=== PATIENT | female | born 1950 | race Caucasian/White ===

== ENCOUNTER 2020-02-07 09:48 | Outpatient (REF) | payer MEDICARE, SELFPAY | END 2020-02-07 09:49 | disposition home or self-care (01) | LOC: HO.LNP 09:48 | PROVIDERS: Visit Provider Internal Medicine | DX: R10.13 Epigastric pain (principal) | CPT/HCPCS: 87338 ==

== ENCOUNTER 2020-04-23 10:06 | Outpatient (REF) | payer MEDICARE, SELFPAY ==
[2020-04-23 11:23] LABS: Hematocrit 43.2 % (37-47); Hemoglobin 13.9 g/dl (12.0-16.0); Mean Corpuscular HGB Conc 32.2 g/dl (31.0-35.0); Mean Corpuscular Hemoglobin 29.8 pg (27.0-33.0); Mean Corpuscular Volume 92.7 fL (80-98); Mean Platelet Volume 9.7 fL (9.4-12.3); Platelet Count 329 X10*3/uL (160-400); Red Blood Count 4.66 X10*6/uL (4.20-5.50); White Blood Count 9.3 X10*3/uL (4.8-10.8)
[2020-04-23 11:30] LABS: Estimated Average Glucose 97 mg/dL
[2020-04-23 12:02] LABS: Thyroid Stimulating Hormone 3.07 uIU/mL (0.32-4.0)
[2020-04-23 12:05] LABS: Alanine Aminotransferase 21 U/L (0-31); Albumin Level 4.8 g/dL (3.5-5.0); Alkaline Phosphatase 72 U/L (39-117); Anion Gap 18 (12-20); Aspartate Amino Transferase 17 U/L (5-31); Bilirubin Direct 0.2 mg/dL (0.0-0.5); Bilirubin Total 0.4 mg/dL (0.0-1.0); Blood Urea Nitrogen 17 mg/dL (9-16); Calcium 10.1 mg/dL (8.4-10.2); Carbon Dioxide 24 mmol/L (22-29); Chloride 102 mmol/L (96-108); Cholesterol 243 mg/dL; Estimated Glomerular Filt Rate > 60; Glucose Random 108 mg/dL (60-115); HDL Cholesterol 80 mg/dL; LDL Cholesterol Calculated 140 mg/dl; Potassium 3.9 mmol/l (3.3-5.1); Sodium 140 mmol/L (135-145); Total Protein 7.8 g/dL (6.5-8.0); Triglycerides 117 mg/dL
== END 2020-04-23 10:07 | disposition home or self-care (01) ==
LOC: HO.HMGCLDS 10:06
PROVIDERS: PCP Internal Medicine; Visit Provider Internal Medicine
DX: E03.9 Hypothyroidism, unspecified (principal); R10.9 Unspecified abdominal pain
CPT/HCPCS: 36415; 80048; 80061; 80076; 83036; 84443; 85027

== ENCOUNTER 2020-05-21 14:00 | Outpatient (REF) | payer MEDICARE, SELFPAY ==
--- NOTE | 2020-05-21 14:04 | XR_ITS ---
EXAMINATION: XR RIBS, BILATERAL CLINICAL INFORMATION: Pleurodynia COMPARISON: 03/18/2019 TECHNIQUE: 3 views of the bilateral ribs were obtained. FINDINGS: Lungs are clear. No consolidation, pneumothorax, or pleural effusion. The cardiomediastinal silhouette and pulmonary vasculature are normal. Osseous structures are unremarkable. Ribs are intact. No fractures are identified. XR/XR ribs BI 3V IMPRESSION: Clear lungs. No focal rib abnormality.
== END 2020-05-21 14:01 | disposition home or self-care (01) ==
LOC: HO.HMGCX 14:00
PROVIDERS: PCP Internal Medicine; Visit Provider Internal Medicine
DX: R07.81 Pleurodynia (principal)
CPT/HCPCS: 71110

== ENCOUNTER → 2020-09-14 11:18 | Outpatient (BNVA) | payer MEDICARE, SELFPAY | PROVIDERS: PCP Internal Medicine; Visit Provider Nurse Practitioner Family | DX: M47.816 Spondylosis without myelopathy or radiculopathy, lumbar region (principal); M53.3 Sacrococcygeal disorders, not elsewhere classified | CPT/HCPCS: 99212 ==

== ENCOUNTER → 2020-09-16 14:28 | Outpatient (BNVA) | payer MEDICARE, SELFPAY | PROVIDERS: PCP Internal Medicine; Visit Provider Nurse Practitioner Gerontology | DX: E03.9 Hypothyroidism, unspecified (principal) | CPT/HCPCS: Q3014 ==

== ENCOUNTER 2020-09-17 10:05 | Outpatient (REF) | payer MEDICARE, SELFPAY ==
[2020-09-17 11:57] LABS: Free T4 (Free Thyroxine) 1.34 ng/dL (0.71-1.85); Thyroid Stimulating Hormone 8.82 uIU/mL (0.32-4.0)
== END 2020-09-17 10:06 | disposition home or self-care (01) ==
LOC: HO.HMGCLDS 10:05
PROVIDERS: PCP Internal Medicine; Visit Provider Nurse Practitioner Gerontology
DX: E03.9 Hypothyroidism, unspecified (principal)
CPT/HCPCS: 36415; 84439; 84443

== ENCOUNTER 2020-11-23 09:57 | Outpatient (REF) | payer MEDICARE, SELFPAY ==
[2020-11-23 12:37] LABS: Erythrocyte Sedimentation Rate 8 MM/HR (0-20)
== END 2020-11-23 09:58 | disposition home or self-care (01) ==
LOC: HO.LAB 09:57
PROVIDERS: PCP Internal Medicine; Visit Provider Psychiatry & Neurology Neurology
DX: M26.69 Other specified disorders of temporomandibular joint (principal); G44.209 Tension-type headache, unspecified, not intractable
CPT/HCPCS: 36415; 85652

== ENCOUNTER 2020-11-24 10:28 | Outpatient (REF) | payer MEDICARE, SELFPAY ==
--- NOTE | ~2020-11-24 | MM_ITS ---
EXAMINATION: MM SCREENING DIGITAL BREAST TOMOSYNTHESIS, BILATERAL CLINICAL INFORMATION: Screening. Asymptomatic. The lifetime risk of breast cancer based on the Tyrer-Cuzick Model is 3.1%. COMPARISON: Mammography: October 12, 2019 and studies dating back to June 14, 2013 TECHNIQUE: Digital breast tomosynthesis is performed in both the craniocaudal and mediolateral oblique views along with computer-aided detection (CAD). Synthesized 2D images are generated from the tomosynthesis. FINDINGS: The breasts are heterogeneously dense, which may obscure small masses (ACR BI-RADS breast composition Category c). There are no significant masses, abnormal calcifications, or other abnormalities. MM/MM tomosynthesis screening BI IMPRESSION: There are no significant changes from prior study. ASSESSMENT: BI-RADS 1: Negative RECOMMENDATION: Routine annual mammography screening. This patient's information was entered into a reminder system with a target due date for their next mammogram.
== END 2020-11-24 10:29 | disposition home or self-care (01) ==
LOC: HO.MAMMO 10:28
PROVIDERS: PCP Internal Medicine; Visit Provider Internal Medicine
DX: Z12.31 Encounter for screening mammogram for malignant neoplasm of breast (principal)
CPT/HCPCS: 77063; 77067

== ENCOUNTER 2020-11-26 09:19 | Outpatient (REF) | payer MEDICARE, SELFPAY ==
[2020-11-26 12:16] LABS: Free T4 (Free Thyroxine) 1.48 ng/dL (0.71-1.85); Thyroid Stimulating Hormone 2.71 uIU/mL (0.32-4.0)
== END 2020-11-26 09:20 | disposition home or self-care (01) ==
LOC: HO.HMGCLDS 09:19
PROVIDERS: PCP Internal Medicine; Visit Provider Nurse Practitioner Gerontology
DX: E03.9 Hypothyroidism, unspecified (principal)
CPT/HCPCS: 36415; 84439; 84443

== ENCOUNTER 2020-12-08 10:26 | Outpatient (REF) | payer MEDICARE, SELFPAY ==
[2020-12-08 11:37] LABS: Eosinophils Absolute Auto 0.1 X10*3/uL (0.0-0.4); Eosinophils Percent Auto 0.5 % (0-4); Hematocrit 42.5 % (37-47); Imm Gran Pct Auto 0.7 % (0.0-0.4); MANUAL DIFF FLAG SCAN; PLT CLUMP 1; Red Cell Distribution Width 12.9 % (11.0-16.0); SCAN SMEAR FLAG 1
[2020-12-08 11:39] LABS: Basophils Absolute Auto 0.1 X10*3/uL (0.0-0.2); Basophils Percent Auto 0.6 % (0-2); Imm Gran Abs Auto 0.07 X10*3/uL (0.00-0.03); Lymphocytes Absolute Auto 2.3 X10*3/uL (1.2-4.9); Lymphocytes Percent Auto 21.5 % (20-40); Mean Corpuscular HGB Conc 32.9 g/dl (31.0-35.0); Mean Corpuscular Hemoglobin 30.6 pg (27.0-33.0); Monocytes Absolute Auto 0.5 X10*3/uL (0.1-1.2); Monocytes Percent Auto 4.7 % (2-11); Neutrophils Absolute Auto 7.6 X10*3/uL (2.0-8.3); Platelet Count 282 X10*3/uL (160-400); Red Blood Count 4.57 X10*6/uL (4.20-5.50); White Blood Count 10.5 X10*3/uL (4.8-10.8)
[2020-12-08 11:59] LABS: Alanine Aminotransferase 30 U/L (0-31); Anion Gap 14 (12-20); Aspartate Amino Transferase 22 U/L (5-31); Blood Urea Nitrogen 10 mg/dL (9-16); Carbon Dioxide 27 mmol/L (22-29); Chloride 103 mmol/L (96-108); Cholesterol 238 mg/dL; Estimated Glomerular Filt Rate > 60; HDL Cholesterol 83 mg/dL; LDL Cholesterol Calculated 122 mg/dl; Magnesium 2.2 mg/dL (1.6-2.6); Potassium 4.4 mmol/L (3.3-5.1); Sodium 140 mmol/L (135-145); Triglycerides 169 mg/dL
[2020-12-08 12:08] LABS: SLIDE REVIEW VERIFIED; Vitamin D 25-OH Total 28.9 ng/mL (>30)
[2020-12-08 14:02] LABS: Folate > 20.0 ng/mL (> or = 4.0); Vitamin B12 991 pg/mL (200-900)
== END 2020-12-08 10:27 | disposition home or self-care (01) ==
LOC: HO.HMGCLDS 10:26
PROVIDERS: PCP Internal Medicine; Visit Provider Internal Medicine Cardiovascular Disease
DX: E78.00 Pure hypercholesterolemia, unspecified (principal); R53.83 Other fatigue; I49.3 Ventricular premature depolarization
CPT/HCPCS: 36415; 80051; 80061; 82306; 82565; 82607; 82746; 83735; 84450; 84460; 84520; 85025

== ENCOUNTER 2021-01-13 07:36 | Outpatient (REF) | payer MEDICARE, SELFPAY ==
[2021-01-13 11:21] LABS: MANUAL DIFF FLAG NO
[2021-01-13 11:32] LABS: Basophils Absolute Auto 0.1 X10*3/uL (0.0-0.2); Basophils Percent Auto 0.9 % (0-2); Eosinophils Absolute Auto 0.1 X10*3/uL (0.0-0.4); Eosinophils Percent Auto 2.2 % (0-4); Hematocrit 40.8 % (37-47); Hemoglobin 13.2 g/dl (12.0-16.0); Imm Gran Abs Auto 0.04 X10*3/uL (0.00-0.03); Imm Gran Pct Auto 0.6 % (0.0-0.4); Lymphocytes Absolute Auto 2.3 X10*3/uL (1.2-4.9); Mean Corpuscular HGB Conc 32.4 g/dl (31.0-35.0); Mean Corpuscular Hemoglobin 30.3 pg (27.0-33.0); Mean Corpuscular Volume 93.6 fL (80-98); Mean Platelet Volume 10.1 fL (9.4-12.3); Monocytes Absolute Auto 0.5 X10*3/uL (0.1-1.2); Monocytes Percent Auto 7.4 % (2-11); Neutrophils Absolute Auto 3.5 X10*3/uL (2.0-8.3); Neutrophils Percent Auto 53.9 % (45-73); Platelet Count 320 X10*3/uL (160-400); Red Blood Count 4.36 X10*6/uL (4.20-5.50); Red Cell Distribution Width 13.1 % (11.0-16.0); White Blood Count 6.5 X10*3/uL (4.8-10.8)
[2021-01-13 11:54] LABS: Anion Gap 14 (12-20); Blood Urea Nitrogen 13 mg/dL (9-16); Calcium 9.8 mg/dL (8.4-10.2); Carbon Dioxide 25 mmol/L (22-29); Chloride 104 mmol/L (96-108); Estimated Glomerular Filt Rate > 60; Glucose Fasting 90 mg/dL (60-99); Potassium 4.5 mmol/L (3.3-5.1); Sodium 138 mmol/L (135-145)
== END 2021-01-13 07:37 | disposition home or self-care (01) ==
LOC: HO.HMGCLDS 07:36
PROVIDERS: PCP Internal Medicine; Visit Provider Internal Medicine
DX: R10.9 Unspecified abdominal pain (principal); R11.0 Nausea; I10 Essential (primary) hypertension
CPT/HCPCS: 36415; 80048; 85025

== ENCOUNTER 2021-01-19 08:19 | Outpatient (REF) | payer MEDICARE, SELFPAY ==
--- NOTE | ~2021-01-19 | CT_ITS ---
EXAMINATION: CT ABDOMEN AND PELVIS WITH CONTRAST CLINICAL INFORMATION: Abdominal pain COMPARISON: Previous CT of the abdomen and pelvis October 2018 TECHNIQUE: Multidetector volumetric images were obtained from the superior aspect of the liver through the pubic symphysis following administration 85 mL of Omnipaque 350 intravenous contrast. Sagittal and coronal reformatted images were obtained on the technologist's workstation. Oral contrast: Yes This CT examination was performed using dose optimization techniques as appropriate, variously including the following: *Automated exposure control *Adjustment of mA and/or kV according to patient size (this includes techniques or standardized protocols for targeted exams where dose is matched to indication/reason for exam; i.e. extremities or head) *Use of iterative reconstruction technique DLP: 442 mGy-cm FINDINGS: LUNG BASES: The visualized lung bases are unremarkable. LIVER, GALLBLADDER, AND BILIARY TREE: The liver is normal in size, shape, and attenuation. No focal hepatic lesion or biliary ductal dilatation is present. The gallbladder has been removed. PANCREAS: Unremarkable. SPLEEN: Unremarkable. ADRENAL GLANDS: Unremarkable. KIDNEYS AND URETERS: There are small left renal peripelvic cysts. There is a 5 mm calcification in the mid left kidney with lucent center. Differential would include a cyst with wall calcification and small aneurysm. This is unchanged from old exams. The kidneys are otherwise unremarkable. BLADDER: Unremarkable. GASTROINTESTINAL TRACT: The small and large bowel are unremarkable. The appendix is unremarkable. ABDOMINAL WALL: No significant hernia is appreciated. LYMPH NODES: Normal. VASCULAR: Unremarkable. PELVIC VISCERA: Unremarkable. OSSEOUS STRUCTURES: There are degenerative changes of the spine. CT/CT abdomen pelvis w con IMPRESSION: Small left renal peripelvic cysts. 5 mm calcification with lucent center in the left kidney questionable for cyst with wall calcification versus renal artery aneurysm. This is stable previous CT scans.
[2021-01-19] MEDS: iohexoL 350 MG/ML 100 ML INFUS..BTL 85 ML IV (11:49)
[2021-01-19] MEDS: Barium Sulfate Oral (Vanilla) 450 ML ORAL.SUSP 900 ML PO (11:52)
== END 2021-01-19 08:20 | disposition home or self-care (01) ==
LOC: HO.CT 08:19
PROVIDERS: PCP Internal Medicine; Visit Provider Internal Medicine
DX: R10.9 Unspecified abdominal pain (principal); R11.0 Nausea
CPT/HCPCS: 74177; Q9967

== ENCOUNTER 2021-01-22 10:53 | Outpatient (REF) | payer MEDICARE, SELFPAY ==
[2021-01-22 12:09] LABS: Appearance Urine CLEAR; Color Urine YELLOW; Glucose Urine UA NEG (NEG); Leukocyte Esterase Urine NEG (NEG); Nitrite Urine NEG (NEG); Urine Blood NEG (NEG); Urine Ketones NEG (NEG); Urine Protein NEG (NEG-TRACE)
== END 2021-01-22 10:54 | disposition home or self-care (01) ==
LOC: HO.HMGCLDS 10:53
PROVIDERS: Internal Medicine; PCP Internal Medicine; Visit Provider Internal Medicine
DX: R30.0 Dysuria (principal)
CPT/HCPCS: 81003

== ENCOUNTER → 2021-02-16 15:14 | Outpatient (BNVA) | payer MEDICARE, SELFPAY | PROVIDERS: PCP Internal Medicine; Visit Provider Nurse Practitioner Family | DX: M47.816 Spondylosis without myelopathy or radiculopathy, lumbar region (principal); M53.3 Sacrococcygeal disorders, not elsewhere classified; I10 Essential (primary) hypertension; R53.83 Other fatigue; Z87.891 Personal history of nicotine dependence; Z88.1 Allergy status to other antibiotic agents; Z88.8 Allergy status to other drugs, medicaments and biological substances | CPT/HCPCS: Q3014 ==

== ENCOUNTER 2021-03-24 06:10 | Outpatient (REF) | payer MEDICARE, SELFPAY | END 2021-03-24 06:11 | disposition home or self-care (01) | LOC: HO.RADIR 06:10 | PROVIDERS: Visit Provider Internal Medicine | DX: Z13.89 Encounter for screening for other disorder (principal) ==

== ENCOUNTER → 2021-05-11 08:25 | Outpatient (BNVA) | payer MEDICARE, SELFPAY | PROVIDERS: PCP Internal Medicine; Visit Provider Nurse Practitioner Gerontology | DX: E03.9 Hypothyroidism, unspecified (principal) | CPT/HCPCS: Q3014 ==

== ENCOUNTER 2021-06-16 07:45 | Outpatient (REF) | payer MEDICARE, SELFPAY ==
[2021-06-16 11:51] LABS: Alanine Aminotransferase 25 U/L (0-31); Anion Gap 16 (12-20); Aspartate Amino Transferase 20 U/L (5-31); Blood Urea Nitrogen 19 mg/dL (9-16); Calcium 9.9 mg/dL (8.4-10.2); Carbon Dioxide 25 mmol/L (22-29); Chloride 102 mmol/L (96-108); Cholesterol 260 mg/dL; Estimated Glomerular Filt Rate > 60; Glucose Fasting 98 mg/dL (60-99); HDL Cholesterol 71 mg/dL; LDL Cholesterol Calculated 158 mg/dl; Potassium 4.4 mmol/L (3.3-5.1); Sodium 139 mmol/L (135-145); Triglycerides 156 mg/dL
[2021-06-16 11:58] LABS: Thyroid Stimulating Hormone 2.15 uIU/mL (0.32-4.0); Vitamin D 25-OH Total 33.2 ng/mL (>30)
[2021-06-16 12:03] LABS: Free T4 (Free Thyroxine) 1.39 ng/dL (0.71-1.85)
[2021-06-16 12:41] LABS: Folate 15.8 ng/mL (> or = 4.0); Vitamin B12 717 pg/mL (200-900)
== END 2021-06-16 07:46 | disposition home or self-care (01) ==
LOC: HO.HMGCLDS 07:45
PROVIDERS: PCP Internal Medicine; Visit Provider Nurse Practitioner Gerontology
DX: R10.9 Unspecified abdominal pain (principal); E78.5 Hyperlipidemia, unspecified; I10 Essential (primary) hypertension; R53.83 Other fatigue; E03.9 Hypothyroidism, unspecified; Z78.0 Asymptomatic menopausal state
CPT/HCPCS: 36415; 80048; 80061; 82306; 82607; 82746; 84439; 84443; 84450; 84460

== ENCOUNTER 2021-10-20 07:09 | Outpatient (REF) | payer MEDICARE, SELFPAY ==
[2021-10-20 11:41] LABS: Alanine Aminotransferase 19 U/L (0-31); Aspartate Amino Transferase 19 U/L (5-31); Cholesterol 217 mg/dL; HDL Cholesterol 80 mg/dL; LDL Cholesterol Calculated 109 mg/dl; Triglycerides 144 mg/dL
== END 2021-10-20 07:10 | disposition home or self-care (01) ==
LOC: HO.HMGCLDS 07:09
PROVIDERS: PCP Internal Medicine; Visit Provider Internal Medicine Cardiovascular Disease
DX: E78.2 Mixed hyperlipidemia (principal)
CPT/HCPCS: 36415; 80061; 84450; 84460

== ENCOUNTER 2021-11-09 10:59 | Outpatient (REF) | payer MEDICARE, SELFPAY ==
--- NOTE | ~2021-11-09 | XR_ITS ---
EXAMINATION: XR LUMBAR SPINE XR SACROILIAC JOINTS CLINICAL INFORMATION: Pain. Sacrococcygeal disorder. COMPARISON: CT abdomen and pelvis from 01/19/2021. TECHNIQUE: Lumbar spine, 3 views Sacroiliac joints, 3 views FINDINGS: LUMBAR SPINE: No acute findings in the degenerated lumbar spine compared to 01/11/2021. Chronic facet osteoarthritis at L4-5 and L5-S1. Stpu-lg-nprgiwij disc space narrowing at L3-L4, L4-5 and L5-S1. There is 0.5 cm of grade 1 anterolisthesis of L4 on L5. Minimal anterolisthesis at L3-L4 and minimal retrolisthesis at L5-S1. The AP view shows approximately 0.3 cm of right lateral listhesis of L3 on L4. There is a Schmorl's node of the L5 superior plate. SACRUM/SACROILIAC JOINTS: The sacral ala and foramina are intact. No sacral fracture. Sacroiliac joints have a normal appearance. No erosions. No focal lytic or blastic lesion. Multiple phleboliths are seen in the pelvis. Cholecystectomy clips are present in the right upper abdomen. XR/XR lumbar spine 2-3V IMPRESSION: * No acute abnormalities. No vertebral compression fractures. * Chronic disc degenerative changes and facet arthropathy of the lower lumbar spine. * Mild degenerative vertebral subluxations are noted at L3-L4, L4-5 and L5-S1.
--- NOTE | ~2021-11-09 | XR_ITS ---
EXAMINATION: XR LUMBAR SPINE XR SACROILIAC JOINTS CLINICAL INFORMATION: Pain. Sacrococcygeal disorder. COMPARISON: CT abdomen and pelvis from 01/19/2021. TECHNIQUE: Lumbar spine, 3 views Sacroiliac joints, 3 views FINDINGS: LUMBAR SPINE: No acute findings in the degenerated lumbar spine compared to 01/11/2021. Chronic facet osteoarthritis at L4-5 and L5-S1. Qiow-fd-lkbcbpkf disc space narrowing at L3-L4, L4-5 and L5-S1. There is 0.5 cm of grade 1 anterolisthesis of L4 on L5. Minimal anterolisthesis at L3-L4 and minimal retrolisthesis at L5-S1. The AP view shows approximately 0.3 cm of right lateral listhesis of L3 on L4. There is a Schmorl's node of the L5 superior plate. SACRUM/SACROILIAC JOINTS: The sacral ala and foramina are intact. No sacral fracture. Sacroiliac joints have a normal appearance. No erosions. No focal lytic or blastic lesion. Multiple phleboliths are seen in the pelvis. Cholecystectomy clips are present in the right upper abdomen. XR/XR sacroiliac joint 1-2V IMPRESSION: * No acute abnormalities. No vertebral compression fractures. * Chronic disc degenerative changes and facet arthropathy of the lower lumbar spine. * Mild degenerative vertebral subluxations are noted at L3-L4, L4-5 and L5-S1.
== END 2021-11-09 11:00 | disposition home or self-care (01) ==
LOC: HO.HMGCX 10:59
PROVIDERS: PCP Internal Medicine; Visit Provider Nurse Practitioner Family
DX: M53.3 Sacrococcygeal disorders, not elsewhere classified (principal); M54.16 Radiculopathy, lumbar region
CPT/HCPCS: 72100; 72200

== ENCOUNTER 2021-11-24 | Outpatient (REF) | payer MEDICARE, SELFPAY | END 2021-11-24 00:01 | disposition home or self-care (01) | LOC: CF | PROVIDERS: PCP Internal Medicine; Visit Provider Nurse Practitioner Family | DX: R10.13 Epigastric pain (principal); M54.9 Dorsalgia, unspecified; G62.9 Polyneuropathy, unspecified; M53.3 Sacrococcygeal disorders, not elsewhere classified; M47.816 Spondylosis without myelopathy or radiculopathy, lumbar region; M54.16 Radiculopathy, lumbar region; R20.2 Paresthesia of skin; Z13.1 Encounter for screening for diabetes mellitus; Z12.11 Encounter for screening for malignant neoplasm of colon; Z86.010 Personal history of colon polyps | CPT/HCPCS: 99212 ==

== ENCOUNTER 2021-11-25 08:28 | Outpatient (REF) | payer MEDICARE, SELFPAY ==
[2021-11-25 11:49] LABS: Estimated Average Glucose 100 mg/dL; Hemoglobin A1c % 5.1 %
== END 2021-11-25 08:29 | disposition home or self-care (01) ==
LOC: HO.HMGCLDS 08:28
PROVIDERS: PCP Internal Medicine; Visit Provider Nurse Practitioner Family
DX: Z13.1 Encounter for screening for diabetes mellitus (principal)
CPT/HCPCS: 36415; 83036

== ENCOUNTER 2021-11-29 12:45 | Outpatient (REF) | payer MEDICARE, SELFPAY ==
--- NOTE | ~2021-11-29 | MM_ITS ---
EXAMINATION: MM SCREENING DIGITAL BREAST TOMOSYNTHESIS, BILATERAL CLINICAL INFORMATION: Screening. Asymptomatic. The lifetime risk of breast cancer based on the Tyrer-Cuzick Model is 3%. COMPARISON: Mammography: 11/24/2020, 10/12/2019, 10/06/2018 TECHNIQUE: Digital breast tomosynthesis is performed in both the craniocaudal and mediolateral oblique views along with computer-aided detection (CAD). Synthesized 2D images are generated from the tomosynthesis. FINDINGS: The breasts are heterogeneously dense, which may obscure small masses (ACR BI-RADS breast composition Category c). There are no significant masses, abnormal calcifications, or other abnormalities. Parenchymal pattern is similar to prior studies. There is fibronodular parenchymal pattern and scattered shifting fibroglandular densities related to positioning similar to prior studies. No developing density or architectural abnormality. The axilla and skin contours are unremarkable. No significant changes. MM/MM tomosynthesis screening BI IMPRESSION: No mammographic evidence of malignancy. ASSESSMENT: BI-RADS 2: Benign RECOMMENDATION: Routine annual mammography screening. This patient's information was entered into a reminder system with a target due date for their next mammogram.
== END 2021-11-29 12:46 | disposition home or self-care (01) ==
LOC: HO.MAMMO 12:45
PROVIDERS: PCP Internal Medicine; Visit Provider Internal Medicine
DX: Z12.31 Encounter for screening mammogram for malignant neoplasm of breast (principal)
CPT/HCPCS: 77063; 77067

== ENCOUNTER 2021-12-30 07:03 | Outpatient (REF) | payer MEDICARE, SELFPAY ==
[2021-12-30 12:31] LABS: Alanine Aminotransferase 17 U/L (0-31); Anion Gap 16 (12-20); Aspartate Amino Transferase 16 U/L (5-31); Blood Urea Nitrogen 15 mg/dL (9-16); Calcium 9.6 mg/dL (8.4-10.2); Carbon Dioxide 27 mmol/L (22-29); Chloride 104 mmol/L (96-108); Cholesterol 198 mg/dL; Estimated Glomerular Filt Rate > 60; Glucose Fasting 99 mg/dL (60-99); HDL Cholesterol 72 mg/dL; LDL Cholesterol Calculated 106 mg/dl; Potassium 4.7 mmol/L (3.3-5.1); Sodium 142 mmol/L (135-145); Triglycerides 102 mg/dL
[2021-12-30 12:54] LABS: Thyroid Stimulating Hormone 0.98 uIU/mL (0.32-4.0); Vitamin D 25-OH Total 34.4 ng/mL (>30)
== END 2021-12-30 07:04 | disposition home or self-care (01) ==
LOC: HO.HMGCLDS 07:03
PROVIDERS: PCP Internal Medicine; Visit Provider Internal Medicine
DX: E03.9 Hypothyroidism, unspecified (principal); E78.5 Hyperlipidemia, unspecified; I10 Essential (primary) hypertension; N95.9 Unspecified menopausal and perimenopausal disorder; R53.83 Other fatigue
CPT/HCPCS: 36415; 80048; 80061; 82306; 82550; 84439; 84443; 84450; 84460

== ENCOUNTER → 2022-02-28 12:41 | Outpatient (BNVA) | payer MEDICARE, SELFPAY | PROVIDERS: PCP Internal Medicine; Visit Provider Physician Assistant | DX: K57.30 Diverticulosis of large intestine without perforation or abscess without bleeding (principal); R09.89 Other specified symptoms and signs involving the circulatory and respiratory systems; Z86.010 Personal history of colon polyps | CPT/HCPCS: 99202 ==

== ENCOUNTER → 2022-03-08 08:32 | Outpatient (BNVA) | payer MEDICARE, SELFPAY | PROVIDERS: PCP Internal Medicine; Visit Provider Nurse Practitioner Family | DX: M53.3 Sacrococcygeal disorders, not elsewhere classified (principal); M47.816 Spondylosis without myelopathy or radiculopathy, lumbar region; M54.16 Radiculopathy, lumbar region; R20.2 Paresthesia of skin; M51.36 Other intervertebral disc degeneration, lumbar region | CPT/HCPCS: Q3014 ==

== ENCOUNTER 2022-03-15 10:43 | Outpatient (REF) | payer OTHER, SELFPAY ==
--- NOTE | ~2022-03-15 | XR_ITS ---
EXAMINATION: XR HIP, LEFT CLINICAL INFORMATION: Pain. COMPARISON: None TECHNIQUE: AP pelvis one view and 2 views of left hip. FINDINGS: AP pelvis and 2 views left hip: There is normal symmetry of bilateral SI joints and hip joints. No visible acute fracture, dislocation or lytic process seen. No bony erosive changes. The soft tissues are normal. AP and frog-leg views left hip reveals no fracture or dislocation. The soft tissues are normal. XR/XR hip LT w PEL1V IMPRESSION: 1. Unremarkable AP pelvis and left hip exam. 2. No visible acute fracture or dislocation left hip or the AP pelvis.
== END 2022-03-15 10:44 | disposition home or self-care (01) ==
LOC: HO.HMGCX 10:43
PROVIDERS: Absent Provider Internal Medicine Rheumatology; PCP Internal Medicine; Visit Provider Nurse Practitioner Family
DX: M25.552 Pain in left hip (principal)
CPT/HCPCS: 73502

== ENCOUNTER 2022-03-24 11:11 | Outpatient (REF) | payer OTHER, SELFPAY ==
--- NOTE | ~2022-03-24 | MR_ITS ---
EXAMINATION: MR LUMBAR SPINE WITHOUT CONTRAST CLINICAL INFORMATION: Spondylosis without myelopathy, lumbar region. COMPARISON: Plain films of the lumbar spine 11/09/2021. CT scan of the abdomen and pelvis 01/19/2021. MRI scan of the lumbar spine 12/06/2017. TECHNIQUE: MRI of the lumbar spine was obtained using routine sequences without contrast. FINDINGS: VERTEBRAL BODIES AND PARASPINAL STRUCTURES: The study redemonstrates a levoscoliosis. There is a mild grade 1 anterolisthesis L4 on L5, slightly increased compared to the prior MRI scan, but similar compared to the more recent CT scan. There is a mild grade 1 anterolisthesis of L3 on L4. There is a prominent Schmorl's node in the superior endplate of L5, with smaller Schmorl's nodes at other level in the mid and upper lumbar region. There is mild loss of vertebral body height of L5 superiorly which is a chronic finding. Vertebral body heights elsewhere are maintained and no fractures are demonstrated. There are degenerative endplate contour changes, with fatty endplate signal along the superior endplate of L5, similar compared to prior imaging. There are also fatty endplate signal changes anteriorly at L3-L4. There is an area of increased T1 and T2 signal in the body of L2, consistent with a hemangioma. Vertebral body heights are maintained and no fractures are demonstrated. Overall, marrow signal is homogenous. There are bilateral parapelvic renal cysts. The visualized pelvic structures are unremarkable. CONUS MEDULLARIS AND CAUDA EQUINA: Normal, terminating at the level of L1. The lower thoracic spinal cord appears normal. The cauda equina nerve roots and filum terminale appear normal. There are Tarlov cysts in the sacral spinal canal. SPINAL LEVELS: L1-L2: There is mild bilateral facet arthropathy. There is a posterior disc protrusion which distorts the ventral thecal sac centrally and to the left of midline but there is no central stenosis or significant narrowing of the subarticular recesses. The neural foramina are patent bilaterally. L2-L3: There is mild bilateral facet arthropathy. There is a posterior disc protrusion with flattening of the ventral thecal sac, with extension into the right neural foramen with impingement on the exiting right L2 nerve root. There is mild narrowing of the subarticular recesses. There is minimal central stenosis. L3-L4: There is severe bilateral facet arthropathy. There is mild unroofing of the disc as a result of the anterolisthesis. There is mild flattening of the ventral thecal sac with mild narrowing of the bilateral subarticular recesses. There are bilateral foraminal disc protrusions with impingement on the exiting left L3 nerve root. There is no significant central stenosis. L4-L5: There is moderately severe bilateral facet arthropathy. There is unroofing of the disc as a result of anterolisthesis. There are inferior foraminal disc protrusions bilaterally without impingement on exiting L5 nerve roots. There is marked narrowing of the bilateral subarticular recesses with impingement survey. L5 nerve roots, increased compared to prior imaging. There is severe central stenosis. L5-S1: There is moderate bilateral facet arthropathy. There is a shallow posterior disc protrusion without significant mass effect on the thecal sac. There are inferior foraminal disc protrusions bilaterally without definite exiting nerve root impingement. There is mild impingement on the traversing S1 nerve roots bilaterally but no central stenosis. MR/MR lumbar spine wo con IMPRESSION: 1. At L4-L5 there is a grade 1 anterolisthesis secondary to facet arthropathy. There is marked narrowing of the subarticular recesses with impingement on the L5 nerve roots, increased compared to prior imaging. There is severe central stenosis. 2. At L3-L4 there is severe facet arthropathy. There is mild flattening of the ventral thecal sac with mild narrowing of the subarticular recesses. There are bilateral foraminal disc protrusions with impingement on the exiting left L3 nerve root. There is no significant central stenosis. 3. At L2-L3 there is a posterior disc protrusion extending into the right neural foramen with impingement on the exiting right L2 nerve root. There is minimal central stenosis. 4. At L5-S1 there is facet arthropathy and there is a shallow posterior disc protrusion. There is mild impingement on the traversing S1 nerve roots. There is no central stenosis.
== END 2022-03-24 11:12 | disposition home or self-care (01) ==
LOC: HO.MRI 11:11
PROVIDERS: Visit Provider Nurse Practitioner Family
DX: M47.816 Spondylosis without myelopathy or radiculopathy, lumbar region (principal); M51.36 Other intervertebral disc degeneration, lumbar region; M54.16 Radiculopathy, lumbar region; R20.2 Paresthesia of skin
CPT/HCPCS: 72148

== ENCOUNTER 2022-05-07 13:33 | Outpatient (REF) | payer OTHER, SELFPAY ==
[2022-05-07 14:29] LABS: Influenza A PCR NEGATIVE (Negative); Influenza B PCR NEGATIVE (Negative); Resp Syncy Virus RNA Qual PCR NEGATIVE (Negative); SARS COV2 PCR INHOUSE NEGATIVE (Negative)
== END 2022-05-07 13:34 | disposition home or self-care (01) ==
LOC: HO.LNP 13:33
PROVIDERS: Visit Provider Physician Assistant Medical
DX: Z20.822 Contact with and (suspected) exposure to COVID-19 (principal); R05.9 Cough, unspecified; J02.9 Acute pharyngitis, unspecified
CPT/HCPCS: 0241U; 87070

== ENCOUNTER 2022-06-13 13:24 | Outpatient (REF) | payer OTHER, SELFPAY ==
[2022-06-13 16:19] LABS: MANUAL DIFF FLAG NO
[2022-06-13 16:29] LABS: Basophils Absolute Auto 0.1 X10*3/uL (0.0-0.2); Basophils Percent Auto 0.8 % (0-2); Eosinophils Absolute Auto 0.1 X10*3/uL (0.0-0.4); Eosinophils Percent Auto 1.3 % (0-4); Hematocrit 41.2 % (37.0-47.0); Hemoglobin 13.5 g/dl (12.0-16.0); Imm Gran Abs Auto 0.04 X10*3/uL (0.00-0.03); Imm Gran Pct Auto 0.4 % (0.0-0.4); Lymphocytes Absolute Auto 3.1 X10*3/uL (1.2-4.9); Lymphocytes Percent Auto 31.3 % (20-40); Mean Corpuscular HGB Conc 32.8 g/dl (31.0-35.0); Mean Corpuscular Hemoglobin 30.5 pg (27.0-33.0); Mean Corpuscular Volume 93.2 fL (80.0-98.0); Mean Platelet Volume 10.2 fL (9.4-12.3); Monocytes Absolute Auto 0.5 X10*3/uL (0.1-1.2); Monocytes Percent Auto 5.3 % (2-11); Neutrophils Percent Auto 60.9 % (45-73); Platelet Count 317 X10*3/uL (160-400); Red Blood Count 4.42 X10*6/uL (4.20-5.50); Red Cell Distribution Width 12.8 % (11.0-16.0); White Blood Count 9.9 X10*3/uL (4.8-10.8)
[2022-06-13 17:30] LABS: Folate 15.3 ng/mL (> or = 4.0); Free T4 (Free Thyroxine) 1.42 ng/dL (0.71-1.85); Thyroid Stimulating Hormone 2.18 uIU/mL (0.32-4.0); Vitamin B12 699 pg/mL (200-900)
== END 2022-06-13 13:25 | disposition home or self-care (01) ==
LOC: HO.HMGCLDS 13:24
PROVIDERS: PCP Internal Medicine; Visit Provider Internal Medicine
DX: M26.629 Arthralgia of temporomandibular joint, unspecified side (principal); R53.83 Other fatigue; E03.9 Hypothyroidism, unspecified
CPT/HCPCS: 36415; 82306; 82607; 82746; 84439; 84443; 85025

== ENCOUNTER 2022-08-31 14:48 | Outpatient (REF) | payer OTHER, SELFPAY ==
--- NOTE | ~2022-08-31 | XR_ITS ---
EXAMINATION: XR FOREARM, RIGHT CLINICAL INFORMATION: Right forearm contusion COMPARISON: None available. TECHNIQUE: AP and lateral views of the right forearm were obtained. FINDINGS: There is no evidence of acute fracture or dislocation of the right forearm. No right elbow effusion. Surgical screws are seen about the distal humerus. There is some deformity of the radial head likely sequela of previous fracture and degenerative spurring. There is some soft tissue prominence seen about the dorsum of the mid ulna. There is osteopenia of visualized bones. XR/XR forearm RT 2V IMPRESSION: No evidence of acute fracture, dislocation, or effusion. Postsurgical appearance of the distal humerus with hardware appearing intact. Deformity of radial head likely related to previous fracture.
== END 2022-08-31 14:49 | disposition home or self-care (01) ==
LOC: HO.HMGCX 14:48
PROVIDERS: PCP Internal Medicine; Visit Provider Internal Medicine
DX: S50.11XA Contusion of right forearm, initial encounter (principal)
CPT/HCPCS: 73090

== ENCOUNTER 2022-09-21 11:20 | Outpatient (AMB) | payer OTHER, SELFPAY ==
--- NOTE | 2022-09-21 11:23 | MHC.PC.OV ---
Vital Signs 09/21/22 11:25 Height 5 ft 4.5 in Weight 161 lb 7 oz BMI 27.3 BP 135/76 Blood Pressure Location Lt brachial Position Sitting Pulse 81 Pulse Source Pulse Oximeter Pulse Oximetry (%) 97 Oxygen Delivery Method Room Air Intake Visit Reasons: Irregular heartbeat Intake Note: Pt is here today to discuss new med that cardiology is prescribing for atrial fibrillation. Allergies ciprofloxacin Adverse Reaction (Unknown, Verified 03/22/23 10:55) pulled muscle doxycycline Adverse Reaction (Unknown, Verified 03/22/23 10:55) vision changes lisinopril Adverse Reaction (Unknown, Verified 03/22/23 10:55) cough Medication List - Last Reconciled 09/21/22 by Padmini Boggs MD albuterol sulfate 90 mcg/actuation (ProAir HFA) 1 inh inhalation QID PRN 30 days cholecalciferol (vitamin D3) 25 mcg PO DAILY dicyclomine 10 mg PO TID gabapentin 300 mg PO ONCE PRN ibuprofen 400 mg PO TID levothyroxine 100 mcg PO DAILY magnesium 200 mg PO DAILY vwbqough-ikxptgx-qfzy-lutein tabs PO olmesartan 10 mg (2 x 5 mg) PO DAILY omeprazole 20 mg PO DAILY timolol 0.5% 1 drp ophthalmic (eye) DAILY tizanidine 4 mg PO BEDTIME PRN Tobacco use date assessed: 09/21/22 Fall risk assessment: No Falls in past year Last assessed Fall Risk: 09/21/22 HPI Irregular heart rhythm HPI Details 73-year-old lady here today for follow-up on her hypothyroidism, hypertension, which is currently stable and controlled with levothyroxine 100 mcg daily and on olmesartan 10 mg daily. She was recently found to have paroxysmal atrial fibrillation on no Holter monitor ordered by her smooth and burr worker composites, with a chads score of 3. Her smooth and burr worker composites recommend starting anticoagulation with either warfarin, Eliquis or Xarelto , as well as doing the Watchman procedure, but patient undecided as to whether to proceed with any of these. She also has been started by her smooth and burr worker composites on Livalo for her hyperlipidemia. Also complaining of itching and redness in coronal for left eye, which has been present for the last 2 days. Denies any photophobia, no pain over said area. [facility] Medical History Spinal stenosis of lumbar region with radiculopathy Paroxysmal atrial fibrillation Left lumbar radiculopathy Sacroiliac joint dysfunction IBS (irritable bowel syndrome) Temporomandibular joint pain Dyslipidemia Essential hypertension Tubular adenoma of colon Left forearm fracture Lumbar degenerative disc disease Osteoarthritis involving multiple joints on both sides of body Acquired hypothyroidism Surgical History History of esophagogastroduodenoscopy (EGD) Hx of colonoscopy History of elbow surgery Hx of cholecystectomy History of fracture of forearm Family History Father Myocardial infarction Mother HTN (hypertension) Hyperlipidemia Pancreatic cancer Maternal Grandmother Unknown family medical history Brother No problems noted. Son No problems noted. Maternal Uncle Colon cancer Social History Household Members: None Housing: Apartment Alcohol intake: current Alcohol intake frequency: does not drink Patient Tobacco Use Status: Former Tobacco user Years Smoked: 2 yrs e-Cigarette/Vaping Use: Never Used Second Hand Smoke Exposure: No service: No Current occupational status: retired Current occupational exposures/hazards: No Cognitive needs: No Hearing needs: No Vision needs: Yes (glasses/contacts) Questionnaire Thrive Questionnaire Date Thrive assessed: 06/13/22 AUDIT C Alcohol Use Questionnaire (AUDIT-C) 1. How often do you have a drink containing alcohol?: Never Total Score: 0 PROMISE-7 AMB Questionnaire PROMISE-7 Date PROMISE - 7 assessed: 06/13/22 Source: Developed by Drs. Ta Renee, Meagan Olivarez, Jose David Howard and colleagues, with an educational allyn from [employer]. Review of Systems Const All systems reviewed & are unremarkable except as noted in HPI and below Denies headache(s) Eyes Reports as per HPI and Reports no additional complaints ENT Reports Normal hearing present, Denies dysphagia, Denies vertigo, Denies dizziness, Denies headache(s), Denies nasal congestion, Denies post nasal drip, Denies tinnitus, Denies sinus pain and Denies sore throat Card Denies chest pain, Denies chest pain with activity, Denies irregular heart rhythm, Denies lightheadedness and Denies dyspnea Resp Reports no additional complaints and Denies dyspnea GI Reports no additional complaints and Denies dysphagia Musc Reports no additional complaints Skin/Breast Denies lesions and Denies rash Neuro Reports Normal hearing present, Denies vertigo, Denies dizziness and Denies headache(s) Endo Reports no additional complaints Physical exam (Primary Care) Vital Signs: Last Vital Signs Pulse 81 09/21/22 11:25 BP 135/76 09/21/22 11:25 Pulse Ox 97 09/21/22 11:25 Oxygen Delivery Method Room Air 09/21/22 11:25 BMI result Body Mass Index 27.3 Tobacco/Smoking Status: Tobacco use Status Tobacco use date assessed 09/21/22 09/21/22 11:29 Patient Tobacco Use Status Former Tobacco user 09/21/22 11:24 e-Cigarette/Vaping Use Never Used 09/21/22 11:24 Thrive Assessment: Date of Thrive Assessment Date Thrive assessed 06/13/22 09/21/22 11:24 Const Other: Alert oriented x3, no acute cardiorespiratory distress noted, normal gait HENMT Head: Yes normocephalic and Yes atraumatic Ears: hearing grossly normal bilaterally and external ears normal Mouth: Normal oral and palatal mucosa present, tongue normal, oropharynx normal and moist mucous membranes Eyes Periorbital: periorbital findings normal Eyelids: Yes eyelids normal Conjunctivae: conjunctival abnormal left conjunctival injection Sclerae: scleral abnormal left scleral injection Pupils: Equal, round and reactive pupils present EOM: EOMs intact bilaterally Neck Neck: Yes full ROM, Yes no lymphadenopathy and Yes supple Thyroid: Thyroid normal Resp Auscultation: clear to auscultation bilaterally Cardio Rate: regular rate Rhythm: regular rhythm Heart sounds: S1 normal heart sound present and S2 normal heart sound present GI Palpation (GI): Soft to palpation, nontender, no guarding and no masses Auscultation: normal bowel sounds Skin General skin exam: no rashes or lesions noted Neuro Cranial nerves: Yes Equal, round and reactive pupils present and Yes Normal hearing present Extrem General: Yes full ROM, Yes no joint enlargement, Yes no clubbing, cyanosis or edema and Yes normal gait Assessment and Plan Assessment & Plan (1) Dyslipidemia: Code(s): E78.5 - Hyperlipidemia, unspecified Plan: Fasting lipid panel ordered, . Continue with Livalo , in addition to adherence to low-cholesterol diet and regular exercise, at least 30 minutes 3 to 4 times a week. Advised patient to make healthy food choices, eat more fruits, vegetables, whole grains, wild caught fish and low-fat dairy. Limit amount of meat and fried or fatty food products, as well as processed foods and fast foods. (2) Irregular heart rhythm: Code(s): I49.9 - Cardiac arrhythmia, unspecified Plan: Advised to cut back or avoid caffeinated drinks and food. Has been advised by her smooth and burr worker composites to start anticoagulation she has been that seen to have paroxysmal atrial fibrillation with a chads score of 3, with no complaints at present time. Patient still undecided whether to start taking medication offered. Has an appointment in for follow-up with her smooth and burr worker composites next month. (3) Acquired hypothyroidism: Code(s): E03.9 - Hypothyroidism, unspecified Plan: Thyroid levels done recently were within normal limits continued on levothyroxine 100 mcg daily (4) Conjunctivitis: Code(s): H10.9 - Unspecified conjunctivitis Plan: Prescription sent for akotbtza-jysxipghr-xenyysiqaj eye drop, instill 1 drop to left eye every 6 hours for 5 days. If no improvement of symptoms, advised to schedule appointment with Dr. Burton for further evaluation and management Orders: Orders Lipid Panel 09/23/22 E78.5 - Hyperlipidemia, unspecified Medications: New gszxitwk-wkescubxz-qjqkvgjmos 1.75 mg-10,000 unit-0.025mg/mL 1 drp ophthalmic (eye) Q6H 10 mL 0RF 5 days Coding Level of Care Code Est Pt Level 4 (74406) Diagnoses Dyslipidemia E78.5 Irregular heart rhythm I49.9 Acquired hypothyroidism E03.9 Conjunctivitis H10.9
[2022-09-21 11:25] VITALS: BP 135/76; PULSE 81; O2SAT 97; BMI 27.3
== END 2022-09-21 12:08 | disposition home or self-care (01) ==
LOC: HO.HMGC 11:20
PROVIDERS: PCP Internal Medicine; Visit Provider Internal Medicine
DX: E78.5 Hyperlipidemia, unspecified (principal); I49.9 Cardiac arrhythmia, unspecified; E03.9 Hypothyroidism, unspecified; H10.9 Unspecified conjunctivitis
CPT/HCPCS: 99214

== ENCOUNTER 2022-09-23 07:07 | Outpatient (REF) | payer OTHER, SELFPAY ==
[2022-09-23 12:51] LABS: Cholesterol 176 mg/dL; HDL Cholesterol 77 mg/dL; LDL Cholesterol Calculated 76 mg/dl; Triglycerides 118 mg/dL
== END 2022-09-23 07:08 | disposition home or self-care (01) ==
LOC: HO.HMGCLDS 07:07
PROVIDERS: PCP Internal Medicine; Visit Provider Internal Medicine
DX: E78.5 Hyperlipidemia, unspecified (principal)
CPT/HCPCS: 36415; 80061

== ENCOUNTER 2022-12-06 10:37 | Outpatient (REF) | payer OTHER, SELFPAY | END 2022-12-06 10:38 | disposition home or self-care (01) | LOC: HO.MAMMO 10:37 | PROVIDERS: PCP Internal Medicine; Visit Provider Internal Medicine | DX: Z12.31 Encounter for screening mammogram for malignant neoplasm of breast (principal) | CPT/HCPCS: 77063; 77067 ==

== ENCOUNTER → 2022-12-06 11:00 | Outpatient (BNV) | payer OTHER, SELFPAY | PROVIDERS: PCP Internal Medicine; Visit Provider Radiology Diagnostic Radiology | DX: Z12.31 Encounter for screening mammogram for malignant neoplasm of breast (principal) | CPT/HCPCS: 77063; 77067 ==

== ENCOUNTER 2022-12-30 11:46 | Outpatient (AMB) | payer MEDICARE, SELFPAY ==
--- NOTE | 2022-12-30 12:07 | A.OFFPC_ITS ---
Vital Signs 12/30/22 12:12 Height 5 ft 4.5 in Weight 163 lb BMI 27.5 BP 142/72 H Blood Pressure Location Lt brachial Position Sitting Pulse 80 Pulse Source Pulse Oximeter Pulse Oximetry (%) 98 Intake Visit Reasons: PE Intake Note: pt is here for physical exam, due for bone density and colonoscopy. 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 Machine Required: No Accompanied by: Self / Same As Patient Allergies ciprofloxacin Adverse Reaction (Unknown, Verified 12/30/22 12:57) pulled muscle doxycycline Adverse Reaction (Unknown, Verified 12/30/22 12:57) vision changes lisinopril Adverse Reaction (Unknown, Verified 12/30/22 12:57) cough Medication List - Last Reconciled 12/30/22 by Padmini Boggs MD albuterol sulfate 90 mcg/actuation (ProAir HFA) 1 inh inhalation QID PRN 30 days cholecalciferol (vitamin D3) 25 mcg PO DAILY dicyclomine 10 mg PO TID gabapentin 300 mg PO ONCE PRN ibuprofen 400 mg PO TID levothyroxine 100 mcg PO DAILY magnesium 200 mg PO DAILY srsbibxd-vjgujal-onnp-lutein tabs PO olmesartan 10 mg (2 x 5 mg) PO DAILY omeprazole 20 mg PO DAILY timolol 0.5% 1 drp ophthalmic (eye) DAILY tizanidine 4 mg PO BEDTIME PRN Tobacco use date assessed: 09/21/22 Fall risk assessment: No Falls in past year Last assessed Fall Risk: 12/30/22 Dental Screening Dental Screen Date: 12/30/22 Did you have a dental visit in the last 12 months?: Yes Did you have a dental problem in the last 6 months where you did not have access to dental care?: No Was dental information given to patient?: Patient has dentist HPI PE HPI Details 72-year-old lady here today for physical exam. She has osteoarthritis, acquired hypothyroidism IBS lumbar spinal stenosis with radiculopathy, and paroxysmal atrial fibrillation, followed by [facility] and has been advised to start anticoagulation but patient hesitant and undecided as to what she wants to do. She does have an appointment for follow-up with them to discuss this further. [facility] Medical History (Updated 01/02/23 @ 02:59 by Padmini Boggs MD) Spinal stenosis of lumbar region with radiculopathy Paroxysmal atrial fibrillation Left lumbar radiculopathy Sacroiliac joint dysfunction IBS (irritable bowel syndrome) Temporomandibular joint pain Dyslipidemia Essential hypertension Tubular adenoma of colon Left forearm fracture Lumbar degenerative disc disease Osteoarthritis involving multiple joints on both sides of body Acquired hypothyroidism Surgical History Hx of colonoscopy History of elbow surgery Hx of cholecystectomy History of fracture of forearm Family History Father Myocardial infarction Mother HTN (hypertension) Hyperlipidemia Pancreatic cancer Maternal Grandmother Unknown family medical history Brother No problems noted. Son No problems noted. Social History Household Members: None Housing: Apartment Alcohol intake: current Alcohol intake frequency: a few times a month Patient Tobacco Use Status: Former Tobacco user Years Smoked: 2 yrs e-Cigarette/Vaping Use: Never Used Second Hand Smoke Exposure: No service: No Current occupational status: retired Current occupational exposures/hazards: No Cognitive needs: No Hearing needs: No Vision needs: Yes (glasses/contacts) Female Reproductive History Menstrual Date of Mammogram: 12/06/22 History of abnormal mammogram: No Questionnaire PHQ-9 Over the last 2 weeks, how often have you been bothered by any of the following problems? 1. Little interest or pleasure in doing things: not at all 2. Feeling down, depressed, or hopeless: not at all 3. Trouble falling or staying asleep, or sleeping too much: more than half the days 4. Feeling tired or having little energy: not at all 5. Poor appetite or overeating: not at all 6. Feeling bad about yourself - or that you are a failure or have let yourself or your family down: not at all 7. Trouble concentrating on things, such as reading the newspaper or watching television: not at all 8. Moving or speaking so slowly that other people could have noticed. Or the opposite - being so fidgety or restless that you have been moving around a lot more than usual: not at all 9. Thoughts that you would be better off or of hurting yourself in some way: not at all Total score: 2 Depression Screening Interpretation: Negative 48621 - PHQ-9 Billing: Yes Source: Developed by Drs. Ta Renee, Meagan Olivarez, Jose David Howard and colleagues, with an educational allyn from [employer]. Thrive Questionnaire Date Thrive assessed: 12/30/22 I am a: Patient What is your living situation today?: I have a steady place to live Within the past 12 months, did the food you bought not last and you didn't have the money to get more?: Never true Within the past 12 months, did you worry whether your food would run out before you got money to buy more?: Never true Do you have trouble paying for medicines?: No Do you have trouble getting transportation to medical appointments?: No Do you have trouble paying your heating and electricity bill?: No Do you have trouble taking care of your child, family member or friend?: No Do you have trouble with day-to-day activities such as bathing, preparing meals, shopping, managing finances, etc.?: No Are you currently unemployed and looking for a job?: No Are you interested in more education?: No Please select the resources that you would like help with: None Currently or been in a relationship where the following occur: no concerns reported PROMISE-7 AMB Questionnaire PROMISE-7 Date PROMISE - 7 assessed: 12/30/22 Feeling nervous, anxious, or on edge: 0 = Not at all Not being able to stop or control worryin = Not at all Worrying too much about different things: 0 = Not at all Trouble relaxin = Not at all Being so restless that it is hard to sit still: 0 = Not at all Becoming easily annoyed or irritable: 0 = Not at all Feeling afraid as if something awful might happen: 0 = Not at all Total PROMISE-7 score (0-4 normal; 5-9 mild; 10-14 moderate; 15-21 severe): 0 Source: Developed by Drs. Ta Renee, Jose David Bonilla and colleagues, with an educational allyn from [employer]. PROMISE-7 Assessment Billing PROMISE-7 Assessment Tool: PROMISE-7 Assessment 55168 Physical exam (Primary Care) Vital Signs: Last Vital Signs Pulse 80 12/30/22 12:12 BP 142/72 H 12/30/22 12:12 Pulse Ox 98 12/30/22 12:12 BMI result Body Mass Index 27.5 Tobacco/Smoking Status: Tobacco use Status Tobacco use date assessed 09/21/22 12/30/22 12:09 Patient Tobacco Use Status Former Tobacco user 12/30/22 12:09 e-Cigarette/Vaping Use Never Used 12/30/22 12:09 PHQ-9: PHQ-9 Score PHQ-9: Total score 2 12/30/22 13:03 Depression Screening Interpretation: Negative Thrive Assessment: Date of Thrive Assessment Date Thrive assessed 12/30/22 12/30/22 12:23 Currently or been in a relationship where the following occur: no concerns reported Assessment and Plan Assessment & Plan (1) Annual visit for general adult medical examination with abnormal findings: Code(s): Z00.01 - Encounter for general adult medical examination with abnormal findings Plan: Will check appropriate labs. Recommended dental visit every 6 months and regular eye exams, at least every 2 years. Take adequate calcium in diet and v itamin-D 3 at 2000 IU per cap once a day, in addition to weight-bearing exercises to help maintain good muscle tone and weight control. Instructed to do self-breast exam, and continue to get yearly mammogram. She is overdue for her bone density scan, patient states that she will just get it done at [facility] where she had her previous test done. Awaiting appointment for her screening colonoscopy reminded to get her COVID booster and her yearly flu shot, up-to-date with her Tdap, pneumonia vaccination, and Shingrix vaccination. (2) Dyslipidemia: Code(s): E78.5 - Hyperlipidemia, unspecified Plan: fasting lipid profile ordered . Stressed importance of adherence to low-chol esterol diet and regular exercise, at least 30 minutes 3 to 4 times a week. Advised patient to make healthy food choices, eat more fruits, vegetables, whole grains, wild caught fish and low-fat dairy. Limit amount of meat and fried or fatty food products, as well as processed foods and fast foods. (3) Essential hypertension: Code(s): I10 - Essential (primary) hypertension Plan: Blood pressure goal is less than 130/80. Continue all meds started in 10 mg once a day in a.m. Reinforced importance of following a low sodium diet, getting regular exercise, and lowering stress levels. (4) Acquired hypothyroidism: Code(s): E03.9 - Hypothyroidism, unspecified Plan: Ordered TSH and free T4 level, in the meantime continue with current dose of levothyroxine 100 mcg daily in a.m. (5) Osteoarthritis involving multiple joints on both sides of body: Code(s): M15.9 - Polyosteoarthritis, unspecified Plan: She takes acetaminophen alternating with ibuprofen as needed, [facility] (6) Tubular adenoma of colon: Code(s): D12.6 - Benign neoplasm of colon, unspecified Plan: Awaiting appointment for her repeat colonoscopy at [facility]. (7) Paroxysmal atrial fibrillation: Code(s): I48.0 - Paroxysmal atrial fibrillation Plan: Followed by [facility] and anticoagulation recommended. Instill hesitant on doing so, has an appointment to follow-up with them to discuss this further (8) Spinal stenosis of lumbar region with radiculopathy: Code(s): M48.061 - Spinal stenosis, lumbar region without neurogenic claudication; M54.16 - Radiculopathy, lumbar region Plan: Followed by Dr. Evans, currently on tizanidine and gabapentin advised to take it at night instead of in the morning (9) IBS (irritable bowel syndrome): Code(s): K58.9 - Irritable bowel syndrome without diarrhea Plan: Currently on dicyclomine, followed by [facility] Orders: Orders Lipid Panel 12/30/22 D12.6 - Benign neoplasm of colon, unspecified, E03.9 - Hypothyroidism, unspecified, E78.5 - Hyperlipidemia, unspecified, I10 - Essential (primary) hypertension, I48.0 - Paroxysmal atrial fibrillation, M15.9 - Polyosteoarthritis, unspecified Alanine Aminotransferase 12/30/22 D12.6 - Benign neoplasm of colon, unspecified, E03.9 - Hypothyroidism, unspecified, E78.5 - Hyperlipidemia, unspecified, I10 - Essential (primary) hypertension, I48.0 - Paroxysmal atrial fibrillation, M15.9 - Polyosteoarthritis, unspecified Aspartate Amino Transferase 12/30/22 D12.6 - Benign neoplasm of colon, unspecified, E03.9 - Hypothyroidism, unspecified, E78.5 - Hyperlipidemia, unspecified, I10 - Essential (primary) hypertension, I48.0 - Paroxysmal atrial fibrillation, M15.9 - Polyosteoarthritis, unspecified Free T4 (Free Thyroxine) 3 Months D12.6 - Benign neoplasm of colon, unspecified, E03.9 - Hypothyroidism, unspecified, E78.5 - Hyperlipidemia, unspecified, I10 - Essential (primary) hypertension, I48.0 - Paroxysmal atrial fibrillation, M15.9 - Polyosteoarthritis, unspecified Complete Blood Count Auto Diff 12/30/22 D12.6 - Benign neoplasm of colon, unspecified, E03.9 - Hypothyroidism, unspecified, E78.5 - Hyperlipidemia, unspecified, I10 - Essential (primary) hypertension, I48.0 - Paroxysmal atrial fibrillation, M15.9 - Polyosteoarthritis, unspecified Vitamin D 25-OH Total 12/30/22 D12.6 - Benign neoplasm of colon, unspecified, E03.9 - Hypothyroidism, unspecified, E78.5 - Hyperlipidemia, unspecified, I10 - Essential (primary) hypertension, I48.0 - Paroxysmal atrial fibrillation, M15.9 - Polyosteoarthritis, unspecified Thyroid Stimulating Hormone 12/30/22 D12.6 - Benign neoplasm of colon, unspecified, E03.9 - Hypothyroidism, unspecified, E78.5 - Hyperlipidemia, unspecified, I10 - Essential (primary) hypertension, I48.0 - Paroxysmal atrial fibrillation, M15.9 - Polyosteoarthritis, unspecified Basic Metabolic Panel Fasting 12/30/22 D12.6 - Benign neoplasm of colon, unspecified, E03.9 - Hypothyroidism, unspecified, E78.5 - Hyperlipidemia, unspecified, I10 - Essential (primary) hypertension, I48.0 - Paroxysmal atrial fibrillation, M15.9 - Polyosteoarthritis, unspecified Coding Level of Care Code Est [facility] >65y(74554) Diagnoses Annual visit for general adult medical examination with abnormal findings Z00.01 Dyslipidemia E78.5 Essential hypertension I10 Acquired hypothyroidism E03.9 Osteoarthritis involving multiple joints on both sides of body M15.9 Tubular adenoma of colon D12.6 Paroxysmal atrial fibrillation I48.0 Spinal stenosis of lumbar region with radiculopathy M48.061; M54.16 IBS (irritable bowel syndrome) K58.9 Additional Codes PROMISE-7 Assessment Billing - PROMISE-7 Assessment Tool: PROMISE-7 Assessment [id number] ([id number])
[2022-12-30 12:12] VITALS: BP 142/72; PULSE 80; O2SAT 98; BMI 27.5
== END 2022-12-30 13:28 | disposition home or self-care (01) ==
PROVIDERS: Visit Provider Internal Medicine
DX: Z00.00 Encounter for general adult medical examination without abnormal findings (principal); I10 Essential (primary) hypertension; E03.9 Hypothyroidism, unspecified; I48.0 Paroxysmal atrial fibrillation; K58.9 Irritable bowel syndrome, unspecified; M15.9 Polyosteoarthritis, unspecified; E78.5 Hyperlipidemia, unspecified; D12.6 Benign neoplasm of colon, unspecified; M48.061 Spinal stenosis, lumbar region without neurogenic claudication; M54.16 Radiculopathy, lumbar region
CPT/HCPCS: 99397

== ENCOUNTER 2023-01-15 08:46 | Emergency (ER) | payer OTHER, SELFPAY ==
[2023-01-15 08:57] VITALS: BP 165/66; PULSE 84; RESP 18; TEMP 36; O2SAT 98; BMI 27.4
[2023-01-15 09:14] VITALS: BP 157/67; PULSE 93; RESP 14; O2SAT 99
[2023-01-15 09:19] VITALS: TEMP 36.6
--- NOTE | 2023-01-15 09:22 | ED.ABDPAIN ---
HPI - Abdominal Pain General Chief Complaint: Abdominal Pain Stated Complaint: abd cramping Time Seen by Provider: 01/15/23 09:22 Source: patient Mode of arrival: ambulatory Limitations: no limitations History of Present Illness HPI narrative: 72-year-old female pain ankle. This started on the approximately 1 week ago. The pain is moderate nature. Does not radiate. There is no clear relieving or exacerbating features. Associated with frequent bowel movements, diarrhea or loose stools. She does have IBS diarrhea predominant. 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 She denies any fevers or chills. Pain is not clearly relieved or exacerbated by anything. There has been no prior treatment. She is to have follow-up colonoscopy soon. She has not been on any recent antibiotics. Related Data Home Medications Medication Instructions Recorded Confirmed omeprazole 20 mg capsule,delayed 20 mg PO DAILY 09/10/20 08/31/22 release cholecalciferol (vitamin D3) 25 25 mcg PO DAILY 12/08/20 08/31/22 mcg (1,000 unit) tablet magnesium 200 mg tablet 200 mg PO DAILY 12/08/20 08/31/22 eqnkxaca-blomdew-zbdc-lutein tablet tab PO 12/08/20 08/31/22 timolol 0.5 % eye drops 1 drp ophthalmic (eye) DAILY 12/08/20 08/31/22 gabapentin 300 mg capsule 300 mg PO ONCE PRN pain 08/27/22 08/31/22 ibuprofen 400 mg tablet 400 mg PO TID 08/27/22 08/31/22 Previous Rx's Medication Instructions Recorded tizanidine 4 mg tablet 4 mg PO BEDTIME PRN muscle 12/06/21 spasticity #20 tabs dicyclomine 10 mg capsule 10 mg PO TID #90 caps 02/28/22 olmesartan 5 mg tablet 10 mg (2 x 5 mg) PO DAILY #180 tabs 08/04/22 albuterol sulfate 90 mcg/actuation 1 inh inhalation QID PRN shortness 08/27/22 aerosol inhaler (ProAir HFA) of breath or wheezing 30 days #8.5 grams levothyroxine 100 mcg tablet 100 mcg PO DAILY #90 tabs 10/16/22 metoclopramide HCl 10 mg tablet 10 mg PO Q6H PRN abd pain/nausea 01/15/23 #20 tabs dxaiihmnq-gcejvkjkk-aynwjojp-scop 1 tab PO BID PRN abd pain #14 tabs 01/15/23 16.2 mg-0.1037 mg-0.0194 mg tablet () Allergies Allergy/AdvReac Type Severity Reaction Status Date / Time ciprofloxacin AdvReac Unknown pulled Verified 12/30/22 12:57 muscle doxycycline AdvReac Unknown vision Verified 12/30/22 12:57 changes lisinopril AdvReac Unknown cough Verified 12/30/22 12:57 Review of Systems Review of Systems CONSTITUTIONAL: Denies weight loss, fever and chills. HEENT: Denies changes in vision and hearing. RESPIRATORY: Denies SOB and cough. CV: Denies palpitations no CP. GI: + abdominal pain, nausea, and diarrhea. : Denies dysuria and urinary frequency. MSK: Denies myalgia and joint pain. SKIN: Denies rash and pruritus. NEUROLOGICAL: Denies headache and syncope. PSYCHIATRIC: Denies recent changes in mood. Denies anxiety and depression. All other ROS are negative unless in HPI PMFSH Past Medical History Medical History Spinal stenosis of lumbar region with radiculopathy Paroxysmal atrial fibrillation Left lumbar radiculopathy Sacroiliac joint dysfunction IBS (irritable bowel syndrome) Temporomandibular joint pain Dyslipidemia Essential hypertension Tubular adenoma of colon Left forearm fracture Lumbar degenerative disc disease Osteoarthritis involving multiple joints on both sides of body Acquired hypothyroidism Surgical History Hx of colonoscopy History of elbow surgery Hx of cholecystectomy History of fracture of forearm Family History Family History Father Myocardial infarction Mother HTN (hypertension) Hyperlipidemia Pancreatic cancer Maternal Grandmother Unknown family medical history Brother No problems noted. Son No problems noted. Social History Social History Household Members: None Housing: Apartment Alcohol intake: current Alcohol intake frequency: does not drink Patient Tobacco Use Status: Former Tobacco user Years Smoked: 2 yrs Smoked in Last 30 Days: No e-Cigarette/Vaping Use: Never Used Second Hand Smoke Exposure: No Use of substances other than those prescribed or required for medical reasons: No Advance Directives: No Advance Directives Information Provided: Yes service: No Current occupational status: retired Current occupational exposures/hazards: No Cognitive needs: No Hearing needs: No Vision needs: Yes (glasses/contacts) Physical Exam ED Vital Signs: Vital Signs - 24 hr 01/15/23 08:57 01/15/23 09:14 01/15/23 09:19 Temperature 96.8 F 98 F Pulse Rate 84 93 Respiratory Rate 18 14 Blood Pressure 165/66 H 157/67 H Pulse Oximetry 98 99 Oxygen Delivery Method Room Air Room Air BMI result Body Mass Index 27.4 GEN: Well developed, no acute distress, alert, oriented HEENT: Normocephalic, atraumatic, normal external ears, nose appears normal, no oropharyngeal edema or exudates Eyes: Normal to appearance Neck: Supple, no lymphadenopathy Respiratory: Talks in complete sentences, no respiratory distress, clear to auscultation bilaterally Cardiovascular: Regular rate and rhythm, no murmurs rubs or gallops Abdomen: Soft, nontender, nondistended, no guarding, no rebound Back: No CVA tenderness Extremities: No clubbing cyanosis or edema Neurologic: No focal neurologic deficits, cranial nerves 2-12 intact, strength is 5/5 bilaterally Skin: No rash Course Course Course Narrative: The workup is complete. There is no evidence UTI. I re-evaluated the patient's abdomen which was generally tender, no rebound no guarding. The tenderness does not localize to any area. We talked about incorporate and increase fiber diet, switching out or Reglan for dicyclomine. She can return for any worsening or concerning symptoms. Medical Decision Making Medical Decision Making MDM Narrative: Patient presents with lower pain, cramping and diarrhea. Her examination is benign without rebound, guarding or significant tenderness. There is no McBurney's point tenderness to suggest acute appendicitis, negative Langston sign and I believe she has had a cholecystectomy to suggest biliary colic or acute cholecystitis. She has no left lower quadrant focal tenderness is chest acute diverticulitis. At this point, symptoms are most consistent with gastroenteritis or IBS flare up. I am recommending fiber diet, antiemetics and a slight amount of Imodium. She has follow-up later this week with GI. There is no indication for emergent imaging at this time. There are no red flag symptoms to suggest dissection or ruptured AAA. She has no pulsatile masses. Differential Diagnosis Differential Diagnoses: The differential diagnosis associated with the presentation includes (See above) Admission/Observation Consideration of admission/observation: Escalation of care including admission/observation considered Lab Data MDM Lab Attestation statement: I reviewed the patient's lab results. Labs: Lab Results 01/15/23 Range/Units 10:39 Urine Color Yellow Urine Appearance Clear Urine pH 5.5 (5.0-9.0) Ur Specific Depue 1.015 (1.005-1.025) Urine Protein Negative (Neg-Trace) mg/dL Urine Glucose (UA) Negative (Negative) mg/dL Urine Ketones Negative (Negative) mg/dL Urine Blood Negative (Negative) Urine Nitrite Negative (Negative) Ur Leukocyte Esterase Negative (Negative) Prescription Management I considered prescription management with: Pain Medication Medications Administered Discontinued Medications Generic Name Dose Route Start Last Admin Trade Name Freq PRN Reason Stop Dose Admin Acetaminophen 975 mg 01/15/23 09:34 01/15/23 10:34 Acetaminophen 325 Mg Tablet PO 01/15/23 09:35 975 mg ONCE ONE Administration Loperamide HCl 2 mg 01/15/23 09:34 01/15/23 10:34 Loperamide Hcl 2 Mg Capsule PO 01/15/23 09:35 2 mg ONCE ONE Administration Ondansetron HCl 4 mg 01/15/23 09:34 01/15/23 10:34 Ondansetron Odt 4 Mg Tab.Rapdis TRANSLINGU 01/15/23 09:35 4 mg ONCE ONE Administration Discharge Plan Discharge Clinical Impression: IBS (irritable bowel syndrome), Abdominal pain Patient Disposition: Home, Self-Care Instructions: Irritable Bowel Syndrome (ED), High Fiber Diet (ED), Abdominal Pain (ED) Prescriptions: New xsknotbuu-snxncy-gprvdblk-scop [] 16.2-0.1037 -0.0194 mg tablet 1 tab PO BID PRN (Reason: abd pain) Qty: 14 0RF metoclopramide HCl 10 mg tablet 10 mg PO Q6H PRN (Reason: abd pain/nausea) Qty: 20 0RF Rx Instructions: 30 min before meals, before bed No Action tizanidine 4 mg tablet 4 mg PO BEDTIME PRN (Reason: muscle spasticity) Qty: 20 0RF olmesartan 5 mg tablet 10 mg PO DAILY Qty: 180 1RF levothyroxine 100 mcg tablet 100 mcg PO DAILY Qty: 90 1RF timolol 0.5 % drops 1 drp ophthalmic (eye) DAILY ttzmpqju-syrslfz-vhxs-lutein Tablet PO cholecalciferol (vitamin D3) 25 mcg (1,000 unit) tablet 25 mcg PO DAILY magnesium 200 mg tablet 200 mg PO DAILY omeprazole 20 mg capsule,delayed release(DR/EC) 20 mg PO DAILY gabapentin 300 mg capsule 300 mg PO ONCE PRN (Reason: pain) ibuprofen 400 mg tablet 400 mg PO TID albuterol sulfate [ProAir HFA] 90 mcg/actuation HFA aerosol inhaler 1 inh inhalation QID PRN (Reason: shortness of breath or wheezing) 30 Days Qty: 8.5 0RF dicyclomine 10 mg capsule 10 mg PO TID Qty: 90 2RF Referrals: Christal Magallon PA-C [Physician Machine Fitter] -
[2023-01-15] MEDS: Loperamide HCl 2 MG CAPSULE PO (10:34)
[2023-01-15] MEDS: Acetaminophen 325 MG TABLET 975 MG PO (10:34)
[2023-01-15] MEDS: Ondansetron ODT 4 MG TAB.RAPDIS TRANSLINGU (10:34)
[2023-01-15 10:47] LABS: Appearance Urine Clear; Color Urine Yellow; Glucose Urine UA Negative (Negative); Leukocyte Esterase Urine Negative (Negative); Nitrite Urine Negative (Negative); PH 5.5 (5.0-9.0); Specific Gravity - Urine 1.015 (1.005-1.025); Urine Blood Negative (Negative); Urine Ketones Negative (Negative); Urine Protein Negative (Neg-Trace)
[2023-01-15 11:19] VITALS: BP 139/62; PULSE 78; RESP 18; TEMP 36.4; O2SAT 99
== END 2023-01-15 11:24 | disposition home or self-care (01) ==
PROVIDERS: Emergency Provider Emergency Medicine; PCP Internal Medicine
DX: K58.0 Irritable bowel syndrome with diarrhea (principal); Z79.899 Other long term (current) drug therapy; Z87.891 Personal history of nicotine dependence
CPT/HCPCS: 81003; 99283; 99284

== ENCOUNTER 2023-01-19 10:44 | Outpatient (AMB) | payer OTHER, SELFPAY ==
--- NOTE | 2023-01-19 10:51 | A.OFFVIS_ITS ---
Intake Vital Signs 01/19/23 10:52 Height 5 ft 4 in Weight 156 lb 8.451 oz BMI 26.9 BP 160/68 H Blood Pressure Location Lt brachial Position Sitting Pulse 83 Intake Visit Reasons: follow up Intake Note: Diane presents in the office as a follow up. CC: She states that she is having pains in her stomach for the past 10 days or so. She started with massive diarrhea and she does not know if something set it off and she just has not been right since. Pains in the LRQ. Nursing Home Manager Required: No Allergies ciprofloxacin Adverse Reaction (Unknown, Verified 01/19/23 10:55) pulled muscle doxycycline Adverse Reaction (Unknown, Verified 01/19/23 10:55) vision changes lisinopril Adverse Reaction (Unknown, Verified 01/19/23 10:55) cough Medication List - Last Reconciled 01/19/23 by Christal Magallon PA-C albuterol sulfate 90 mcg/actuation (ProAir HFA) 1 inh inhalation QID PRN 30 days cholecalciferol (vitamin D3) 25 mcg PO DAILY dicyclomine 10 mg PO TID ibuprofen 400 mg PO TID levothyroxine 100 mcg PO DAILY magnesium 200 mg PO DAILY metoclopramide HCl 10 mg PO Q6H PRN owiroxwq-qrzsssf-fnvi-lutein tabs PO olmesartan 10 mg (2 x 5 mg) PO DAILY omeprazole 20 mg PO DAILY timolol maleate 0.5% 1 drp ophthalmic (eye) QAM tizanidine 4 mg PO BEDTIME PRN HPI HPI Comments History of Present Illness Details A 72-year-old female last seen 02/2022 at which time she was to be scheduled for repeat colonoscopy- she had to cancel For the past few weeks- diarrhea- cramping- nausea- seems to have had an change in her appetite over the past several months distant general, gassy- vague RLq discomfort comes and goes - doing labs for pcp bland diet for a few days- today stools just soft- seems Mom of pancreatic cancer she was worries about No travels or new medications- Went to ED on Monday same upper GI symptoms-given reglan 10 mg Q6 hrs-prn-and dicyclomine- 1 daily-seem somewhat better She has no fever, chills- rectal bleeding PFSH Medical History Spinal stenosis of lumbar region with radiculopathy Paroxysmal atrial fibrillation Left lumbar radiculopathy Sacroiliac joint dysfunction IBS (irritable bowel syndrome) Temporomandibular joint pain Dyslipidemia Essential hypertension Tubular adenoma of colon Left forearm fracture Lumbar degenerative disc disease Osteoarthritis involving multiple joints on both sides of body Acquired hypothyroidism Surgical History Hx of colonoscopy History of elbow surgery Hx of cholecystectomy History of fracture of forearm Family History Father Myocardial infarction Mother HTN (hypertension) Hyperlipidemia Pancreatic cancer Maternal Grandmother Unknown family medical history Brother No problems noted. Son No problems noted. Maternal Uncle Colon cancer Social History Household Members: None Housing: Apartment Alcohol intake: current Alcohol intake frequency: does not drink Patient Tobacco Use Status: Former Tobacco user Years Smoked: 2 yrs e-Cigarette/Vaping Use: Never Used Second Hand Smoke Exposure: No service: No Current occupational status: retired Current occupational exposures/hazards: No Cognitive needs: No Hearing needs: No Vision needs: Yes (glasses/contacts) Review of Systems Const All systems reviewed & are unremarkable except as noted in HPI and below Denies chills, Denies fatigue, Denies fever(s), Denies headache(s) and Reports weight loss (few pounds) ENT Denies headache(s) Card Denies chest pain and Denies dyspnea Resp Denies dyspnea GI Denies abdominal pain, Denies hematochezia, Denies heartburn, Reports diarrhea, Reports nausea and Denies vomiting Musc Reports back pain Neuro Denies headache(s) Psych Denies anxiety Endo Denies fatigue Physical Exam Vital Signs: Last Vital Signs Pulse 83 01/19/23 10:52 BP 160/68 H 01/19/23 10:52 BMI result Body Mass Index 26.9 Const General: cooperative, healthy appearing, comfortable, no acute distress and anxious Orientation/consciousness: patient oriented x3 Limitations: no limitations Eyes Sclerae: sclerae normal Resp Effort & Inspection: normal respiratory effort and able to speak in complete sentences Auscultation: clear to auscultation bilaterally, no rales, no rhonchi and no wheezes Cardio Rate: regular rate Rhythm: regular rhythm Heart sounds: S1 normal heart sound present and S2 normal heart sound present Skin General skin exam: no rashes or lesions noted Neuro General: patient oriented x3 Extrem General: Yes full ROM Psych Appearance: grossly normal and well kempt Mental Status: mental status grossly normal Speech and movement: Normal speech and movement present Affect: normal affect Attitude: cooperative Thought process: Normal thought process present Thought content: Normal thought content present Assessment & Plan Assessment & Plan (1) IBS (irritable bowel syndrome): Code(s): K58.9 - Irritable bowel syndrome without diarrhea Plan: d/c- magnesium trial imodium (2) Tubular adenoma of colon: Comment: due for polyp surveillance Code(s): D12.6 - Benign neoplasm of colon, unspecified (3) Heartburn: Code(s): R12 - Heartburn Plan: Reviewed reflux precautions Avoid PPI (4) Nausea: Code(s): R11.0 - Nausea (5) Abdominal pain: Comment: Intermittent vague, right lower quadrant Unable to appreciate on exam Code(s): R10.9 - Unspecified abdominal pain Plan: Abdominal ultrasound (6) Anxiety: Comment: very anxious-family issues- Code(s): F41.9 - Anxiety disorder, unspecified Plan EGD- nausea, gerd/over due for colonoscopy for hx adenoma U/S- Imodium labs Orders: Orders Colonoscopy - GI Use Only Today D12.6 - Benign neoplasm of colon, unspecified, K58.9 - Irritable bowel syndrome without diarrhea EGD/[place] Combo - GI Use Only Today D12.6 - Benign neoplasm of colon, unspecified, K58.9 - Irritable bowel syndrome without diarrhea, R11.0 - Nausea, R12 - Heartburn US abdomen complete Today R10.9 - Unspecified abdominal pain Medications: New bisacodyl (Dulcolax (bisacodyl)) Take 4 tablets by mouth at 12:00pm the day before your procedure. 20 mg (4 x 5 mg) PO ONCE 1 day 4 tabs 0RF colonoscopy prep Z12.11 - Encounter for screening for malignant neoplasm of colon polyethylene glycol 3350 (Miralax) Take as directed by mouth the day before your procedure. 238 grams PO ONCE 1 day PRN 238 grams 0RF laxative effect Changed From metoclopramide HCl 30 min before meals, before bed 10 mg PO Q6H PRN 20 tabs 0RF abd pain/nausea To metoclopramide HCl 30 min before meals, before bed 10 mg PO Q6H PRN abd pain/nausea From omeprazole 20 mg PO DAILY To omeprazole 20 mg PO DAILY 30 days 30 caps 5RF Patient Instructions: A 72-year-old extremely anxious female multiple GI complaints may likely have functional component however needs further eval EGD- nausea, gerd/over due for colonoscopy for hx adenoma U/S- Imodium labs Coding Level of Care Code Est Pt Level 4 (50336) Diagnoses IBS (irritable bowel syndrome) K58.9 Tubular adenoma of colon D12.6 Heartburn R12 Nausea R11.0 Abdominal pain R10.9 Anxiety F41.9 Time Spent (min) 40
[2023-01-19 10:52] VITALS: BP 160/68; PULSE 83; BMI 26.9
== END 2023-01-19 11:56 | disposition home or self-care (01) ==
PROVIDERS: PCP Internal Medicine; Visit Provider Physician Assistant
DX: K58.9 Irritable bowel syndrome, unspecified (principal); D12.6 Benign neoplasm of colon, unspecified; R12 Heartburn; R11.0 Nausea; R10.9 Unspecified abdominal pain; F41.9 Anxiety disorder, unspecified
CPT/HCPCS: 99214

== ENCOUNTER → 2023-01-19 10:44 | Outpatient (BNVA) | payer OTHER, SELFPAY | PROVIDERS: PCP Internal Medicine; Visit Provider Physician Assistant | DX: K58.9 Irritable bowel syndrome, unspecified (principal); R12 Heartburn; R11.0 Nausea; R10.31 Right lower quadrant pain; F41.9 Anxiety disorder, unspecified; Z86.010 Personal history of colon polyps | CPT/HCPCS: 99212 ==

== ENCOUNTER 2023-01-24 07:32 | Outpatient (REF) | payer OTHER, SELFPAY ==
[2023-01-24 11:52] LABS: MANUAL DIFF FLAG NO
[2023-01-24 12:04] LABS: Basophils Absolute Auto 0.1 X10*3/uL (0.0-0.2); Eosinophils Absolute Auto 0.3 X10*3/uL (0.0-0.4); Eosinophils Percent Auto 4.4 % (0-4); Hematocrit 40.6 % (37.0-47.0); Imm Gran Abs Auto 0.03 X10*3/uL (0.00-0.03); Imm Gran Pct Auto 0.4 % (0.0-0.4); Lymphocytes Absolute Auto 1.8 X10*3/uL (1.2-4.9); Lymphocytes Percent Auto 25.3 % (20-40); Mean Corpuscular Hemoglobin 29.3 pg (27.0-33.0); Mean Corpuscular Volume 91.6 fL (80.0-98.0); Mean Platelet Volume 9.9 fL (9.4-12.3); Monocytes Absolute Auto 0.6 X10*3/uL (0.1-1.2); Neutrophils Absolute Auto 4.4 x10*3/uL (2.0-8.3); Neutrophils Percent Auto 60.9 % (45-73); Platelet Count 299 X10*3/uL (160-400); Red Blood Count 4.43 X10*6/uL (4.20-5.50); Red Cell Distribution Width 12.7 % (11.0-16.0); White Blood Count 7.2 X10*3/uL (4.8-10.8)
[2023-01-24 12:32] LABS: Alanine Aminotransferase 18 U/L (0-31); Anion Gap 14 (12-20); Aspartate Amino Transferase 20 U/L (5-31); Blood Urea Nitrogen 14 mg/dL (9-16); Carbon Dioxide 27 mmol/L (22-29); Chloride 103 mmol/L (96-108); Cholesterol 220 mg/dL (<200); Estimated Glomerular Filt Rate > 60; Glucose Fasting 96 mg/dL (60-99); HDL Cholesterol 55 mg/dL (>40); LDL Cholesterol Calculated 134 mg/dL (<100); Potassium 4.3 mmol/L (3.3-5.1); Sodium 140 mmol/L (135-145); Triglycerides 157 mg/dL (<150)
[2023-01-24 12:52] LABS: Thyroid Stimulating Hormone 0.31 uIU/mL (0.32-4.0)
== END 2023-01-24 07:33 | disposition home or self-care (01) ==
LOC: HO.HMGCLDS 07:32
PROVIDERS: PCP Internal Medicine; Visit Provider Internal Medicine
DX: E78.5 Hyperlipidemia, unspecified (principal); I10 Essential (primary) hypertension; I48.0 Paroxysmal atrial fibrillation; E03.9 Hypothyroidism, unspecified; M15.9 Polyosteoarthritis, unspecified; D12.6 Benign neoplasm of colon, unspecified
CPT/HCPCS: 36415; 80048; 80061; 82306; 84443; 84450; 84460; 85025

== ENCOUNTER 2023-02-02 08:42 | Outpatient (REF) | payer OTHER, SELFPAY ==
--- NOTE | ~2023-02-02 | US_ITS ---
EXAMINATION: US ABDOMEN COMPLETE CLINICAL INFORMATION: Unspecified abdominal pain. COMPARISON: CT abdomen and pelvis 01/19/2021. Ultrasound abdomen 01/30/2017 and 08/31/2015. MRI abdomen 10/16/2014. TECHNIQUE: Real-time imaging of the abdominal viscera. FINDINGS: PANCREAS: Normal. ABDOMINAL AORTA: The proximal, mid, and distal segments are normal in caliber. INFERIOR VENA CAVA: Visualized portions are normal. LIVER: Normal. The liver is normal in size. The liver contour is normal. Parenchymal echogenicity is normal. No focal hepatic lesion. There is no intrahepatic biliary duct dilatation seen. GALLBLADDER: Surgically absent. COMMON BILE DUCT: Normal in caliber proximally measuring 0.3cm in diameter and minimally dilated distally measuring up to 1.1 cm. RIGHT KIDNEY: Normal. No hydronephrosis. No renal calculi or focal parenchymal lesions. The kidney measures 11.3 cm in maximum dimension. LEFT KIDNEY: Question small stone in the midpole versus cortical calcification measuring 3 x 4 mm. No hydronephrosis or focal parenchymal lesions. The kidney measures 11.0 cm in maximum dimension. SPLEEN: Normal. The spleen measures 7.4 cm in maximum dimension. FREE FLUID: None. US/US abdomen complete IMPRESSION: Slightly dilated distal common bile duct. This may be normal postcholecystectomy. Question small left renal stone versus cortical calcification.
== END 2023-02-02 08:43 | disposition home or self-care (01) ==
LOC: HO.HMGCX 08:42
PROVIDERS: PCP Internal Medicine; Visit Provider Physician Assistant
DX: R10.9 Unspecified abdominal pain (principal)
CPT/HCPCS: 76700

== ENCOUNTER 2023-03-08 08:23 | Day surgery (SDC) | payer OTHER, SELFPAY ==
--- NOTE | 2023-03-07 10:40 | HO.ANESPROP2 ---
Documented by User: Lyla Lipscomb NP 03/07/23 10:45 HPI - Anesthesia Eval Consult details Narrative: 73yo F for Upper Endoscopy and Colonoscopy PAF - pt declines anticoag at this time per cardiology office visit note. Last seen by [facility] 01/2023 and otherwise stable. [facility] Active Problems Active Problems: All Active Problems (Updated 01/19/23 @ 12:38 by Christal Magallon PA-C) Anxiety (Acute) Heartburn (Acute) Nausea (Acute) Spinal stenosis of lumbar region with radiculopathy (Acute) Paroxysmal atrial fibrillation (Acute) Sacroiliac joint dysfunction (Acute) IBS (irritable bowel syndrome) (Acute) Costochondritis (Acute) Temporomandibular joint pain (Acute) Spondylosis of lumbar region without myelopathy or radiculopathy (Acute) Dyslipidemia (Acute) Essential hypertension (Acute) Tubular adenoma of colon (Acute) Lumbar degenerative disc disease (Acute) Osteoarthritis involving multiple joints on both sides of body (Acute) Acquired hypothyroidism (Acute) Past Medical History Medical History Spinal stenosis of lumbar region with radiculopathy Paroxysmal atrial fibrillation Left lumbar radiculopathy Sacroiliac joint dysfunction IBS (irritable bowel syndrome) Temporomandibular joint pain Dyslipidemia Essential hypertension Tubular adenoma of colon Left forearm fracture Lumbar degenerative disc disease Osteoarthritis involving multiple joints on both sides of body Acquired hypothyroidism Family History Family History Father Myocardial infarction Mother HTN (hypertension) Hyperlipidemia Pancreatic cancer Maternal Grandmother Unknown family medical history Brother No problems noted. Son No problems noted. Maternal Uncle Colon cancer Surgical History Surgical History Hx of colonoscopy History of elbow surgery Hx of cholecystectomy History of fracture of forearm Social History Social History Household Members: None Housing: Apartment Alcohol intake: current Alcohol intake frequency: does not drink Patient Tobacco Use Status: Former Tobacco user Years Smoked: 2 yrs e-Cigarette/Vaping Use: Never Used Second Hand Smoke Exposure: No service: No Current occupational status: retired Current occupational exposures/hazards: No Cognitive needs: No Hearing needs: No Vision needs: Yes (glasses/contacts) Meds Allergies Allergy/AdvReac Type Severity Reaction Status Date / Time ciprofloxacin AdvReac Unknown pulled Verified 01/19/23 10:55 muscle doxycycline AdvReac Unknown vision Verified 01/19/23 10:55 changes lisinopril AdvReac Unknown cough Verified 01/19/23 10:55 Home Medications Medication Instructions Recorded Confirmed Last Taken Type cholecalciferol (vitamin D3) 25 25 mcg PO DAILY 12/08/20 01/19/23 Unknown History mcg (1,000 unit) tablet magnesium 200 mg tablet 200 mg PO DAILY 12/08/20 01/19/23 Unknown History zmzbywib-haxnrmi-qlzh-lutein tablet tab PO 12/08/20 01/19/23 Unknown History ibuprofen 400 mg tablet 400 mg PO TID 08/27/22 01/19/23 Unknown History metoclopramide HCl 10 mg tablet 10 mg PO Q6H PRN abd pain/nausea 01/19/23 01/19/23 Unknown History timolol maleate 0.5 % eye drops 1 drp ophthalmic (eye) QAM 01/19/23 01/19/23 Unknown History Exam Exam Date and Time: March 07, 2023 1040 Pertinent Lab Results Pertinent Lab Results: Laboratory Tests 01/24/23 07:36 WBC 7.2 Hgb 13.0 Hct 40.6 Plt Count 299 Sodium 140 Potassium 4.3 Chloride 103 Carbon Dioxide 27 BUN 14 Creatinine 0.78 Assessment and Plan Assessment Anesthesia Assessment: Chart Reviewed Documented by User: Pool Burks MD 03/08/23 16:46 [facility] Past Medical History Medical History Spinal stenosis of lumbar region with radiculopathy Paroxysmal atrial fibrillation Left lumbar radiculopathy Sacroiliac joint dysfunction IBS (irritable bowel syndrome) Temporomandibular joint pain Dyslipidemia Essential hypertension Tubular adenoma of colon Left forearm fracture Lumbar degenerative disc disease Osteoarthritis involving multiple joints on both sides of body Acquired hypothyroidism Functional capacity: independent ambulation Family History Family History Father Myocardial infarction Mother HTN (hypertension) Hyperlipidemia Pancreatic cancer Maternal Grandmother Unknown family medical history Brother No problems noted. Son No problems noted. Maternal Uncle Colon cancer Family history of problems with anesthesia: No Surgical History Surgical History Hx of colonoscopy History of elbow surgery Hx of cholecystectomy History of fracture of forearm History of Problems with Anesthesia: No Social History Social History Household Members: None Housing: Apartment Alcohol intake: current Alcohol intake frequency: does not drink Patient Tobacco Use Status: Former Tobacco user Years Smoked: 2 yrs e-Cigarette/Vaping Use: Never Used Second Hand Smoke Exposure: No service: No Current occupational status: retired Current occupational exposures/hazards: No Cognitive needs: No Hearing needs: No Vision needs: Yes (glasses/contacts) Meds Allergies Allergy/AdvReac Type Severity Reaction Status Date / Time ciprofloxacin AdvReac Unknown pulled Verified 01/19/23 10:55 muscle doxycycline AdvReac Unknown vision Verified 01/19/23 10:55 changes lisinopril AdvReac Unknown cough Verified 01/19/23 10:55 Home Medications Medication Instructions Recorded Confirmed Last Taken Type cholecalciferol (vitamin D3) 25 25 mcg PO DAILY 12/08/20 01/19/23 Unknown History mcg (1,000 unit) tablet magnesium 200 mg tablet 200 mg PO DAILY 12/08/20 01/19/23 Unknown History ejhmmuqp-idougnt-uddk-lutein tablet tab PO 12/08/20 01/19/23 Unknown History ibuprofen 400 mg tablet 400 mg PO TID 08/27/22 01/19/23 Unknown History metoclopramide HCl 10 mg tablet 10 mg PO Q6H PRN abd pain/nausea 01/19/23 01/19/23 Unknown History timolol maleate 0.5 % eye drops 1 drp ophthalmic (eye) QAM 01/19/23 01/19/23 Unknown History Exam Airway Mallampati Class: III Loose/Missing/Broken Teeth: Yes Assessment and Plan Assessment Anesthesia Assessment: Anesthesia Plan Discussed Final Anesthetic Review Family History of Problems with Anesthesia: No History of Problems with Anesthesia: No NPO: Yes ASA Class: III Final Preanesthetic Review: Meds/Allgs Chart Reviewed, Consent Obtained/Reviewed and Anes Risks/Benef Reviewed Patient Risk: Intermediate Procedure Risk: Intermediate Anesthetic Plan Anesthetic Plan: MAC: and Agree w/ Assess. and Plan Disposition: Standard PACU
[2023-03-08 08:58] VITALS: BMI 26.9
[2023-03-08 08:59] VITALS: BP 134/64; PULSE 96; RESP 18; TEMP 37; O2SAT 100
[2023-03-08] MEDS: Lactated Ringers 1,000 ML 100 ML IVCONT (09:18)
--- NOTE | 2023-03-08 10:02 | MHC.SHP ---
Pre-Procedural Eval Section A Date of Service: 03/08/23 Section B Chief Complaint: IBS,nausea,abdominal pain Relevant Family History (Specify if Yes): No Relevant Social History: None Present Medications: see Short Stay Collaborative assessment Medical History: Significant History (Spinal stenosis of lumbar region with radiculopathy Paroxysmal atrial fibrillation Left lumbar radiculopathy Sacroiliac joint dysfunction IBS (irritable bowel syndrome) Temporomandibular joint pain Dyslipidemia Essential hypertension Tubular adenoma of colon Left forearm fracture Lumbar degenerative) History of Previous Operations: Relevant previous surgery/procedure and date(s) (Hx of colonoscopy History of elbow surgery Hx of cholecystectomy History of fracture of forearm) Allergies: Allergies Allergy/AdvReac Type Severity Reaction Status Date / Time ciprofloxacin AdvReac Unknown pulled Verified 01/19/23 10:55 muscle doxycycline AdvReac Unknown vision Verified 01/19/23 10:55 changes lisinopril AdvReac Unknown cough Verified 01/19/23 10:55 Review of Systems Sugical H&P ROS: Negative: Constitution, Cardiovascular, Respiratory, Neurological, Psychiatric, Hem-Onc, Allergic/Immunologic, Gastrointestinal, Genitourinary, Musculoskeletal, Integumentary, Endocrine and Eyes/Ears/Nose/Throat Exam Surgical H&P Exam: Normal: HEENT, Normal: Heart, Normal: Lungs, Normal: Extremities, Normal: Abdomen, Normal: Skin and Normal: Neurological Plan Diagnosis/Plan: Unchanged I have reviewed the history and physical and performed a pertinent physical examination on my patient. No changes have occurred unless specified. Time Spent With Patient Time: Total time managing care of this patient today ____ minutes.
--- NOTE | 2023-03-08 11:12 | P.OP_ITS ---
Operative Note Operative Note Date of Service: 03/08/23 Narrative: Operative Information Procedure Description: EGD, Colonoscopy Indication: epigastric pain and abn bowel habits Anesthesia: MAC FLEXIBLE TRANSORAL UPPER GASTROINTESTINAL ENDOSCOPY AND COLONOSCOPY PROCEDURE NOTE UPPER ENDOSCOPY Consent: Indications for the procedure and potential complications of bleeding, perforation, reaction to medications and missed diagnosis were discussed with the patient and informed consent was obtained. Instrument: Olympus GIF H 190 J mid size upper endoscope Monitoring: Vital signs and clinical assessment, continuous EKG monitoring, Pulse oximetry, Carbon Dioxide monitoring and blood pressure monitoring were done throughout the procedure. Procedure: The patient was placed in the left lateral decubitis position and pre-procedure medications were administered and a bite block was placed. The endoscope was inserted into the mouth and advanced under direct vision to the third part of duodenum. A careful inspection was made as the upper endoscope was withdrawn including a retroflexed examination of the proximal stomach; Findings and interventions are described below. Findings: Larynx:normal Esophagus: GE junction at 40 cm, diaphragm hiatus at 40 cm, bogginess and erythema at GEJ with small linear erosion noted, bx taken from GEJ, distal and proximal esophagus. Balloon dilation of LES and UES to 19 mm, no tears seen Stomach: Patchy erythema with erosions in antrum. Biopsies were obtained. Grade 2 flap valve on retroflexed examination of the cardia. bile acid refluxate noted, few fundic gland polyps also seen Duodenum: Normal bulb and descending duodenum, bx taken Intervention: Biopsies as noted above COLONOSCOPY Instrument: Olympus variable stiffness pediatric scope 190L Colonoscopy Monitoring: Vital signs and clinical assessment, continuous EKG monitoring, Pulse oximetry, Carbon Dioxide monitoring and blood pressure monitoring were done throughout the procedure. Colon withdrawal time was 17 minutes. Procedure: The patient was placed in the left lateral decubitis position and pre-procedure medications were administered. After a digital rectal examination of the ano-rectum, the video colonoscope was inserted into the rectum and advanced through the colon to the cecum/TI. The colonoscope was slowly withdrawn in a retrograde panoramic fashion and the colon mucosa was carefully examined including a retroflexed view of the rectum. Findings and interventions are described below. Procedure Difficulty:moderate--tortuous colon Findings: Terminal Ileum-normal, bx taken Cecum: granular mucosa, bx taken Ascending Colon: normal Transverse Colon -normal Descending Colon: Granular mucosa, bx taken, one area was bleeding after biopsy and persisted, x 2 clips applied for hemostasis Sigmoid Colon: normal Rectum: Retroflexion with small internal hemorrhoids, grade I Anorectum - normal Colon preparation: [place] Bowel Preparation Scale Right colon; 2 Transverse colon: 2 Left colon; 2 (0 = Unprepared colon segment with mucosa not seen due to solid stool that cannot be cleared. 1 = Portion of mucosa of the colon segment seen, but other areas of the colon segment not well seen due to staining, residual stool and/or opaque liquid. 2 = Minor amount of residual staining, small fragments of stool and/or opaque liquid, but mucosa of colon segment seen well. 3 = Entire mucosa of colon segment seen well with no residual staining, small fragments of stool or opaque liquid) Impression and Post Procedure Diagnosis: Endoscopy Findings: erosive gastritis erosive esophagitis bile acid reflux fundic gland polyps Colonoscopy Findings: internal hemorrhoids tortuous colon Plan: Await Pathology results Repeat Colonoscopy in 10 years or earlier if clinically indicated High fiber diet leaflet avoid straining at stool, epsom salts and sitz bath, anusol supps or cream check PPI compliance consider increasing PPI dose, check nsaid hx, if h pylori pos then treat Above findings were reviewed with the patient and relevant handouts were provided if indicated.
[2023-03-08 11:22] VITALS: BP 108/57; PULSE 94; RESP 16; TEMP 36.2; O2SAT 97
[2023-03-08 11:37] VITALS: BP 150/61; PULSE 92; RESP 16; TEMP 36.4; O2SAT 100
[2023-03-08 11:52] VITALS: BP 136/69; PULSE 79; RESP 16; TEMP 36.4; O2SAT 100
== END 2023-03-08 12:41 | disposition home or self-care (01) ==
PROVIDERS: PCP Internal Medicine; Visit Provider Internal Medicine Gastroenterology
PROC: (CPT 43249; principal; 2023-03-08 10:10)
DX: K31.7 Polyp of stomach and duodenum (principal); K21.9 Gastro-esophageal reflux disease without esophagitis; K29.00 Acute gastritis without bleeding; K22.10 Ulcer of esophagus without bleeding; K22.89 Other specified disease of esophagus; Z12.11 Encounter for screening for malignant neoplasm of colon; K64.0 First degree hemorrhoids; K56.2 Volvulus; Z86.010 Personal history of colon polyps; K58.9 Irritable bowel syndrome, unspecified; R11.0 Nausea; I10 Essential (primary) hypertension; E78.5 Hyperlipidemia, unspecified; I48.0 Paroxysmal atrial fibrillation; E03.9 Hypothyroidism, unspecified; Z87.891 Personal history of nicotine dependence; Z79.899 Other long term (current) drug therapy
CPT/HCPCS: 43249; 43239; 45380; 88305; 88342; C1726; J2704; J3010

== ENCOUNTER → 2023-03-08 08:23 | Outpatient (BNV) | payer OTHER, SELFPAY | PROVIDERS: PCP Internal Medicine; Visit Provider Internal Medicine Gastroenterology | DX: R10.13 Epigastric pain (principal); R19.4 Change in bowel habit; K64.0 First degree hemorrhoids; K29.70 Gastritis, unspecified, without bleeding; K21.00 Gastro-esophageal reflux disease with esophagitis, without bleeding; K56.2 Volvulus | CPT/HCPCS: 43249; 45382 ==

== ENCOUNTER 2023-03-22 10:45 | Outpatient (AMB) | payer OTHER, SELFPAY ==
--- NOTE | 2023-03-22 10:55 | A.OFFVIS_ITS ---
Intake Vital Signs 03/22/23 11:00 Pulse 77 Intake Visit Reasons: s/p DBL Intake Note: Patient follow up for EGD/Colonoscopy results. Patient cc: IBS and some diarrhea on and off. Denies any other GI issues. Traffic Coordinator Required: No Accompanied by: Self / Same As Patient Allergies ciprofloxacin Adverse Reaction (Unknown, Verified 03/22/23 10:55) pulled muscle doxycycline Adverse Reaction (Unknown, Verified 03/22/23 10:55) vision changes lisinopril Adverse Reaction (Unknown, Verified 03/22/23 10:55) cough Medication List - Last Reconciled 03/22/23 by Christal Magallon PA-C albuterol sulfate 90 mcg/actuation (ProAir HFA) 1 inh inhalation QID PRN 30 days bisacodyl (Dulcolax (bisacodyl)) 20 mg (4 x 5 mg) PO ONCE 1 day cholecalciferol (vitamin D3) 25 mcg PO DAILY dicyclomine 10 mg PO TID ibuprofen 400 mg PO TID levothyroxine 100 mcg PO DAILY magnesium 200 mg PO DAILY metoclopramide HCl 10 mg PO Q6H PRN figtfvot-lvqrnus-ajmi-lutein tabs PO olmesartan 10 mg (2 x 5 mg) PO DAILY omeprazole 20 mg PO DAILY 30 days polyethylene glycol 3350 (Miralax) 238 grams PO ONCE PRN 1 day timolol maleate 0.5% 1 drp ophthalmic (eye) QAM tizanidine 4 mg PO BEDTIME PRN HPI HPI Comments History of Present Illness Details A 73 y/o female epigastric pain, acid reflux f/u after EGD with dilation and colonoscopy Omeprazole 20 mg- taking alieve - QD for arthritis, has breakthrough symptoms of acid reflux intermittent epigastric pain however seems to have improved Dicyclomine- helpful for IBS. Complains about arthralgia due to arthritis Reviewed procedure report, pathology recommendation No nausea, vomiting, hematemesis, hematochezia fever or chills PFSH Medical History (Updated 03/22/23 @ 11:49 by Christal Magallon PA-C) Spinal stenosis of lumbar region with radiculopathy Paroxysmal atrial fibrillation Left lumbar radiculopathy Sacroiliac joint dysfunction IBS (irritable bowel syndrome) Temporomandibular joint pain Dyslipidemia Essential hypertension Tubular adenoma of colon Left forearm fracture Lumbar degenerative disc disease Osteoarthritis involving multiple joints on both sides of body Acquired hypothyroidism Surgical History History of esophagogastroduodenoscopy (EGD) Hx of colonoscopy History of elbow surgery Hx of cholecystectomy History of fracture of forearm Family History Father Myocardial infarction Mother HTN (hypertension) Hyperlipidemia Pancreatic cancer Maternal Grandmother Unknown family medical history Brother No problems noted. Son No problems noted. Maternal Uncle Colon cancer Social History Household Members: None Housing: Apartment Alcohol intake: current Alcohol intake frequency: does not drink Patient Tobacco Use Status: Former Tobacco user Years Smoked: 2 yrs e-Cigarette/Vaping Use: Never Used Second Hand Smoke Exposure: No service: No Current occupational status: retired Current occupational exposures/hazards: No Cognitive needs: No Hearing needs: No Vision needs: Yes (glasses/contacts) Review of Systems Const All systems reviewed & are unremarkable except as noted in HPI and below Card Denies chest pain and Denies dyspnea Resp Denies dyspnea GI Reports abdominal pain (Intermittent epigastric, improved), Reports change in bowel habits, Reports heartburn, Denies nausea and Denies vomiting Musc Reports abnormal gait, Reports back pain and Reports arthralgias Neuro Reports abnormal gait Psych Reports anxiety Physical Exam Vital Signs: Last Vital Signs Pulse 77 03/22/23 11:00 Const General: cooperative, healthy appearing, comfortable and no acute distress Orientation/consciousness: patient oriented x3 Limitations: no limitations Eyes Sclerae: sclerae normal Resp Effort & Inspection: normal respiratory effort and able to speak in complete sentences Auscultation: clear to auscultation bilaterally, no rales, no rhonchi and no wheezes Cardio Rate: regular rate Rhythm: regular rhythm Heart sounds: S1 normal heart sound present and S2 normal heart sound present GI Palpation (GI): Soft to palpation and nontender Auscultation: normal bowel sounds Skin General skin exam: no rashes or lesions noted Neuro General: patient oriented x3 Psych Appearance: grossly normal and well kempt Mental Status: mental status grossly normal Speech and movement: Normal speech and movement present and Clear speech present Affect: normal affect Attitude: cooperative Thought process: Normal thought process present Thought content: Normal thought content present Results Reviewed Results Reviewed: mpression and Post Procedure Diagnosis: Endoscopy Findings: erosive gastritis erosive esophagitis bile acid reflux fundic gland polyps Colonoscopy Findings: internal hemorrhoids tortuous colon Plan: Await Pathology results Repeat Colonoscopy in 10 years or earlier if clinically indicated High fiber diet leaflet avoid straining at stool, epsom salts and sitz bath, anusol supps or cream check PPI compliance consider increasing PPI dose, check nsaid hx, if h pylori pos then treat Name: Diane Ram Age/Sex: 73/F Attending: Glendy Richter MD : 1950 Submitted by: Glendy Richter MD Copies to: Padmini Boggs MD MR #: [id number] Status: [facility] Collected: 03/08/23 Location: [facility] Received: 03/08/23 Diagnosis A. Duodenum, biopsies: Duodenal mucosa with no diagnostic abnormality; preserved villous architecture and no increase in intraepithelial lymphocytes; no evidence of active inflammation, foveolar metaplasia or dysplasia. B. Stomach, biopsies: Mild chronic inactive gastritis; no evidence of H. pylori, intestinal metaplasia or dysplasia. C. G-E junction, biopsies: Inflamed squamoglandular junctional mucosa with reactive changes, no evidence of intestinal metaplasia or dysplasia. D. Distal esophagus, biopsies: Esophageal squamous mucosa with mild reactive changes; no evidence of intraepithelial eosinophils, fungal organisms, intestinal metaplasia, dysplasia or invasive carcinoma. E. Proximal esophagus, biopsies: Esophageal squamous mucosa with no diagnostic abnormality; no evidence of active esophagitis, fungal organisms, dysplasia or malignancy. F. Terminal ileum, biopsies: Ileal mucosa with no diagnostic abnormality; no evidence ileitis. G. Right-sided colon, biopsies: Colonic mucosa with no diagnostic abnormality; no evidence of colitis. H. Left-sided colon, biopsies: Colonic mucosa with no diagnostic abnormality; no evidence of colitis. Assessment & Plan Assessment & Plan (1) Heartburn: Comment: A very pleasant 73-year-old female anxiety, compliant Code(s): R12 - Heartburn Plan: Will discontinue omeprazole 20 mg will begin pantoprazole 40 mg Reviewed reflux precautions Avoid culprits (2) Anxiety: Comment: very anxious-family issues- Code(s): F41.9 - Anxiety disorder, unspecified (3) Fundic gland polyps of stomach, benign: Code(s): D13.1 - Benign neoplasm of stomach Plan: Reviewed pathology Plan pantoprazole 40 Colonoscopy 10 years- Medications: New pantoprazole 40 mg PO DAILY 30 days 30 tabs 11RF Patient Instructions: pantoprazole 40 mg daily she will call after the holidays with progress report sooner if needed Reflux precautions reviewed She will discuss alternative is to NSAID for arthritis Colonoscopy 10 years- Encouraged to call with questions or concerns Coding Level of Care Code Est Pt Level 3 (88198) Diagnoses Heartburn R12 Anxiety F41.9 Fundic gland polyps of stomach, benign D13.1 Time Spent (min) 30
[2023-03-22 11:00] VITALS: PULSE 77
== END 2023-03-22 12:41 | disposition home or self-care (01) ==
PROVIDERS: PCP Internal Medicine; Visit Provider Physician Assistant
DX: R12 Heartburn (principal); F41.9 Anxiety disorder, unspecified; D13.1 Benign neoplasm of stomach
CPT/HCPCS: 99213

== ENCOUNTER → 2023-03-22 10:45 | Outpatient (BNVA) | payer OTHER, SELFPAY | PROVIDERS: PCP Internal Medicine; Visit Provider Physician Assistant | DX: D13.1 Benign neoplasm of stomach (principal); F41.9 Anxiety disorder, unspecified; R12 Heartburn | CPT/HCPCS: 99212 ==

== ENCOUNTER 2023-04-11 12:54 | Outpatient (REF) | payer OTHER, SELFPAY ==
[2023-04-11 16:46] LABS: Free T4 (Free Thyroxine) 1.23 ng/dL (0.71-1.85)
== END 2023-04-11 12:55 | disposition home or self-care (01) ==
LOC: HO.HMGCLDS 12:54
PROVIDERS: PCP Internal Medicine; Visit Provider Internal Medicine
DX: E03.9 Hypothyroidism, unspecified (principal); E78.5 Hyperlipidemia, unspecified; I10 Essential (primary) hypertension; I48.0 Paroxysmal atrial fibrillation; M15.9 Polyosteoarthritis, unspecified; D12.6 Benign neoplasm of colon, unspecified
CPT/HCPCS: 36415; 84439

== ENCOUNTER 2023-04-21 08:48 | Outpatient (AMB) | payer OTHER, SELFPAY ==
--- NOTE | 2023-04-21 08:59 | MHC.OFFWIV ---
Intake Vital Signs 04/21/23 09:09 Height 5 ft 4 in Weight 156 lb BMI 26.8 BP 160/80 H Blood Pressure Location Lt brachial Position Sitting Pulse 81 Pulse Source Pulse Oximeter Temp 97.5 F Temp Source Temporal Artery Scan Pulse Oximetry (%) 98 Oxygen Delivery Method Room Air Intake Visit Reasons: Est/ear pain head ache (lobby masked) Intake Note: pt is here today for ear pain headache started 4 days ago Patient Tobacco Use Status: Former Tobacco user Allergies ciprofloxacin Adverse Reaction (Unknown, Verified 04/21/23 09:33) pulled muscle doxycycline Adverse Reaction (Unknown, Verified 04/21/23 09:33) vision changes lisinopril Adverse Reaction (Unknown, Verified 04/21/23 09:33) cough Medication List - Last Reconciled 04/21/23 by Micky Ocampo MD albuterol sulfate 90 mcg/actuation (ProAir HFA) 1 inh inhalation QID PRN 30 days azithromycin take 500 mg today (day 1), then 250 mg for 4 days (days 2-5) PO bisacodyl (Dulcolax (bisacodyl)) 20 mg (4 x 5 mg) PO ONCE 1 day cholecalciferol (vitamin D3) 25 mcg PO DAILY ciprofloxacin-dexamethasone 0.3-0.1 % 4 drps otic (ears) BID 7 days cyclobenzaprine 10 mg PO BEDTIME dicyclomine 10 mg PO TID ibuprofen 400 mg PO TID levothyroxine 100 mcg PO DAILY magnesium 200 mg PO DAILY metoclopramide HCl 10 mg PO Q6H PRN wctgergx-qkofotl-xizw-lutein tabs PO olmesartan 10 mg (2 x 5 mg) PO DAILY omeprazole 20 mg PO DAILY 30 days pantoprazole 40 mg PO DAILY 30 days polyethylene glycol 3350 (Miralax) 238 grams PO ONCE PRN 1 day timolol maleate 0.5% 1 drp ophthalmic (eye) QAM Do you need a note to return to daycare/school/sports/work: No HPI Est/ear pain head ache (lobby masked) HPI Details 73-year-old female presents to the office for a sick visit. Patient is reporting symptoms of sinus congestion, postnasal drip and headaches. Symptoms present for more than 10 days. She called the office last week and was given ear drops. In a much relief with the same. No fevers or chills. Also complaining of tightness in the muscles of the neck and upper shoulders. [facility] Medical History Spinal stenosis of lumbar region with radiculopathy Paroxysmal atrial fibrillation Left lumbar radiculopathy Sacroiliac joint dysfunction IBS (irritable bowel syndrome) Temporomandibular joint pain Dyslipidemia Essential hypertension Tubular adenoma of colon Left forearm fracture Lumbar degenerative disc disease Osteoarthritis involving multiple joints on both sides of body Acquired hypothyroidism Surgical History History of esophagogastroduodenoscopy (EGD) Hx of colonoscopy History of elbow surgery Hx of cholecystectomy History of fracture of forearm Family History Father Myocardial infarction Mother HTN (hypertension) Hyperlipidemia Pancreatic cancer Maternal Grandmother Unknown family medical history Brother No problems noted. Son No problems noted. Maternal Uncle Colon cancer Social History Household Members: None Housing: Apartment Alcohol intake: current Alcohol intake frequency: does not drink Patient Tobacco Use Status: Former Tobacco user Years Smoked: 2 yrs e-Cigarette/Vaping Use: Never Used Second Hand Smoke Exposure: No service: No Current occupational status: retired Current occupational exposures/hazards: No Cognitive needs: No Hearing needs: No Vision needs: Yes (glasses/contacts) Physical Exam Vital Signs: Last Vital Signs Temp 97.5 F 04/21/23 09:09 Pulse 81 04/21/23 09:09 BP 160/80 H 04/21/23 09:09 Pulse Ox 98 04/21/23 09:09 Oxygen Delivery Method Room Air 04/21/23 09:09 BMI result Body Mass Index 26.8 Const General: cooperative and healthy appearing Nutritional Appearance: well nourished Orientation/consciousness: patient oriented x3 Limitations: no limitations HEENT Head: Yes normal to inspection Eyes General: appearance normal, both eyes and all related structures Neck Other: Minimal trapezius muscle discomfort. Neck: Yes normal visual inspection Chest Chest palpation & inspection: normal palpation of entire chest wall Resp Effort & Inspection: normal respiratory effort Neuro General: patient oriented x3 Assessment & Plan Assessment & Plan (1) Upper respiratory tract infection: Code(s): J06.9 - Acute upper respiratory infection, unspecified Plan: Azithromycin called in. Muscle relaxants added to the regimen. If symptoms not improved to follow-up here. Medications: New azithromycin take 500 mg today (day 1), then 250 mg for 4 days (days 2-5) PO 6 tabs 0RF cyclobenzaprine 10 mg PO BEDTIME 14 tabs 0RF Discontinued tizanidine Discontinued Reason: Doctor's Order 4 mg PO BEDTIME PRN 20 tabs 0RF muscle spasticity Coding Level of Care Code Est Pt Level 3 (41847) Diagnoses Upper respiratory tract infection J06.9
[2023-04-21 09:09] VITALS: BP 160/80; PULSE 81; TEMP 36.4; O2SAT 98; BMI 26.8
== END 2023-04-21 09:41 | disposition home or self-care (01) ==
PROVIDERS: PCP Internal Medicine; Visit Provider Internal Medicine
DX: J06.9 Acute upper respiratory infection, unspecified (principal)
CPT/HCPCS: 99213

== ENCOUNTER 2023-07-04 11:24 | Outpatient (AMB) | payer OTHER, SELFPAY ==
[2023-07-04 11:52] VITALS: BP 134/70; PULSE 72; O2SAT 97; BMI 28.0
--- NOTE | 2023-07-04 11:52 | MHC.PC.OV ---
Vital Signs 07/04/23 11:52 Height 5 ft 4 in Weight 163 lb BMI 28.0 BP 134/70 Blood Pressure Location Lt brachial Position Sitting Pulse 72 Pulse Source Pulse Oximeter Pulse Oximetry (%) 97 Oxygen Delivery Method Room Air Intake Visit Reasons: 6 month follow up Intake Note: Pt is here today for 6 months f/u Allergies ciprofloxacin Adverse Reaction (Unknown, Verified 07/09/23 23:42) pulled muscle doxycycline Adverse Reaction (Unknown, Verified 07/09/23 23:42) vision changes lisinopril Adverse Reaction (Unknown, Verified 07/09/23 23:42) cough Medication List - Last Reconciled 07/04/23 by Padmini Boggs MD albuterol sulfate 90 mcg/actuation (ProAir HFA) 1 inh inhalation QID PRN 30 days aspirin 81 mg PO DAILY dicyclomine 10 mg PO TID levothyroxine 100 mcg PO DAILY qjxdjgni-caxxitd-kzuo-lutein tabs PO nabumetone 500 mg PO .qOD PRN olmesartan 10 mg (2 x 5 mg) PO DAILY pantoprazole 40 mg PO DAILY 30 days timolol maleate 0.5% 1 drp ophthalmic (eye) QAM Tobacco use date assessed: 07/04/23 Fall risk assessment: No Falls in past year Last assessed Fall Risk: 07/04/23 Dental Screening Dental Screen Date: 07/04/23 Did you have a dental visit in the last 12 months?: No Was dental information given to patient?: Patient has dentist HPI HPI Comments History of Present Illness Details 73-year-old lady here today for follow-up on her hypertension, hyperlipidemia hypothyroidism. She has been feeling well on present medications which includes olmesartan, and levothyroxine. She has been compliant with her diet, and tries to exercise on a regular basis. [facility] Medical History Spinal stenosis of lumbar region with radiculopathy Paroxysmal atrial fibrillation Left lumbar radiculopathy Sacroiliac joint dysfunction IBS (irritable bowel syndrome) Temporomandibular joint pain Dyslipidemia Essential hypertension Tubular adenoma of colon Left forearm fracture Lumbar degenerative disc disease Osteoarthritis involving multiple joints on both sides of body Acquired hypothyroidism Surgical History History of esophagogastroduodenoscopy (EGD) Hx of colonoscopy History of elbow surgery Hx of cholecystectomy History of fracture of forearm Family History Father Myocardial infarction Mother HTN (hypertension) Hyperlipidemia Pancreatic cancer Maternal Grandmother Unknown family medical history Brother No problems noted. Son No problems noted. Maternal Uncle Colon cancer Social History Household Members: None Housing: Apartment Alcohol intake: current Alcohol intake frequency: does not drink Patient Tobacco Use Status: Former Tobacco user Years Smoked: 2 yrs e-Cigarette/Vaping Use: Never Used Second Hand Smoke Exposure: No service: No Current occupational status: retired Current occupational exposures/hazards: No Cognitive needs: No Hearing needs: No Vision needs: Yes (glasses/contacts) Questionnaire Thrive Questionnaire Date Thrive assessed: 12/30/22 AUDIT C Alcohol Use Questionnaire (AUDIT-C) 1. How often do you have a drink containing alcohol?: Monthly or less 2. How many drinks containing alcohol do you have on a typical day when you are drinking?: 1 or 2 3. How often do you have six or more drinks on one occasion?: Never Total Score: 1 PROMISE-7 AMB Questionnaire PROMISE-7 Date PROMISE - 7 assessed: 12/30/22 Source: Developed by Drs. Ta Renee, Meagan Olivarez, Jose David Howard and colleagues, with an educational allyn from [employer]. Review of Systems Const Denies headache(s) Eyes Reports no additional complaints ENT Reports Normal hearing present, Denies dizziness, Denies headache(s), Denies post nasal drip and Denies tinnitus Card Denies chest pain, Denies chest pain with activity, Denies irregular heart rhythm, Denies lightheadedness and Denies dyspnea Resp Denies dyspnea GI Denies abdominal pain and Denies change in bowel habits Musc Reports no additional complaints Neuro Reports Normal hearing present, Denies dizziness and Denies headache(s) Endo Reports no additional complaints Physical exam (Primary Care) Vital Signs: Last Vital Signs Pulse 72 07/04/23 11:52 BP 134/70 07/04/23 11:52 Pulse Ox 97 07/04/23 11:52 Oxygen Delivery Method Room Air 07/04/23 11:52 BMI result Body Mass Index 28.0 Tobacco/Smoking Status: Tobacco use Status Tobacco use date assessed 07/04/23 07/04/23 12:00 Patient Tobacco Use Status Former Tobacco user 07/04/23 12:00 e-Cigarette/Vaping Use Never Used 07/04/23 12:00 Thrive Assessment: Date of Thrive Assessment Date Thrive assessed 12/30/22 07/04/23 12:00 Const Other: Alert oriented x3, no acute cardiorespiratory distress noted, normal gait HENMT Head: Yes normocephalic Ears: hearing grossly normal bilaterally and external ears normal Mouth: Normal oral and palatal mucosa present, tongue normal, oropharynx normal and moist mucous membranes Eyes General: appearance normal, both eyes and all related structures Neck Neck: Yes full ROM, Yes no lymphadenopathy and Yes supple Thyroid: Thyroid normal Resp Auscultation: clear to auscultation bilaterally Cardio Rate: regular rate Rhythm: regular rhythm Heart sounds: S1 normal heart sound present and S2 normal heart sound present GI Palpation (GI): Soft to palpation, nontender, no guarding and no masses Auscultation: normal bowel sounds Skin General skin exam: no rashes or lesions noted Neuro Cranial nerves: Yes Normal hearing present Extrem General: Yes full ROM, Yes no joint enlargement, Yes no clubbing, cyanosis or edema and Yes normal gait Assessment and Plan Assessment & Plan (1) Essential hypertension: Code(s): I10 - Essential (primary) hypertension Plan: Blood pressure stable controlled present treatment, continue with olmesartan 10 mg daily, and reinforced importance of following a low-sodium diet and getting regular exercise. (2) Dyslipidemia: Code(s): E78.5 - Hyperlipidemia, unspecified Plan: Ordered the fasting lipid panel today, continue with adherence to healthy eating habits and regular exercise (3) Acquired hypothyroidism: Code(s): E03.9 - Hypothyroidism, unspecified Plan: Ordered TSH and free T4, in the meantime continue with levothyroxine at 100 mcg daily. Orders: Orders Basic Metabolic Panel Fasting 07/04/23 E03.9 - Hypothyroidism, unspecified, E78.5 - Hyperlipidemia, unspecified, I10 - Essential (primary) hypertension, Z78.0 - Asymptomatic menopausal state Thyroid Stimulating Hormone 07/04/23 E03.9 - Hypothyroidism, unspecified, E78.5 - Hyperlipidemia, unspecified, I10 - Essential (primary) hypertension, Z78.0 - Asymptomatic menopausal state Free T4 (Free Thyroxine) 07/04/23 E03.9 - Hypothyroidism, unspecified, E78.5 - Hyperlipidemia, unspecified, I10 - Essential (primary) hypertension, Z78.0 - Asymptomatic menopausal state Alanine Aminotransferase 07/04/23 E03.9 - Hypothyroidism, unspecified, E78.5 - Hyperlipidemia, unspecified, I10 - Essential (primary) hypertension, Z78.0 - Asymptomatic menopausal state Aspartate Amino Transferase 07/04/23 E03.9 - Hypothyroidism, unspecified, E78.5 - Hyperlipidemia, unspecified, I10 - Essential (primary) hypertension, Z78.0 - Asymptomatic menopausal state Lipid Panel 07/04/23 E03.9 - Hypothyroidism, unspecified, E78.5 - Hyperlipidemia, unspecified, I10 - Essential (primary) hypertension, Z78.0 - Asymptomatic menopausal state Vitamin D 25-OH Total 07/04/23 E03.9 - Hypothyroidism, unspecified, E78.5 - Hyperlipidemia, unspecified, I10 - Essential (primary) hypertension, Z78.0 - Asymptomatic menopausal state Coding Level of Care Code Est Pt Level 4 (33104) Diagnoses Essential hypertension I10 Dyslipidemia E78.5 Acquired hypothyroidism E03.9
== END 2023-07-04 13:25 | disposition home or self-care (01) ==
PROVIDERS: PCP Internal Medicine; Visit Provider Internal Medicine
DX: I10 Essential (primary) hypertension (principal); E78.5 Hyperlipidemia, unspecified; E03.9 Hypothyroidism, unspecified
CPT/HCPCS: 99214

== ENCOUNTER 2023-07-07 08:51 | Outpatient (AMB) | payer OTHER, SELFPAY ==
[2023-07-07 08:58] VITALS: BP 140/72; PULSE 72; TEMP 36.4; O2SAT 95; BMI 27.6
--- NOTE | 2023-07-07 08:58 | AM.OFFWIN_ITS ---
Intake Vital Signs 07/07/23 08:58 Height 5 ft 4 in Weight 161 lb BMI 27.6 BP 140/72 H Blood Pressure Location Lt brachial Position Sitting Pulse 72 Pulse Source Pulse Oximeter Temp 97.6 F Temp Source Temporal Artery Scan Pulse Oximetry (%) 95 Oxygen Delivery Method Room Air Intake Visit Reasons: EP LT elbow Intake Note: ptis here today for lft elbow started monday Patient Tobacco Use Status: Former Tobacco user Allergies ciprofloxacin Adverse Reaction (Unknown, Verified 07/07/23 09:00) pulled muscle doxycycline Adverse Reaction (Unknown, Verified 07/07/23 09:00) vision changes lisinopril Adverse Reaction (Unknown, Verified 07/07/23 09:00) cough Do you need a note to return to daycare/school/sports/work: No HPI HPI Comments History of Present Illness Details 73 y/o female patient who [facility] with c/o left elbow pain. He was reaching over-head for something and banged elbow on counter top about 1 week ago. Pt has Hardware in the elbow from Prior Surgery. Pt worried that she may have moved the hardware out of place - asking for Xray. [facility] Medical History Spinal stenosis of lumbar region with radiculopathy Paroxysmal atrial fibrillation Left lumbar radiculopathy Sacroiliac joint dysfunction IBS (irritable bowel syndrome) Temporomandibular joint pain Dyslipidemia Essential hypertension Tubular adenoma of colon Left forearm fracture Lumbar degenerative disc disease Osteoarthritis involving multiple joints on both sides of body Acquired hypothyroidism Surgical History History of esophagogastroduodenoscopy (EGD) Hx of colonoscopy History of elbow surgery Hx of cholecystectomy History of fracture of forearm Family History Father Myocardial infarction Mother HTN (hypertension) Hyperlipidemia Pancreatic cancer Maternal Grandmother Unknown family medical history Brother No problems noted. Son No problems noted. Maternal Uncle Colon cancer Social History Household Members: None Housing: Apartment Alcohol intake: current Alcohol intake frequency: does not drink Patient Tobacco Use Status: Former Tobacco user Years Smoked: 2 yrs e-Cigarette/Vaping Use: Never Used Second Hand Smoke Exposure: No service: No Current occupational status: retired Current occupational exposures/hazards: No Cognitive needs: No Hearing needs: No Vision needs: Yes (glasses/contacts) Review of Systems Const All systems reviewed & are unremarkable except as noted in HPI and below Physical Exam Vital Signs: Last Vital Signs Temp 97.6 F 07/07/23 08:58 Pulse 72 07/07/23 08:58 BP 140/72 H 07/07/23 08:58 Pulse Ox 95 07/07/23 08:58 Oxygen Delivery Method Room Air 07/07/23 08:58 BMI result Body Mass Index 27.6 Const General: comfortable and no acute distress Orientation/consciousness: patient oriented x3 Neuro General: patient oriented x3, gait normal and moves all extremities Extrem Right upper extremity: normal to inspection and full ROM Left upper extremity: elbow/forearm Details: normal to inspection and normal ROM; no tenderness, no swelling, no unusual warmth, no ecchymosis and no crepitus Psych Speech and movement: Normal speech and movement present Assessment & Plan Assessment & Plan (1) Elbow pain: Code(s): M25.529 - Pain in unspecified elbow Qualifiers: Laterality: left Qualified Code(s): M25.522 - Pain in left elbow Plan: - Xray ordered - Acetaminophen for pain relief. - Rest the joint. Orders: Orders XR elbow LT min 3V Today M25.522 - Pain in left elbow Coding Level of Care Code Est Pt Level 3 (10106) Diagnoses Left elbow pain M25.522 Laterality: left Time Spent (min) 15
== END 2023-07-07 11:02 | disposition home or self-care (01) ==
PROVIDERS: PCP Internal Medicine; Visit Provider Nurse Practitioner Family
DX: M25.522 Pain in left elbow (principal)
CPT/HCPCS: 99213

== ENCOUNTER 2023-07-07 09:20 | Outpatient (REF) | payer OTHER, SELFPAY ==
--- NOTE | ~2023-07-07 | XR_ITS ---
EXAMINATION: XR ELBOW, LEFT CLINICAL INFORMATION: Left elbow pain. COMPARISON: No left elbow comparison. TECHNIQUE: AP, lateral, and oblique views of the left elbow. FINDINGS: Bones have normal alignment at the elbow. The joint spaces are normal. No acute fracture, subluxation or joint effusion. No focal soft tissue swelling. There is minimal enthesophyte formation of the medial humeral epicondyle. The fixation plate at the dorsal ulna/olecranon is well-positioned. No osteolysis around the plate or screws. XR/XR elbow LT min 3V IMPRESSION: No specific source of left elbow pain is identified. No acute osseous injury. No evidence of loosening of the dorsal ulna/olecranon fixation plate.
== END 2023-07-07 09:21 | disposition home or self-care (01) ==
LOC: HO.HMGCX 09:20
PROVIDERS: PCP Internal Medicine; Visit Provider Nurse Practitioner Family
DX: M25.522 Pain in left elbow (principal)
CPT/HCPCS: 73080

== ENCOUNTER 2023-07-27 10:55 | Outpatient (AMB) | payer OTHER, SELFPAY ==
--- NOTE | 2023-07-27 11:42 | MHC.PC.OV ---
Vital Signs 07/27/23 11:44 Height 5 ft 4 in Weight 161 lb BMI 27.6 BP 144/80 H Blood Pressure Location Rt brachial Position Sitting Pulse 84 Pulse Source Pulse Oximeter Pulse Oximetry (%) 98 Oxygen Delivery Method Room Air Intake Visit Reasons: Lt arm no improvement after PT Intake Note: Pt is here today Lt arm no improvement after PT Allergies ciprofloxacin Adverse Reaction (Unknown, Verified 07/27/23 11:50) pulled muscle doxycycline Adverse Reaction (Unknown, Verified 07/27/23 11:50) vision changes lisinopril Adverse Reaction (Unknown, Verified 07/27/23 11:50) cough Medication List - Last Reconciled 07/27/23 by Padmini Boggs MD albuterol sulfate 90 mcg/actuation (ProAir HFA) 1 inh inhalation QID PRN 30 days aspirin 81 mg PO DAILY dicyclomine 10 mg PO TID levothyroxine 100 mcg PO DAILY jwziguvo-cjgqzda-lgqm-lutein tabs PO nabumetone 500 mg PO .qOD PRN olmesartan 10 mg (2 x 5 mg) PO DAILY pantoprazole 40 mg PO DAILY 30 days timolol maleate 0.5% 1 drp ophthalmic (eye) QAM Tobacco use date assessed: 07/27/23 Fall risk assessment: No Falls in past year Last assessed Fall Risk: 07/27/23 Dental Screening Dental Screen Date: 07/27/23 Did you have a dental visit in the last 12 months?: No Was dental information given to patient?: Patient has dentist HPI Lt arm no improvement after PT HPI Details 73-year-old lady here today complaining persistent pain in her left elbow. She accidentally banged her left elbow on a counter while reaching for something approximately 4 weeks ago. She has been referred for physical therapy with no improvement. X-ray of left elbow showed no fracture, no evidence of loosening of the dorsal ulna/olecranon fixation plate. [facility] Medical History (Updated 07/30/23 @ 17:46 by Padmini Boggs MD) Spinal stenosis of lumbar region with radiculopathy Paroxysmal atrial fibrillation Left lumbar radiculopathy IBS (irritable bowel syndrome) Dyslipidemia Essential hypertension Tubular adenoma of colon Osteoarthritis involving multiple joints on both sides of body Acquired hypothyroidism Surgical History History of esophagogastroduodenoscopy (EGD) Hx of colonoscopy History of elbow surgery Hx of cholecystectomy History of fracture of forearm Family History Father Myocardial infarction Mother HTN (hypertension) Hyperlipidemia Pancreatic cancer Maternal Grandmother Unknown family medical history Brother No problems noted. Son No problems noted. Maternal Uncle Colon cancer Social History Household Members: None Housing: Apartment Alcohol intake: current Alcohol intake frequency: does not drink Patient Tobacco Use Status: Former Tobacco user Years Smoked: 2 yrs e-Cigarette/Vaping Use: Never Used Second Hand Smoke Exposure: No service: No Current occupational status: retired Current occupational exposures/hazards: No Cognitive needs: No Hearing needs: No Vision needs: Yes (glasses/contacts) Questionnaire PHQ-9 Over the last 2 weeks, how often have you been bothered by any of the following problems? 1. Little interest or pleasure in doing things: not at all 2. Feeling down, depressed, or hopeless: not at all 3. Trouble falling or staying asleep, or sleeping too much: not at all 4. Feeling tired or having little energy: not at all 5. Poor appetite or overeating: not at all 6. Feeling bad about yourself - or that you are a failure or have let yourself or your family down: not at all 7. Trouble concentrating on things, such as reading the newspaper or watching television: not at all 8. Moving or speaking so slowly that other people could have noticed. Or the opposite - being so fidgety or restless that you have been moving around a lot more than usual: not at all 9. Thoughts that you would be better off or of hurting yourself in some way: not at all Total score: 0 Depression Screening Interpretation: Negative Depression Screening Done: Yes 44202 - PHQ-9 Billing: Yes Source: Developed by Drs. Ta Renee, Meagan Olivarez, Jose David Howard and colleagues, with an educational allyn from [employer]. Thrive Questionnaire Date Thrive assessed: 07/27/23 I am a: Patient What is your living situation today?: I have a steady place to live Within the past 12 months, did the food you bought not last and you didn't have the money to get more?: Never true Within the past 12 months, did you worry whether your food would run out before you got money to buy more?: Never true Do you have trouble paying for medicines?: No Do you have trouble getting transportation to medical appointments?: No Do you have trouble paying your heating and electricity bill?: No Do you have trouble taking care of your child, family member or friend?: No Do you have trouble with day-to-day activities such as bathing, preparing meals, shopping, managing finances, etc.?: No Are you currently unemployed and looking for a job?: No Are you interested in more education?: No THRIVE Score: 0 AUDIT C Alcohol Use Questionnaire (AUDIT-C) 1. How often do you have a drink containing alcohol?: Monthly or less 2. How many drinks containing alcohol do you have on a typical day when you are drinking?: 1 or 2 3. How often do you have six or more drinks on one occasion?: Never Total Score: 1 PROMISE-7 AMB Questionnaire PROMISE-7 Date PROMISE - 7 assessed: 07/27/23 Feeling nervous, anxious, or on edge: 0 = Not at all Not being able to stop or control worryin = Not at all Worrying too much about different things: 0 = Not at all Trouble relaxin = Not at all Being so restless that it is hard to sit still: 0 = Not at all Becoming easily annoyed or irritable: 0 = Not at all Feeling afraid as if something awful might happen: 0 = Not at all Total PROMISE-7 score (0-4 normal; 5-9 mild; 10-14 moderate; 15-21 severe): 0 Source: Developed by Drs. Ta Renee, Meagan Olivarez, Jose David Howard and colleagues, with an educational allyn from [employer]. PROMISE-7 Assessment Billing PROMISE-7 Assessment Tool: PROMISE-7 Assessment 80863 Review of Systems Const All systems reviewed & are unremarkable except as noted in HPI and below Physical exam (Primary Care) Vital Signs: Last Vital Signs Pulse 84 07/27/23 11:44 BP 144/80 H 07/27/23 11:44 Pulse Ox 98 07/27/23 11:44 Oxygen Delivery Method Room Air 07/27/23 11:44 BMI result Body Mass Index 27.6 Tobacco/Smoking Status: Tobacco use Status Tobacco use date assessed 07/27/23 07/27/23 11:43 Patient Tobacco Use Status Former Tobacco user 07/27/23 11:43 e-Cigarette/Vaping Use Never Used 07/27/23 11:43 PHQ-9: PHQ-9 Score PHQ-9: Total score 0 07/27/23 12:03 Depression Screening Interpretation: Negative Thrive Assessment: Date of Thrive Assessment Date Thrive assessed 07/27/23 07/27/23 11:48 Const Other: Alert oriented x3, no acute distress noted ambulatory normal gait Orientation/consciousness: patient oriented x3 Neuro General: patient oriented x3, gait normal, tone normal, moves all extremities and no focal motor deficits Extrem Other: Slight tenderness on palpation over left epicondylar area, no joint swelling seen General: Yes full ROM, Yes no joint enlargement, Yes no clubbing, cyanosis or edema and Yes normal gait Assessment and Plan Assessment & Plan (1) Left elbow pain: Code(s): M25.522 - Pain in left elbow Plan: X-ray of left elbow done proximally 2 weeks COVID not show any abnormality, stop taking nabumetone, instructed to massaged diclofenac gel to affected area in her elbow to 2 3 times a day as needed, referred to orthopedics for further management (2) History of elbow surgery: Code(s): Z98.890 - Other specified postprocedural states Plan: Done [place] [address] Torres Orders: Referrals Orthopedics Referral M25.522 - Pain in left elbow, Z98.890 - Other specified postprocedural states Coding Level of Care Code Est Pt Level 4 (44075) Diagnoses Left elbow pain M25.522 History of elbow surgery Z98.890 Additional Codes PROMISE-7 Assessment Billing - PROMISE-7 Assessment Tool: PROMISE-7 Assessment 96205 ([id number])
[2023-07-27 11:44] VITALS: BP 144/80; PULSE 84; O2SAT 98; BMI 27.6
== END 2023-07-27 13:24 | disposition home or self-care (01) ==
PROVIDERS: PCP Internal Medicine; Visit Provider Internal Medicine
DX: M25.522 Pain in left elbow (principal); Z98.890 Other specified postprocedural states
CPT/HCPCS: 99214

== ENCOUNTER 2023-08-21 10:44 | Outpatient (AMB) | payer OTHER, SELFPAY ==
--- NOTE | 2023-08-21 10:46 | A.OFFVIS_ITS ---
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 Patient reports banging left elbow about 6 weeks ago. Complaining of soreness and swelling. Patient did PT with minimal relief as well as stretches. Hx of elbow surgery at [facility], 20 years ago. Patient brought in films from back then. 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 She reports she was reaching to a cabinet and banged her left elbow while coming down about 6 weeks ago. She currently states she has soreness and swelling in her elbow. She had attended physical therapy with minimal relief as well as stretches. She has a history of left elbow injury 20 years ago where she underwent a surgery at [facility]. [facility] Medical History (Updated 08/21/23 @ 11:15 by Ambreen Neff PA-C) Spinal stenosis of lumbar region with radiculopathy Paroxysmal atrial fibrillation Left lumbar radiculopathy IBS (irritable bowel syndrome) Dyslipidemia Essential hypertension Tubular adenoma of colon Osteoarthritis involving multiple joints on both sides of body Acquired hypothyroidism Surgical History (Updated 08/21/23 @ 10:56 by FRAN Reynaga) History of esophagogastroduodenoscopy (EGD) Hx of colonoscopy History of elbow surgery Hx of cholecystectomy History of fracture of forearm Family History Father Myocardial infarction Mother HTN (hypertension) Hyperlipidemia Pancreatic cancer Maternal Grandmother Unknown family medical history Brother No problems noted. Son No problems noted. Maternal Uncle Colon cancer Social History (Updated 08/21/23 @ 10:50 by FRAN Reynaga) Household Members: None Housing: Apartment Alcohol intake: current Alcohol intake frequency: a few times a month Patient Tobacco Use Status: Former Tobacco user Years Smoked: 2 yrs e-Cigarette/Vaping Use: Never Used Second Hand Smoke Exposure: No service: No Current occupational status: retired Current occupation: left handed Current occupational exposures/hazards: No Cognitive needs: No Hearing needs: No Vision needs: Yes (glasses/contacts) Review of Systems Const All systems reviewed & are unremarkable except as noted in HPI and below Physical Exam Vital Signs: BMI result Body Mass Index 27.5 Const General: cooperative, healthy appearing, comfortable, no acute distress, well developed and alert Orientation/consciousness: patient oriented x3 HEENT Head: Yes normal to inspection, Yes normocephalic and Yes atraumatic Eyes General: appearance normal, both eyes and all related structures Resp Effort & Inspection: normal respiratory effort and able to speak in complete sentences Cardio Rate: regular rate Peripheral pulses: Peripheral pulses 2+ throughout GI Palpation (GI): Soft to palpation Skin Lesions: no lesions Rashes: no rashes Neuro General: patient oriented x3 Extrem Other: Left elbow: Skin intact. No erythema or swelling. ROM full without pain. Tenderness over the lateral epicondyle and pain with resisted wrist extension. NVI. Results Reviewed Results Reviewed: xrays of the left elbow obtained on 07/07/23 show intact hardware without signs of loosening or acute fracture Assessment & Plan Assessment & Plan (1) Left elbow tendonitis: Code(s): M77.8 - Other enthesopathies, not elsewhere classified Category: Medical Plan We discussed options which include OT, NSAIDs and modification of activity. The patient will proceed with OT and NSAIDs. If symptoms persist, the patient will contact me to discuss options, otherwise, prn Orders: Orders OT Evaluation and Treatment Today M77.8 - Other enthesopathies, not elsewhere classified Patient Instructions: Scribed for Ambreen Neff PA-C, by Jefry Stein medical supervisor, on 08/21/2023 at 11:00 AM EST. IAmbreen PA-C, have personally reviewed and agree with the information entered by the scribe. Coding Level of Care Code New Pt Level 3 (26973) Diagnoses Left elbow tendonitis M77.8
[2023-08-21 10:47] VITALS: BMI 27.5
== END 2023-08-21 13:40 | disposition home or self-care (01) ==
PROVIDERS: PCP Internal Medicine; Visit Provider Physician Assistant
DX: M77.8 Other enthesopathies, not elsewhere classified (principal)
CPT/HCPCS: 99203

== ENCOUNTER → 2023-08-21 10:44 | Outpatient (BNVA) | payer OTHER, SELFPAY | PROVIDERS: PCP Internal Medicine; Visit Provider Physician Assistant | DX: M77.8 Other enthesopathies, not elsewhere classified (principal); M25.522 Pain in left elbow | CPT/HCPCS: 99202 ==

== ENCOUNTER 2023-08-31 10:15 | Outpatient (REF) | payer OTHER, SELFPAY ==
--- NOTE | ~2023-08-31 | XR_ITS ---
EXAMINATION: XR ELBOW, LEFT CLINICAL INFORMATION: Left elbow pain. COMPARISON: 07/07/2023 alignment maintained. Minimal hypertrophic change along the medial humeral epicondyles. TECHNIQUE: AP, lateral, and oblique views of the left elbow. FINDINGS: Redemonstration of plate and screws status post ORIF at the dorsal ulna/olecranon, stable in position. Hardware appears intact. The bones are diffusely demineralized. Vertical linear lucencies in the radial head are likely related to demineralization, but correlation with clinical exam recommended to determine further management and MRI recommended if there is clinical concern for fracture. XR/XR elbow LT 2V IMPRESSION: 1. Vertical linear lucencies in the radial head are likely related to demineralization, but correlation with clinical exam recommended to determine further management and MRI recommended if there is clinical concern for fracture. 2. Status post ORIF at the dorsal ulna/olecranon, stable in position. Hardware appears intact.
== END 2023-08-31 10:16 | disposition home or self-care (01) ==
LOC: HO.HOSX 10:15
PROVIDERS: PCP Internal Medicine; Visit Provider Orthopaedic Surgery
DX: M77.8 Other enthesopathies, not elsewhere classified (principal)
CPT/HCPCS: 73070; 99212

== ENCOUNTER 2023-08-31 10:15 | Outpatient (AMB) | payer OTHER, SELFPAY ==
--- NOTE | 2023-08-31 10:35 | A.OFFVIS_ITS ---
Vital Signs 08/31/23 10:48 Height 5 ft 4 in Weight 160 lb BMI 27.5 Intake Visit Reasons: OV - Left Elbow Pain - HX of ORIF - Wants XR Intake Note: Diane a 73 year old left hand dominant female who presents today for a follow up of her left elbow pain. Hx of left elbow ORIF in 1999. Patient reports that she bumped the elbow on something a few months back and has had continued pain, she would like to make sure the hardware is intact. She explains that she is having tightness, she has seen Physical therapy which has not helped. Allergies ciprofloxacin Adverse Reaction (Unknown, Verified 08/21/23 10:47) pulled muscle doxycycline Adverse Reaction (Unknown, Verified 08/21/23 10:47) vision changes lisinopril Adverse Reaction (Unknown, Verified 08/21/23 10:47) cough HPI HPI OV - Left Elbow Pain - HX of ORIF - Wants XR: Details: Diane is a 73-year-old woman with a remote history of ORIF of the left olecranon. She struck her elbow on a table about 2 months ago and is still having some discomfort. She describes tightness in the medial aspect of her left forearm. She denies numbness and tingling. [facility] Medical History (Updated 08/21/23 @ 11:15 by Ambreen Neff PA-C) Spinal stenosis of lumbar region with radiculopathy Paroxysmal atrial fibrillation Left lumbar radiculopathy IBS (irritable bowel syndrome) Dyslipidemia Essential hypertension Tubular adenoma of colon Osteoarthritis involving multiple joints on both sides of body Acquired hypothyroidism Surgical History (Updated 08/21/23 @ 10:56 by FRAN Reynaga) History of esophagogastroduodenoscopy (EGD) Hx of colonoscopy History of elbow surgery Hx of cholecystectomy History of fracture of forearm Family History Father Myocardial infarction Mother HTN (hypertension) Hyperlipidemia Pancreatic cancer Maternal Grandmother Unknown family medical history Brother No problems noted. Son No problems noted. Maternal Uncle Colon cancer Social History (Updated 08/21/23 @ 10:50 by FRAN Reynaga) Household Members: None Housing: Apartment Alcohol intake: current Alcohol intake frequency: a few times a month Patient Tobacco Use Status: Former Tobacco user Years Smoked: 2 yrs e-Cigarette/Vaping Use: Never Used Second Hand Smoke Exposure: No service: No Current occupational status: retired Current occupation: left handed Current occupational exposures/hazards: No Cognitive needs: No Hearing needs: No Vision needs: Yes (glasses/contacts) Physical Exam Vital Signs: BMI result Body Mass Index 27.5 Extrem Other: Left elbow with 0-125 degrees motion. Palpable hardware over the olecranon that is nonpainful. No pain with resisted wrist flexion or extension. No focal bony tenderness to palpation Results Reviewed Results Reviewed: I personally reviewed relevant radiographs. left olecranon hardware in place with no hardware complications Assessment & Plan Assessment & Plan (1) Left elbow tendonitis: Code(s): M77.8 - Other enthesopathies, not elsewhere classified Category: Medical Plan: This is a 73-year-old woman with left elbow pain after hitting it. She many years status post olecranon ORIF. Her exam and imaging findings are benign. I discussed this with her. No intervention is warranted at this time. Orders: Orders XR elbow LT 2V Today M25.529 - Pain in unspecified elbow Coding Level of Care Code Est Pt Level 4 (65728) Diagnoses Left elbow tendonitis M77.8
[2023-08-31 10:48] VITALS: BMI 27.5
== END 2023-08-31 11:04 | disposition home or self-care (01) ==
PROVIDERS: PCP Internal Medicine; Visit Provider Orthopaedic Surgery
DX: M77.8 Other enthesopathies, not elsewhere classified (principal)
CPT/HCPCS: 99213

== ENCOUNTER 2023-09-22 07:44 | Outpatient (REF) | payer OTHER, SELFPAY ==
[2023-09-22 10:57] LABS: Alanine Aminotransferase 18 U/L (0-31); Anion Gap 14 (12-20); Aspartate Amino Transferase 18 U/L (5-31); Blood Urea Nitrogen 18 mg/dL (9-16); Calcium 9.9 mg/dL (8.4-10.2); Carbon Dioxide 26 mmol/L (22-29); Chloride 105 mmol/L (96-108); Cholesterol 207 mg/dL (<200); Estimated Glomerular Filt Rate > 60; Glucose Fasting 99 mg/dL (60-99); HDL Cholesterol 72 mg/dL (>40); LDL Cholesterol Calculated 111 mg/dL (<100); Potassium 4.5 mmol/L (3.3-5.1); Sodium 140 mmol/L (135-145); Triglycerides 122 mg/dL (<150)
[2023-09-22 11:04] LABS: Free T4 (Free Thyroxine) 1.38 ng/dL (0.71-1.85); Thyroid Stimulating Hormone 1.21 uIU/mL (0.32-4.0); Vitamin D 25-OH Total 50.1 ng/mL (>30)
== END 2023-09-22 07:45 | disposition home or self-care (01) ==
LOC: HO.HMGCLDS 07:44
PROVIDERS: PCP Internal Medicine; Visit Provider Internal Medicine
DX: I10 Essential (primary) hypertension (principal); E78.5 Hyperlipidemia, unspecified; E03.9 Hypothyroidism, unspecified; Z78.0 Asymptomatic menopausal state
CPT/HCPCS: 36415; 80048; 80061; 82306; 84439; 84443; 84450; 84460

== ENCOUNTER 2023-10-03 11:00 | Outpatient (RCR) | payer OTHER, SELFPAY ==
--- NOTE | 2023-07-24 15:50 | MHC.OT.OEV ---
[address] [phone] F: [phone] Occupational Therapy Evaluation Patient Name: Diane Ram Diagnosis: Pain in (L)elbow Date of Onset: 07/01/23 Date of Surgery: Attending Provider: Padmini Boggs Prescribed Treatment: Follow Up Appointment: History of Current Condition: Patient is a y/o female (L)hand dominate who injured her elbow while reaching for an item in the upper cabinet and hit her elbow on the bottom of the cabinet ledge. She was seen at [facility] [place] on 07[place]. X-RAY FINDINGS: Bones have normal alignment at the elbow. The joint spaces are normal. No acute fracture, subluxation or joint effusion. No focal soft tissue swelling. There is minimal enthesophyte formation of the medial humeral epicondyle. The fixation plate at the dorsal ulna/olecranon is well-positioned. No osteolysis around the plate or screws Significant Medical History: Spinal stenosis of lumbar region with radiculopathy Paroxysmal atrial fibrillation Left lumbar radiculopathy Sacroiliac joint dysfunction IBS (irritable bowel syndrome) Temporomandibular joint pain Dyslipidemia Essential hypertension Tubular adenoma of colon Left forearm fracture Lumbar degenerative disc disease Osteoarthritis involving multiple joints on both sides of body Acquired hypothyroidism Precautions/Contraindications: Hardware in (B) elbows Patient Goals: Hand Dominance: Left Observations: QuickDASH Score: 34.1 Prior Level of Function and Occupation Self Care, Employment, Leisure: (I)ADLs/IADLs No hobbies Living Situation, Family and/or Social Support: Lives alone Son and friends Current Level of Function and Occupation Self Care, Employment, Leisure: Sleep: pain does not wake patient up at night Driving: (I) Vision: Balance: Pain Assessment Pain Score: 5 Pain Scale Used: Pain Location and Description: tightening, dull/ aching pain constant, annoying Feels like a knot and twisting a screw 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 5 at rest/activity Aggravating Factors: Alleviating Factors: Heat/ ice Skin and Soft Tissue Assessment Skin and Soft Tissue: Comments: Skin intact Nerve assessment Ulnar Nerve: Median Nerve: Radial Nerve: Comments: Sensory Assessment Temperature: WFL Light Touch: WFL Proprioception: WFL Vibration: WFL Comments: Monofilament Test= intact Edema Assessment Upper Extremity: Left Impaired Lower Extremity: Comments: Edema present on the medial aspect of the elbow Dexterity Assessment Dexterity: Comments: Finger opposition Functional Dexterity Test= 22.94 seconds Special Tests Comments: (-)Mill's Test (-)Cozen's Test (-) Golfer's elbow Test (-) Tinel's AROM(PROM) Strength Cervical Cervical Flexion: Cervical Extension: Cervical Lateral Flexion: Cervical Rotation: Comments: Shoulder Flexion: Extension: Abduction: Internal Rotation: External Rotation: Comments: WFL Flexion: Extension: Abduction: Internal Rotation: External Rotation: Comments: WFL Elbow Flexion: Extension: Pronation: Supination: Comments: WFL Flexion: Extension: Pronation: Supination: Comments: WFL Wrist Flexion: Extension: Ulnar Deviation: Radial Deviation: Comments: WFL Flexion: Extension: Ulnar Deviation: Radial Deviation: Comments: WFL Thumb Thumb CMC Flexion: Thumb MCP Flexion: Thumb IP Flexion: Radial Abduction: Palmar Abduction: [place] (Kapandji 0-10): Comments: WFL Digits Index MCP: PIP: DIP: Long MCP: PIP: DIP: Ring MCP: PIP: DIP: Small MCP: PIP: DIP: Comments: WFL Gross Grasp: Lateral Pinch: Two-Point Pinch: Three-Jaw Dequan: Comments: Patient Education Primary Language: Maori Hospice Chaplain Required: No Current Knowledge: Teaching Method: Education Needs Identified on Evaluation: How did patient/family demonstrate learning? Barriers to Learning: Readiness for Learning: Who was educated? Comments: Plan of Care Assessment: Patient is a 73 year old, (L)handed dominate female who was referred to skilled OT for pain and edema after she hit her elbow on the cabinet ledge when reaching for an item. Patient reports (I)ADLs/IADLs, she is retired, and lives alone. She stated she is able to complete tasks but it is painful and uncomfortable. She reports pain as a 5/10 during activity on the lateral side. She also reported pin's and needles. Edema was present around the medial aspect of the elbow. Patient's coordination was WFL per the Functional Dexterity Test, ROM WFLs. Patient achieved 23lbs. 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 Quick DASH= 34.1 indicating patient's perceived impairment of the UE. Based on initial evaluation patient's presents with impaired strength, impaired functional activity tolerance as patient reports 5/10 pain during activity, edema and impaired performance during self care tasks. Due to the documented impairments it is recommended that patient receive skilled OT intervention in order for patient to achieve her PLOF. Thank your for your referral. STG Duration: 2 weeks Short Term Goals: Patient will decrease pain from 5/10 to 3/10 pain Patient will be (I) with edema management Patient will increase structural steel engineer strength to 30lbs. 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: Patient will decrease pain to 0/10 when performing self care tasks Patient will be (I) with HEP for improved during self care tasks Patient's Quick DASH score will be >20 indicating improvement of the UE Frequency and Duration: The patient will be seen 2x a week for 4 week Treatment Plan: Therapeutic Exercise Therapeutic Activity Home Exercise Program Patient Education Desensitization/Sensory Re-ed ADL Training Ultrasound Iontophoresis Paraffin Fluidotherapy MHP Cold Packs Kinesiotaping Skilled OT evaluation and treat Electronically Signed By: MARY JO Malone/Jerri, CLT Reviewed/agree with student documentation: Therapist: Please sign and return to therapist, Thank you for your referral.
--- NOTE | 2023-08-17 07:24 | MHC.OT.OP ---
[address] [phone] F: [phone] Occupational Therapy Progress Note Patient Name: Diane Ram Diagnosis: Pain in (L)elbow Date of Evaluation: 07/21/23 Treatments to Date: 10 Subjective: It's not all the time, but it's still sharp and deep Pain Score: 5 Pain Location: (L)Elbow Objective Measures: Full ROM and strength Occasional moderate pain in elbow, tender to palpate posterior elbow Assessment: Diane is about six weeks s/p trauma to left elbow. She conts to report occasional sharp/deep elbow pain and at times pain and clicking in shoulder. No significant weakness in elbow and shoulder, good ROM. Some tenderness in posterior elbow at distal tricep still. At this time she is Ind w/ home program for stretching and joint protection, we will hold therapy and await further recommendations from ortho specialist. 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
--- NOTE | 2023-10-03 14:38 | MHC.OT.DC ---
[address] [phone] F: [phone] Occupational Therapy Discharge Note Patient Name: Diane Shafer Errolcatina Provider: Padmini Boggs Diagnosis: Pain in (L)elbow Date of Surgery: Date of Evaluation: 07/21/23 Date of Discharge: Treatments to Date: 15 Cancellations to Date: No Shows to Date: Discharge Status: Improved Function Independent with HEP Discharge Summary: Pt tolerated therapy well today; She was educated on stretching and continuing her HEP at home. Pt believes she has an excellent understanding of her anatomy, HEP, and to continue w/ progression at home for increased functional use of her UE Electronically Signed By: Brianna Rogers OTR/L Reviewed/agree with student documentation: N/A Therapist: Please Sign and return to therapist, thank you for your referral.
== END 2024-06-06 14:38 | disposition home or self-care (01) ==
LOC: HO.OT 11:00
PROVIDERS: PCP Internal Medicine; Visit Provider Internal Medicine
DX: M25.522 Pain in left elbow (principal)
CPT/HCPCS: 97033; 97035; 97110; 97140; 97166; 97535

== ENCOUNTER 2023-11-27 10:32 | Outpatient (AMB) | payer OTHER, SELFPAY ==
--- NOTE | 2023-11-27 11:19 | AM.OFFWIN_ITS ---
Intake Vital Signs 11/27/23 11:20 Height 5 ft 4 in Weight 160 lb BMI 27.5 BP 144/86 H Blood Pressure Location Lt brachial Position Sitting Pulse 66 Pulse Source Pulse Oximeter Temp 97.0 F Temp Source Temporal Artery Scan Pulse Oximetry (%) 99 Oxygen Delivery Method Room Air Intake Visit Reasons: EP Possible Sinus infection Intake Note: pt c/o sinus pressure and pain. Ongoing. Multiple symptoms Patient Tobacco Use Status: Former Tobacco user Allergies ciprofloxacin Adverse Reaction (Unknown, Verified 11/27/23 11:20) pulled muscle doxycycline Adverse Reaction (Unknown, Verified 11/27/23 11:20) vision changes lisinopril Adverse Reaction (Unknown, Verified 11/27/23 11:20) cough Do you need a note to return to daycare/school/sports/work: No HPI EP Possible Sinus infection HPI Details This note is constructed using voice recognition software. While every effort has been made to ensure accuracy, machinery dismantler errors may have been included. The patient is a 73 year old female who presents to the clinic today with concern for sinus infection. She reports longstanding history of dry eye, which she is following multiple specialists and having multiple side effects and irritations with. She is using multiple eyedrops and working towards resolving her symptoms. She notices that she has some pain in the ethmoid region bilaterally, but this has been longstanding. She is unsure if this would be more of a sinus infection. She denies fever, chills, cough, shortness of breath. She has a mild headache that occurs every day, frontal region, and for some time. No sick contacts. Taking Advil cold and sinus, without any relief. [facility] Medical History (Updated 08/21/23 @ 11:15 by Ambreen Neff PA-C) Spinal stenosis of lumbar region with radiculopathy Paroxysmal atrial fibrillation Left lumbar radiculopathy IBS (irritable bowel syndrome) Dyslipidemia Essential hypertension Tubular adenoma of colon Osteoarthritis involving multiple joints on both sides of body Acquired hypothyroidism Surgical History (Updated 08/21/23 @ 10:56 by FRAN Reynaga) History of esophagogastroduodenoscopy (EGD) Hx of colonoscopy History of elbow surgery Hx of cholecystectomy History of fracture of forearm Family History Father Myocardial infarction Mother HTN (hypertension) Hyperlipidemia Pancreatic cancer Maternal Grandmother Unknown family medical history Brother No problems noted. Son No problems noted. Maternal Uncle Colon cancer Social History (Updated 08/21/23 @ 10:50 by FRAN Reynaga) Household Members: None Housing: Apartment Alcohol intake: current Alcohol intake frequency: a few times a month Patient Tobacco Use Status: Former Tobacco user Years Smoked: 2 yrs e-Cigarette/Vaping Use: Never Used Second Hand Smoke Exposure: No service: No Current occupational status: retired Current occupation: left handed Current occupational exposures/hazards: No Cognitive needs: No Hearing needs: No Vision needs: Yes (glasses/contacts) Review of Systems Const All systems reviewed & are unremarkable except as noted in HPI and below Physical Exam Vital Signs: Last Vital Signs Temp 97.0 F 11/27/23 11:20 Pulse 66 11/27/23 11:20 BP 144/86 H 11/27/23 11:20 Pulse Ox 99 11/27/23 11:20 Oxygen Delivery Method Room Air 11/27/23 11:20 BMI result Body Mass Index 27.5 Const General: cooperative, healthy appearing, comfortable, no acute distress and alert Orientation/consciousness: patient oriented x3 Limitations: no limitations HEENT Head: Yes normal to inspection and Yes normocephalic Ears: hearing grossly normal bilaterally and TM abnormal retracted bilateral General nose exam: Normal external nose present Face and sinus: Yes normal facial exam and Yes sinuses nontender Mouth: Normal oral and palatal mucosa present and tongue normal Teeth and gingiva: dentition normal Throat: Yes postnasal drainage and Yes cobblestoning Eyes General: appearance normal, both eyes and all related structures (With mild erythema throughout) Neck Neck: Yes normal visual inspection, Yes full ROM and Yes no lymphadenopathy Resp Effort & Inspection: normal respiratory effort and able to speak in complete sentences Auscultation: clear to auscultation bilaterally Cardio Jugular venous distension: no JVD Palpation: normal PMI Rate: regular rate Heart sounds: S1 normal heart sound present, S2 normal heart sound present, no click, no gallops, no murmurs and no rubs Skin General skin exam: no rashes or lesions noted, elasticity normal and turgor normal Neuro General: patient oriented x3 Psych Appearance: grossly normal Mental Status: mental status grossly normal Speech and movement: Normal speech and movement present Affect: normal affect Assessment & Plan Assessment & Plan (1) Allergic rhinitis: Code(s): J30.9 - Allergic rhinitis, unspecified Qualifiers: Allergic rhinitis trigger: unspecified Allergic rhinitis seasonality: unspecified Qualified Code(s): J30.9 - Allergic rhinitis, unspecified Plan: Supportive measures encouraged and reviewed. Does not appear consistent with sinus infection. Discussed lack of effect of antimicrobials in the setting. Advised patient to try [id number] second-generation antihistamine, while keeping track of her symptoms as this may lead to increased dry. Advised sinus rinse, patient will try this. Advised patient to follow up with PCP as needed. Plan See above for full details and plan. Coding Level of Care Code Est Pt Level 3 (03862) Diagnoses Allergic rhinitis, unspecified seasonality, unspecified trigger J30.9 Allergic rhinitis trigger: unspecified Allergic rhinitis seasonality: unspecified
[2023-11-27 11:20] VITALS: BP 144/86; PULSE 66; TEMP 36.1; O2SAT 99; BMI 27.5
== END 2023-11-27 12:17 | disposition home or self-care (01) ==
PROVIDERS: PCP Internal Medicine; Visit Provider Registered Nurse
DX: J30.9 Allergic rhinitis, unspecified (principal)
CPT/HCPCS: 99213

== ENCOUNTER 2023-12-12 09:41 | Outpatient (REF) | payer OTHER, SELFPAY ==
--- NOTE | ~2023-12-12 | MM_ITS ---
EXAMINATION: MM SCREENING DIGITAL BREAST TOMOSYNTHESIS, BILATERAL CLINICAL INFORMATION: Screening. Asymptomatic. COMPARISON: Mammography: This study is compared with prior exams dating back to 2019. TECHNIQUE: Digital breast tomosynthesis is performed in both the craniocaudal and mediolateral oblique views along with computer-aided detection (CAD). Synthesized 2D images are generated from the tomosynthesis. FINDINGS: The breasts are heterogeneously dense, which may obscure small masses (ACR BI-RADS breast composition Category c). There are no significant masses, abnormal calcifications, or other abnormalities. MM/MM tomosynthesis screening BI IMPRESSION: No mammographic evidence of malignancy. ASSESSMENT: BI-RADS BI-RADS 1 - Negative RECOMMENDATION: Routine annual mammography screening. 1 year F/U This examination should not preclude the clinical evaluation of a suspicious palpable abnormality. This patient's information was entered into a reminder system with a target due date for their next mammogram. Electronically signed by: Ny Sloan MD 01/09/2024 12:13 PM EDT
== END 2023-12-12 09:42 | disposition home or self-care (01) ==
LOC: HO.MAMMO 09:41
PROVIDERS: PCP Internal Medicine; Visit Provider Internal Medicine
DX: Z12.31 Encounter for screening mammogram for malignant neoplasm of breast (principal)
CPT/HCPCS: 77063; 77067

== ENCOUNTER → 2023-12-12 10:00 | Outpatient (BNV) | payer OTHER, SELFPAY | PROVIDERS: PCP Internal Medicine; Visit Provider Radiology Diagnostic Radiology | DX: Z12.31 Encounter for screening mammogram for malignant neoplasm of breast (principal) | CPT/HCPCS: 77063; 77067 ==

== ENCOUNTER 2024-01-02 09:56 | Outpatient (AMB) | payer OTHER, SELFPAY ==
[2024-01-02 09:59] VITALS: BP 128/82; PULSE 69; TEMP 36.8; O2SAT 98; BMI 27.1
--- NOTE | 2024-01-02 09:59 | AM.OFFWIN_ITS ---
Intake Vital Signs 01/02/24 09:59 Height 5 ft 4 in Weight 158 lb BMI 27.1 BP 128/82 Blood Pressure Location Lt brachial Position Sitting Pulse 69 Pulse Source Pulse Oximeter Temp 98.2 F Temp Source Oral Pulse Oximetry (%) 98 Oxygen Delivery Method Room Air Intake Visit Reasons: EP Stomach concerns Intake Note: pt c/o stomach ache and diarrhea. Ongoing due to IBS. Patient Tobacco Use Status: Former Tobacco user Allergies ciprofloxacin Adverse Reaction (Unknown, Verified 01/02/24 10:13) pulled muscle doxycycline Adverse Reaction (Unknown, Verified 01/02/24 10:13) vision changes lisinopril Adverse Reaction (Unknown, Verified 01/02/24 10:13) cough Do you need a note to return to daycare/school/sports/work: No HPI HPI Comments History of Present Illness Details 73 y/o female [facility] with c/o nausea and diarrhea for few days. She does have h/o IBS and currently taking treatment for it. Pt c/o right lower quadrant pain. Denies fevers, or chills. [facility] Medical History (Updated 01/02/24 @ 10:29 by Denise Child NP) Spinal stenosis of lumbar region with radiculopathy Paroxysmal atrial fibrillation Left lumbar radiculopathy IBS (irritable bowel syndrome) Dyslipidemia Essential hypertension Tubular adenoma of colon Osteoarthritis involving multiple joints on both sides of body Acquired hypothyroidism Surgical History (Updated 08/21/23 @ 10:56 by FRAN Reynaga) History of esophagogastroduodenoscopy (EGD) Hx of colonoscopy History of elbow surgery Hx of cholecystectomy History of fracture of forearm Family History Father Myocardial infarction Mother HTN (hypertension) Hyperlipidemia Pancreatic cancer Maternal Grandmother Unknown family medical history Brother No problems noted. Son No problems noted. Maternal Uncle Colon cancer Social History (Updated 08/21/23 @ 10:50 by FRAN Reynaga) Household Members: None Housing: Apartment Alcohol intake: current Alcohol intake frequency: a few times a month Patient Tobacco Use Status: Former Tobacco user Years Smoked: 2 yrs e-Cigarette/Vaping Use: Never Used Second Hand Smoke Exposure: No service: No Current occupational status: retired Current occupation: left handed Current occupational exposures/hazards: No Cognitive needs: No Hearing needs: No Vision needs: Yes (glasses/contacts) Physical Exam Vital Signs: Last Vital Signs Temp 98.2 F 01/02/24 09:59 Pulse 69 01/02/24 09:59 BP 128/82 01/02/24 09:59 Pulse Ox 98 01/02/24 09:59 Oxygen Delivery Method Room Air 01/02/24 09:59 BMI result Body Mass Index 27.1 Const General: cooperative and no acute distress Nutritional Appearance: obese Orientation/consciousness: patient oriented x3 GI Inspection: Yes normal to inspection and No distended Palpation (GI): Soft to palpation, not firm, Tenderness to palpation present (GI) in the LLQ, no guarding, not rigid and No hepatosplenomegaly present Auscultation: Hypoactive bowel sounds present Rectal Exam - Female: deferred Neuro General: patient oriented x3, gait normal and moves all extremities Psych Speech and movement: Normal speech and movement present Assessment & Plan Assessment & Plan (1) IBS (irritable bowel syndrome): Code(s): K58.9 - Irritable bowel syndrome without diarrhea Qualifiers: Irritable bowel syndrome type: with diarrhea Qualified Code(s): K58.0 - Irritable bowel syndrome with diarrhea Plan: Ordered Reglan Advised to go to ED if symptoms worse F/U with PCP as scheduled. May use Imodium if needed, but caution her on rebound Constipation. Medications: New metoclopramide HCl (Reglan) 10 mg PO Q6H PRN 30 tabs 0RF nausea and vomiting K58.0 - Irritable bowel syndrome with diarrhea Coding Level of Care Code New Pt Level 3 (05443) Diagnoses Irritable bowel syndrome with diarrhea K58.0 Irritable bowel syndrome type: with diarrhea Time Spent (min) 15
== END 2024-01-02 10:44 | disposition home or self-care (01) ==
PROVIDERS: PCP Internal Medicine; Visit Provider Nurse Practitioner Family
DX: K58.0 Irritable bowel syndrome with diarrhea (principal)
CPT/HCPCS: 99213

== ENCOUNTER 2024-01-06 09:10 | Outpatient (REF) | payer OTHER, SELFPAY | END 2024-01-06 09:11 | disposition home or self-care (01) | LOC: HO.HMGCLNP 09:10 | PROVIDERS: PCP Internal Medicine; Visit Provider Internal Medicine Gastroenterology | DX: Z13.89 Encounter for screening for other disorder (principal) ==

== ENCOUNTER 2024-01-08 07:30 | Outpatient (REF) | payer OTHER, SELFPAY ==
[2024-01-08 12:15] LABS: CDiff Gene PCR NEGATIVE (Negative)
[2024-01-08 15:07] LABS: Adenovirus F 40/41 Not Detected (Not Detect.); Astrovirus Not Detected (Not Detect.); Campylobacter Not Detected (Not Detect.); Cryptosporidium Not Detected (Not Detect.); Cyclospora cayetanensis Not Detected (Not Detect.); E. coli EAEC Not Detected (Not Detect.); E. coli EPEC Not Detected (Not Detect.); E. coli ETEC Not Detected (Not Detect.); E. coli STEC Not Detected (Not Detect.); Entamoeba histolytica Not Detected (Not Detect.); Giardia lamblia Not Detected (Not Detect.); Norovirus GI/GII Not Detected (Not Detect.); Plesiomonas shigelloides Not Detected (Not Detect.); Rotavirus A Not Detected (Not Detect.); Salmonella Not Detected (Not Detect.); Sapovirus Not Detected (Not Detect.); Shigella sp./EIEC Not Detected (Not Detect.); Vibrio Not Detected (Not Detect.); Vibrio Cholerae Not Detected (Not Detect.); Yersinia enterocolitica Not Detected (Not Detect.)
[2024-01-13 16:13] LABS: Lactoferrin, Fecal, Quant. <6.25 mcg/mL (<7.25)
[2024-01-18 05:45] LABS: Pancreatic Elastase-1 >500 mcg/g
== END 2024-01-08 07:31 | disposition home or self-care (01) ==
LOC: HO.HMGCLNP 07:30
PROVIDERS: PCP Internal Medicine; Visit Provider Internal Medicine Gastroenterology
DX: R19.7 Diarrhea, unspecified (principal); K51.50 Left sided colitis without complications
CPT/HCPCS: 82656; 83631; 87493; 87507

== ENCOUNTER 2024-01-10 12:33 | Outpatient (AMB) | payer OTHER, SELFPAY ==
--- NOTE | 2024-01-10 12:48 | MHC.PC.OV ---
Vital Signs 01/10/24 12:49 Height 5 ft 4 in Weight 158 lb BMI 27.1 BP 135/80 Blood Pressure Location Lt brachial Position Sitting Pulse 82 Pulse Oximetry (%) 98 Oxygen Delivery Method Room Air Intake Visit Reasons: PE - see comments Intake Note: Patient here for physical exam. Last Mammo: November 2023 Allergies ciprofloxacin Adverse Reaction (Unknown, Verified 01/10/24 13:50) pulled muscle doxycycline Adverse Reaction (Unknown, Verified 01/10/24 13:50) vision changes lisinopril Adverse Reaction (Unknown, Verified 01/10/24 13:50) cough Medication List - Last Reconciled 01/10/24 by Padmini Boggs MD albuterol sulfate 90 mcg/actuation (ProAir HFA) 1 inh inhalation QID PRN 30 days aspirin 81 mg PO DAILY cyclosporine 0.05% (Restasis) 1 drp ophthalmic (eye) BID dicyclomine 10 mg PO TID levothyroxine 100 mcg PO DAILY loteprednol etabonate 0.5% 1 drp ophthalmic (eye) BID metoclopramide HCl (Reglan) 10 mg PO Q6H PRN jbqgyuuy-hdjrsob-nnug-lutein tabs PO nabumetone 500 mg PO .qOD PRN olmesartan 10 mg (2 x 5 mg) PO DAILY pantoprazole 40 mg PO DAILY 30 days pitavastatin calcium (Livalo) mg PO timolol maleate 0.5% 1 drp ophthalmic (eye) QAM Tobacco use date assessed: 07/27/23 Fall risk assessment: No Falls in past year Last assessed Fall Risk: 01/10/24 Dental Screening Dental Screen Date: 07/27/23 HPI PE - see comments HPI Details 73-year-old lady with past medical history of r hypothyroidism, hypertension, paroxysmal atrial fibrillation , and hyperlipidemia, here today for physical exam. She is up-to-date with her screening mammogram done last month with benign findings. Last colonoscopy was done by Dr. Richter in 2022, to be repeated again in 2032.. [facility] Medical History Spinal stenosis of lumbar region with radiculopathy Paroxysmal atrial fibrillation Left lumbar radiculopathy IBS (irritable bowel syndrome) Dyslipidemia Essential hypertension Tubular adenoma of colon Osteoarthritis involving multiple joints on both sides of body Acquired hypothyroidism Surgical History History of esophagogastroduodenoscopy (EGD) Hx of colonoscopy History of elbow surgery Hx of cholecystectomy History of fracture of forearm Family History Father Myocardial infarction Mother HTN (hypertension) Hyperlipidemia Pancreatic cancer Maternal Grandmother Unknown family medical history Brother No problems noted. Son No problems noted. Maternal Uncle Colon cancer Social History Household Members: None Housing: Apartment Alcohol intake: current Alcohol intake frequency: a few times a month Patient Tobacco Use Status: Former Tobacco user Years Smoked: 2 yrs e-Cigarette/Vaping Use: Never Used Second Hand Smoke Exposure: No service: No Current occupational status: retired Current occupation: left handed Current occupational exposures/hazards: No Cognitive needs: No Hearing needs: No Vision needs: Yes (glasses/contacts) Questionnaire PHQ-9 Over the last 2 weeks, how often have you been bothered by any of the following problems? 1. Little interest or pleasure in doing things: not at all 2. Feeling down, depressed, or hopeless: not at all 3. Trouble falling or staying asleep, or sleeping too much: not at all 4. Feeling tired or having little energy: not at all 5. Poor appetite or overeating: not at all 6. Feeling bad about yourself - or that you are a failure or have let yourself or your family down: not at all 7. Trouble concentrating on things, such as reading the newspaper or watching television: not at all 8. Moving or speaking so slowly that other people could have noticed. Or the opposite - being so fidgety or restless that you have been moving around a lot more than usual: not at all 9. Thoughts that you would be better off or of hurting yourself in some way: not at all Total score: 0 Depression Screening Interpretation: Negative Depression Screening Done: Yes 14836 - PHQ-9 Billing: Yes Source: Developed by Drs. Ta Renee, Meagan Olivarez, Jose David Howard and colleagues, with an educational allyn from [employer]. Thrive Questionnaire Date Thrive assessed: 07/27/23 I am a: Patient What is your living situation today?: I have a steady place to live Within the past 12 months, did the food you bought not last and you didn't have the money to get more?: Never true Within the past 12 months, did you worry whether your food would run out before you got money to buy more?: Never true Do you have trouble paying for medicines?: No Do you have trouble getting transportation to medical appointments?: No Do you have trouble paying your heating and electricity bill?: No Do you have trouble taking care of your child, family member or friend?: No Do you have trouble with day-to-day activities such as bathing, preparing meals, shopping, managing finances, etc.?: No Are you interested in more education?: No Please select the resources that you would like help with: None Currently or been in a relationship where the following occur: No concerns reported THRIVE Score: 0 AUDIT C Alcohol Use Questionnaire (AUDIT-C) 1. How often do you have a drink containing alcohol?: Monthly or less 2. How many drinks containing alcohol do you have on a typical day when you are drinking?: 1 or 2 3. How often do you have six or more drinks on one occasion?: Never Total Score: 1 PROMISE-7 AMB Questionnaire PROMISE-7 Date PROMISE - 7 assessed: 07/27/23 Feeling nervous, anxious, or on edge: 0 = Not at all Not being able to stop or control worryin = Not at all Worrying too much about different things: 0 = Not at all Trouble relaxin = Not at all Being so restless that it is hard to sit still: 0 = Not at all Becoming easily annoyed or irritable: 0 = Not at all Feeling afraid as if something awful might happen: 0 = Not at all Total PROMISE-7 score (0-4 normal; 5-9 mild; 10-14 moderate; 15-21 severe): 0 Source: Developed by Drs. Ta Renee, Meagan Olivarez, Jose David Howard and colleagues, with an educational allyn from [employer]. PROMISE-7 Assessment Billing PROMISE-7 Assessment Tool: PROMISE-7 Assessment 86639 Review of Systems Const Denies headache(s) Eyes Reports no additional complaints ENT Reports Normal hearing present, Denies dizziness, Denies headache(s), Denies post nasal drip and Denies tinnitus Card Denies chest pain, Denies chest pain with activity, Denies irregular heart rhythm, Denies lightheadedness and Denies dyspnea Resp Denies dyspnea GI Denies abdominal pain and Denies change in bowel habits Reports no additional complaints Musc Reports no additional complaints Skin/Breast Denies breast pain, Denies breast mass and Denies rash Neuro Reports Normal hearing present, Denies dizziness and Denies headache(s) Psych Reports no additional complaints Endo Reports no additional complaints Abelino/Lymph Reports no additional complaints Aller/Immun Reports no additional complaints Physical exam (Primary Care) Vital Signs: Last Vital Signs Pulse 82 01/10/24 12:49 BP 135/80 01/10/24 12:49 Pulse Ox 98 01/10/24 12:49 Oxygen Delivery Method Room Air 01/10/24 12:49 BMI result Body Mass Index 27.1 Tobacco/Smoking Status: Tobacco use Status Tobacco use date assessed 07/27/23 01/10/24 12:52 Patient Tobacco Use Status Former Tobacco user 01/10/24 12:52 e-Cigarette/Vaping Use Never Used 01/10/24 12:52 PHQ-9: PHQ-9 Score PHQ-9: Total score 0 01/15/24 01:18 Depression Screening Interpretation: Negative Thrive Assessment: Date of Thrive Assessment Date Thrive assessed 07/27/23 01/10/24 12:52 Currently or been in a relationship where the following occur: No concerns reported Const Other: Alert oriented x3, no acute cardiorespiratory distress noted, normal gait [facility] Head: Yes normocephalic Ears: hearing grossly normal bilaterally and external ears normal Mouth: Normal oral and palatal mucosa present, oropharynx normal and moist mucous membranes Eyes Pupils: Equal, round and reactive pupils present EOM: EOMs intact bilaterally Neck Neck: Yes full ROM, Yes no lymphadenopathy and Yes supple Thyroid: Thyroid normal Resp Auscultation: clear to auscultation bilaterally Cardio Rate: regular rate Rhythm: regular rhythm Heart sounds: S1 normal heart sound present and S2 normal heart sound present GI Palpation (GI): Soft to palpation, nontender, no guarding and no masses Auscultation: normal bowel sounds General: Yes no CVA tenderness Back/Spine/Pelvis Back: no CVA tenderness and No back tenderness Skin General skin exam: no rashes or lesions noted Neuro Cranial nerves: Yes Equal, round and reactive pupils present and Yes Normal hearing present Extrem General: Yes full ROM, Yes no joint enlargement, Yes no clubbing, cyanosis or edema and Yes normal gait Psych Affect: normal affect Results Reviewed Results Reviewed: Name: Diane Ram Age/Sex: 73/F : 1950 Unit#: [id number] Attend Dr: Padmini Boggs MD Re09/22/23 Status: DEP REF Location: [facility] Disch: SPEC : [id number] MELLY: 09/22/23 STATUS: COMP REQ : [id number] RECD: 09/22/23-[address]: Padmini Boggs MD COMP: 09/22/23 ENTERED: 09/22/[address]: ORDERED: Met Prof Fast, AST, ALT, Lipid Panel, Vitamin D 25-OH, Free T4, TSH Test Result Flag Reference Sodium 140 135-145 mmol/L Potassium 4.5 3.3-5.1 mmol/L CL 105 96-108 mmol/L CO2 26 22-29 mmol/L Gap 14 12-20 BUN 18 H 9-16 mg/dL Creat 0.85 0.5-1.4 mg/dL EGFR > 60 NOTE: For -[place] individuals, multiply the result by 1.210. Chronic Kidney Disease: Estimated GFR < 60 mL/min/1.73m2 Severe Kidney Disease: Estimated GFR < 15 mL/min/1.73m2 FBS 99 60-99 mg/dL CA 9.9 8.4-10.2 mg/dL AST (GOT) 18 5-31 U/L ALT (GPT) 18 0-31 U/L Triglyceride 122 <150 mg/dL Desirable Triglyceride: less than 150 mg/dL Borderline High Triglyceride 150-199 mg/dL High Triglyceride: 200-499 mg/dL Very High Triglyceride: greater than or equal to 5OO mg/dL Cholesterol 207 H <200 mg/dL Desirable Cholesterol: less than 200 mg/dL Borderline High Cholesterol: 200-239 mg/dL High Cholesterol: greater than 239 mg/dL LDL Calculated 111 H <100 mg/dL Desirable LDL: less than 100 mg/dL Near Optimal/Above Optimal LDL: 110-129 mg/dL Borderline High LDL: 130-159 mg/dL High LDL: 160-189 mg/dL Very High LDL: greater than or equal to 190 mg/dL HDL 72 >40 mg/dL Desirable HDL: greater than 40 mg/dL Note: This HDL assay may give artificially low results in patients with liver disease. Vit D 25-OH Tot 50.1 >30 ng/mL Health Based Reference Values* < 20 ng/mL Deficient 20-30 ng/mL Insufficient > 30 ng/mL Sufficient *Renu MACHUCA. N Engl J Med. 2007;357:266-280 Care must be taken in interpreting Vitamin D results from different laboratories and methodologies. Published data demonstrated that results from patients undergoing hemodialysis may show a negative bias when tested with various automated 25-OH vitamin D assays when compared to LC-MS/MS. When testing samples from patients whose predominant form of Vitamin D is Vitamin D2, such as patients receiving Vitamin D2 supplementation, results that are subtherapeutic should be confirmed with another method such as LC-MS/MS. Free T4 1.38 0.71-1.85 ng/dL TSH 3rd Gen. 1.21 0.32-4.0 uIU/mL Assessment and Plan Assessment & Plan (1) Annual visit for general adult medical examination with abnormal findings: Code(s): Z00.01 - Encounter for general adult medical examination with abnormal findings Plan: Fasting lab results were discussed with patient. s. Recommended dental visit every 6 months and regular eye exams, at least every 2 years. Take adequate calcium in diet and vitamin-D 3 at 2000 IU per cap once a day, in addition to weight-bearing exercises to help maintain good muscle tone and weight control. Instructed to do self-breast exam, and continue with t yearly mammogram. Reminded to get yearly flu shot and COVID booster, up-to-date with her screening colonoscopy (2) Acquired hypothyroidism: Code(s): E03.9 - Hypothyroidism, unspecified Plan: Thyroid levels are within normal limits continue with current dose of lower levothyroxine at 100 mcg daily (3) Essential hypertension: Code(s): I10 - Essential (primary) hypertension Plan: Continue with olmesartan 10 mg once a day. Reinforced importance of following a low sodium diet, getting regular exercise, and lowering stress levels. (4) Dyslipidemia: Code(s): E78.5 - Hyperlipidemia, unspecified Plan: Reviewed recent fasting lipid profile with patient with levels within normal limits . Continue with pravastatin , in addition to adherence to low-cholesterol diet and regular exercise, at least 30 minutes 3 to 4 times a week. Advised patient to make healthy food choices, eat more fruits, vegetables, whole grains, wild caught fish and low-fat dairy. Limit amount of meat and fried or fatty food products, as well as processed foods and fast foods. Follow-up scheduled with repeat fasting lipid panel in 3 months. (5) Paroxysmal atrial fibrillation: Code(s): I48.0 - Paroxysmal atrial fibrillation Plan: Continued on aspirin 81 mg daily (6) Osteoarthritis involving multiple joints on both sides of body: Code(s): M15.9 - Polyosteoarthritis, unspecified Plan: Takes an occasional Tylenol as needed Coding Level of Care Code Est Pt Prev Care >65y(39179) Diagnoses Annual visit for general adult medical examination with abnormal findings Z00.01 Acquired hypothyroidism E03.9 Essential hypertension I10 Dyslipidemia E78.5 Paroxysmal atrial fibrillation I48.0 Osteoarthritis involving multiple joints on both sides of body M15.9 Additional Codes PROMISE-7 Assessment Billing - PROMISE-7 Assessment Tool: PROMISE-7 Assessment [id number] ([id number])
[2024-01-10 12:49] VITALS: BP 135/80; PULSE 82; O2SAT 98; BMI 27.1
== END 2024-01-10 14:51 | disposition home or self-care (01) ==
PROVIDERS: PCP Internal Medicine; Visit Provider Internal Medicine
DX: Z00.00 Encounter for general adult medical examination without abnormal findings (principal); I48.0 Paroxysmal atrial fibrillation; E03.9 Hypothyroidism, unspecified; I10 Essential (primary) hypertension; E78.5 Hyperlipidemia, unspecified; M15.9 Polyosteoarthritis, unspecified

== ENCOUNTER → 2024-01-10 12:33 | Outpatient (BNVA) | payer OTHER, SELFPAY | PROVIDERS: PCP Internal Medicine; Visit Provider Internal Medicine | DX: Z00.01 Encounter for general adult medical examination with abnormal findings (principal); E03.9 Hypothyroidism, unspecified; I10 Essential (primary) hypertension; E78.5 Hyperlipidemia, unspecified; I48.0 Paroxysmal atrial fibrillation; M15.9 Polyosteoarthritis, unspecified | CPT/HCPCS: 96127 ==

== ENCOUNTER 2024-01-20 09:05 | Outpatient (AMB) | payer OTHER, SELFPAY ==
--- NOTE | 2024-01-20 09:09 | MHC.OFFWIV ---
Intake Vital Signs 01/20/24 09:10 Height 5 ft 4 in Weight 157 lb BMI 26.9 BP 130/80 Blood Pressure Location Lt brachial Position Sitting Pulse 77 Pulse Source Pulse Oximeter Temp 97.9 F Temp Source Oral Pulse Oximetry (%) 98 Oxygen Delivery Method Room Air Intake Visit Reasons: EP ?Bladder infection Intake Note: Pt is here today c/o RLQ pain vaginal pressure x1week Patient Tobacco Use Status: Former Tobacco user Allergies ciprofloxacin Adverse Reaction (Unknown, Verified 01/20/24 09:17) pulled muscle doxycycline Adverse Reaction (Unknown, Verified 01/20/24 09:17) vision changes lisinopril Adverse Reaction (Unknown, Verified 01/20/24 09:17) cough HPI EP ?Bladder infection HPI Details Patient is a 73-year-old female with a history of chronic abdominal pain, diagnosed with IBS with and without diarrhea, stomach polyps, GERD, hypertension, and paroxysmal AFib, who comes to the walk-in clinic with persistent right lower quadrant abdominal pain that has been ongoing for few weeks now. It started with a bout of diarrhea which has since resolved, but left her with a cramping sensation. She has seen PCP for this, and GI has been doing a workup which so far has yielded an unremarkable stool study, and she has an abdominal CT pending. She reports that her symptoms are overall stable, however she desires having her urine tested to rule out a urinary tract infection. She does not have a history of frequent infections. She reports that her abdominal discomfort does improve after urinating, however she does not have gross dysuria, hematuria, urinary hesitancy, stream changes, or other associated symptoms. No vomiting, chest pain or shortness of breath, heartburn symptoms, lightheadedness or weakness, or other significant associated symptoms. [facility] Medical History Spinal stenosis of lumbar region with radiculopathy Paroxysmal atrial fibrillation Left lumbar radiculopathy IBS (irritable bowel syndrome) Dyslipidemia Essential hypertension Tubular adenoma of colon Osteoarthritis involving multiple joints on both sides of body Acquired hypothyroidism Surgical History History of esophagogastroduodenoscopy (EGD) Hx of colonoscopy History of elbow surgery Hx of cholecystectomy History of fracture of forearm Family History Father Myocardial infarction Mother HTN (hypertension) Hyperlipidemia Pancreatic cancer Maternal Grandmother Unknown family medical history Brother No problems noted. Son No problems noted. Maternal Uncle Colon cancer Social History Household Members: None Housing: Apartment Alcohol intake: current Alcohol intake frequency: a few times a month Patient Tobacco Use Status: Former Tobacco user Years Smoked: 2 yrs e-Cigarette/Vaping Use: Never Used Second Hand Smoke Exposure: No service: No Current occupational status: retired Current occupation: left handed Current occupational exposures/hazards: No Cognitive needs: No Hearing needs: No Vision needs: Yes (glasses/contacts) Review of Systems Const All systems reviewed & are unremarkable except as noted in HPI and below Physical Exam Vital Signs: Last Vital Signs Temp 97.9 F 01/20/24 09:10 Pulse 77 01/20/24 09:10 BP 130/80 01/20/24 09:10 Pulse Ox 98 01/20/24 09:10 Oxygen Delivery Method Room Air 01/20/24 09:10 BMI result Body Mass Index 26.9 Const General: cooperative, healthy appearing, comfortable, no acute distress, alert, awake, Physically active and well groomed; No anxious, diaphoretic, ill appearing, intoxicated appearing, poor hygiene or tired appearing Nutritional Appearance: average body habitus Orientation/consciousness: oriented to person Limitations: no limitations Chest Chest palpation & inspection: normal palpation of entire chest wall Resp Effort & Inspection: normal respiratory effort, able to speak in complete sentences, no audible wheezes, no cough, no grunting, not labored, no nasal flaring, no retractions and symmetric chest movement Auscultation: clear to auscultation bilaterally, no crackles, no rales, no rhonchi, no wheezes, lung sounds not diminished and No rub present Cardio Rate: regular rate Rhythm: regular rhythm GI Palpation (GI): Soft to palpation, Tenderness to palpation present (GI) in the RLQ; not in the epigastrum, obturator sign negative, with no rebound tenderness and Rovsing's sign negative, no hernias and no masses General: Yes no CVA tenderness Back/Spine/Pelvis Back: no CVA tenderness Skin Other: Good color, warm and dry Neuro General: oriented to person Psych Appearance: grossly normal Mental Status: mental status grossly normal Speech and movement: Normal speech and movement present Affect: normal affect Attitude: cooperative Thought process: Normal thought process present Insight: Good insight present (Psych) Judgement: Good judgement present (Psych) Results AMB Urinalysis, Automated UA Leukoctes 0 Kimberley/uL Last Edit by Paola Ortiz CMA on 01/20/24 09:33 UA Nitrite Negative Last Edit by Paola Ortiz CMA on 01/20/24 09:33 UA Urobilinogen 0.2 mg/dL Last Edit by Paola Ortiz CMA on 01/20/24 09:33 UA Protein 0 mg/dL Last Edit by Paola Ortiz CMA on 01/20/24 09:33 UA pH 6.0 Last Edit by Paola Ortiz CMA on 01/20/24 09:33 UA Blood 0 Americo/uL Last Edit by Paola Ortiz CMA on 01/20/24 09:33 UA Specific [place] 1.010 Last Edit by Paola Ortiz CMA on 01/20/24 09:33 UA Ketone Negative Last Edit by Paola Ortiz CMA on 01/20/24 09:33 UA Bilirubin 0 mg/dL Last Edit by Paola Ortiz CMA on 01/20/24 09:33 UA Glucose 0 mg/dL Last Edit by Paola Ortiz CMA on 01/20/24 09:33 Results Reviewed Results Reviewed: Laboratory Last Values Urine pH (Auto) 6.0 01/20/24 09:30 Specific [place] (Auto) 1.010 01/20/24 09:30 Urine Protein (Auto) 0 mg/dL 01/20/24 09:30 Glucose (UA)(Auto) 0 mg/dL 01/20/24 09:30 Urine Ketones (Auto) Negative 01/20/24 09:30 Urine Blood (Auto) 0 Americo/uL 01/20/24 09:30 Urine Nitrite (Auto) Negative 01/20/24 09:30 Urine Bilirubin (Auto) 0 mg/dL 01/20/24 09:30 Urine Urobilinogen (Auto) 0.2 mg/dL 01/20/24 09:30 Leukocyte Esterase (Auto) 0 Kimberley/uL 01/20/24 09:30 Assessment & Plan Assessment & Plan (1) Abdominal pain in female: Code(s): R10.9 - Unspecified abdominal pain Plan 73-year-old female with a history of chronic abdominal pain, diagnosed with IBS with and without diarrhea, stomach polyps, GERD, hypertension, and paroxysmal AFib, who comes to the walk-in clinic complaining of persistent abdominal cramping for the last few weeks, to the right lower quadrant. She has been getting worked up through PCP and GI, and has had some lab work including negative stool studies, and has a CT of the abdomen pending. She does have a history of IBS diarrhea type, and had a flare-up of diarrhea when the abdominal discomfort began. Her stools have dried, however she has persistent right lower quadrant abdominal discomfort that radiates to the left lower quadrant. She is questioning if it could be a bladder infection, as she feels like her symptoms do improve after urination, and feels like she might have some pressure to the bladder. Urine dip today unremarkable, however will send out for repeat UA, culture and sensitivity. Her exam is overall unremarkable only for some tenderness to palpation to the right lower quadrant, negative Rovsing's sign. We did talk about how this could be appendicitis or ischemic colitis or another life threatening condition, and that if her symptoms worsen at all, that she should consider going to the emergency department to get an emergent CT scan of the abdomen, even though she has [address] Richter. I also told her that it is possible that this is an atypical presentation of a cardiac issue, which would also be life-threatening. She agreed to monitor symptoms closely and consider going to the emergency department with any worsening or worrisome symptoms. In the meantime, she will increase her Bentyl per GI advice in her note, as this does relieve her symptoms to some extent. Orders: Orders AMB Urinalysis Automated Today Z13.9 - Encounter for screening, unspecified UA CC w/rflx Micro + Cult Today R30.0 - Dysuria Coding Level of Care Code Est Pt Level 4 (49817) Diagnoses Abdominal pain in female R10.9
[2024-01-20 09:10] VITALS: BP 130/80; PULSE 77; TEMP 36.6; O2SAT 98; BMI 26.9
== END 2024-01-20 11:29 | disposition home or self-care (01) ==
PROVIDERS: PCP Internal Medicine; Visit Provider Physician Assistant Medical
DX: Z13.9 Encounter for screening, unspecified (principal); R10.9 Unspecified abdominal pain

== ENCOUNTER 2024-01-20 09:05 | Outpatient (REF) | payer OTHER, SELFPAY ==
[2024-01-20 11:54] LABS: Appearance Urine Clear; Color Urine Yellow; Glucose Urine UA Negative (Negative); Leukocyte Esterase Urine Negative (Negative); Nitrite Urine Negative (Negative); PH 6.5 (5.0-9.0); Specific Gravity - Urine 1.015 (1.005-1.025); Urine Blood Negative (Negative); Urine Ketones Negative (Negative); Urine Protein Negative (Neg-Trace)
== END 2024-01-20 09:06 | disposition home or self-care (01) ==
LOC: HO.LAB 09:05
PROVIDERS: Physician Assistant Medical; PCP Internal Medicine
DX: R10.9 Unspecified abdominal pain (principal); R30.0 Dysuria
CPT/HCPCS: 81003; 99212

== ENCOUNTER 2024-02-12 09:48 | Outpatient (REF) | payer OTHER, SELFPAY ==
[2024-02-12 13:17] LABS: MANUAL DIFF FLAG NO
[2024-02-12 13:29] LABS: Basophils Absolute Auto 0.1 X10*3/uL (0.0-0.2); Basophils Percent Auto 0.5 % (0-2); Eosinophils Absolute Auto 0.1 X10*3/uL (0.0-0.4); Eosinophils Percent Auto 0.6 % (0-4); Hematocrit 40.9 % (37.0-47.0); Hemoglobin 13.7 g/dl (12.0-16.0); Imm Gran Pct Auto 0.8 % (0.0-0.4); Lymphocytes Absolute Auto 4.1 X10*3/uL (1.2-4.9); Lymphocytes Percent Auto 31.7 % (20-40); Mean Corpuscular HGB Conc 33.5 g/dl (31.0-35.0); Mean Corpuscular Hemoglobin 31.2 pg (27.0-33.0); Mean Corpuscular Volume 93.2 fL (80.0-98.0); Mean Platelet Volume 10.1 fL (9.4-12.3); Monocytes Absolute Auto 0.9 X10*3/uL (0.1-1.2); Monocytes Percent Auto 6.7 % (2-11); Neutrophils Absolute Auto 7.8 x10*3/uL (2.0-8.3); Neutrophils Percent Auto 59.7 % (45-73); Platelet Count 325 X10*3/uL (160-400); Red Blood Count 4.39 X10*6/uL (4.20-5.50); Red Cell Distribution Width 12.4 % (11.0-16.0)
[2024-02-12 13:53] LABS: Alanine Aminotransferase 26 U/L (0-31); Albumin Level 4.3 g/dL (3.5-5.0); Alkaline Phosphatase 64 U/L (39-117); Anion Gap 13 (12-20); Aspartate Amino Transferase 22 U/L (5-31); Bilirubin Total 0.5 mg/dL (0.0-1.0); Blood Urea Nitrogen 19 mg/dL (9-16); C Reactive Protein 0.11 mg/dL (< or = 0.50); Calcium 9.6 mg/dL (8.4-10.2); Carbon Dioxide 26 mmol/L (22-29); Chloride 102 mmol/L (96-108); Estimated Glomerular Filt Rate > 60; Glucose Random 102 mg/dL (60-115); Potassium 4.2 mmol/L (3.3-5.1); Sodium 137 mmol/L (135-145); Total Protein 6.9 g/dL (6.5-8.0)
== END 2024-02-12 09:49 | disposition home or self-care (01) ==
LOC: HO.HMGCLDS 09:48
PROVIDERS: PCP Internal Medicine; Visit Provider Internal Medicine Gastroenterology
DX: R10.31 Right lower quadrant pain (principal); G89.29 Other chronic pain; K75.81 Nonalcoholic steatohepatitis (NASH)
CPT/HCPCS: 36415; 80053; 85025; 86140

== ENCOUNTER 2024-02-22 11:44 | Outpatient (REF) | payer OTHER, SELFPAY ==
--- NOTE | ~2024-02-22 | CT_ITS ---
EXAMINATION: CT ABDOMEN AND PELVIS WITHOUT CONTRAST CLINICAL INFORMATION: Diarrhea, unspecified. Right lower quadrant pain COMPARISON: CT dated January 19, 2021. TECHNIQUE: Multidetector volumetric imaging was performed from the superior aspect of the liver through the pubic symphysis. Sagittal and coronal reformatted images were obtained on the technologist's workstation where Oral contrast given.. This CT examination was performed using dose optimization techniques as appropriate, variously including the following: *Automated exposure control *Adjustment of mA and/or kV according to patient size (this includes techniques or standardized protocols for targeted exams where dose is matched to indication/reason for exam; i.e. extremities or head) *Use of iterative reconstruction technique DLP: 460 mGy-cm FINDINGS: Submitted for interpretation on March 01, 2024. Limited evaluation of the intra-abdominal organs and vascular structures due to lack of IV contrast. LIVER, GALLBLADDER, AND BILIARY TREE: Liver measures 13 cm. Status post cholecystectomy. Common bile duct measures 8 mm maximal diameter with an abrupt cut off at the region of the head of the pancreas/second portion of the duodenum. PANCREAS: Soft tissue fullness in the head of the pancreas. No main pancreatic ductal dilatation. No peripancreatic fluid collections. SPLEEN: Measures 7 cm. ADRENAL GLANDS: No nodular lesions. KIDNEYS AND URETERS: No hydronephrosis in either kidney. There is a focal, 5 mm peripheral calcified attenuation in the midportion of the renal cortical junction/pelvicalyceal system left kidney. BLADDER: Fluid-filled. GASTROINTESTINAL TRACT: No intestinal obstruction pattern. Gas and fluid-filled prominent small bowel loops, nonspecific. No pneumatosis intestinalis. Terminal ileum is normal. Appendix is normal. No ascites. No pneumoperitoneum. ABDOMINAL WALL: Small fat-containing umbilical hernia and diastases of the abdominal rectus muscles, periumbilical region. LYMPH NODES: No gross lymphadenopathy, mesenteric or retroperitoneal. VASCULAR: Calcified plaques abdominal aorta wall and iliac arteries without gross aneurysm. PELVIC VISCERA: No gross lesions in the uterus or adnexa. Punctate ossifications in the surface of the uterus. OSSEOUS STRUCTURES: Superior endplate compression deformity likely old representing 30% volume loss at L5 vertebra. Grade 1 anterolisthesis L4-5 on a degenerative basis. Facet joint hypertrophy, bilaterally at L4-5 and L5-S1. Chondrocalcinosis at the intervertebral disc L4-5. Osteopenia versus osteoporosis. Degenerative changes in the hips/coxofemoral joints. 1 mm calcified pulmonary nodule, right lung base likely granuloma. Subsegmental atelectasis versus scarring in the lung bases and lingula. CT/CT abdomen pelvis wo IV con IMPRESSION: No intestinal obstruction pattern. Soft tissue mass in the head of the pancreas versus intraluminal lesion distal common bile duct cannot be entirely excluded. Questionable partially calcified aneurysm, left kidney. Grade 1 anterolisthesis L4-5 on a degenerative basis. Fleischner guidelines were followed. Electronically signed by: Feliberto Willams MD 03/01/2024 08:14 AM [facility]
[2024-02-22] MEDS: Barium Sulfate Oral (Berry) 450 ML ORAL.SUSP 900 ML PO (15:56)
== END 2024-02-22 11:45 | disposition home or self-care (01) ==
LOC: HO.CT 11:44
PROVIDERS: PCP Internal Medicine; Visit Provider Internal Medicine Gastroenterology
DX: R10.31 Right lower quadrant pain (principal); R19.7 Diarrhea, unspecified; G89.29 Other chronic pain
CPT/HCPCS: 74176

== ENCOUNTER → 2024-02-22 11:46 | Outpatient (BNV) | payer OTHER, SELFPAY | PROVIDERS: PCP Internal Medicine; Visit Provider Radiology Diagnostic Radiology | DX: R10.31 Right lower quadrant pain (principal) | CPT/HCPCS: 74176 ==

== ENCOUNTER 2024-03-16 15:24 | Outpatient (REF) | payer OTHER, SELFPAY ==
--- NOTE | ~2024-03-16 | MR_ITS ---
EXAMINATION: MR ABDOMEN WITHOUT AND WITH CONTRAST CLINICAL INFORMATION: Possible pancreas lesion. Prior abnormal imaging. Family history of pancreatic cancer. COMPARISON: CT abdomen/pelvis February 22, 2024 Abdominal ultrasound February 02, 2023 CT abdomen/pelvis January 19, 2021 MRI abdomen October 16, 2014 TECHNIQUE: MR abdomen was performed without and with use of 7 mL intravenous Gadavist gadolinium contrast. Postcontrast images are performed in multiphase dynamic sequences. Imaging was performed in 3 planes. MRCP was also performed. FINDINGS: LUNG BASES: No pleural or pericardial effusion. LIVER, GALLBLADDER, AND BILIARY TREE: Hepatic steatosis. No focal hepatic lesion. No significant intrahepatic biliary ductal dilatation. The common duct measures up to 9 mm at the monique hepatis and tapers smoothly. No intraductal filling defects. The gallbladder is surgically absent. PANCREAS: Conventional ductal anatomy. No ductal dilatation. Normal contour. No focal pancreatic mass or abnormal enhancement. No peripancreatic stranding. SPLEEN: Not enlarged. ADRENAL GLANDS: No adrenal mass. KIDNEYS AND URETERS: Benign-appearing T2 hyperintense left renal cysts, no imaging follow-up recommended. GASTROINTESTINAL TRACT: No bowel obstruction. No ascites or fluid collection. LYMPH NODES: No bulky lymphadenopathy. VASCULAR: Normal caliber abdominal aorta. MR/MR abdomen wo/w con IMPRESSION: Stable prominence of the biliary ductal system since October 16, 2014. No intraductal filling defects. No dilatation of the main pancreatic duct. Electronically signed by: Kuldeep John MD 03/18/2024 11:23 AM [facility]
[2024-03-16] MEDS: gadobutroL 7.5 ML VIAL IVPUSH (16:18)
== END 2024-03-16 15:25 | disposition home or self-care (01) ==
LOC: HO.MRI 15:24
PROVIDERS: PCP Internal Medicine; Visit Provider Internal Medicine Gastroenterology
DX: K86.9 Disease of pancreas, unspecified (principal)
CPT/HCPCS: 74183; A9585

== ENCOUNTER 2024-04-10 11:37 | Outpatient (AMB) | payer OTHER, SELFPAY ==
--- OUTSIDE RECORDS SUMMARY | 2024-04-10 11:39 | XMS_ITS | Patient Health Record ---
Author Organization [facility] Address [address] [place] [address] Care Team Providers Care Delivery Merchandiser Name Role Phone Ambrose PYLE, Padmini Waters Primary Care Provider Un available Shyam Rae Unavailable [phone] Allergies Allergen (clinical drug ingredient) Drug/Non Drug Allergy documented on EMR Reaction Allergy Type Onset Date Status Codeine Phosphate Unknown Drug Allergy Active Reason For Referral No Information Medications Medication SIG (Take, Route, Frequency, Duration) Notes Start Date End Date Status Gabapentin 300 MG as directed Orally twice a day Active Celecoxib 200 MG 1 capsule with food Orally Once a day for 30 day(s) Not-Taking Nabumetone Active Levothyroxine Sodium 100 MCG 1 tablet in the morning on an empty stomach Orally Once a day for 30 day(s) Active Voltaren 1 % as directed Externally 03/09/2022 Active Olmesartan Medoxomil 5 MG 1 tablet Orall y Once a day for 30 day(s) Active Omeprazole 20 MG 1 capsule 30 minutes before morning meal Orally Once a day for 30 day(s) Active Multivitamin Active Tylenol Active Vitamin B-12 Active Timolol Hemihydrate 0.5 % 1 drop into af fected eye Ophthalmic Once a day Active Dicyclomine HCl 10 MG 2 capsules Orally Three times a day for 30 day(s) PRN Active Advil Active Vitamin D Active Immunizations Vaccine Route Administration Date Status Comme nts COVID-19 Pfizer BioNTech Vaccine Unknown 09/27/2021 Administered 1st 07/08/20 2nd 07/29/20 3rd 02/15/21 Social History Tobacco Use: Social History Observation Description Date Details (start date - stop date) Former Smoker NA - NA Tobacco Use/Smoking Question Answer Notes Are you a: former smoker Additional Findings: Tobacco Non-User Ex-cigaret te smoker Alcohol Screen Question Answer Notes Did you have a drink containing alcohol in the p ast year? Yes Points 0 Interpretation Negative Tobacco use other than smoking: Question Answer Notes Are you an other tobacco user? No Problems Problem Type SNOMED Code ICD Code Onset Dates Problem Status W/U Status Risk Notes Problem Localized, primary osteoarthritis of the ankle and/or foot (152583725) Primary osteoarthrit is, right ankle and foot (M19.071) Active confirmed Problem Localized, primary osteoarthritis of the ankle and/or foot (962919719) Primary osteoarthrit is, left ankle and foot (M19.072) Active confirmed Plan Of Treatment Pending Test Test Name Order Date X ray : Foot, left 3V 03/09/2022 X ray : Foot, right 3V 03/09/2022 Insurance Providers Payer Name Payer Address Payer Phone Subscriber Number Group Number Insured Name Patient Relationship to Insured Coverage Start Date Coverage End Date [facility] [address] [place] [address] [id number] Diane Travis Self - patient is the insured Medical (General) History Medical History History ICD Code osteoarthritis Back,Hip,and Knee pain Broken bones CAD (Cholesterol) Gall bladder problems High blood pressure Numbness Osteoporosis Sciatica thyroid Measles Mumps Chicken pox Joint implants/screws Neuropathy Surgical History Surgery Date(Month/Year) left arm surgery 1999 right arm surgery 2004
--- OUTSIDE RECORDS SUMMARY | 2024-04-10 11:39 | XMS_ITS | Patient Health Record ---
Author Organization [facility] Address [address] [place] [address] Care Team Providers Care Casing Crew Name Role Phone Ambrose PYLE, Padmini Primary Care Provider Ta Staley Unavailable [phone] ALLERGIES Allergen (clinical drug ingredient) Drug/Non Drug Allergy documented on EMR Reaction Allergy Type Onset Date Status IVP Dye (uncoded) Unknown Allergy Ac tive REASON FOR REFERRAL No Information MEDICATIONS Medication SIG (Take, Route, Frequency, Duration) Notes Start Date End Date Status Timolol Maleate 0.5 % 1 drop into affect ed eye Ophthalmic Once a day Active ProAir HFA 108 (90 Base) MCG/ACT 1 puff as needed Inhalation every 4 hrs Active Levothyroxine Sodium 100 MCG 1 tablet in the morning on an empty stomach Orally Once a day for 30 day(s) Active Dicyclomine HCl 10 MG 1 - 2 capsules Ora lly Four times a day as needed for abdominal pain for 30 Active Livalo 2 MG 1 tablet Orally Once a day for 30 day(s) Active Olmesartan Medoxomil 5 MG 1 tablet Orall y Once a day for 30 day(s) Active Synthroid 100 MCG 1 tablet on an empty stomach in the morning Orally Once a day Active ibuprofen 800 mg 1 tablet Oral PRN-no t daily Not-Taking Advil 200 MG 1 tablet with food o r milk as needed Orally BID Active Losartan Potassium 50 MG 1 tablet Orally Once a day Active Celecoxib 200 MG 1 capsule with food Orally Once a day for 30 day(s) Not-Taking Centrum Silver 50+Women - as directed Orally Active Vitamin D 1000 UNIT 1 tablet Orally Once a day Active Tylenol 325 MG 2 capsules as needed Orally every 6 hrs Active Omeprazole 20 MG TAKE 1 CAPSULE BY MOUTH EVERY DAY for 90 Active Probiotic 1 1 capsule Orally onc e a day Active IMMUNIZATIONS Vaccine Route Administration Date Status Comme nts Influenza Unknown 02/23/2016 Administered Influenza Unknown 2019 Administered Influenza Unknown 02/09/2021 Administered SOCIAL HISTORY Tobacco Use: Social History Observation Description Date Details (start date - stop date) Former Smoker NA - NA Sex Assigned At : Social History Observation Description Sex Assigned At Unknown Tobacco Use/Smoking Question Answer Notes Patient is a former smoker When did you stop smoking? 40 years ago Alcohol Screen Question Answer Notes Did you have a drink contain ing alcohol in the past year? Yes How often did you have a dri nk containing alcohol in the past year? Monthly or less (1 point) How many drinks did you have on a typical day when you were drinking in the past year? 1 or 2 drinks (0 point) How often did you have 6 or more drinks on one occasion in the past year? Never (0 point) Points 1 Interpretation Negative PROBLEMS Problem Type ICD Code Onset Dates Problem Status W/U Status Risk SNOMED Code Notes Problem Epigastric abdominal pain (R10.13) Active confirmed 31173164 Problem Encounter for screening for malignant neoplasm of colon (Z12.11) Active confirmed 986312271 Problem History of adenomatous polyp of colon (Z86.010) Active confirmed 653571976 Problem Encounter for screening for malignant neoplasm of rectum (Z12.12) Active confirmed Screening fo r malignant neoplasm of rectum (331041118) Problem Abdominal pain, epigastric (R10.13) Active confirmed 32001648 Problem Abdominal pain, generalized (R10.84) Active confirmed 241027100 Problem Irritable bowel syndrome, unspecified type (K58.9) Active confirmed 59813341 Problem Irritable bowel syndrome with both constipation and diarrhea (K58.2) Active confirmed 12973065 PLAN OF TREATMENT Pending Test Test Name Order Date ENDOMYSIAL IGA 12/22/2011 TRANSGLUTAMINASE AB IGA 12/22/2011 TRANSGLUTAMINASE AB IGG 12/22/2011 H PYLORI AG, STOOL 12/20/2019 CT ABD & PELVIS WITH CONTRAST 11/06/2012 NUC HIDA SCAN 09/12/2013 Future Test Test Name Order Date UPPER GI ENDOSCOPY 11/06/2012 COLONOSCOPY 04/08/2016 UPPER GI ENDOSCOPY 10/06/2021 COLONOSCOPY 10/06/2021 Insurance Providers Payer Name Payer Address Payer Phone Subscriber Number Group Number Insured Name Patient Relationship to Insured Coverage Start Date Coverage End Date [facility] [address] [address] [place] [address] [id number] SULEMA ALEXANDRA Self - patient is the insured MEDICAL (GENERAL) HISTORY Medical History History ICD Code Denies MA,DM,CVA,renal disease. Arthritis COPD HTN EGD in 12/2010 neg. for H.pyl tiffany/esophagitis--she had previously been treated with Prevpac for a positive H. pylori serology Hypothyroidism IBS Neg. GB U/S in 2011 Negative lab work for celiac disease in 2011 HIDA scan with a 2% EF in 10/2013 Neg. abdominal and pelvic CT in 2012 Lumbar spondylosis Negative abominal MRI/MRCP Screening colonoscopy in Dec with a small tubular adenoma removed. She had a followup negative screening colonoscopy in 07/2016- mild sigmoid diverticulosis and small internal hemorrhoids Negative abdominal CT scan i n 10/2018 except for a small fat-containing umbilical hernia--there was no evidence of any bowel obstruction nor any other significant pathology Negative CT scan of abdomen and pelvis i n December of 2020 Having an ETT/Echo with Dr. Ledesma at [facility] on 10/18/2021 Surgical History Surgery Date(Month/Year) Elbow surgery bilateral Lap cholecystectomy--Dr. Parrish 10/2013-- acalculous cholecystitis
[2024-04-10 12:17] VITALS: BP 130/80; PULSE 71; O2SAT 95; BMI 26.1
--- NOTE | 2024-04-10 12:17 | A.OFFPC_ITS ---
Vital Signs 04/10/24 12:17 Height 5 ft 4 in Weight 152 lb BMI 26.1 BP 130/80 Blood Pressure Location Lt brachial Position Sitting Pulse 71 Pulse Source Pulse Oximeter Pulse Oximetry (%) 95 Oxygen Delivery Method Room Air Intake Visit Reasons: 3m follow up - see comments Intake Note: Pt is here today for her 3mo. f/u Allergies ciprofloxacin Adverse Reaction (Unknown, Verified 04/14/24 17:36) pulled muscle doxycycline Adverse Reaction (Unknown, Verified 04/14/24 17:36) vision changes lisinopril Adverse Reaction (Unknown, Verified 04/14/24 17:36) cough Medication List - Last Reconciled 04/14/24 by Padmini Boggs MD aspirin 81 mg PO DAILY cyclosporine 0.05% (Restasis) 1 drp ophthalmic (eye) BID dicyclomine 10 mg PO TID levothyroxine 100 mcg PO DAILY loteprednol etabonate 0.5% 1 drp ophthalmic (eye) BID xzwjaeci-mykkuqh-llii-lutein tabs PO nabumetone 500 mg PO .qOD PRN olmesartan 10 mg (2 x 5 mg) PO DAILY pantoprazole 40 mg PO DAILY 30 days pitavastatin calcium (Livalo) mg PO timolol maleate 0.5% 1 drp ophthalmic (eye) QAM Tobacco use date assessed: 04/10/24 Fall risk assessment: No Falls in past year Last assessed Fall Risk: 04/10/24 Dental Screening Dental Screen Date: 04/10/24 Did you have a dental visit in the last 12 months?: Yes Did you have a dental problem in the last 6 months where you did not have access to dental care?: Yes Was dental information given to patient?: Patient has dentist HPI 3m follow up - see comments HPI Details - The patient is a 74-year-old female pr esenting today for follow-up on her hypothyroidism, hypertension, and hyperlipidemia. Currently taking levothyroxine 100 mcg daily, olmesartan 10 mg daily, and pravastatin prescribed by Dr. Ledesma, her hot roll laminator. Latest fasting labs showed lipids not controlled with an LDL cholesterol at 163 mg/dL. Advised to schedule appointment with her hot roll laminator, Dr. Ledesma to discuss other treatment options for her hyperlipidemia, switching to Praluent or Repatha has been discussed with her on her previous visits with him.. . -she is followed at [facility] for her trochanteric bursitis and chronic low back pain and joint pains due to osteoarthritis. 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 Keratoconjunctivitis sicca Spinal stenosis of lumbar region with radiculopathy Paroxysmal atrial fibrillation Left lumbar radiculopathy IBS (irritable bowel syndrome) Dyslipidemia Essential hypertension Tubular adenoma of colon Osteoarthritis involving multiple joints on both sides of body Acquired hypothyroidism Surgical History History of esophagogastroduodenoscopy (EGD) Hx of colonoscopy History of elbow surgery Hx of cholecystectomy History of fracture of forearm Family History Father Myocardial infarction Mother HTN (hypertension) Hyperlipidemia Pancreatic cancer Maternal Grandmother Unknown family medical history Brother No problems noted. Son No problems noted. Maternal Uncle Colon cancer Social History Household Members: None Housing: Apartment Alcohol intake: current Alcohol intake frequency: a few times a month Patient Tobacco Use Status: Former Tobacco user Years Smoked: 2 yrs e-Cigarette/Vaping Use: Never Used Second Hand Smoke Exposure: No service: No Current occupational status: retired Current occupation: left handed Current occupational exposures/hazards: No Cognitive needs: No Hearing needs: No Vision needs: Yes (glasses/contacts) Questionnaire Thrive Questionnaire Date Thrive assessed: 04/10/24 I am a: Patient What is your living situation today?: I have a steady place to live Within the past 12 months, did the food you bought not last and you didn't have the money to get more?: Never true Within the past 12 months, did you worry whether your food would run out before you got money to buy more?: Never true Do you have trouble paying for medicines?: No Do you have trouble getting transportation to medical appointments?: No Do you have trouble paying your heating and electricity bill?: No Do you have trouble taking care of your child, family member or friend?: No Do you have trouble with day-to-day activities such as bathing, preparing meals, shopping, managing finances, etc.?: No Are you currently unemployed and looking for a job?: No Are you interested in more education?: No Please select the resources that you would like help with: None Currently or been in a relationship where the following occur: No concerns reported THRIVE Score: 0 PROMISE-7 AMB Questionnaire PROMISE-7 Date PROMISE - 7 assessed: 07/27/23 Source: Developed by Drs. Ta Renee, Meagan Olivarez, Jose David Howard and colleagues, with an educational allyn from [employer]. Review of Systems Const All systems reviewed & are unremarkable except as noted in HPI and below Denies headache(s) ENT Reports Normal hearing present, Denies dizziness and Denies headache(s) Card Denies chest pain, Denies chest pain with activity, Denies irregular heart rhythm, Denies lightheadedness and Denies dyspnea Resp Denies dyspnea GI Denies abdominal pain and Denies change in bowel habits Reports no additional complaints Neuro Reports Normal hearing present, Denies dizziness and Denies headache(s) Endo Reports no additional complaints Aller/Immun Reports no additional complaints Physical exam (Primary Care) Vital Signs: Last Vital Signs Pulse 71 04/10/24 12:17 BP 130/80 04/10/24 12:17 Pulse Ox 95 04/10/24 12:17 Oxygen Delivery Method Room Air 04/10/24 12:17 BMI result Body Mass Index 26.1 Tobacco/Smoking Status: Tobacco use Status Tobacco use date assessed 04/10/24 04/10/24 12:23 Patient Tobacco Use Status Former Tobacco user 04/10/24 12:18 e-Cigarette/Vaping Use Never Used 04/10/24 12:18 Thrive Assessment: Date of Thrive Assessment Date Thrive assessed 04/10/24 04/10/24 12:23 Currently or been in a relationship where the following occur: No concerns reported Const Other: Alert oriented x3, no acute cardiorespiratory distress noted, normal gait HENMT Head: Yes normocephalic Ears: external ears normal Mouth: Normal oral and palatal mucosa present, oropharynx normal and moist mucous membranes Eyes Pupils: Equal, round and reactive pupils present EOM: EOMs intact bilaterally Neck Neck: Yes full ROM, Yes no lymphadenopathy and Yes supple Thyroid: Thyroid normal Resp Auscultation: clear to auscultation bilaterally Cardio Rate: regular rate Rhythm: regular rhythm Heart sounds: S1 normal heart sound present and S2 normal heart sound present GI Palpation (GI): Soft to palpation, nontender, no guarding and no masses Auscultation: normal bowel sounds Neuro Cranial nerves: Yes Equal, round and reactive pupils present and Yes Normal hearing present Extrem General: Yes full ROM, Yes no joint enlargement, Yes no clubbing, cyanosis or edema and Yes normal gait Immunizations pneumoc 20-marisela conj-dip cr(PF) 0.5 mL IM syringe Performing Provider: Padmini Boggs MD Performing Location: [facility] Administered by: Paola Ortiz CMA on 04/10/24 13:08 Dose Route Admin Location Dispensed Lot Number Expiration Date NDC Roof [employer]er 0.5 mL IM Left Deltoid 0.5 mL [id number] 09/21/25 8897-0653-91 Shellcatch/Causes VIS Given Date VIS Provided VIS Publication Date 04/10/24 Single Vaccine 21 Eligibility Eligibility Date Funding Source Not [facility] Eligible 04/10/24 Private Coding Level of Care Code Est Pt Level 4 (29551) Complex EM visit Add On G2211 Diagnoses Dyslipidemia E78.5 Acquired hypothyroidism E03.9 Need for vaccination with 20-polyvalent pneumococcal conjugate vaccine Z23 Essential hypertension I10 Assessment & Plan Assessment & Plan (1) Dyslipidemia: Code(s): E78.5 - Hyperlipidemia, unspecified Category: Medical Plan: Currently on Livalo, fasting lipids labs ordered today Patient currently being followed at [facility] by Dr. Ledesma, advised to schedule appointment again with him if LDL cholesterol still not at goal, to go over other treatment options, namely Zetia, Praluent or Repatha, which has been discussed with her on last visit with him (2) Acquired hypothyroidism: Code(s): E03.9 - Hypothyroidism, unspecified Category: Medical Plan: Ordered TSH and free T4 levels. continue with current dose of levothyroxine 100 mcg once a day take an hour before breakfast and before any medications (3) Need for vaccination with 20-polyvalent pneumococcal conjugate vaccine: Code(s): Z23 - Encounter for immunization Plan: Prevnar 20 given today (4) Essential hypertension: Code(s): I10 - Essential (primary) hypertension Category: Medical Plan: Blood pressure at goal of less than 130/80. Continue with olmesartan 10 mg daily. Reinforced importance of following a low sodium diet, getting regular exercise, and lowering stress levels. Orders: Orders Lipid Panel 04/10/24 E03.9 - Hypothyroidism, unspecified, E78.5 - Hyperlipidemia, unspecified, Z78.0 - Asymptomatic menopausal state Vitamin D 25-OH Total 04/10/24 E03.9 - Hypothyroidism, unspecified, E78.5 - Hyperlipidemia, unspecified, Z78.0 - Asymptomatic menopausal state Thyroid Stimulating Hormone 04/10/24 E03.9 - Hypothyroidism, unspecified, E78.5 - Hyperlipidemia, unspecified, Z78.0 - Asymptomatic menopausal state Free T4 (Free Thyroxine) 04/10/24 E03.9 - Hypothyroidism, unspecified, E78.5 - Hyperlipidemia, unspecified, Z78.0 - Asymptomatic menopausal state Pneumococcal 20 Immunization 04/10/24 Z23 - Encounter for immunization
== END 2024-04-10 13:40 | disposition home or self-care (01) ==
PROVIDERS: PCP Internal Medicine; Visit Provider Internal Medicine
DX: Z23 Encounter for immunization (principal)

== ENCOUNTER 2024-04-10 11:37 | Outpatient (REF) | payer OTHER, SELFPAY ==
[2024-04-10 17:10] LABS: Cholesterol 276 mg/dL (<200); HDL Cholesterol 78 mg/dL (>40); LDL Cholesterol Calculated 163 mg/dL (<100); Triglycerides 175 mg/dL (<150)
[2024-04-10 17:27] LABS: Free T4 (Free Thyroxine) 1.34 ng/dL (0.71-1.85); Thyroid Stimulating Hormone 1.15 uIU/mL (0.32-4.0); Vitamin D 25-OH Total 77.3 ng/mL (>30)
== END 2024-04-10 11:38 | disposition home or self-care (01) ==
LOC: HO.HMGCLDS 11:37
PROVIDERS: PCP Internal Medicine; Visit Provider Internal Medicine
DX: E78.5 Hyperlipidemia, unspecified (principal); E03.9 Hypothyroidism, unspecified; Z78.0 Asymptomatic menopausal state; Z79.899 Other long term (current) drug therapy; Z23 Encounter for immunization
CPT/HCPCS: 36415; 80061; 82306; 84439; 84443; 90471; 90677; 99212

== ENCOUNTER 2024-04-19 08:52 | Outpatient (AMB) | payer OTHER, SELFPAY ==
[2024-04-19 08:55] VITALS: BP 140/62; PULSE 79; O2SAT 96; BMI 25.9
--- NOTE | 2024-04-19 08:55 | MHC.PC.OV ---
Vital Signs 04/19/24 08:55 Height 5 ft 4 in Weight 151 lb BMI 25.9 BP 140/62 H Blood Pressure Location Lt brachial Position Sitting Pulse 79 Pulse Source Pulse Oximeter Pulse Oximetry (%) 96 Oxygen Delivery Method Room Air Intake Visit Reasons: Lt eye cataract Dr. Burton 04/30/24 Intake Note: Pt is here today for her pre-op for Lt eye cataract surgery with Dr. Burton on 04/30/24 Allergies ciprofloxacin Adverse Reaction (Unknown, Verified 04/19/24 11:41) pulled muscle doxycycline Adverse Reaction (Unknown, Verified 04/19/24 11:41) vision changes lisinopril Adverse Reaction (Unknown, Verified 04/19/24 11:41) cough Medication List - Last Reconciled 04/19/24 by Padmini Boggs MD aspirin 81 mg PO DAILY cyclosporine 0.05% (Restasis) 1 drp ophthalmic (eye) BID dicyclomine 10 mg PO TID escitalopram oxalate 5 mg PO DAILY levothyroxine 100 mcg PO DAILY loteprednol etabonate 0.5% 1 drp ophthalmic (eye) BID fqnheilq-xvemdrx-qhfg-lutein tabs PO nabumetone 500 mg PO .qOD PRN olmesartan 10 mg (2 x 5 mg) PO DAILY pantoprazole 40 mg PO DAILY 30 days pitavastatin calcium (Livalo) mg PO timolol maleate 0.5% 1 drp ophthalmic (eye) QAM Tobacco use date assessed: 04/19/24 Fall risk assessment: No Falls in past year Last assessed Fall Risk: 04/19/24 Dental Screening Dental Screen Date: 04/19/24 Did you have a dental visit in the last 12 months?: Yes Did you have a dental problem in the last 6 months where you did not have access to dental care?: No Was dental information given to patient?: Patient has dentist HPI Lt eye cataract Dr. 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 Burton, scheduled for 04/30/2024. At present, patient denies any chest pain, no palpitations, no shortness of breath or lightheadedness. She gets intermittent episodes of sharp pain in her lower back which resolved spontaneously. Reports significant anxiety affecting daily life, contributing to blood pressure variability, no current medication. Previously was taking duloxetine which has been ineffective. . She also has been diagnosed with IBS, which is usually triggered by anxiety attacks as well, takes dicyclomine as needed. 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 Keratoconjunctivitis sicca Spinal stenosis of lumbar region with radiculopathy Paroxysmal atrial fibrillation Left lumbar radiculopathy IBS (irritable bowel syndrome) Dyslipidemia Essential hypertension Osteoarthritis involving multiple joints on both sides of body Acquired hypothyroidism Surgical History History of esophagogastroduodenoscopy (EGD) Hx of colonoscopy History of elbow surgery Hx of cholecystectomy History of fracture of forearm Family History Father Myocardial infarction Mother HTN (hypertension) Hyperlipidemia Pancreatic cancer Maternal Grandmother Unknown family medical history Brother No problems noted. Son No problems noted. Maternal Uncle Colon cancer Social History Household Members: None Housing: Apartment Alcohol intake: current Alcohol intake frequency: a few times a month Patient Tobacco Use Status: Former Tobacco user Years Smoked: 2 yrs e-Cigarette/Vaping Use: Never Used Second Hand Smoke Exposure: No service: No Current occupational status: retired Current occupation: left handed Current occupational exposures/hazards: No Cognitive needs: No Hearing needs: No Vision needs: Yes (glasses/contacts) Questionnaire Thrive Questionnaire Date Thrive assessed: 01/10/24 I am a: Patient What is your living situation today?: I have a steady place to live Within the past 12 months, did the food you bought not last and you didn't have the money to get more?: Never true Within the past 12 months, did you worry whether your food would run out before you got money to buy more?: Never true Do you have trouble paying for medicines?: No Do you have trouble getting transportation to medical appointments?: No Do you have trouble paying your heating and electricity bill?: No Do you have trouble taking care of your child, family member or friend?: No Do you have trouble with day-to-day activities such as bathing, preparing meals, shopping, managing finances, etc.?: No Are you currently unemployed and looking for a job?: No Are you interested in more education?: No Please select the resources that you would like help with: None Currently or been in a relationship where the following occur: No concerns reported THRIVE Score: 0 PROMISE-7 AMB Questionnaire PROMISE-7 Date PROMISE - 7 assessed: 04/19/24 Feeling nervous, anxious, or on edge: 2 = More than half the days Not being able to stop or control worryin = Nearly every day Worrying too much about different things: 3 = Nearly every day Trouble relaxin = Several days Being so restless that it is hard to sit still: 1 = Several days Becoming easily annoyed or irritable: 0 = Not at all Feeling afraid as if something awful might happen: 2 = More than half the days Total PROMISE-7 score (0-4 normal; 5-9 mild; 10-14 moderate; 15-21 severe): 12 Source: Developed by Drs. Ta Renee, Meagan Olivarez, Jose David Howard and colleagues, with an educational allyn from [employer]. PROMISE-7 Assessment Billing PROMISE-7 Assessment Tool: PROMISE-7 Assessment 51200 Review of Systems Const Reports body aches, Denies frequent falls, Denies headache(s) and Denies poor appetite Eyes Reports blurry vision ENT Reports Normal hearing present, Denies dizziness, Denies headache(s), Denies nasal congestion, Denies nasal discharge and Denies disequilibrium Card Denies chest pain, Denies chest pain with activity, Denies syncope, Denies irregular heart rhythm, Denies lightheadedness and Denies dyspnea Resp Denies dyspnea GI Denies abdominal pain and Denies change in bowel habits Reports no additional complaints Musc Reports as per HPI, Reports back pain (Intermittent lower back pain), Reports arthralgias (Hip and knees intermittent), Denies joint swelling, Reports stiffness and Denies tingling Skin/Breast Denies breast pain, Denies breast mass and Denies rash Neuro Reports Normal hearing present, Denies dizziness, Denies syncope, Denies frequent falls, Denies headache(s), Denies tingling and Denies disequilibrium Psych Reports as per HPI Endo Reports no additional complaints Abelino/Lymph Reports no additional complaints Aller/Immun Reports no additional complaints Physical exam (Primary Care) Vital Signs: Last Vital Signs Pulse 79 04/19/24 08:55 BP 140/62 H 04/19/24 08:55 Pulse Ox 96 04/19/24 08:55 Oxygen Delivery Method Room Air 04/19/24 08:55 BMI result Body Mass Index 25.9 Tobacco/Smoking Status: Tobacco use Status Tobacco use date assessed 04/19/24 04/19/24 08:57 Patient Tobacco Use Status Former Tobacco user 04/19/24 08:57 e-Cigarette/Vaping Use Never Used 04/19/24 08:57 Thrive Assessment: Date of Thrive Assessment Date Thrive assessed 01/10/24 04/19/24 08:57 Currently or been in a relationship where the following occur: No concerns reported Const Other: Alert oriented x3, no acute cardiorespiratory distress noted, normal gait Orientation/consciousness: patient oriented x3 HENMT Head: Yes normocephalic Ears: external ears normal Mouth: Normal oral and palatal mucosa present, oropharynx normal and moist mucous membranes Eyes Pupils: Equal, round and reactive pupils present EOM: EOMs intact bilaterally Neck Neck: Yes full ROM, Yes no lymphadenopathy and Yes supple Thyroid: Thyroid normal Resp Auscultation: clear to auscultation bilaterally Cardio Rate: regular rate Rhythm: regular rhythm Heart sounds: S1 normal heart sound present and S2 normal heart sound present GI Palpation (GI): Soft to palpation, nontender, no guarding and no masses Auscultation: normal bowel sounds General: Yes no CVA tenderness Back/Spine/Pelvis Back: no CVA tenderness and No back tenderness Thoracic/Lumbar Spine: straight leg raise negative bilaterally, No paraspinal muscle tenderness and No lumbar spinal tenderness Skin General skin exam: no rashes or lesions noted Neuro General: patient oriented x3, gait normal, moves all extremities, no focal motor deficits and CN's II-XI intact bilaterally Cranial nerves: Yes Equal, round and reactive pupils present and Yes Normal hearing present Extrem General: Yes full ROM, Yes no joint enlargement, Yes no clubbing, cyanosis or edema and Yes normal gait Psych Appearance: grossly normal and well kempt Speech and movement: Normal speech and movement present Affect: Anxious affect present Attitude: cooperative Thought process: Normal thought process present Thought content: Normal thought content present Results Reviewed Results Reviewed: Laboratory Tests 02/12/24 10:15 Hgb 13.7 Hct 40.9 lacho: Diane Ram Age/Sex: 74/F : 1950 Unit#: [id number] Attend Dr: Padmini Boggs MD Re04/10/24 Status: [facility]P [facility] Dis[facility]: SPEC : [id number] MELLY: 04/10/24 STATUS: COMP REQ : [id number] RECD: 04/10/24-[address]: Padmini oBggs MD COMP: 04/10/24-1726 ENTERED: 04/10/24-[address]: ORDERED: Lipid Panel, Vitamin D 25-OH, Free T4, TSH Test Result Flag Reference Triglyceride 175 H <150 mg/dL Desirable Triglyceride: less than 150 mg/dL Borderline High Triglyceride 150-199 mg/dL High Triglyceride: 200-499 mg/dL Very High Triglyceride: greater than or equal to 5OO mg/dL Cholesterol 276 H <200 mg/dL Desirable Cholesterol: less than 200 mg/dL Borderline High Cholesterol: 200-239 mg/dL High Cholesterol: greater than 239 mg/dL LDL Calculated 163 H <100 mg/dL Desirable LDL: less than 100 mg/dL Near Optimal/Above Optimal LDL: 110-129 mg/dL Borderline High LDL: 130-159 mg/dL High LDL: 160-189 mg/dL Very High LDL: greater than or equal to 190 mg/dL HDL 78 >40 mg/dL Desirable HDL: greater than 40 mg/dL Note: This HDL assay may give artificially low results in patients with liver disease. Vit D 25-OH Tot 77.3 >30 ng/mL Health Based Reference Values* < 20 ng/mL Deficient 20-30 ng/mL Insufficient > 30 ng/mL Sufficient *Renu MACHUCA. N Engl J Med. 2007;357:266-280 Care must be taken in interpreting Vitamin D results from different laboratories and methodologies. Published data demonstrated that results from patients undergoing hemodialysis may show a negative bias when tested with various automated 25-OH vitamin D assays when compared to LC-MS/MS. When testing samples from patients whose predominant form of Vitamin D is Vitamin D2, such as patients receiving Vitamin D2 supplementation, results that are subtherapeutic should be confirmed with another method such as LC-MS/MS. Free T4 1.34 0.71-1.85 ng/dL TSH 3rd Gen. 1.15 0.32-4.0 uIU/mL Name: Diane Ram Age/Sex: 74/F : 1950 Unit#: [id number] Attend Dr: Glendy Richter MD Re02/12/24 Status: DEP [facility] Disch: SPEC : [id number] MELLY: 02/12/241015 STATUS: COMP REQ : [id number] RECD: 02/12/24-[address]: Glendy Richter MD COMP: 02/12/24 ENTERED: 02/12/24-[address]: Padmini Boggs MD ORDERED: CMP, C Reactive Prot Test Result Flag Reference Sodium 137 135-145 mmol/L Potassium 4.2 3.3-5.1 mmol/L CL 102 96-108 mmol/L CO2 26 22-29 mmol/L Gap 13 12-20 BUN 19 H 9-16 mg/dL Creat 0.82 0.5-1.4 mg/dL EGFR > 60 NOTE: For -Sudanese individuals, multiply the result by 1.210. Chronic Kidney Disease: Estimated GFR < 60 mL/min/1.73m2 Severe Kidney Disease: Estimated GFR < 15 mL/min/1.73m2 Glucose, Random 102 60-115 mg/dL CA 9.6 8.4-10.2 mg/dL Total Bili 0.5 0.0-1.0 mg/dL AST (GOT) 22 5-31 U/L ALT (GPT) 26 0-31 U/L CRP 0.11 < or = 0.50 mg/dL Protein, Total 6.9 6.5-8.0 g/dL Alb 4.3 3.5-5.0 g/dL Alk Phos 64 39-117 U/L Coding Level of Care Code Est Pt Level 4 (29181) Complex EM visit Add On G2211 Diagnoses Preoperative examination Z01.818 Essential hypertension I10 Dyslipidemia E78.5 Paroxysmal atrial fibrillation I48.0 Anxiety F41.9 Irritable bowel syndrome with diarrhea K58.0 Irritable bowel syndrome type: with diarrhea Spondylosis of lumbar region without myelopathy or radiculopathy M47.816 Acquired hypothyroidism E03.9 Osteoarthritis involving multiple joints on both sides of body M15.9 Additional Codes PRMOISE-7 Assessment Billing - PROMISE-7 Assessment Tool: PROMISE-7 Assessment 29715 ([id number]) Assessment & Plan Assessment & Plan (1) Preoperative examination: Code(s): Z01.818 - Encounter for other preprocedural examination Plan: Pt is a 74 year old lady here for pre-operative examination for left eyef cataract or surgery, requested by Dr. Burton , scheduled for 04/30/2024. She has been feeling well, except for having frequent anxiety attacks . EKG done today showed normal sinus rhythm with no acute ST-T changes . Latest fasting labs showed unremarkable findings. Patient with a low cardiac risk index for proposed surgery (2) Essential hypertension: Code(s): I10 - Essential (primary) hypertension Category: Medical Plan: Continue olmesartan 10 mg daily (3) Dyslipidemia: Code(s): E78.5 - Hyperlipidemia, unspecified Category: Medical Plan: Reinforced importance of taking pitavastatin daily, reviewed latest fasting lab results with patient regarding lipids which was higher than last check. Forced importance of following a low-cholesterol diet and start getting regular exercise, advised to try joining the [facility] exercise program. Recommend also trying taking Co Q10 100 mg capsule to see if this will help offset any muscle pain that might develop (4) Paroxysmal atrial fibrillation: Comment: Declines anticoagulation, or Watchman procedure as recommended by Dr. Ledesma Code(s): I48.0 - Paroxysmal atrial fibrillation Category: Medical Plan: She has history of atrial fibrillation/flutter noted on a Holter monitor from 09/10/2022. She has been seen by Cardiology, Dr. Ledesma who explained to her that given her CHADS vascular vascular score of 3, she is at high-risk group for developing embolic event from atrial fibrillation that could lead to a stroke which could occur suddenly and without warning, and that atrial fibrillation can be asymptomatic. It was recommended that she be start to on anticoagulation but patient at that time wants to hold off on starting it. Watchman procedure was given as an alternative to anticoagulation but again patient wants to hold off on having the procedure. At present patient is still does not want to have any of these done and has just been taking aspirin 81 mg albeit only when she remembers to take it. . EKG done today showed normal sinus rhythm with no acute ST-T changes seen. Patient would like to switch to a different cardiology office, referral made for her to be seen [place] [facility] [place] for follow-up (5) Anxiety: Comment: very anxious-family issues- Code(s): F41.9 - Anxiety disorder, unspecified Category: Medical Plan: She has been on duloxetine in the past which has been ineffective, will try her on escitalopram 5 mg per tablet to take once a day, either morning or night, declines referral for counseling. Will see her back for a telehealth visit for follow-up in 4 weeks (6) IBS (irritable bowel syndrome): Code(s): K58.9 - Irritable bowel syndrome, unspecified Category: Medical Qualifiers: Irritable bowel syndrome type: with diarrhea Qualified Code(s): K58.0 - Irritable bowel syndrome with diarrhea Plan: Continue taking dicyclomine 10 mg , advised to take at least 1 tablet daily (7) Spondylosis of lumbar region without myelopathy or radiculopathy: Code(s): M47.816 - Spondylosis without myelopathy or radiculopathy, lumbar region Category: Medical Plan: She states that taking Advil is better than taking nabumetone. She states that she will just switch to taking Advil 1 tablet alternating with Tylenol arthritis every 12 hours as needed for pain patient states that she will contact again Dr. Evans's office if pain gets worse. Physical therapy has helped in the past. Encouraged to join the exercise program at the [facility] (8) Acquired hypothyroidism: Code(s): E03.9 - Hypothyroidism, unspecified Category: Medical Plan: Latest thyroid levels are within normal limits, continued on levothyroxine 100 mcg taken once a day in a.m.. Reminded patient to take it 1st thing in the morning an hour before any food or drink were before taking her medication (9) Osteoarthritis involving multiple joints on both sides of body: Code(s): M15.9 - Polyosteoarthritis, unspecified Category: Medical Plan: Followed at [facility], sees Dr. Machuca Orders: Referrals Cardiology Referral E78.5 - Hyperlipidemia, unspecified, F41.9 - Anxiety disorder, unspecified, I10 - Essential (primary) hypertension, I48.0 - Paroxysmal atrial fibrillation Medications: New escitalopram oxalate 5 mg PO DAILY 30 tabs 0RF
--- OUTSIDE RECORDS SUMMARY | 2024-04-19 09:07 | XMS_ITS | Patient Health Record ---
Author Organization [facility] Address [address] [place] [address] Care Team Providers Care Alliance Consultant Name Role Phone Ambrose PYLE, Padmini Primary Care Provider Ta Staley Unavailable [phone] ALLERGIES Allergen (clinical drug ingredient) Drug/Non Drug [...] Problem Epigastric abdominal pain (R10.13) Active confirmed 39693256 Problem Encounter for screening for malignant neoplasm of colon (Z12.11) Active confirmed [id number] Problem History of adenomatous polyp of colon (Z86.010) Active confirmed 138317491 Problem Encounter for screening for malignant neoplasm of rectum (Z12.12) Active confirmed Screening fo r malignant neoplasm of rectum (267575515) Problem Abdominal pain, epigastric (R10.13) Active confirmed 11008221 Problem Abdominal pain, generalized (R10.84) Active confirmed 758552963 Problem Irritable bowel syndrome, unspecified type (K58.9) Active confirmed 04225844 Problem Irritable bowel syndrome with both constipation and diarrhea (K58.2) Active confirmed 71364815 PLAN OF TREATMENT Pending Test Test Name [...] Insured Coverage Start Date Coverage End Date [facility] [address] [address] [place] [address] [id number] SULEMA ALEXANDRA Self - patient is the insured MEDICAL (GENERAL) HISTORY Medical History History ICD Code Denies LA,DM,CVA,renal disease. Arthritis COPD HTN EGD in 12/2010 [...] Having an ETT/Echo with Dr. Ledesma at [facility] on 10/18/2021 Surgical History Surgery Date(Month/Year) Elbow surgery bilateral Lap cholecystectomy--Dr. Parrish 10/2013-- acalculous cholecystitis
--- OUTSIDE RECORDS SUMMARY | 2024-04-19 09:07 | XMS_ITS | Patient Health Record ---
Author Organization [facility] Address [address] [place] [address] Care Team Providers Care Flying Squad Worker Name Role Phone Ambrose PYLE, Padmini Waters Primary Care Provider Un available Shyam Rae Unavailable [phone] Allergies Allergen (clinical drug ingredient) Drug/Non Drug [...] primary osteoarthritis of the ankle and/or foot (853253839) Primary osteoarthrit is, right ankle and foot (M19.071) Active confirmed Problem Localized, primary osteoarthritis of the ankle and/or foot (749201894) Primary osteoarthrit is, left ankle and foot (M19.072) Active confirmed Plan Of Treatment Pending Test Test Name Order Date X ray : Foot, left 3V 03/09/2022 X ray : Foot, right 3V 03/09/2022 Insurance Providers Payer Name Payer Address Payer Phone Subscriber Number Group Number Insured Name Patient Relationship to Insured Coverage Start Date Coverage End Date [facility] [address] [address] [place] [address] [id number] Diane Travis Self - patient is the insured Medical (General) History Medical History History ICD Code osteoarthritis Back,Hip,and Knee pain Broken bones CAD (Cholesterol) Gall bladder problems High blood pressure Numbness Osteoporosis Sciatica thyroid Measles Mumps Chicken pox Joint implants/screws Neuropathy Surgical History Surgery Date(Month/Year) left arm surgery 1999 right arm surgery 2004
== END 2024-04-19 10:12 | disposition home or self-care (01) ==
PROVIDERS: PCP Internal Medicine; Visit Provider Internal Medicine
DX: Z01.818 Encounter for other preprocedural examination (principal); I10 Essential (primary) hypertension; E78.5 Hyperlipidemia, unspecified; I48.0 Paroxysmal atrial fibrillation; F41.9 Anxiety disorder, unspecified; K58.0 Irritable bowel syndrome with diarrhea; M47.816 Spondylosis without myelopathy or radiculopathy, lumbar region; E03.9 Hypothyroidism, unspecified; M15.9 Polyosteoarthritis, unspecified

== ENCOUNTER → 2024-04-19 08:52 | Outpatient (BNVA) | payer OTHER, SELFPAY | PROVIDERS: PCP Internal Medicine; Visit Provider Internal Medicine | DX: Z01.818 Encounter for other preprocedural examination (principal); I10 Essential (primary) hypertension; E78.5 Hyperlipidemia, unspecified; I48.0 Paroxysmal atrial fibrillation; F41.9 Anxiety disorder, unspecified; K58.0 Irritable bowel syndrome with diarrhea; M47.816 Spondylosis without myelopathy or radiculopathy, lumbar region; E03.9 Hypothyroidism, unspecified; M15.9 Polyosteoarthritis, unspecified | CPT/HCPCS: 96127; 99212 ==

== ENCOUNTER 2024-07-16 13:45 | Outpatient (AMB) | payer OTHER, SELFPAY ==
--- NOTE | 2024-07-16 13:46 | A.OFFVIS_ITS ---
Vital Signs 07/16/24 13:56 Height 5 ft 4 in Weight 153 lb 7.068 oz BMI 26.3 BP 148/66 H Blood Pressure Location Lt brachial Position Sitting Pulse 78 Pulse Source Pulse Oximeter Pulse Oximetry (%) 100 Oxygen Delivery Method Room Air Intake [place] [facility] [place] / G[place]D Intake Note: ESTABLISHED PATIENT for GERD + epigastric pain mgmt. Last seen by . Chief Complaint; C/O intermittent episodes of IBS. Interchanging constipation and diarrhea. RLQ pain which seems to be associated with said episodes. Pt denies any burning per GERD but does have some occasional dysphagia depending on diet. No additional concerns or notes at this time. 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 Accompanied by: Self / Same As Patient Allergies ciprofloxacin Adverse Reaction (Unknown, Verified 07/16/24 13:47) pulled muscle doxycycline Adverse Reaction (Unknown, Verified 07/16/24 13:47) vision changes lisinopril Adverse Reaction (Unknown, Verified 07/16/24 13:47) cough HPI [place] [facility] [place] Pain / GERD: Details: LAST VISIT WITH TE FRYE 03/22/2023 A 73 y/o female epigastric pain, acid reflux f/u after EGD with dilation and colonoscopy Omeprazole 20 mg- taking alieve - QD for arthritis, has breakthrough symptoms of acid reflux intermittent epigastric pain however seems to have improved Dicyclomine- helpful for IBS. Complains about arthralgia due to arthritis Reviewed procedure report, pathology recommendation No nausea, vomiting, hematemesis, hematochezia fever or chills TODAY'S VISIT Patient is here today for requested visit. Patient had MRI done back in February of 2024 that was order by Dr. Richter. Patient has a family history of pancreatic cancer. MRI showed no lesion. Patient reports that she has been having similar symptoms. His IBS symptoms of occasional postprandial diarrhea and then constipation on going depending on what she eats. Patient reports occasional cramping, however dicyclomine is helpful. Discussed with patient that if she will use too much of dicyclomine and not eat enough fiber she might get constipated as dicyclomine slows down the motility of the intestines. Patient denies any melena, hematochezia, unintentional weight loss or ribbon like stools. Patient reports acid reflux is suppressed for the most part with pantoprazole. Occasional acid reflux and dysphagia depending on what she eats. Patient denies any nausea or vomiting. 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 Keratoconjunctivitis sicca Spinal stenosis of lumbar region with radiculopathy Paroxysmal atrial fibrillation Left lumbar radiculopathy IBS (irritable bowel syndrome) Dyslipidemia Essential hypertension Osteoarthritis involving multiple joints on both sides of body Acquired hypothyroidism Surgical History History of esophagogastroduodenoscopy (EGD) Hx of colonoscopy History of elbow surgery Hx of cholecystectomy History of fracture of forearm Family History Father Myocardial infarction Mother HTN (hypertension) Hyperlipidemia Pancreatic cancer Maternal Grandmother Unknown family medical history Brother No problems noted. Son No problems noted. Maternal Uncle Colon cancer Social History Household Members: None Housing: Apartment Alcohol intake: current Alcohol intake frequency: a few times a month Patient Tobacco Use Status: Former Tobacco user Years Smoked: 2 yrs e-Cigarette/Vaping Use: Never Used Second Hand Smoke Exposure: No service: No Current occupational status: retired Current occupation: left handed Current occupational exposures/hazards: No Cognitive needs: No Hearing needs: No Vision needs: Yes (glasses/contacts) Review of Systems Const Denies weight gain and Denies weight loss ENT Reports no additional complaints, Denies dysphagia and Denies odynophagia Card Reports no additional complaints Resp Reports no additional complaints GI Denies abdominal pain, Denies belching, Denies melena, Reports bloating, Denies change in bowel habits, Reports constipation, Denies dysphagia, Denies excessive flatus, Denies dyspepsia, Reports heartburn (Occasional), Denies diarrhea, Reports loose stools (Occasional), Denies nausea, Denies odynophagia and Denies vomiting Reports no additional complaints Musc Reports no additional complaints Neuro Reports no additional complaints Psych Reports no additional complaints Endo Reports no additional complaints Physical Exam Vital Signs: Last Vital Signs Pulse 78 07/16/24 13:56 BP 148/66 H 07/16/24 13:56 Pulse Ox 100 07/16/24 13:56 Oxygen Delivery Method Room Air 07/16/24 13:56 BMI result Body Mass Index 26.3 Const General: healthy appearing, no acute distress and well developed Nutritional Appearance: well nourished Orientation/consciousness: patient oriented x3 Resp Effort & Inspection: normal respiratory effort, able to speak in complete sentences, no tracheal deviation and symmetric chest movement Auscultation: clear to auscultation bilaterally Cardio Rate: regular rate GI Inspection: Yes normal to inspection and No distended Palpation (GI): Soft to palpation, not firm, nontender and No hepatosplenomegaly present Auscultation: normal bowel sounds General: Yes no CVA tenderness Back/Spine/Pelvis Back: no CVA tenderness Skin General skin exam: elasticity normal, turgor normal and dry skin Neuro General: patient oriented x3 Psych Appearance: grossly normal Mental Status: mental status grossly normal Results Reviewed Results Reviewed: MRI OF ABDOMEN AND PELVIS FINDINGS: LUNG BASES: No pleural or pericardial effusion. LIVER, GALLBLADDER, AND BILIARY TREE: Hepatic steatosis. No focal hepatic lesion. No significant intrahepatic biliary ductal dilatation. The common duct measures up to 9 mm at the monique hepatis and tapers smoothly. No intraductal filling defects. The gallbladder is surgically absent. PANCREAS: Conventional ductal anatomy. No ductal dilatation. Normal contour. No focal pancreatic mass or abnormal enhancement. No peripancreatic stranding. SPLEEN: Not enlarged. ADRENAL GLANDS: No adrenal mass. KIDNEYS AND URETERS: Benign-appearing T2 hyperintense left renal cysts, no imaging follow-up recommended. GASTROINTESTINAL TRACT: No bowel obstruction. No ascites or fluid collection. LYMPH NODES: No bulky lymphadenopathy. VASCULAR: Normal caliber abdominal aorta. MR/MR abdomen wo/w con IMPRESSION: Stable prominence of the biliary ductal system since October 16, 2014. No intraductal filling defects. No dilatation of the main pancreatic duct. Assessment & Plan Assessment & Plan (1) History of adenomatous polyp of colon: Code(s): Z86.0101 - Personal history of adenomatous and serrated colon polyps Category: Medical (2) Chronic RLQ pain: Code(s): R10.31 - Right lower quadrant pain; G89.29 - Other chronic pain Category: Medical (3) Diarrhea: Code(s): R19.7 - Diarrhea, unspecified Category: Medical Qualifiers: Diarrhea type: functional diarrhea Qualified Code(s): K59.1 - Functional diarrhea (4) Abdominal pain: Code(s): R10.9 - Unspecified abdominal pain Category: Medical Qualifiers: Abdominal location: lower abdomen, unspecified Qualified Code(s): R10.30 - Lower abdominal pain, unspecified (5) IBS (irritable bowel syndrome): Code(s): K58.9 - Irritable bowel syndrome, unspecified Category: Medical Qualifiers: Irritable bowel syndrome type: with diarrhea Qualified Code(s): K58.0 - Irritable bowel syndrome with diarrhea (6) GERD (gastroesophageal reflux disease): Code(s): K21.9 - Gastro-esophageal reflux disease without esophagitis Qualifiers: Esophagitis presence: esophagitis presence not specified Qualified Code(s): K21.9 - Gastro-esophageal reflux disease without esophagitis Plan Patient will continue pantoprazole daily. Avoid dietary triggers as late as snacking. Staying upright foraminal 3 hours after meals discussed with patient. Patient will try low FODMAP diet. List of food recommended as well as list of food to avoid given to patient. Avoid lactose and gluten as much as she can. Increase fiber, increase fluid intake and activity to promote better bowel motility. Follow-up in 4-6 months, sooner on as needed basis. Patient is agreeable to this plan and verbalizes understanding of instructions. She was given the opportunity to ask questions and all questions answered. Thank you for allowing me to participate in her care Coding Level of Care Code Est Pt Level 4 (02221) Complex EM visit Add On G2211 Diagnoses History of adenomatous polyp of colon Z86.0101 Chronic RLQ pain R10.31; G89.29 Functional diarrhea K59.1 Diarrhea type: functional diarrhea Lower abdominal pain R10.30 Abdominal location: lower abdomen, unspecified Irritable bowel syndrome with diarrhea K58.0 Irritable bowel syndrome type: with diarrhea Gastroesophageal reflux disease, unspecified whether esophagitis present K21.9 Esophagitis presence: esophagitis presence not specified Time Spent (min) 40 Comment 25 minutes spent with patient and additional 15 minutes spent reviewing her records
[2024-07-16 13:56] VITALS: BP 148/66; PULSE 78; O2SAT 100; BMI 26.3
== END 2024-07-16 14:42 | disposition home or self-care (01) ==
LOC: HO.HGI 13:46
PROVIDERS: PCP Internal Medicine; Visit Provider Nurse Practitioner Family
DX: R10.31 Right lower quadrant pain (principal); Z86.0101 Personal history of adenomatous and serrated colon polyps; K58.0 Irritable bowel syndrome with diarrhea; K21.9 Gastro-esophageal reflux disease without esophagitis
CPT/HCPCS: 99214; G2211

== ENCOUNTER → 2024-07-16 13:45 | Outpatient (BNVA) | payer OTHER, SELFPAY | PROVIDERS: PCP Internal Medicine; Visit Provider Nurse Practitioner Family | DX: K21.9 Gastro-esophageal reflux disease without esophagitis (principal); K58.0 Irritable bowel syndrome with diarrhea; K59.1 Functional diarrhea; R10.30 Lower abdominal pain, unspecified; R10.31 Right lower quadrant pain; G89.29 Other chronic pain; Z86.0101 Personal history of adenomatous and serrated colon polyps | CPT/HCPCS: 99212 ==

== ENCOUNTER 2024-09-07 11:24 | Outpatient (REF) | payer OTHER, SELFPAY ==
--- NOTE | ~2024-09-07 | MR_ITS ---
EXAMINATION: MR LUMBAR SPINE WITHOUT CONTRAST CLINICAL INFORMATION: Low back pain, lumbar radiculopathy. COMPARISON: March 24, 2022. TECHNIQUE: MRI of the lumbar spine was obtained using routine sequences without contrast. FINDINGS: Last rib-bearing vertebra labeled T12. Subtle bone marrow STIR signal in the posterior elements of L4-5. Grade 1 anterolisthesis, L4-5 and to a lesser extent L3-4 on a degenerative basis Small new superior endplate of L5. Modic type II endplate changes at L5. Bone marrow inhomogeneity. Multilevel disc desiccation. Conus medullaris ends at intervertebral disc height T12-L1 with normal signal. T12-L1: No central spinal canal stenosis. No neuroforamina stenosis. No herniated disc. L1-2: Central broad-based disc bulging resulting in ventral deformity of the thecal sac. No central spinal canal or neuroforamina stenosis. Perineural cyst, Left neuroforamen. Bilateral perineural cysts. L2-3: Broad-based disc bulging. Facet joint hypertrophy. Reduced AP diameter of the thecal sac. Bilateral neuroforamina narrowing. Encroachment of the exiting nerve roots in the lateral recesses and neuroforamina. Bilateral perineural cysts. L3-4: Broad-based disc bulging. Facet joint and ligamentum flavum hypertrophy. Reduced AP diameter of the thecal sac and the neural foramina likely encroaching the neural elements. Bilateral perineural cysts. L4-5: Grade 1 anterolisthesis facet joint and ligamentum flavum hypertrophy resulting in central spinal canal stenosis encroaching the neural elements of the thecal sac. Bilateral neuroforamina narrowing. L5-S1: Broad-based disc bulging. Facet joint hypertrophy. No central spinal canal stenosis. Bilateral neuroforamina narrowing. Multiple Tarlov cyst in the left side of S2 and S3 levels. Asymmetric volume loss of the right psoas muscle and to a lesser extent on the left side. No prevertebral compartment hematoma, mass or fluid collection. Probable multiple bilateral renal cysts, bilaterally. MR/MR lumbar spine wo con IMPRESSION: Grade 1 anterolisthesis on a degenerative basis at L4-5 resulting in central spinal canal stenosis likely compressing the neural elements of the thecal sac. Grade 1 anterolisthesis L3-4 on a degenerative basis encroaching the L4 and likely L3 exiting nerve roots. Multilevel lumbar spondylosis.. Bilateral perineural cysts, multilevel. Electronically signed by: Feliberto Willams MD 09/09/2024 09:11 AM EDT RP
--- OUTSIDE RECORDS SUMMARY | 2024-09-07 11:25 | XMS_ITS | Patient Health Record ---
Author Organization [facility] Address [address] [place] [address] Care Team Providers Care Lead Front End Developer Name Role Phone Ambrose PYLE, Padmini Waters Primary Care Provider Un available Shyam Rae Unavailable [phone] Allergies Allergen (clinical drug ingredient) Drug/Non Drug [...] Problem Status W/U Status Risk Notes Problem Primary osteoarthrit is, right ankle and foot (M19.071) Active confirmed Problem Localized, primary osteoarthritis of the ankle and/or foot (303107349) Primary osteoarthrit is, left ankle and foot (M19.072) Active confirmed Plan Of Treatment Pending Test Test Name Order Date X ray : Foot, left 3V 03/09/2022 X ray : Foot, right 3V 03/09/2022 Insurance Providers Payer Name Payer Address Payer Phone Subscriber Number Group Number Insured Name Patient Relationship to Insured Coverage Start Date Coverage End Date [facility] [address] [address] [place] [address] [id number] [facility] Self - patient is the insured Medical (General) History Medical History History ICD Code osteoarthritis Back,Hip,and Knee pain Broken bones CAD (Cholesterol) Gall bladder problems High blood pressure Numbness Osteoporosis Sciatica thyroid Measles Mumps Chicken pox Joint implants/screws Neuropathy Surgical History Surgery Date(Month/Year) left arm surgery 1999 right arm surgery 2004
--- OUTSIDE RECORDS SUMMARY | 2024-09-07 11:26 | XMS_ITS | Clinical Summary ---
Author Organization [address] [address] [address] [place] [address] Phone Care Team Providers Care Military Professional Name Role Phone Padmini Boggs MD Primary Care Provider [phone] Allergies Active Allergy Reactions Criticality Noted Date Comments Lisinopril 08/02/2021 Metoprolol 08/02/2021 Omeprazole 08/02/2021 Medications acetaminophen (TYLENOL 8 HOUR) 650 mg 8 hr tablet Take 650 mg by mouth every 8 hours as needed. Active albuterol HFA (PROAIR HFA ; PROVENTIL HFA ; VENTOLIN HFA) 90 mcg/actuation inhaler as needed. 01/30/2013 Active levothyroxine (SYNTHROID, LEVOTHROID) 100 mcg tablet Take 100 mcg by mouth daily. Active pitavastatin calcium (Livalo) 2 mg tablet TAKE 1 TABLET BY MOUTH 5 TIMES WEEKLY. 01/25/2023 Active multivitamin with minerals (Spectravite Adult 50 Plus) tablet Take by mouth. Active olmesartan (BENICAR) 5 mg tablet Take 2 Tablets by mouth daily. Active timolol (TIMOPTIC) 0.5 % ophthalmic solution 1 Drop daily. Active pantoprazole (PROTONIX) 40 mg EC tablet Take 1 tablet (40 mg total) by mouth 1 (one) time each day before breakfast. Do not crush, chew, or split. Active nystatin (MYCOSTATIN) 500,000 unit tablet Take 2 tablets (1,000,000 Units total) by mouth 2 (two) times a day. 06/03/2024 Active gabapentin (NEURONTIN) 100 mg capsule 1 tab p.o. at bedtime x 3 nights, if no negative side effects can increase as needed up to 3 times a day. 90 each 06/20/2024 Active Active Problems Problem Noted Date Diagnosed Date Paroxysmal atrial fibrillation ([facility] V24, [facility] V28) 09/29/2022 Overview (06/05/2024): - noted on holter in 08/2022 for palpitations - not anticoagulated at her request - declined watchman - Most recent echocardiogram 10/2022 showed normal LVEF 60-65%, no wall motion abnormalities, without hemodynamically significant valve disease Assessment & Plan (06/05/2024 11:01 AM EST): The patient has not had any recurrence of her palpitations. She was symptomatic in her atrial fibrillation on her Holter monitor previously. She has declined anticoagulation and watchman. She asks if baby aspirin would be beneficial, we discussed how it does not reduce her stroke risk but would increase her gastritis and risk of GI bleeding. She will notify me if she has any prolonged palpitations. Her [id number] score is 3 (age, female gender, hypertension) and we would recommend full anticoagulation should she have recurrent palpitations and/for documentation of recurrence of her atrial fibrillation. Lumbar spondylosis 05/03/2022 Overview (04/05/2024): Last Assessment & Plan: I reviewed this in detail with Ms. Ram. She certainly has multilevel degenerative changes worst at L4-5 with what I would call moderate stenosis. Her symptoms vary though and are not linked with any specific activity. She responds to ice and heat and while this is frustrating for her, I would not say that is clearly claudication and have not recommended decompression surgery. She should continue gabapentin and I provided a referral slip to PT for her intermittent lower back symptoms and more recent persistent neck pain and headaches. I have asked that they try traction. She is welcome to follow-up with us if her situation worsens. Assessment & Plan (06/20/2024 5:07 PM EST): Patient was seen 2 years ago for back and bilateral hip pain, somewhat down the legs. She states symptoms have not improved, she would still describe pain in the back (SI joints), lateral hips/bursa, down the posterior lateral leg to the feet. She states she has history of neuropathy, gets burning tingling in her feet. 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 She states her leg muscles feel weaker, did not continue PT exercises at home, but is active and walking. Her insurance would not cover acupuncture. She rates her pain 5/10. She has been reading about gluteal tendinopathy, related to postmenopausal hormone deficiency, feels this describes her symptoms, as well as the general aching in the muscles/tendons and joints in her legs. She has no issues walking distances, does not have to sit down and take breaks when walking, does not lean on a shopping cart at the grocery store. Her last lumbar spine MRI March 2022 showed multilevel disc desiccation, L4-5 spondylolisthesis and moderate stenosis. We talked about conservative treatment options she could try, like physical therapy and continue exercises at home, aquatic physical therapy. If she is not seeing improvement after PT, we can order updated her MR spine, although she is not describing neurogenic claudication symptoms. We talked about musculoskeletal syndrome of menopause, may want to see a menopause specialist to further discuss options/recommendations. I talked to her asking her doctor about checking cardiac calcium score. All questions answered. She will call with any concerns or questions, give me an update after PT. Other chest pain 08/02/2021 Overview (06/05/2024): - She had a normal exercise MIBI in 2018. - Exercise stress echocardiogram 09/2021 following an abnormal ETT ordered for chronic chest ache and shortness of breath was normal after 5.7 MET workload on a modified Thiago protocol, 87% of her MPHR, 7 minutes of exercise Assessment & Plan (06/05/2024 10:56 AM EST): The pt continues with atypical but regular chest discomfort. She has factors of hypertension, hyperlipidemia, prior smoking and family history. She is understandably quite worried. She has had 2 negative stress tests, but now her back/arthritis discomfort limits her exercise. As such, we will order a coronary CTA with reflex to IFR to better clarify her coronary arteries. For now, resector modification with management of her blood pressure and cholesterol is advised. Certainly, moving her body in any way possible is always advised. Essential hypertension 08/02/2021 Assessment & Plan (06/05/2024 10:59 AM EST): Blood pressure is robust in office today, but much better controlled on review of her blood pressures from home. Continue her ARB at current dose. Pain and worry/angst/anxiety is likely a major contributor to her in office blood pressures. Carotid artery disease ([facility] V24) 11/09/2020 Overview (06/05/2024): - <50% stenosis bilaterally on carotid ultrasound 11/2020 Mixed hyperlipidemia 11/09/2020 Assessment & Plan (06/05/2024 11:02 AM EST): The patient admits to missing her statin multiple times per week. I have advised her to to get in the evening, and made the suggestion of possibly putting it in her bathroom so that she remembers to take it when she brushes her teeth before bed. She will give this a try. Her PCP also recommended CoQ 10 which may help some of her myalgias. Ideally, would like her LDL is close to 100 as possible. If she is unable to tolerate her current low-dose statin due to myalgia and/or it is unsuccessful in reducing her LDL, would recommend consideration of PCSK9 inhibitor. Premature ventricular beat 11/09/2020 Overview (04/05/2024): Last Assessment & Plan: She does have a asymptomatic premature beat. She does not have any palpitations. I am just can check electrolytes and magnesium level. Encounters Date Type Department Care Team Description 08/21/2024 Telephone [facility] [facility] [place] [address] [facility] [address] [place] [address] Ami Berry MA Appointment ([facility] no auth needed for L/Spine MRI faxed over to [facility] Radiology(fx# [phone]). Leonor will contact pt w/appt.) 08/19/2024 11:00 AM EDT Treatment [address] [address] Germaine Cano, PT Lumbar spondylosis (Primary Dx) 08/19/2024 [place] [facility] [address] [address] Carol Allan PA Advice Only (Post therapy) 08/15/2024 11:00 AM EDT Treatment [address] [address] Germaine Cano, PT Lumbar spondylosis (Primary Dx) 08/12/2024 11:30 AM EDT Treatment [address] [address] Germaine Cano, PT Lumbar spondylosis (Primary Dx) 08/08/2024 3:00 PM EDT Treatment [address] [address] Germaine Cano, PT Lumbar spondylosis (Primary Dx) 08/06/2024 11:30 AM EDT Treatment [address] [address] Jt Shaw, HIGH LIGHTER Lumbar spondylosis (Primary Dx) 07/29/2024 11:30 AM EDT Treatment [address] [address] Jt Shaw, HIGH LIGHTER Lumbar spondylosis (Primary Dx) 07/26/2024 9:30 AM EDT Treatment [address] [address] Germaine Cano, PT Lumbar spondylosis (Primary Dx) 07/24/2024 1:00 PM EDT Treatment [address] [address] Germaine Cano, PT Lumbar spondylosis (Primary Dx) 07/09/2024 12:30 PM EDT Evaluation [facility] [place] [address] [facility] [address] [place] [address] Germaine Cano PT Lumbar spondylosis 06/20/2024 11:30 AM EST Office Visit [facility] [place] [address] [facility] [address] [place] [address] Carol Allan PA Lumbar spondylosis (Primary Dx) 06/17/2024 Telephone [facility] [address] [facility] [address] [place] [address] Leonor Kruger NP Appointment (Coronary CTA isaac'd) 06/17/2024 Telephone [facility] [address] [facility] [address] [place] [address] Leonor Kruger NP Testing (Auth Coronary CTA) from Last 3 Months Surgical History Surgery Date Site/Laterality Comments CHOLECYSTECTOMY OTHER SURGICAL HISTORY Bilateral ARM SURGERY; COMMENT: history of plating 2005 GALLBLADDER SURGERY CATARACT EXTRACTION N/A Cataract surgery Medical History Medical History Date Comments Esophageal reflux Essential hypertension Asthma Family History Medical History Relation Name Comments Heart attack Father Relation Name Status Comments Father Social History Tobacco Use Types Packs/Day Years Used Date Smoking Tobacco: Former Smokeless Tobacco: Never Tobacco Cessation:Counseling Given: Not Answered Alcohol Use Standard Drinks/Week Comments Yes 0 (1 standard drink = 0.6 oz pur e alcohol) Comments Unknown Sex and Gender Information Value Date Recorded Sex Assigned at Not on file Legal Sex Female 9:35 PM EST Gender Identity Not on file Sexual Orientation Not on file Obstetrics History Last Filed Vital Signs Vital Sign Reading Time Taken Comments Blood Pressure 148/74 06/05/2024 10:39 AM EST Pulse 73 06/05/2024 9:49 AM EST Temperature - - Respiratory Rate - - Oxygen Saturation 99% 06/05/2024 9:49 AM EST Inhaled Oxygen Concentration - - Weight 69.9 kg (154 lb) 06/20/2024 11:43 AM EST Height 162.6 cm (5' 4 ) 06/20/2024 11:43 AM EST Body Mass Index 26.43 06/20/2024 11:43 AM EST Plan of Treatment Health Maintenance Due Date Last Done Comments Breast Cancer Screening 1950 Cholesterol Screening (Lipid Panel) 03/26/2022 Colorectal Cancer Screening: Colonoscopy 03/26/2022 Depression Screening 03/26/2022 Falls Risk Assessment 03/26/2022 Hepatitis C Screening 03/26/2022 Medicare Annual Wellness Visit 03/26/2022 Osteoporosis Screening (Bone Density Screening) 03/26/2022 Social Influencers of Health Screening 03/26/2022 Hypertension/CHF/CAD Annual BMP Blood Test 04/03/2022 COVID-19 Vaccine (2023- season) 2023 07/15/2022, 09/27/2021, 02/15/2021, Additional history exists DTaP,Tdap,and Td Vaccines (2 - Td or Tdap) 09/14/2024 09/14/2014 RSV Immunization Adult Patients (1 - 1-dose 75+ series) 2026 Zoster Vaccines Completed 01/03/2022, 07/24, 05/31/2013 Influenza Vaccine Completed 01/21/2024, , 02/01/2022, Additional history exists Pneumococcal Vaccine: 50+ Years Completed 04/10/2024, 11/18/2019, 03/02/2016 HIB Vaccines Aged Out No longer eligi ble based on patient's age to complete this topic HPV Vaccines Aged Out No longer eligi ble based on patient's age to complete this topic Hepatitis A Vaccines Aged Out No long er eligible based on patient's age to complete this topic Hepatitis B Vaccines Aged Out No long er eligible based on patient's age to complete this topic IPV Vaccines Aged Out No longer eligi ble based on patient's age to complete this topic MMR Vaccines Aged Out No longer eligi ble based on patient's age to complete this topic Meningococcal ACWY Vaccine Aged Out N o longer eligible based on patient's age to complete this topic Meningococcal B Vaccine Aged Out No l onger eligible based on patient's age to complete this topic RSV Immunization Patients Under 20 months Aged Out No longer eligible based on patient's age to complete this topic Varicella Vaccines Aged Out No longer eligible based on patient's age to complete this topic Insurance [employer] MEDICARE MEDICAID - [place] Care Teams Military Professional Relationship Specialty Start Date End Date Padmini Boggs MD [address] [place] [address] PCP - General Internal Medicine 10/27/20
--- OUTSIDE RECORDS SUMMARY | 2024-09-07 11:26 | XMS_ITS | Patient Health Record ---
Author Organization [facility] Address [address] [place] [address] Care Team Providers Care School Psychology Specialist Name Role Phone Ambrose PYLE, Padmini Primary Care Provider Ta Staley Unavailable [phone] Allergies Allergen (clinical drug ingredient) Drug/Non Drug Allergy documented on EMR Reaction Allergy Type Onset Date Status IVP Dye (uncoded) Unknown Allergy Ac tive Reason For Referral No Information Medications Medication [...] capsule Orally onc e a day Active Immunizations Vaccine Route Administration Date Status Comme nts Influenza Unknown 02/23/2016 Administered Influenza Unknown 2019 Administered Influenza Unknown 02/09/2021 Administered Social History Tobacco Use: Social History Observation Description Date Details (start date - stop date) Former Smoker NA - NA Tobacco Use/Smoking Question Answer Notes Patient is [...] Never (0 point) Points 1 Interpretation Negative Section Notes: She does not smoke and drink s only occasional alcohol She does not smoke and drink s only occasional alcohol She does not smoke and drink s only occasional alcohol She does not smoke and drink s only occasional alcohol She does not smoke and drink s only occasional alcohol She does not smoke and drink s only occasional alcohol She does not smoke and drink s only occasional alcohol Problems Problem Type SNOMED Code ICD Code Onset Dates Problem Status W/U Status Risk Notes Problem 43881444 Epigastric abdominal pain (R10.13) Active confirmed Problem 686938668 Encounter for screening for malignant neoplasm of colon (Z12.11) Active confirmed Problem 518329489 History of adenomatous polyp of colon (Z86.010) Active confirmed Problem Screening for malignant neoplasm of rectum (495664654) Encounter for screening for malignant neoplasm of rectum (Z12.12) Active confirmed Problem 09854356 Abdominal pain, epigastric (R10.13) Active confirmed Problem 331203228 Abdominal pain, generalized (R10.84) Active confirmed Problem 16389879 Irritable bowel syndrome, unspecified type (K58.9) Active confirmed Problem 17235448 Irritable bowel syndrome with both constipation and diarrhea (K58.2) Active confirmed Plan Of Treatment Pending Test Test Name Order Date ENDOMYSIAL [...] Insured Coverage Start Date Coverage End Date [facility] [address] [address] [place] [address] [id number] NASRIN SULEMA Self - patient is the insured Medical (General) History Medical History History ICD Code Denies [place],DM,CVA,renal disease. Arthritis COPD HTN EGD in 12/2010 neg. for H.pyl tiffany/esophagitis--she had previously been treated with Prevpac for a positive H. pylori serology Hypothyroidism IBS Neg. GB U/S in 2011 Negative lab work for celiac disease in 2011 HIDA scan with a 2% EF in 10/2013 Neg. abdominal and pelvic CT in 2012 Lumbar spondylosis Negative abominal MRI/MRCP Screening colonoscopy in Sep 2010 with a small tubular adenoma removed. She [...] Having an ETT/Echo with Dr. Ledesma at [facility] on 10/18/2021 Surgical History Surgery Date(Month/Year) Elbow surgery bilateral Lap cholecystectomy--Dr. Parrish 10/2013-- acalculous cholecystitis
== END 2024-09-07 11:25 | disposition home or self-care (01) ==
LOC: HO.MRI 11:24
PROVIDERS: PCP Internal Medicine; Visit Provider Physician Assistant
DX: M47.816 Spondylosis without myelopathy or radiculopathy, lumbar region (principal)
CPT/HCPCS: 72148

== ENCOUNTER → 2024-09-07 11:31 | Outpatient (BNV) | payer OTHER, SELFPAY | PROVIDERS: PCP Internal Medicine; Visit Provider Radiology Diagnostic Radiology | DX: M47.896 Other spondylosis, lumbar region (principal); G96.191 Perineural cyst | CPT/HCPCS: 72148 ==

== ENCOUNTER 2024-09-09 10:02 | Outpatient (AMB) | payer OTHER, SELFPAY ==
--- OUTSIDE RECORDS SUMMARY | 2024-09-09 10:29 | XMS_ITS | Clinical Summary ---
Author Organization [address] [place] [address] Address [address] [place] [address] Phone Care Team Providers Care Information Systems Administrator Name Role Phone Padmini Boggs MD Primary Care Provider [phone] Allergies Active Allergy Reactions Criticality Noted Date [...] Noted Date Diagnosed Date Paroxysmal atrial fibrillation ([facility] V24, [facility] V28) 09/29/2022 Overview (06/05/2024): - noted on [...] if she has any prolonged palpitations. Her [id number] score is 3 (age, female gender, hypertension) [...] her feet. She has been seeing her gasoline truck crane operator, they tried bilateral hip bursa injections in [...] in office blood pressures. Carotid artery disease ([facility] V24) 11/09/2020 Overview (06/05/2024): - <50% stenosis [...] Department Care Team Description 08/21/2024 Telephone [facility] [place] [facility] [place] [address] [facility] [facility] [address] [place] [address] Ami Berry [place] Appointment ([facility] no auth needed for L/Spine MRI [place] [facility](fx# [phone]). Leonor will contact pt w/appt.) 08/19/2024 11:00 AM EDT Treatment [address] [address] Germaine Cano, PT Lumbar spondylosis (Primary Dx) 08/19/2024 [facility] [address] [address] Carol Allan PA Advice Only (Post therapy) 08/15/2024 11:00 AM EDT Treatment [address] [address] Germaine Cano, PT Lumbar spondylosis (Primary Dx) 08/12/2024 11:30 AM EDT Treatment [address] [address] Germaine Cano, PT Lumbar spondylosis (Primary Dx) 08/08/2024 3:00 PM EDT Treatment [address] [address] Germaine Cano, PT Lumbar spondylosis (Primary Dx) 08/06/2024 11:30 AM EDT Treatment [address] [address] Jt Shaw, PUBLIC HEALTH CLINICAL NURSE SPECIALIST Lumbar spondylosis (Primary Dx) 07/29/2024 11:30 AM EDT Treatment [address] [address] Jt Shaw, PUBLIC HEALTH CLINICAL NURSE SPECIALIST Lumbar spondylosis (Primary Dx) 07/26/2024 9:30 AM EDT Treatment [address] [address] Germaine Cano, PT Lumbar spondylosis (Primary Dx) 07/24/2024 1:00 PM EDT Treatment [address] [address] Germaine Cano, PT Lumbar spondylosis (Primary Dx) 07/09/2024 12:30 PM EDT Evaluation [facility] [place] [address] [place] [address] Germaine Cano PT Lumbar spondylosis 06/20/2024 11:30 AM EST Office Visit [facility] [place] [facility] [place] [address] [facility] [address] [place] [address] Carol Allan PA Lumbar spondylosis (Primary Dx) 06/17/2024 Telephone [facility] [address] [facility] [address] [place] [address] Leonor Kruger NP Appointment (Coronary CTA isaac'd) 06/17/2024 Telephone [facility] [address] [facility] [address] [place] [address] Leonor Kruger NP Testing (Auth [...] HEALTHCARE MEDICARE [place]ICAID - [place] Care Teams Information Systems Administrator Relationship Specialty Start Date End Date Padmini Boggs MD [address] [place] [address] PCP - General Internal Medicine 10/27/20
--- OUTSIDE RECORDS SUMMARY | 2024-09-09 10:29 | XMS_ITS | Patient Health Record ---
Author Organization [facility] Address [address] [place] [address] Care Team Providers Care Funeral Professional Name Role Phone Ambrose PYLE, Padmini Primary Care Provider Ta Staley Unavailable [phone] Allergies Allergen (clinical drug ingredient) Drug/Non Drug [...] Problem Status W/U Status Risk Notes Problem 03714476 Epigastric abdominal pain (R10.13) Active confirmed Problem 805974428 Encounter for screening for malignant neoplasm of colon (Z12.11) Active confirmed Problem 168123309 History of adenomatous polyp of colon (Z86.010) Active confirmed Problem Screening for malignant neoplasm of rectum (711067694) Encounter for screening for malignant neoplasm of rectum (Z12.12) Active confirmed Problem 40295643 Abdominal pain, epigastric (R10.13) Active confirmed Problem 719211798 Abdominal pain, generalized (R10.84) Active confirmed Problem 20824017 Irritable bowel syndrome, unspecified type (K58.9) Active confirmed Problem 79505506 Irritable bowel syndrome with both constipation and [...] Insured Coverage Start Date Coverage End Date [facility] [address] [address] [place] [address] [id number] NASRIN SULEMA Self - patient is the insured Medical (General) History Medical History History ICD Code Denies [place],DM,CVA,renal disease. Arthritis COPD HTN EGD in 12/2010 [...] Having an ETT/Echo with Dr. Ledesma at [facility] on 10/18/2021 Surgical History Surgery Date(Month/Year) Elbow surgery bilateral Lap cholecystectomy--Dr. Parrish 10/2013-- acalculous cholecystitis
--- OUTSIDE RECORDS SUMMARY | 2024-09-09 10:29 | XMS_ITS | Patient Health Record ---
Author Organization [facility] Address [address] [place] [address] Care Team Providers Care Asset Recovery Specialist Name Role Phone Ambrose PYLE, Padmini Waters Primary Care Provider Un available Shyam Rae Unavailable [phone] Allergies Allergen (clinical drug ingredient) Drug/Non Drug [...] primary osteoarthritis of the ankle and/or foot (182239274) Primary osteoarthrit is, right ankle and foot (M19.071) Active confirmed Problem Localized, primary osteoarthritis of the ankle and/or foot (603766739) Primary osteoarthrit is, left ankle and foot (M19.072) Active confirmed Plan Of Treatment Pending Test Test Name Order Date X ray : Foot, left 3V 03/09/2022 X ray : Foot, right 3V 03/09/2022 Insurance Providers Payer Name Payer Address Payer Phone Subscriber Number Group Number Insured Name Patient Relationship to Insured Coverage Start Date Coverage End Date [facility] [address] [place] [address] [id number] Diane Travis Self - patient is the insured Medical (General) History Medical History History ICD Code osteoarthritis Back,Hip,and Knee pain Broken bones CAD (Cholesterol) Gall bladder problems High blood pressure Numbness Osteoporosis Sciatica thyroid Measles Mumps Chicken pox Joint implants/screws Neuropathy Surgical History Surgery Date(Month/Year) left arm surgery 1999 right arm surgery 2004
[2024-09-09 11:03] VITALS: BP 130/88; PULSE 75; TEMP 36.6; O2SAT 96
--- NOTE | 2024-09-09 11:03 | AM.OFFWIN_ITS ---
Intake Vital Signs 09/09/24 11:03 Weight 152 lb BP 130/88 Blood Pressure Location Lt brachial Position Sitting Pulse 75 Pulse Source Pulse Oximeter Temp 97.8 F Temp Source Oral Pulse Oximetry (%) 96 Oxygen Delivery Method Room Air Intake Visit Reasons: EP Sore throat Intake Note: Patient here for sore throat that has been present on and off for a while. Patient Tobacco Use Status: Former Tobacco user Allergies ciprofloxacin Adverse Reaction (Unknown, Verified 09/09/24 11:04) pulled muscle doxycycline Adverse Reaction (Unknown, Verified 09/09/24 11:04) vision changes lisinopril Adverse Reaction (Unknown, Verified 09/09/24 11:04) cough Do you need a note to return to daycare/school/sports/work: No HPI HPI Comments History of Present Illness Details 78 y/o Female patient who [facility] with c/o Sore- throat On/off for awhile now. Prior H/o GERD and takes Pantoprazole daily. She is managed by GI and ENT (Dr. Kirkpatrick of [facility] [place] Prior EGD with Dilation and Colonoscopy 2023. 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 Keratoconjunctivitis sicca Spinal stenosis of lumbar region with radiculopathy Paroxysmal atrial fibrillation Left lumbar radiculopathy IBS (irritable bowel syndrome) Dyslipidemia Essential hypertension Osteoarthritis involving multiple joints on both sides of body Acquired hypothyroidism Surgical History History of esophagogastroduodenoscopy (EGD) Hx of colonoscopy History of elbow surgery Hx of cholecystectomy History of fracture of forearm Family History Father Myocardial infarction Mother HTN (hypertension) Hyperlipidemia Pancreatic cancer Maternal Grandmother Unknown family medical history Brother No problems noted. Son No problems noted. Maternal Uncle Colon cancer Social History Household Members: None Housing: Apartment Alcohol intake: current Alcohol intake frequency: a few times a month Patient Tobacco Use Status: Former Tobacco user Years Smoked: 2 yrs e-Cigarette/Vaping Use: Never Used Second Hand Smoke Exposure: No service: No Current occupational status: retired Current occupation: left handed Current occupational exposures/hazards: No Cognitive needs: No Hearing needs: No Vision needs: Yes (glasses/contacts) Review of Systems Const All systems reviewed & are unremarkable except as noted in HPI and below Physical Exam Vital Signs: Last Vital Signs Temp 97.8 F 09/09/24 11:03 Pulse 75 09/09/24 11:03 BP 130/88 09/09/24 11:03 Pulse Ox 96 09/09/24 11:03 Oxygen Delivery Method Room Air 09/09/24 11:03 Const General: no acute distress Orientation/consciousness: patient oriented x3 HEENT Head: Yes normocephalic Ears: external ears normal and TM abnormal with fluid behind the TM Face and sinus: Yes normal facial exam Mouth: tongue normal and moist mucous membranes Throat: Yes uvula midline Resp Effort & Inspection: normal respiratory effort Auscultation: clear to auscultation bilaterally Cardio Heart sounds: S1 normal heart sound present and S2 normal heart sound present Neuro General: patient oriented x3 Results AMB Rapid Strep AMB Rapid Strep Negative Last Edit by DARIANA Moss on 09/09/24 1 1: 10 Results Reviewed Results Reviewed: Laboratory Last Values Strep Scn Rapid Clinic Negative 09/09/24 11:09 Assessment & Plan Assessment & Plan (1) Pharyngitis: Code(s): J02.9 - Acute pharyngitis, unspecified Qualifiers: Pharyngitis/tonsillitis etiology: unspecified etiology Qualified C ode(s): J02.9 - Acute pharyngitis, unspecified Plan: Pharyngitis due to GERD symptoms. Continue F/U with GI and ENT prn. She is currently on Omeprazole. Orders: Orders AMB Rapid Strep Screen Today Z13.9 - Encounter for screening, unspecified Coding Level of Care Code Est Pt Level 4 (25625) Diagnoses Pharyngitis, unspecified etiology J02.9 Pharyngitis/tonsillitis etiology: unspecified etiology Time Spent (min) 20
== END 2024-09-09 11:39 | disposition home or self-care (01) ==
PROVIDERS: PCP Internal Medicine; Visit Provider Nurse Practitioner Family
DX: Z13.9 Encounter for screening, unspecified (principal); J02.9 Acute pharyngitis, unspecified

== ENCOUNTER → 2024-09-09 10:02 | Outpatient (BNVA) | payer OTHER, SELFPAY | PROVIDERS: PCP Internal Medicine; Visit Provider Nurse Practitioner Family | DX: J02.9 Acute pharyngitis, unspecified (principal) | CPT/HCPCS: 87880; 99212 ==

== ENCOUNTER 2024-10-02 08:53 | Outpatient (AMB) | payer OTHER, SELFPAY ==
[2024-10-02 09:16] VITALS: BP 134/80; PULSE 77; TEMP 36.7; O2SAT 98; BMI 26.1
--- NOTE | 2024-10-02 09:16 | AM.OFFWIN_ITS ---
Intake Vital Signs 10/02/24 09:16 Height 5 ft 4 in Weight 152 lb BMI 26.1 BP 134/80 Blood Pressure Location Lt brachial Position Sitting Pulse 77 Pulse Source Pulse Oximeter Temp 98.0 F Temp Source Oral Pulse Oximetry (%) 98 Oxygen Delivery Method Room Air Intake Visit Reasons: EP ? vaginal cyst Intake Note: Pt presents to the office today for c/o a lump on her vaginal opening. Pt states she noticed it yesterday. Pt states there is discomfort. Patient Tobacco Use Status: Former Tobacco user Allergies ciprofloxacin Adverse Reaction (Unknown, Verified 10/02/24 09:18) pulled muscle doxycycline Adverse Reaction (Unknown, Verified 10/02/24 09:18) vision changes lisinopril Adverse Reaction (Unknown, Verified 10/02/24 09:18) cough HPI HPI Comments History of Present Illness Details History of Present Illness - The patient is a 74-year-old female pr esenting with a lump protruding from her vagina. - She has a history of chronic back pain , sacroiliac joint dysfunction, sciatica, and arthritis, some of which may require future surgical intervention. - She reports ongoing gastric cramps maritza ated with dicyclomine. - Recently felt abnormal sensations in t he vaginal area, with self-observation revealing something baker and soft coming out of her vagina. - She has never had this before. She was concerned that she had an abscess. - She has not had a pelvic exam in years . - She denies vaginal bleeding, vaginal d ischarge, odor, itching, dysuria, hematuria, n/v/d, CP, or SOB. Physical Exam General: Cooperative, healthy appearing, comfortable, no acute distress and well developed Respiratory: Normal respiratory effort and able to speak in complete sentences. Clear to auscultation bilaterally Cardiovascular: Regular rate and rhythm. Normal S1 and S2 GI: Normal to inspection. Soft to palpation and nontender, no guarding or rebound tenderness noted. : Normal external genitalia noted. No TTP of the Bartholin glands bilaterally. Dry vaginal mucosa noted, no discharge. No prolpase appreciated on exam. No prolapse noted on palpation. Skin: No rashes or lesions noted Patient was informed and verbally consented to the use of an ambient scribe for clinic note documentation during this visit. 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 Keratoconjunctivitis sicca Spinal stenosis of lumbar region with radiculopathy Paroxysmal atrial fibrillation Left lumbar radiculopathy IBS (irritable bowel syndrome) Dyslipidemia Essential hypertension Osteoarthritis involving multiple joints on both sides of body Acquired hypothyroidism Surgical History History of esophagogastroduodenoscopy (EGD) Hx of colonoscopy History of elbow surgery Hx of cholecystectomy History of fracture of forearm Family History Father Myocardial infarction Mother HTN (hypertension) Hyperlipidemia Pancreatic cancer Maternal Grandmother Unknown family medical history Brother No problems noted. Son No problems noted. Maternal Uncle Colon cancer Social History Household Members: None Housing: Apartment Alcohol intake: current Alcohol intake frequency: a few times a month Patient Tobacco Use Status: Former Tobacco user Years Smoked: 2 yrs e-Cigarette/Vaping Use: Never Used Second Hand Smoke Exposure: No service: No Current occupational status: retired Current occupation: left handed Current occupational exposures/hazards: No Cognitive needs: No Hearing needs: No Vision needs: Yes (glasses/contacts) Review of Systems Const All systems reviewed & are unremarkable except as noted in HPI and below Physical Exam Vital Signs: Last Vital Signs Temp 98.0 F 10/02/24 09:16 Pulse 77 10/02/24 09:16 BP 134/80 10/02/24 09:16 Pulse Ox 98 10/02/24 09:16 Oxygen Delivery Method Room Air 10/02/24 09:16 BMI result Body Mass Index 26.1 Assessment & Plan Assessment & Plan (1) Cervical prolapse: Code(s): N81.2 - Incomplete uterovaginal prolapse Plan Most likely cervical/uterine prolapse Plan - Coordinate a referral to a powdered sugar pulverizer operator for comprehensive assessment and potential surgical management of the cervical and uterine prolapse. - Monitor the condition closely with specialist follow-up to address the prolapse conservatively or surgically, tailored to her anatomical and physiological circumstances. - Discussed with covering provider and will go ahead with the referral. - Follow up with the PCP. Orders: Referrals LAMINATED PLASTICS ASSEMBLER AND GLUER Referral N81.2 - Incomplete uterovaginal prolapse Coding Level of Care Code Est Pt Level 4 (65500) Diagnoses Cervical prolapse N81.2
--- OUTSIDE RECORDS SUMMARY | 2024-10-02 09:16 | XMS_ITS | Patient Health Record ---
Author Organization [facility] Address [address] [place] [address] Care Team Providers Care Outside Collector Name Role Phone Ambrose PYLE, Padmini Waters Primary Care Provider Un available Shyam Rae Unavailable [phone] Allergies Allergen (clinical drug ingredient) Drug/Non Drug [...] primary osteoarthritis of the ankle and/or foot (335959118) Primary osteoarthrit is, right ankle and foot (M19.071) Active confirmed Problem Localized, primary osteoarthritis of the ankle and/or foot (897138351) Primary osteoarthrit is, left ankle and foot (M19.072) Active confirmed Plan Of Treatment Pending Test Test Name Order Date X ray : Foot, left 3V 03/09/2022 X ray : Foot, right 3V 03/09/2022 Insurance Providers Payer Name Payer Address Payer Phone Subscriber Number Group Number Insured Name Patient Relationship to Insured Coverage Start Date Coverage End Date [facility] [address] [place] [address] [id number] Diane Travis Self - patient is the insured Medical (General) History Medical History History ICD Code osteoarthritis Back,Hip,and Knee pain Broken bones CAD (Cholesterol) Gall bladder problems High blood pressure Numbness Osteoporosis Sciatica thyroid Measles Mumps Chicken pox Joint implants/screws Neuropathy Surgical History Surgery Date(Month/Year) left arm surgery 1999 right arm surgery 2004
== END 2024-10-02 10:23 | disposition home or self-care (01) ==
PROVIDERS: PCP Internal Medicine
DX: N81.2 Incomplete uterovaginal prolapse (principal)

== ENCOUNTER → 2024-10-02 08:53 | Outpatient (BNVA) | payer OTHER, SELFPAY | PROVIDERS: PCP Internal Medicine; Visit Provider Physician Assistant Medical | DX: N81.2 Incomplete uterovaginal prolapse (principal) | CPT/HCPCS: 99212 ==

== ENCOUNTER 2024-10-18 08:18 | Outpatient (REF) | payer OTHER, SELFPAY ==
[2024-10-18 09:45] LABS: Hematocrit 38.9 % (37.0-47.0); Hemoglobin 13.2 g/dl (12.0-16.0); Mean Corpuscular HGB Conc 33.9 g/dl (31.0-35.0); Mean Corpuscular Hemoglobin 30.4 pg (27.0-33.0); Mean Corpuscular Volume 89.6 fL (80.0-98.0); Mean Platelet Volume 9.5 fL (9.4-12.3); Platelet Count 299 X10*3/uL (160-400); Red Blood Count 4.34 X10*6/uL (4.20-5.50); Red Cell Distribution Width 12.6 % (11.0-16.0); White Blood Count 7.8 X10*3/uL (4.8-10.8)
[2024-10-18 10:44] LABS: Appearance Urine Clear; Color Urine Yellow; Glucose Urine UA Negative (Negative); Leukocyte Esterase Urine Negative (Negative); Nitrite Urine Negative (Negative); PH 5.5 (5.0-9.0); Specific Gravity - Urine 1.015 (1.005-1.025); Urine Blood Negative (Negative); Urine Ketones Negative (Negative); Urine Protein Negative (Neg-Trace)
[2024-10-18 11:24] LABS: Folate 13.5 ng/mL (> or = 4.0); Vitamin B12 679 pg/mL (200-900)
[2024-10-22 15:33] LABS: Vitamin D 25-OH, D2 <4 ng/mL; Vitamin D 25-OH, D3 40 ng/mL; Vitamin D 25-OH, Total 40 ng/mL (30-100)
== END 2024-10-18 08:19 | disposition home or self-care (01) ==
LOC: HO.LAB 08:18
PROVIDERS: PCP Internal Medicine; Visit Provider Nurse Practitioner Family
DX: E55.9 Vitamin D deficiency, unspecified (principal); R30.9 Painful micturition, unspecified; K21.9 Gastro-esophageal reflux disease without esophagitis; R10.31 Right lower quadrant pain; G89.29 Other chronic pain; R12 Heartburn; K59.1 Functional diarrhea; Z86.0101 Personal history of adenomatous and serrated colon polyps
CPT/HCPCS: 36415; 81003; 82306; 82607; 82746; 85027; 99212

== ENCOUNTER 2024-10-18 08:18 | Outpatient (AMB) | payer OTHER, SELFPAY ==
--- NOTE | 2024-10-18 08:19 | A.OFFVIS_ITS ---
Vital Signs 10/18/24 08:20 Height 5 ft 4 in Weight 150 lb BMI 25.7 BP 134/68 Blood Pressure Location Rt brachial Position Sitting Pulse 74 Pulse Source Pulse Oximeter Pulse Oximetry (%) 98 Oxygen Delivery Method Room Air Intake Visit Reasons: f/u ibs gerd Intake Note: ESTABLISHED PATIENT for GERD + epigastric pain mgmt. Last seen by ELDA. Chief Complaint; C.O. occasional epigastric pain, no esophageal burning, general GI upset, nausea w/o vomiting, and RLQ pain. Pt states that she is attempting to get established with new OBGYN provider but having some difficulty getting an appointment. Pt is unsure what the root cause of her sx are as they seem idiopathic in nature. Child Care Associate Required: No Accompanied by: Self / Same As Patient Allergies ciprofloxacin Adverse Reaction (Unknown, Verified 10/18/24 08:23) pulled muscle doxycycline Adverse Reaction (Unknown, Verified 10/18/24 08:23) vision changes lisinopril Adverse Reaction (Unknown, Verified 10/18/24 08:23) cough HPI HPI f/u ibs gerd: Details: LAST VISIT History of adenomatous polyp of colon Chronic RLQ pain Diarrhea Abdominal pain IBS (irritable bowel syndrome) GERD (gastroesophageal reflux disease) Plan Patient will continue pantoprazole daily. Avoid dietary triggers as late as snacking. Staying upright foraminal 3 hours after meals discussed with patient. Patient will try low FODMAP diet. List of food recommended as well as list of food to avoid given to patient. Avoid lactose and gluten as much as she can. Increase fiber, increase fluid intake and activity to promote better bowel motility. Follow-up in 4-6 months, sooner on as needed basis. Patient is agreeable to this plan and verbalizes understanding of instructions. She was given the opportunity to ask questions and all questions answered. ? TODAY'S VISIT Patient is here today requesting a follow-up sooner than scheduled. Patient continues to have right lower quadrant pain. Patient was seen in the urgent care few weeks ago for pelvic pain. Trying to see if she can make an appointment with her OBGYN and is unable to 60. Patient reports that she will have occasional diarrhea and then constipation symptoms on and off. Patient is not taking any fiber supplements. Not following FODMAP diet. Patient is trying to eat healthy, however reports that couple days ago she had pizza and felt bloated after. Patient denies melena, hematochezia. While in urgent care patient was told that she might have a prolapsed bladder. Urinary frequency reported. 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 Keratoconjunctivitis sicca Spinal stenosis of lumbar region with radiculopathy Paroxysmal atrial fibrillation Left lumbar radiculopathy IBS (irritable bowel syndrome) Dyslipidemia Essential hypertension Osteoarthritis involving multiple joints on both sides of body Acquired hypothyroidism Surgical History History of esophagogastroduodenoscopy (EGD) Hx of colonoscopy History of elbow surgery Hx of cholecystectomy History of fracture of forearm Family History Father Myocardial infarction Mother HTN (hypertension) Hyperlipidemia Pancreatic cancer Maternal Grandmother Unknown family medical history Brother No problems noted. Son No problems noted. Maternal Uncle Colon cancer Social History Household Members: None Housing: Apartment Alcohol intake: current Alcohol intake frequency: a few times a month Patient Tobacco Use Status: Former Tobacco user Years Smoked: 2 yrs e-Cigarette/Vaping Use: Never Used Second Hand Smoke Exposure: No service: No Current occupational status: retired Current occupation: left handed Current occupational exposures/hazards: No Cognitive needs: No Hearing needs: No Vision needs: Yes (glasses/contacts) Review of Systems Const Denies weight gain and Denies weight loss ENT Reports no additional complaints, Denies dysphagia and Denies odynophagia Card Reports no additional complaints Resp Reports no additional complaints GI Reports abdominal pain (RLQ), Denies belching, Denies melena, Reports bloating, Denies change in bowel habits, Reports constipation, Denies dysphagia, Denies excessive flatus, Denies dyspepsia, Reports heartburn (Occasional), Reports diarrhea, Reports loose stools (Occasional), Denies nausea, Denies odynophagia and Denies vomiting Reports no additional complaints Musc Reports no additional complaints Neuro Reports no additional complaints Psych Reports no additional complaints Endo Reports no additional complaints Physical Exam Vital Signs: Last Vital Signs Pulse 74 10/18/24 08:20 BP 134/68 10/18/24 08:20 Pulse Ox 98 10/18/24 08:20 Oxygen Delivery Method Room Air 10/18/24 08:20 BMI result Body Mass Index 25.7 Const General: healthy appearing, no acute distress and well developed Nutritional Appearance: well nourished Orientation/consciousness: patient oriented x3 Resp Effort & Inspection: normal respiratory effort, able to speak in complete sentences, no tracheal deviation and symmetric chest movement Auscultation: clear to auscultation bilaterally Cardio Rate: regular rate GI Inspection: Yes normal to inspection and No distended Palpation (GI): Soft to palpation, not firm, nontender and No hepatosplenomegaly present Auscultation: normal bowel sounds General: Yes no CVA tenderness Back/Spine/Pelvis Back: no CVA tenderness Skin General skin exam: elasticity normal, turgor normal and dry skin Neuro General: patient oriented x3 Psych Appearance: grossly normal Mental Status: mental status grossly normal Assessment & Plan Assessment & Plan (1) Chronic RLQ pain: Code(s): R10.31 - Right lower quadrant pain; G89.29 - Other chronic pain Category: Medical (2) Heartburn: Code(s): R12 - Heartburn Category: Medical (3) Diarrhea: Code(s): R19.7 - Diarrhea, unspecified Category: Medical Qualifiers: Diarrhea type: functional diarrhea Qualified Code(s): K59.1 - Functional diarrhea (4) History of adenomatous polyp of colon: Code(s): Z86.0101 - Personal history of adenomatous and serrated colon polyps Category: Medical (5) IBS (irritable bowel syndrome): Code(s): K58.9 - Irritable bowel syndrome, unspecified Category: Medical Qualifiers: Irritable bowel syndrome type: with diarrhea Qualified Code(s): K58.0 - Irritable bowel syndrome with diarrhea Plan Patient will continue taking pantoprazole daily. Avoid dietary triggers only does not complain senna prep for minimal 3 hours after meals discussed with patient. Patient will increase fiber in her diet. She will also take fiber supplement. Will check vitamin B12, folate, vitamin-D level. Will send her for a pelvic ultrasound. CT scan done in the past and did not show any acute processes. Will check her urine. Referral to urology. Discussed with patient the importance of following a low FODMAP diet. Patient has the list of food recommended as well as a food that she should avoid. Follow-up in 3 months, sooner on as needed basis. She is agreeable to this plan and verbalizes understanding of instructions he was given the opportunity to ask questions and answered. Thank you for allowing me to participate in her care Orders: Orders Vitamin B12 and Folate Today R19.7 - Diarrhea, unspecified Vitamin D 25-OH (D2 and D3) Today E55.9 - Vitamin D deficiency, unspecified UA CC w/rflx Micro + Cult Today R30.9 - Painful micturition, unspecified US pelvic complete Today G89.29 - Other chronic pain, R10.31 - Right lower quadrant pain Complete Blood Count no Diff Today K21.9 - Gastro-esophageal reflux disease without esophagitis Referrals Urology Referral Z87.898 - Personal history of other specified conditions Coding Level of Care Code Est Pt Level 4 (53637) Complex EM visit Add On G2211 Diagnoses Chronic RLQ pain R10.31; G89.29 Heartburn R12 Functional diarrhea K59.1 Diarrhea type: functional diarrhea History of adenomatous polyp of colon Z86.0101 Irritable bowel syndrome with diarrhea K58.0 Irritable bowel syndrome type: with diarrhea Time Spent (min) 35 Comment 25 minute spent with patient and additional 10 minutes spent reviewing her records
[2024-10-18 08:20] VITALS: BP 134/68; PULSE 74; O2SAT 98; BMI 25.7
--- OUTSIDE RECORDS SUMMARY | 2024-10-18 08:24 | XMS_ITS | Patient Health Record ---
Author Organization [facility] Address [address] [place] [address] Care Team Providers Care Service Tech/Welder Name Role Phone Ambrose PYLE, Padmini Primary Care Provider Ta Staley Unavailable [phone] Allergies Allergen (clinical drug ingredient) Drug/Non Drug [...] Problem Status W/U Status Risk Notes Problem [id number] Epigastric abdominal pain (R10.13) Active confirmed Problem 440121084 Encounter for screening for malignant neoplasm of colon (Z12.11) Active confirmed Problem 661772640 History of adenomatous polyp of colon (Z86.010) Active confirmed Problem Screening for malignant neoplasm of rectum (198626277) Encounter for screening for malignant neoplasm of rectum (Z12.12) Active confirmed Problem 92248297 Abdominal pain, epigastric (R10.13) Active confirmed Problem 388646487 Abdominal pain, generalized (R10.84) Active confirmed Problem 05088189 Irritable bowel syndrome, unspecified type (K58.9) Active confirmed Problem 94740264 Irritable bowel syndrome with both constipation and [...] Insured Coverage Start Date Coverage End Date [facility] [address] [address] [place] [address] [id number] [employer] Self - patient is the insured Medical (General) History Medical History History ICD Code Denies [place],DM,CVA,renal disease. Arthritis COPD HTN EGD in 12/2010 [...] Having an ETT/Echo with Dr. Ledesma at [facility] on 10/18/2021 Surgical History Surgery Date(Month/Year) Elbow surgery bilateral Lap cholecystectomy--Dr. Parrish 10/2013-- acalculous cholecystitis
== END 2024-10-18 08:58 | disposition home or self-care (01) ==
LOC: HO.HGI 08:18
PROVIDERS: PCP Internal Medicine; Visit Provider Nurse Practitioner Family
DX: R10.31 Right lower quadrant pain (principal); G89.29 Other chronic pain; R12 Heartburn; K59.1 Functional diarrhea; Z86.0101 Personal history of adenomatous and serrated colon polyps; K58.0 Irritable bowel syndrome with diarrhea
CPT/HCPCS: 99214; G2211

== ENCOUNTER 2024-11-13 08:03 | Outpatient (REF) | payer OTHER, SELFPAY ==
--- OUTSIDE RECORDS SUMMARY | 2024-11-13 08:08 | XMS_ITS | Clinical Summary ---
Author Organization [address] [place] [address] [place] [phone] Phone Care Team Providers Care Steam And Power Superintendent Name Role Phone Padmini Boggs MD Primary Care Provider [phone] Allergies Active Allergy Reactions Criticality Noted Date Comments Lisinopril 08/02/2021 Metoprolol 08/02/2021 Omeprazole 08/02/2021 Medications acetaminophen (TYLENOL 8 HOUR) 650 mg 8 hr tablet Take 650 mg by mouth every 8 hours as needed. Active albuterol HFA (PROAIR HFA ; PROVENTIL HFA ; VENTOLIN HFA) 90 mcg/actuation inhaler as needed. 3 Active levothyroxine (SYNTHROID, LEVOTHROID) 100 mcg tablet Take 100 mcg by mouth daily. Active pitavastatin calcium (Livalo) 2 mg tablet TAKE 1 TABLET BY MOUTH 5 TIMES WEEKLY. 3 Active multivitamin with minerals (Spectravite Adult 50 Plus) tablet Take by mouth. Activ e olmesartan (BENICAR) 5 mg tablet Take 2 [...] by mouth 2 (two) times a day. 5 Active dicyclomine (BENTYL) 10 mg capsule Take 1 capsule (10 mg total) by mouth. 5 Active ketorolac (ACULAR) 0.5 % ophthalmic solution instill 1 drop into left eye twice a day Active nabumetone (RELAFEN) 500 mg tablet TAKE 2 TABLETS BY MOUTH TWICE A DAY STOP IBUPROFEN 5 Active Active Problems Problem Noted Date Diagnosed Date Paroxysmal atrial fibrillation ([facility] V24, [facility] V28) 09/29/2022 Overview (06/05/2024): - noted on [...] if she has any prolonged palpitations. Her [id number] score is 3 (age, female gender, hypertension) [...] if her situation worsens. Assessment & Plan (09/27/2024 12:50 PM EDT): I reviewed the lumbar spine MRI and flexion-extension x-rays in detail with Ms. Ram and I believe she is symptomatic from L4-5 stenosis with mild instability. I believe this is the root cause of her back pain and what predominantly radiates down her posterolateral thigh and calf and limits her activity tolerance. She does describe some lateral hip pain though there was no relief with a bursa injection. She question whether there was arthritis in the hip itself particular because she has left groin pain but I believe this is unlikely with a negative hip mechanical testing. She failed to improve with physical therapy but states that her treatment proceeded having a diagnosis and she wonders if there is anything they would do differently. I am happy to have her return to them and explore that option and a renewal referral slip was provided. If she decides to proceed with surgery, this would be an L4-5 decompression with placement of Coflex device to add a little stability. Using a spine model, I discussed the details, risks, benefits and anticipated postoperative course. All questions were answered and she will follow-up with us after her new round of physical therapy. Assessment & Plan (06/20/2024 5:07 PM EST): [...] her feet. She has been seeing her offshore diver, they tried bilateral hip bursa injections in [...] in office blood pressures. Carotid artery disease ([facility] V24) 11/09/2020 Overview (06/05/2024): - <50% stenosis [...] Encounters Date Type Department Care Team Description 11/06/2024 10:00 AM EDT Treatment [address] [phone] Lyla Gonzalez, PT Lumbar spondylosis (Primary Dx) 10/30/2024 12:30 PM EDT Treatment [address] [phone] Lyal Gonzalez, PT Lumbar spondylosis (Primary Dx) 10/16/2024 Telephone [facility] [address] [phone] Leonor Kruger NP Results; Labs Only 10/04/2024 Telephone [facility] [address] [phone] Dakota Maria PA 10/03/2024 9:34 AM EDT - 10/03/2024 11:59 PM EDT Hospital Encounter [facility] Xray [address] [place] [phone] Left hip pain Discharge Disposition: Home or Self Care 10/01/2024 Telephone Neurosurgery [address] [phone] Alise Pettit MA 09/30/2024 1:00 PM EDT Evaluation [address] [phone] Lyla Gonzalez PT Lumbar spondylosis 09/27/2024 11:45 AM EDT Office Visit [address] [phone] Ebony Evans MD Lumbar spondylosis (Primary Dx) 09/27/[address] [phone] Ami Berry MA 09/11/2024 9:49 AM EDT - 09/11/2024 11:59 PM EDT Hospital Encounter [facility] Xray [address] [place] [phone] Lumbar stenosis without neurogenic claudication Discharge Disposition: Home or Self Care 09/10/[address] [phone] Carol Allan PA 08/21/[address] [phone] Ami Berry MA Appointment ([facility] no auth needed for L/Spine MRI faxed over to [facility] Rad[facility](fx# [phone]). Leonor will contact pt w/appt.) 08/19/2024 11:00 AM EDT Treatment [address] [phone] Germaine Cano, PT Lumbar spondylosis (Primary Dx) 08/19/[address] [phone] Carol Allan PA Advice Only (Post therapy) 08/15/2024 11:00 AM EDT Treatment [facility] [address] [phone] Germaine Cano, PT Lumbar spondylosis (Primary Dx) from Last 3 Months Surgical History Surgery [...] 06/20/2024 11:43 AM EST Plan of Treatment Upcoming Encounters Date Type Department Care Team (Late st Contact Info) Description 11/14/2024 10:00 AM EDT Office Visit Orthopedics - [place] [address] [place] [address] Ruperto Art PA [address] [place] [address] 11/20/2024 11:30 AM EDT Treatment [address] [phone] Lyla Gonzalez PT 12/02/2024 11:30 AM EDT Treatment [address] [phone] Lyla Gonzalez, PT 12/09/2024 9:30 AM EDT Treatment [facility] [address] [phone] Lyla Gonzalez, PT 12/16/2024 9:30 AM EDT Treatment [facility] [address] [phone] Lyla Gonzalez, PT 12/25/2024 10:00 AM EDT Treatment [facility] [address] [phone] Lyla Gonzalez, PT 12/30/2024 10:00 AM EDT Treatment [facility] [address] [phone] Lyla Gonzalez, PT Health Maintenance Due Date Last Done Comments Breast Cancer Screening 1950 Cholesterol Screening (Lipid Panel) 03/26/2022 Colorectal Cancer Screening: Colonoscopy 03/26/2022 Falls Risk Assessment 03/26/2022 Hepatitis C Screening 03/26/2022 Medicare Annual Wellness Visit 03/26/2022 Osteoporosis Screening (Bone Density Screening) 03/26/2022 Social Influencers of Health Screening 03/26/2022 Hypertension/CHF/CAD Annual BMP Blood Test 04/03/2022 COVID-19 Vaccine ( season) 2023 07/15/2022, 09/27/2021, 02/15/2021, Additional history exists Depression Screening 04/24/2024 DTaP,Tdap,and Td Vaccines (2 - Td or Tdap) 09/14/2024 09/14/2014 Influenza Vaccine (#1) 2024 , 01/25/2023, 02/01/2022, Additional history exists RSV Immunization Adult Patients (1 - 1-dose 75+ series) 2026 Zoster Vaccines Completed 01/03/2022, 04/12/2021, 05/31/2013 Pneumococcal Vaccine: 50+ Years Completed 04/10/2024, 11/18/2019, [...] on patient's age to complete this topic Goals Goal Patient Goal Type Associated Problems Recent Progress Patient-Stated? Author PT Goals LTG - 4 visits General No Lyla Gonzalez PT Note: Patient reports subjective decrease in L sided groin pain Equal PSIS height Patient is able to achieve 4+/5 Hip abd and add strength Patient is independent and compliant with HEP Procedures Procedure Name Priority Date/Time Associated Diagnosis Comments XR HIP 2-3 VIEWS LEFT Routine 10/03/2024 9:56 AM EDT Left hip pain XR LUMBAR SPINE 4+ VIEWS Routine 09/11/2024 10:16 AM EDT Lumbar stenosis without neurogenic claudication from Last 3 Months Results * XR Hip 2-3 Views Left (10/03/2024 9:56 AM EDT) Anatomical Region Laterality Modality Lower Extremities, Hip Left Radiograp hic Imaging 10/04/2024 7:22 AM EDT Impressions 10/04/2024 7:28 AM EDT No definite acute displaced fracture. There are some degenerative changes. The medial aspect of the left proximal femoral head neck junction is not optimally evaluated. If there are persistent unexplained symptoms follow-up or additional studies may be helpful. Specifically further evaluation might include MRI. -------- FINAL REPORT -------- Dictated By: Luis A Oconnor Dictated Date: 10/04/2024 07:22 ET Assigned Physician: Luis A Oconnro Reviewed and Electronically Signed By: Luis A Oconnor Signed Date: 10/04/2024 07:28 ET Workstation ID: [id number] Transcribed By: Self Edit Transcribed Date: 10/04/2024 07:22 ET Narrative 10/04/2024 7:28 AM EDT EXAMINATION: PELVIS LEFT HIP CLINICAL INFORMATION: Chronic left hip pain. Chronic left groin pain. No recent injury COMPARISON: None. TECHNIQUE: Frontal view of the pelvis 2 views left hip FINDINGS: The SI joints, right hip and pubic symphysis are intact. There is osteopenia. There is degenerative change in the lower spine. No acute pelvic fracture. No evidence of a suspicious pelvic mass or collection. Left hip: The femoral head is appropriately positioned within the acetabulum. The joint space appears preserved. There is some proliferative change at the superolateral aspect of the acetabulum and around the left greater trochanter with a small linear soft tissue calcification adjacent to the greater trochanter. There is some sclerosis at the medial aspect of the head neck junction of the left proximal femur. This may represent summation of normal structures. There is no acute displaced fracture. No periarticular mass or collection. Procedure Note Luis A cOonnor MD - 10/04/2024 EXAMINATION: PELVIS LEFT HIP CLINICAL INFORMATION: Chronic left hip pain. Chronic left groin pain. No recent injury COMPARISON: None. TECHNIQUE: Frontal view of the pelvis 2 views left hip FINDINGS: The SI joints, right hip and pubic symphysis are intact. There isosteopenia. There is degenerative change in the lower spine. No acute pelvic fracture. No evidence of a suspicious pelvic mass orcollection. Left hip: The femoral head is appropriately positioned within the acetabulum. Thejoint space appears preserved. There is some proliferative change at thesuperolateral aspect of the acetabulum and around the left greatertrochanter with a small linear soft tissue calcification adjacent to thegreater trochanter. There is some sclerosis at the medial aspect of the head neck junction ofthe left proximal femur. This may represent summation of normalstructures. There is no acute displaced fracture. No periarticular mass or collection. IMPRESSION: No definite acute displaced fracture. There are some degenerativechanges. The medial aspect of the left proximal femoral head neck junction is notoptimally evaluated. If there are persistent unexplained symptoms follow-up or additionalstudies may be helpful. Specifically further evaluation might include MRI. -------- FINAL REPORT -------- Dictated By: Luis A Oconnor Dictated Date: 10/04/2024 07:22 ET Assigned Physician: Luis A Oconnor Reviewed and Electronically Signed By: Luis A Oconnor Signed Date: 10/04/2024 07:28 ET Workstation ID: [id number] Transcribed By: Self Edit Transcribed Date: 10/04/2024 07:22 ET us Dakota NGO IMG XR PROCEDURES Final Resul t * XR Lumbar Spine 4+ Views (09/11/2024 10:16 AM EDT) Anatomical Region Laterality Modality Spine, L-spine Radiographic Maribeth ging 09/12/2024 7:31 PM EDT Impressions 09/12/2024 7:35 PM EDT Grade 1 anterolisthesis of L4 on L5 with mild instability. Grade 1 anterolisthesis of L3 on L4 without instability. -------- FINAL REPORT -------- Dictated By: William Painting Dictated Date: 09/12/2024 19:31 ET Assigned Physician: William Painting Reviewed and Electronically Signed By: William Painting Signed Date: 09/12/2024 19:35 ET Workstation ID: [id number] Transcribed By: Self Edit Transcribed Date: 09/12/2024 19:31 ET Narrative 09/12/2024 7:35 PM EDT Indication: Back pain. Findings: Multiple views of the lumbar spine were obtained including upright lateral flexion and extension views as well as neutral view. AP view also obtained. No prior studies are available for comparison. Vertebral bodies are normal in size and shape with 6 mm anterior subluxation of L4 on L5. 2.5 mm anterior subluxation of L3 on L4. Disc space narrowing at the L4-L5 level. Flexion view demonstrates increased subluxation at the L4-L5 level to 9 mm with subluxation measuring 6 mm on extension view. Flexion view demonstrates 3.5 mm anterior subluxation of L3 on L4 decreasing down to 1.5 mm on extension view. Normal AP alignment. Procedure Note William Painting MD - 09/12/2024 Indication: Back pain. Findings: Multiple views of the lumbar spine were obtained includingupright lateral flexion and extension views as well as neutral view. APview also obtained. No prior studies are available for comparison. Vertebral bodies are normal in size and shape with 6 mm anteriorsubluxation of L4 on L5. 2.5 mm anterior subluxation of L3 on L4. Discspace narrowing at the L4-L5 level. Flexion view demonstrates increased subluxation at the L4-L5 level to 9 mmwith subluxation measuring 6 mm on extension view. Flexion view demonstrates 3.5 mm anterior subluxation of L3 on [id number] down to 1.5 mm on extension view. Normal AP alignment. IMPRESSION: Grade 1 anterolisthesis of L4 on L5 with mild instability. Grade 1 anterolisthesis of L3 on L4 without instability. -------- FINAL REPORT -------- Dictated By: William Painting Dictated Date: 09/12/2024 19:31 ET Assigned Physician: William Painting Reviewed and Electronically Signed By: William Painting Signed Date: 09/12/2024 19:35 ET Workstation ID: [id number] Transcribed By: Self Edit Transcribed Date: 09/12/2024 19:31 ET Carol NGO IMG XR PROCEDURES Final Re sult from Last 3 Months Insurance [place] [address] MEDICAID - [place] Care Teams Steam And Power Superintendent Relationship Specialty Start Date End Date Padmini Boggs MD [address] [place] [address] PCP - General Internal Medicine 11/07/24
--- OUTSIDE RECORDS SUMMARY | 2024-11-13 08:08 | XMS_ITS | Patient Health Record ---
Author Organization [facility] Address [address] [place] [address] Care Team Providers Care Mixer Blender Name Role Phone Ambrose PYLE, Padmini Primary Care Provider Ta Staley Unavailable [phone] Allergies Allergen (clinical drug ingredient) Drug/Non Drug [...] Problem Status W/U Status Risk Notes Problem [id number] Epigastric abdominal pain (R10.13) Active confirmed Problem 089590820 Encounter for screening for malignant neoplasm of colon (Z12.11) Active confirmed Problem 619422592 History of adenomatous polyp of colon (Z86.010) Active confirmed Problem Screening for malignant neoplasm of rectum (639610433) Encounter for screening for malignant neoplasm of rectum (Z12.12) Active confirmed Problem 43562631 Abdominal pain, epigastric (R10.13) Active confirmed Problem 819265256 Abdominal pain, generalized (R10.84) Active confirmed Problem 12727738 Irritable bowel syndrome, unspecified type (K58.9) Active confirmed Problem 69644653 Irritable bowel syndrome with both constipation and [...] Insured Coverage Start Date Coverage End Date [facility] [address] [address] [place] [address] [id number] NASRIN SULEMA Self - patient is the insured Medical (General) History Medical History History ICD Code Denies RI,DM,CVA,renal disease. Arthritis COPD HTN EGD in 12/2010 [...] Having an ETT/Echo with Dr. Ledesma at [facility] on 10/18/2021 Surgical History Surgery Date(Month/Year) Elbow surgery bilateral Lap cholecystectomy--Dr. Parrish 10/2013-- acalculous cholecystitis
--- OUTSIDE RECORDS SUMMARY | 2024-11-13 08:09 | XMS_ITS | Patient Health Record ---
[facility] Address [address] [place] [address] Care Team Providers Care Automotive Painter Name Role Phone Ambrose YPLE, Padmini Waters Primary Care Provider Un available Shyam Rae Unavailable [phone] Allergies Allergen (clinical drug ingredient) Drug/Non Drug Allergy documented on EMR Reaction Allergy Type Onset Date Status Codeine Phosphate Unknown Drug Allergy Active Reason For Referral No Information Medications Medication SIG (Take, Route, Frequency, Duration) Notes Start Date End Date Status Gabapentin 300 MG as directed Orally twice a day Active Celecoxib 200 MG 1 capsule with food Orally Once a day; Duration: 30 day(s) Not-Taking Nabumetone Active Levothyroxine Sodium 100 MCG 1 tablet in the morning on an empty stomach Orally Once a day; Duration: 30 day(s) Active Voltaren 1 % as directed Externally 03/09/2022 Active Olmesartan Medoxomil 5 MG 1 tablet Orall y Once a day; Duration: 30 day(s) Active Omeprazole 20 MG 1 capsule 30 minutes before morning meal Orally Once a day; Duration: 30 day(s) Active Multivitamin Active Tylenol Active Vitamin B-12 Active Timolol Hemihydrate 0.5 % 1 drop into af fected eye Ophthalmic Once a day Active Dicyclomine HCl 10 MG 2 capsules Orally Three times a day; Duration: 30 day(s) PRN Active Advil Active Vitamin [...] primary osteoarthritis of the ankle and/or foot (970624465) Primary osteoarthrit is, left ankle and foot (M19.072) Active confirmed Plan Of Treatment Pending Test Test Name Order Date X ray : Foot, left 3V 03/09/2022 X ray : Foot, right 3V 03/09/2022 Insurance Providers Payer Name Payer Address Payer Phone Subscriber Number Group Number Insured Name Patient Relationship to Insured Coverage Start Date Coverage End Date [id number] [address] [address] [place] [address] [id number] Diane Travis Self - patient is the insured Medical (General) History Medical History History ICD Code osteoarthritis Back,Hip,and Knee pain Broken bones CAD (Cholesterol) Gall bladder problems High blood pressure Numbness Osteoporosis Sciatica thyroid Measles Mumps Chicken pox Joint implants/screws Neuropathy Surgical History Surgery Date(Month/Year) left arm surgery 1999 right arm surgery 2004
[2024-11-13 11:02] LABS: Cholesterol 157 mg/dL (<200); HDL Cholesterol 69 mg/dL (>40); Triglycerides 81 mg/dL (<150)
== END 2024-11-13 08:04 | disposition home or self-care (01) ==
LOC: HO.HMGCLDS 08:03
PROVIDERS: PCP Internal Medicine; Visit Provider Nurse Practitioner Family
DX: E78.2 Mixed hyperlipidemia (principal)
CPT/HCPCS: 36415; 80061

== ENCOUNTER 2024-11-18 15:20 | Outpatient (REF) | payer OTHER, SELFPAY ==
--- NOTE | ~2024-11-18 | US_ITS ---
EXAMINATION: US PELVIS CLINICAL INFORMATION: R10.31 - Right lower quadrant pain COMPARISON: CT abdomen pelvis February 22, 2024 and ultrasound September 19, 2018 TECHNIQUE: Ultrasound of the pelvis is performed using both transabdominal and transvaginal transducers along with Doppler. Transvaginal imaging is performed due to inadequate visualization transabdominally. FINDINGS: Uterus: The uterus is anteverted and measures 6 x 2.3 x 2.8 cm. The double wall endometrial thickness is 3 mm. The uterus is smooth in contour and has normal myometrial echogenicity. No visible fibroid. Fluid distends the uterine canal 6 mm anterior-posterior. Fluid contains low level echogenicity. Adnexa: Ovaries are not seen on the current or prior ultrasound US/US pelvic complete IMPRESSION: Mildly complex fluid distends the endometrial canal. Fluid could represent bland serous fluid, blood, pus, etc... Electronically signed by: Joseph Freeman MD 11/18/2024 04:01 PM EDT
--- OUTSIDE RECORDS SUMMARY | 2024-11-18 15:42 | XMS_ITS | Patient Health Record ---
Author Organization [facility] Address [address] [place] [address] Care Team Providers Care Surveillance Observer Name Role Phone Ambrose PYLE, Padmini Primary Care Provider Ta Staley Unavailable [phone] Allergies Allergen (clinical drug ingredient) Drug/Non Drug [...] Problem Status W/U Status Risk Notes Problem 55289916 Epigastric abdominal pain (R10.13) Active confirmed Problem 298740347 Encounter for screening for malignant neoplasm of colon (Z12.11) Active confirmed Problem 106040763 History of adenomatous polyp of colon (Z86.010) Active confirmed Problem Screening for malignant neoplasm of rectum (638732035) Encounter for screening for malignant neoplasm of rectum (Z12.12) Active confirmed Problem 50091597 Abdominal pain, epigastric (R10.13) Active confirmed Problem 880694557 Abdominal pain, generalized (R10.84) Active confirmed Problem 13497945 Irritable bowel syndrome, unspecified type (K58.9) Active confirmed Problem 45149520 Irritable bowel syndrome with both constipation and [...] Insured Coverage Start Date Coverage End Date [facility] [address] [address] [place] [address] [id number] NASRIN SULEMA Self - patient is the insured Medical (General) History Medical History History ICD Code Denies DC,DM,CVA,renal disease. Arthritis COPD HTN EGD in 12/2010 [...] Having an ETT/Echo with Dr. Ledesma at [facility] on 10/18/2021 Surgical History Surgery Date(Month/Year) Elbow surgery bilateral Lap cholecystectomy--Dr. Parrish 10/2013-- acalculous cholecystitis
--- OUTSIDE RECORDS SUMMARY | 2024-11-18 15:42 | XMS_ITS | Patient Health Record ---
[facility] Address [address] [place] [address] Care Team Providers Care Association Executive Name Role Phone Ambrose PYLE, Padmini Waters Primary Care Provider Un available Shyam Rae Unavailable [phone] Allergies Allergen (clinical drug ingredient) Drug/Non Drug [...] primary osteoarthritis of the ankle and/or foot (018858678) Primary osteoarthrit is, left ankle and foot (M19.072) Active confirmed Plan Of Treatment Pending Test Test Name Order Date X ray : Foot, left 3V 03/09/2022 X ray : Foot, right 3V 03/09/2022 Insurance Providers Payer Name Payer Address Payer Phone Subscriber Number Group Number Insured Name Patient Relationship to Insured Coverage Start Date Coverage End Date [facility] [address] [place] [address] [id number] Diane Travis Self - patient is the insured Medical (General) History Medical History History ICD Code osteoarthritis Back,Hip,and Knee pain Broken bones CAD (Cholesterol) Gall bladder problems High blood pressure Numbness Osteoporosis Sciatica thyroid Measles Mumps Chicken pox Joint implants/screws Neuropathy Surgical History Surgery Date(Month/Year) left arm surgery 1999 right arm surgery 2004
== END 2024-11-18 15:21 | disposition home or self-care (01) ==
LOC: HO.HMGCX 15:20
PROVIDERS: PCP Internal Medicine; Visit Provider Nurse Practitioner Family
DX: R10.31 Right lower quadrant pain (principal); G89.29 Other chronic pain
CPT/HCPCS: 76856

== ENCOUNTER 2024-12-10 09:19 | Outpatient (AMB) | payer OTHER, SELFPAY ==
--- NOTE | 2024-12-10 09:24 | A.OFFVIS_ITS ---
Vital Signs 12/10/24 09:25 Height 5 ft 4 in Weight 151 lb BMI 25.9 BP 146/66 H Blood Pressure Location Lt brachial Position Sitting Pulse 80 Pulse Source Pulse Oximeter Pulse Oximetry (%) 98 Oxygen Delivery Method Room Air Intake Visit Reasons: Prov req visit. Rectal discomfort, hemorrhoid mgmt Intake Note: ESTABLISHED PATIENT for GERD + epigastric pain mgmt. Pt requesting eval for abnormal rectal sensation? Chief Complaint; C.O tailbone / rectal discomfort and numbness. Pt also wishes to discuss results of recent US. 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 Rectal discomfort, hemorrhoid mgmt: Details: LAST VISIT Chronic RLQ pain Heartburn Diarrhea History of adenomatous polyp of colon IBS (irritable bowel syndrome) Plan Patient will continue taking pantoprazole daily. Avoid dietary triggers only does not complain senna prep for minimal 3 hours after meals discussed with patient. Patient will increase fiber in her diet. She will also take fiber supplement. Will check vitamin B12, folate, vitamin-D level. Will send her for a pelvic ultrasound. CT scan done in the past and did not show any acute processes. Will check her urine. Referral to urology. Discussed with patient the importance of following a low FODMAP diet. Patient has the list of food recommended as well as a food that she should avoid. Follow-up in 3 months, sooner on as needed basis. She is agreeable to this plan and verbalizes understanding of instructions he was given the opportunity to ask questions and answered. ? Thank you for allowing me to participate in her care Orders Vitamin B12 and Folate Today R19.7 Vitamin D 25-OH (D2 and D3) Today E55.9 UA CC w/rflx Micro + Cult Today R30.9 US pelvic complete Today G89.29, R10.31 Complete Blood Count no Diff Today K21.9 Referrals Urology Referral Z87.898 TODAY'S VISIT Patient is here today requesting a rectal exam. Patient states that she is having numbness in her rectum. Does not feel like she has hemorrhoids any longer. Reports that the cream seems to help. Denies melena, hematochezia, unintentional weight loss or ribbon like stools. Patient was told that she has spine issues L4 and L5 and most likely will need to go for surgery. Patient also reports sciatica going down her leg. Patient denies any fecal or urinary incontinence. Patient states that she was told in the past to do pelvic floor exercises. Was told that she might have bladder prolapse. Has appointment with urologist on January 02. Patient has appointment January 22 with urogynecologist. Ultrasound results discussed with patient. 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 Keratoconjunctivitis sicca Spinal stenosis of lumbar region with radiculopathy Paroxysmal atrial fibrillation Left lumbar radiculopathy IBS (irritable bowel syndrome) Dyslipidemia Essential hypertension Osteoarthritis involving multiple joints on both sides of body Acquired hypothyroidism Surgical History History of esophagogastroduodenoscopy (EGD) Hx of colonoscopy History of elbow surgery Hx of cholecystectomy History of fracture of forearm Family History Father Myocardial infarction Mother HTN (hypertension) Hyperlipidemia Pancreatic cancer Maternal Grandmother Unknown family medical history Brother No problems noted. Son No problems noted. Maternal Uncle Colon cancer Social History Household Members: None Housing: Apartment Alcohol intake: current Alcohol intake frequency: a few times a month Patient Tobacco Use Status: Former Tobacco user Years Smoked: 2 yrs e-Cigarette/Vaping Use: Never Used Second Hand Smoke Exposure: No service: No Current occupational status: retired Current occupation: left handed Current occupational exposures/hazards: No Cognitive needs: No Hearing needs: No Vision needs: Yes (glasses/contacts) Review of Systems Const Denies weight gain and Denies weight loss ENT Reports no additional complaints, Denies dysphagia and Denies odynophagia Card Reports no additional complaints Resp Reports no additional complaints GI Reports abdominal pain (RLQ), Denies belching, Denies melena, Reports bloating, Denies change in bowel habits, Reports constipation, Denies dysphagia, Denies excessive flatus, Denies dyspepsia, Reports heartburn (Occasional), Reports diar rose, Reports loose stools (Occasional), Denies nausea, Denies odynophagia and Denies vomiting Reports no additional complaints Musc Reports no additional complaints Neuro Reports no additional complaints Psych Reports no additional complaints Endo Reports no additional complaints Physical Exam Vital Signs: Last Vital Signs Pulse 80 12/10/24 09:25 BP 146/66 H 12/10/24 09:25 Pulse Ox 98 12/10/24 09:25 Oxygen Delivery Method Room Air 12/10/24 09:25 BMI result Body Mass Index 25.9 Const General: healthy appearing, no acute distress and well developed Nutritional Appearance: well nourished Orientation/consciousness: patient oriented x3 Resp Effort & Inspection: normal respiratory effort, able to speak in complete sentences, no tracheal deviation and symmetric chest movement Auscultation: clear to auscultation bilaterally Cardio Rate: regular rate GI Inspection: Yes normal to inspection and No distended Palpation (GI): Soft to palpation, not firm, nontender and No hepatosplenomegaly present Auscultation: normal bowel sounds Rectal Exam - Female: visual inspection normal and normal sphincter tone General: Yes no CVA tenderness Back/Spine/Pelvis Back: no CVA tenderness Skin General skin exam: elasticity normal, turgor normal and dry skin Neuro General: patient oriented x3 Psych Appearance: grossly normal Mental Status: mental status grossly normal Results Reviewed Results Reviewed: PELVIC ULTRASOUND FINDINGS: Uterus: The uterus is anteverted and measures 6 x 2.3 x 2.8 cm. The double wall endometrial thickness is 3 mm. The uterus is smooth in contour and has normal myometrial echogenicity. No visible fibroid. Fluid distends the uterine canal 6 mm anterior-posterior. Fluid contains low level echogenicity. Adnexa: Ovaries are not seen on the current or prior ultrasound US/US pelvic complete IMPRESSION: Mildly complex fluid distends the endometrial canal. Fluid could represent bland serous fluid, blood, pus, etc... Assessment & Plan Assessment & Plan (1) IBS (irritable bowel syndrome): Code(s): K58.9 - Irritable bowel syndrome, unspecified Category: Medical Qualifiers: Irritable bowel syndrome type: with diarrhea Qualified Code(s): K58.0 - Irritable bowel syndrome with diarrhea (2) Heartburn: Code(s): R12 - Heartburn Category: Medical (3) Chronic RLQ pain: Code(s): R10.31 - Right lower quadrant pain; G89.29 - Other chronic pain Category: Medical (4) Diarrhea: Code(s): R19.7 - Diarrhea, unspecified Category: Medical Qualifiers: Diarrhea type: functional diarrhea Qualified Code(s): K59.1 - Functional diarrhea (5) Rectal pain: Code(s): K62.89 - Other specified diseases of anus and rectum Plan Rectal digital exam performed using [employer] App BANKRUPTCY MANAGER. Patient had normal rectal tone, no hemorrhoids, no fissures, no blood on digital exam. Patient will be seeing urologist and urogynecologist. Patient will try pelvic floor exercises. She will return end of January. She will call us if she will have any GI concerning symptoms. She is agreeable to this plan and verbalizes understanding of instructions. She was given the opportunity to ask questions and all questions answered. Thank you for allowing me to participate in her care Coding Level of Care Code Est Pt Level 3 (04488) Diagnoses Irritable bowel syndrome with diarrhea K58.0 Irritable bowel syndrome type: with diarrhea Heartburn R12 Chronic RLQ pain R10.31; G89.29 Functional diarrhea K59.1 Diarrhea type: functional diarrhea Rectal pain K62.89 Time Spent (min) 25 Comment 15 minutes spent with patient and additional 10 minutes spent reviewing her records
[2024-12-10 09:25] VITALS: BP 146/66; PULSE 80; O2SAT 98; BMI 25.9
--- OUTSIDE RECORDS SUMMARY | 2024-12-10 10:21 | XMS_ITS | Patient Health Record ---
[facility] Address [address] [place] [address] Care Team Providers Care Offset Printing Pressmen Name Role Phone Ambrose PYLE, Padmini Waters Primary Care Provider Un available Shyam Rae Unavailable [phone] Allergies Allergen (clinical drug ingredient) Drug/Non Drug [...] primary osteoarthritis of the ankle and/or foot (497484982) Primary osteoarthrit is, left ankle and foot (M19.072) Active confirmed Plan Of Treatment Pending Test Test Name Order Date X ray : Foot, left 3V 03/09/2022 X ray : Foot, right 3V 03/09/2022 Insurance Providers Payer Name Payer Address Payer Phone Subscriber Number Group Number Insured Name Patient Relationship to Insured Coverage Start Date Coverage End Date [facility] [address] [place] [address] [id number] Diane Travis Self - patient is the insured Medical (General) History Medical History History ICD Code osteoarthritis Back,Hip,and Knee pain Broken bones CAD (Cholesterol) Gall bladder problems High blood pressure Numbness Osteoporosis Sciatica thyroid Measles Mumps Chicken pox Joint implants/screws Neuropathy Surgical History Surgery Date(Month/Year) left arm surgery 1999 right arm surgery 2004
--- OUTSIDE RECORDS SUMMARY | 2024-12-10 10:21 | XMS_ITS | Patient Health Record ---
Author Organization [facility] Address [address] [place] [address] Care Team Providers Care Construction Engineering Manager Name Role Phone Ambrose PYLE, Padmini Primary Care Provider Ta Staley Unavailable [phone] Allergies Allergen (clinical drug ingredient) Drug/Non Drug [...] Problem Status W/U Status Risk Notes Problem 04710900 Epigastric abdominal pain (R10.13) Active confirmed Problem 029105784 Encounter for screening for malignant neoplasm of colon (Z12.11) Active confirmed Problem 855088587 History of adenomatous polyp of colon (Z86.010) Active confirmed Problem Screening for malignant neoplasm of rectum (667616158) Encounter for screening for malignant neoplasm of rectum (Z12.12) Active confirmed Problem 46854586 Abdominal pain, epigastric (R10.13) Active confirmed Problem 693500330 Abdominal pain, generalized (R10.84) Active confirmed Problem 92577885 Irritable bowel syndrome, unspecified type (K58.9) Active confirmed Problem 84414348 Irritable bowel syndrome with both constipation and [...] Insured Coverage Start Date Coverage End Date [facility] [address] [address] [place] [address] [id number] NASRIN SULEMA Self - patient is the insured Medical (General) History Medical History History ICD Code Denies MS,DM,CVA,renal disease. Arthritis COPD HTN EGD in 12/2010 [...] Having an ETT/Echo with Dr. Ledesma at [facility] on 10/18/2021 Surgical History Surgery Date(Month/Year) Elbow surgery bilateral Lap cholecystectomy--Dr. Parrish 10/2013-- acalculous cholecystitis
--- OUTSIDE RECORDS SUMMARY | 2024-12-10 10:21 | XMS_ITS | Clinical Summary ---
Author Organization [address] [place] [address] [place] [phone] Phone Care Team Providers Care High School Sports Coach Name Role Phone Padmini Boggs MD Primary Care Provider [phone] Allergies Active Allergy Reactions Criticality Noted Date [...] Noted Date Diagnosed Date Paroxysmal atrial fibrillation ([facility] V24, [facility] V28) 09/29/2022 Overview (06/05/2024): - noted on [...] if she has any prolonged palpitations. Her IMX3QR3-JUTg score is 3 (age, female gender, hypertension) [...] proceed with surgery, this would be an L4- 5 decompression with placement of Coflex device to [...] her feet. She has been seeing her certified meeting professional, they tried bilateral hip bursa injections in [...] in office blood pressures. Carotid artery disease ([facility] V24) 11/09/2020 Overview (06/05/2024): - <50% stenosis [...] Encounters Date Type Department Care Team Description 12/02/2024 11:30 AM EDT Treatment [address] [address] Lyla Gonzalez PT Lumbar spondylosis (Primary Dx) 11/26/[address] [phone] Ashley Moody MA Advice Only 11/22/[address] [phone] Ashley Moody MA Advice Only 11/20/2024 11:30 AM EDT Treatment [address] [address] Lyla Gonzalez PT Lumbar spondylosis (Primary Dx) 11/14/2024 10:00 AM EDT Office Visit Orthopedics [address] [address] Ruperto Art PA Tendinopathy of left gluteus medius (Primary Dx); Left hip pain 11/06/2024 10:00 AM EDT Treatment [address] [address] Lyla Gonzalez, PT Lumbar spondylosis (Primary Dx) 10/30/2024 12:30 PM EDT Treatment [address] [address] Lyla Gonzalez, PT Lumbar spondylosis (Primary Dx) 10/16/2024 Telephone [facility] [address] [phone] Leonor Kruger, NANCY Results; Labs Only 10/04/[address] [address] Dakota Maria PA 10/03/2024 9:34 AM EDT - 10/03/2024 11:59 PM EDT Hospital Encounter [facility] Xray [address] [place] [phone] Left hip pain Discharge Disposition: Home or Self Care 10/01/[address] [phone] Alise Pettit OR 09/30/2024 1:00 PM EDT Evaluation [address] [address] Lyla Gonzalez, ROCIO Lumbar spondylosis 09/27/2024 11:45 AM EDT Office Visit [address] [address] Ebony Evans MD Lumbar spondylosis (Primary Dx) 09/27/[address] [phone] Ami Berry MA 09/11/2024 9:49 AM EDT - 09/11/2024 11:59 PM EDT Hospital Encounter [facility] Xray [address] [place] [address] Lumbar stenosis without neurogenic claudication Discharge Disposition: Home or Self Care 09/10/2024 Telephone [facility] [place] [address] [place] [address] Carol Allan PA from Last 3 Months Surgical History Surgery [...] = 0.6 oz pur e alcohol) Comments No Sex and Gender Information Value Date Recorded Sex Assigned at Not on file Legal Sex Female 9:35 PM EST Gender Identity Not on file Sexual Orientation Not on file Obstetrics History Last Filed Vital Signs Vital Sign Reading Time Taken Comments Blood Pressure 148/74 06/05/2024 10:39 AM EST Pulse 73 06/05/2024 9:49 AM EST Temperature - - Respiratory Rate 16 11/14/2024 9:52 AM EDT Oxygen Saturation 99% 06/05/2024 9:49 AM EST Inhaled Oxygen Concentration - - Weight 68 kg (150 lb) 11/14/2024 9:52 AM EDT Height 162.6 cm (5' 4 ) 11/14/2024 9:52 AM EDT Body Mass Index 25.75 11/14/2024 9:52 AM EDT Plan of Treatment Health Maintenance Due Date [...] Tdap) 09/14/2024 09/14/2014 Influenza Vaccine (#1) 2024 4, 01/25/2023, 02/01/2022, Additional history exists RSV Immunization Adult Patients (1 - 1-dose 75+ series) 2026 Zoster Vaccines Completed 01/03/2022, 07/24, 05/31/2013 Pneumococcal Vaccine: 50+ Years Completed 04/10/2024, [...] on patient's age to complete this topic Procedures Procedure Name Priority Date/Time Associated Diagnosis Comments EXTERNAL CLINICAL LAB Routine 11/13/2024 3:57 PM EDT XR HIP 2-3 VIEWS LEFT Routine 10/03/2024 9:56 AM EDT Left hip pain XR LUMBAR SPINE 4+ VIEWS Routine 09/11/2024 10:16 AM EDT Lumbar stenosis without neurogenic claudication from Last 3 Months Results * External clinical lab (11/13/2024 3:57 PM EDT) us Historical Provider MD MURPHY BLOOD ORDERABLES Edit ed Result - Final * XR Hip 2-3 Views Left (10/03/2024 [...] Signed Date: 10/04/2024 07:28 ET Workstation ID: [id number] Transcribed By: Self Edit Transcribed Date: 10/04/2024 [...] mass or collection. Procedure Note Luis A Oconnor MD - 10/04/2024 EXAMINATION: PELVIS LEFT HIP [...] Signed Date: 10/04/2024 07:28 ET Workstation ID: [id number] Transcribed By: Self Edit Transcribed Date: 10/04/2024 [...] Signed Date: 09/12/2024 19:35 ET Workstation ID: [id number] Transcribed By: Self Edit Transcribed Date: 09/12/2024 [...] 3.5 mm anterior subluxation of L3 on D4nceushhsvc down to 1.5 mm on extension view. Normal AP alignment. IMPRESSION: Grade 1 anterolisthesis of L4 on L5 with mild instability. Grade 1 anterolisthesis of L3 on L4 without instability. -------- FINAL REPORT -------- Dictated By: William Painting Dictated Date: 09/12/2024 19:31 ET Assigned Physician: William Painting Reviewed and Electronically Signed By: William Painting Signed Date: 09/12/2024 19:35 ET Workstation ID: [id number] Transcribed By: Self Edit Transcribed Date: 09/12/2024 19:31 ET us Carol NGO IMG XR PROCEDURES Final Re sult from Last 3 Months Insurance [employer] MEDICARE Member Subscriber Plan / Payer ( fective 2022-Present) Name:DIANE RAM Relation to Subscriber:Self Name:Diane Ram Payer ID:[id number] (NAIC) Group ID:[id number] Type:Not on file Address: [place] [id number] MEDICAID - [place] Care Teams High School Sports Coach Relationship Specialty Start Date End Date Padmini Boggs MD [address] [place] [address] PCP - General Internal Medicine 11/07/24
== END 2024-12-10 10:05 | disposition home or self-care (01) ==
LOC: HO.HGI 09:20
PROVIDERS: PCP Internal Medicine; Visit Provider Nurse Practitioner Family
DX: K58.0 Irritable bowel syndrome with diarrhea (principal); R12 Heartburn; R10.31 Right lower quadrant pain; G89.29 Other chronic pain; K62.89 Other specified diseases of anus and rectum
CPT/HCPCS: 99213

== ENCOUNTER → 2024-12-10 09:19 | Outpatient (BNVA) | payer OTHER, SELFPAY | PROVIDERS: PCP Internal Medicine; Visit Provider Nurse Practitioner Family | DX: K58.0 Irritable bowel syndrome with diarrhea (principal); K59.1 Functional diarrhea; K62.89 Other specified diseases of anus and rectum; R12 Heartburn; R10.31 Right lower quadrant pain; G89.29 Other chronic pain | CPT/HCPCS: 99212 ==

== ENCOUNTER 2024-12-19 09:37 | Outpatient (REF) | payer OTHER, SELFPAY ==
--- NOTE | ~2024-12-19 | MM_ITS ---
EXAMINATION: MM SCREENING DIGITAL BREAST TOMOSYNTHESIS, BILATERAL CLINICAL INFORMATION: Screening. Asymptomatic. COMPARISON: Comparison made to multiple prior, most recent December 12, 2023, and most remote October 12, 2019. TECHNIQUE: Digital breast tomosynthesis is performed in mediolateral oblique and craniocaudal views along with computer-aided detection (CAD). FINDINGS: BREAST COMPOSITION: The breasts are heterogeneously dense, which may obscure small masses (ACR BI-RADS breast composition Category c). BILATERAL BREASTS: No significant masses, suspicious calcifications or other abnormalities are seen in either breast. MM/MM tomosynthesis screening BI IMPRESSION: BILATERAL BREASTS: Negative, no mammographic evidence of malignancy. Normal interval follow-up is recommended in 12 months. ASSESSMENT: BI-RADS 1 - Negative RECOMMENDATION: Routine annual mammography screening. FOLLOW-UP: 1 year F/U This examination should not preclude the clinical evaluation of a suspicious palpable abnormality. This patient's information was entered into a reminder system with a target due date for their next mammogram. Electronically signed by: Efrain Quintanilla MD 12/21/2024 04:47 PM EDT
--- OUTSIDE RECORDS SUMMARY | 2024-12-19 10:43 | XMS_ITS | Patient Health Record ---
Author Organization [facility] Address [address] [place] [address] Care Team Providers Care Extractor Plant Operator Name Role Phone Ambrose PYLE, Padmini Primary Care Provider Ta Staley Unavailable [phone] Allergies Allergen (clinical drug ingredient) Drug/Non Drug [...] Problem Status W/U Status Risk Notes Problem 42905439 Epigastric abdominal pain (R10.13) Active confirmed Problem 041210730 Encounter for screening for malignant neoplasm of colon (Z12.11) Active confirmed Problem 413462560 History of adenomatous polyp of colon (Z86.010) Active confirmed Problem Screening for malignant neoplasm of rectum (543620479) Encounter for screening for malignant neoplasm of rectum (Z12.12) Active confirmed Problem 88606954 Abdominal pain, epigastric (R10.13) Active confirmed Problem 245043553 Abdominal pain, generalized (R10.84) Active confirmed Problem 16987580 Irritable bowel syndrome, unspecified type (K58.9) Active confirmed Problem 21498162 Irritable bowel syndrome with both constipation and [...] Insured Coverage Start Date Coverage End Date [facility] [address] [address] [place] [address] [id number] NASRIN SULEMA Self - patient is the insured Medical (General) History Medical History History ICD Code Denies [place],DM,CVA,renal [...] Having an ETT/Echo with Dr. Ledesma at [facility] on 10/18/2021 Surgical History Surgery Date(Month/Year) Elbow surgery bilateral Lap cholecystectomy--Dr. Parrish 10/2013-- acalculous cholecystitis
--- OUTSIDE RECORDS SUMMARY | 2024-12-19 10:43 | XMS_ITS | Clinical Summary ---
Author Organization [address] [place] [address] [place] [phone] Phone Care Team Providers Care Hem Inspector Name Role Phone Padmini Boggs MD Primary Care Provider [phone] Allergies Active Allergy Reactions Criticality Noted Date [...] Noted Date Diagnosed Date Paroxysmal atrial fibrillation ([facility] V24, [facility] V28) 09/29/2022 Overview (06/05/2024): - noted on [...] if she has any prolonged palpitations. Her EPS7BT5-CBEp score is 3 (age, female gender, hypertension) [...] her feet. She has been seeing her pi/senior research associate, they tried bilateral hip bursa injections in [...] in office blood pressures. Carotid artery disease ([facility] V24) 11/09/2020 Overview (06/05/2024): - <50% stenosis [...] Encounters Date Type Department Care Team Description 12/11/[address] [address] Carol Allan PA 12/02/2024 11:30 AM EDT Treatment [address] [address] Lyla Gonzalez PT Lumbar spondylosis (Primary Dx) 11/26/[address] [address] Ashley Moody MA 11/22/[address] [address] Ashley Moody MA 11/20/2024 11:30 AM EDT Treatment [address] [address] Lyla Gonzalez PT Lumbar spondylosis (Primary Dx) 11/14/2024 10:00 AM EDT Office Visit Orthopedics [address] [address] Ruperto Art PA Tendinopathy of left gluteus medius (Primary Dx); Left hip pain 11/06/2024 10:00 AM EDT Treatment [facility] [address] [phone] Lyla Gonzalez, PT Lumbar spondylosis (Primary Dx) 10/30/2024 12:30 PM EDT Treatment [facility] [address] [phone] Lyla Gonzalez, PT Lumbar spondylosis (Primary Dx) 10/16/2024 Telephone [facility] [address] [phone] Leonor Kruger NP 10/04/[address] [phone] Dakota Maria PA 10/03/2024 9:34 AM EDT - 10/03/2024 11:59 PM EDT Hospital Encounter Xray [address] [place] [phone] Left hip pain Discharge Disposition: Home or Self Care 10/01/[address] [address] Alise Pettit MA 09/30/2024 1:00 PM EDT Evaluation [address] [address] Lyla Gonzalez, PT Lumbar spondylosis 09/27/2024 11:45 AM EDT Office Visit [address] [phone] Ebony Evans MD Lumbar spondylosis (Primary Dx) 09/27/2024 Telephone [facility] [address] [phone] Ami Berry MA from Last 3 Months Surgical History Surgery [...] 10/03/2024 9:56 AM EDT Left hip pain from Last 3 Months Results * External clinical lab (11/13/2024 3:57 PM EDT) us Historical Provider LAB BLOOD ORDERABLES Edit ed Result - Final [...] Signed Date: 10/04/2024 07:28 ET Workstation ID: [id number] Transcribed By: Self Edit Transcribed Date: 10/04/2024 [...] Signed Date: 10/04/2024 07:28 ET Workstation ID: [id number] Transcribed By: Self Edit Transcribed Date: 10/04/2024 07:22 ET Dakota NGO IMG XR PROCEDURES Final Resul t from Last 3 Months Insurance [place] [address] MEDICAID - [place] Care Teams Hem Inspector Relationship Specialty Start Date End Date Padmini Boggs MD [address] [place] [address] PCP - General Internal Medicine 11/07/24
--- OUTSIDE RECORDS SUMMARY | 2024-12-19 10:44 | XMS_ITS | Patient Health Record ---
Author Organization [facility] Address [address] [place] [address] Care Team Providers Care Philosophy Faculty Name Role Phone Ambrose PYLE, Padmini Waters Primary Care Provider Un available Shyam Rae Unavailable [phone] Allergies Allergen (clinical drug ingredient) Drug/Non Drug [...] primary osteoarthritis of the ankle and/or foot (789189673) Primary osteoarthrit is, left ankle and foot (M19.072) Active confirmed Plan Of Treatment Pending Test Test Name Order Date X ray : Foot, left 3V 03/09/2022 X ray : Foot, right 3V 03/09/2022 Insurance Providers Payer Name Payer Address Payer Phone Subscriber Number Group Number Insured Name Patient Relationship to Insured Coverage Start Date Coverage End Date [facility] [address] [address] [place] [address] [id number] Diane Travis Self - patient is the insured Medical (General) History Medical History History ICD Code osteoarthritis Back,Hip,and Knee pain Broken bones CAD (Cholesterol) Gall bladder problems High blood pressure Numbness Osteoporosis Sciatica thyroid Measles Mumps Chicken pox Joint implants/screws Neuropathy Surgical History Surgery Date(Month/Year) left arm surgery 1999 right arm surgery 2004
== END 2024-12-19 09:38 | disposition home or self-care (01) ==
LOC: HO.MAMMO 09:37
PROVIDERS: PCP Internal Medicine; Visit Provider Internal Medicine
DX: Z12.31 Encounter for screening mammogram for malignant neoplasm of breast (principal)
CPT/HCPCS: 77063; 77067

== ENCOUNTER → 2024-12-19 10:00 | Outpatient (BNV) | payer OTHER, SELFPAY | PROVIDERS: PCP Internal Medicine; Visit Provider Radiology Body Imaging | DX: Z12.31 Encounter for screening mammogram for malignant neoplasm of breast (principal) | CPT/HCPCS: 77063; 77067 ==

== ENCOUNTER 2025-01-02 08:42 | Outpatient (REF) | payer OTHER, SELFPAY | END 2025-01-02 08:43 | disposition home or self-care (01) | LOC: HO.LAB 08:42 | PROVIDERS: PCP Internal Medicine; Visit Provider Urology | DX: N81.10 Cystocele, unspecified (principal); R39.198 Other difficulties with micturition; R39.14 Feeling of incomplete bladder emptying; R93.89 Abnormal findings on diagnostic imaging of other specified body structures; R10.31 Right lower quadrant pain | CPT/HCPCS: 87086; 99202 ==

== ENCOUNTER 2025-01-02 08:42 | Outpatient (AMB) | payer OTHER, SELFPAY ==
--- NOTE | 2025-01-02 09:28 | MHC.OFFVIS ---
Intake Visit Reasons: bladder prolapse/frequency Intake Note: New patient presents today for initial visit for bladder prolapse/frequency Urology Medication:Estradiol Blood Thinner:None Antibiotic Allergies:None PVR:4ml Allergies ciprofloxacin Adverse Reaction (Unknown, Verified 01/02/25 09:29) pulled muscle doxycycline Adverse Reaction (Unknown, Verified 01/02/25 09:29) vision changes lisinopril Adverse Reaction (Unknown, Verified 01/02/25 09:29) cough HPI Comments Details: 01/02/25--Diane is here as a new patient evaluation 74-year-old for bladder prolapse. Urinalysis today blood negative leukocytes trace. History of Present Illness The patient is a 74-year-old female presenting for vaginal prolapse. She first noticed symptoms in October when she felt something protruding while using the bathroom, which she confirmed upon self-examination. A nurse suggested it might be a prolapse, prompting further evaluation. She states she has a feeling of not completely emptying her bladder after urination. The patient experiences persistent right-sided lower abdominal pain and frequent abdominal cramping, leading to a vaginal ultrasound and a referral to urogynecology. She has been using estrogen cream as prescribed by her primary care provider. She is followed by GI. The patient reports symptoms consistent with irritable bowel syndrome, including frequent diarrhea and increased gas since her last colonoscopy. The patient has a history of sciatica, with back issues involving the L4 and L5 vertebrae. She has not had a hysterectomy and has not seen a recruiting internship in many years. Results - Urinalysis: Blood negative, lymphocytes trace - pelvic ultrasound: 11/18/24--Impression: Mildly complex fluid distends the endometrial canal. Fluid could represent bland serous fluid, blood, pus, etc... Plan-renal and bladder ultrasound follow-up office cystoscopy pelvic exam at that time. Referral to planer off bearer for Pap smear. 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 Keratoconjunctivitis sicca Spinal stenosis of lumbar region with radiculopathy Paroxysmal atrial fibrillation Left lumbar radiculopathy IBS (irritable bowel syndrome) Dyslipidemia Essential hypertension Osteoarthritis involving multiple joints on both sides of body Acquired hypothyroidism Surgical History History of esophagogastroduodenoscopy (EGD) Hx of colonoscopy History of elbow surgery Hx of cholecystectomy History of fracture of forearm Family History Father Myocardial infarction Mother HTN (hypertension) Hyperlipidemia Pancreatic cancer Maternal Grandmother Unknown family medical history Brother No problems noted. Son No problems noted. Maternal Uncle Colon cancer Social History Household Members: None Housing: Apartment Alcohol intake: current Alcohol intake frequency: a few times a month Patient Tobacco Use Status: Former Tobacco user Years Smoked: 2 yrs e-Cigarette/Vaping Use: Never Used Second Hand Smoke Exposure: No service: No Current occupational status: retired Current occupation: left handed Current occupational exposures/hazards: No Cognitive needs: No Hearing needs: No Vision needs: Yes (glasses/contacts) Review of Systems Const All systems reviewed & are unremarkable except as noted in HPI and below Reports no additional complaints Eyes Reports no additional complaints ENT Reports no additional complaints Card Reports no additional complaints Resp Reports no additional complaints GI Reports no additional complaints Reports as per HPI Musc Reports no additional complaints Skin/Breast Reports system reviewed and no additional complaints, except as documented Neuro Reports no additional complaints Psych Reports no additional complaints Endo Reports no additional complaints Abelino/Lymph Reports no additional complaints Aller/Immun Reports no additional complaints Physical Exam Const General: cooperative, healthy appearing and no acute distress Orientation/consciousness: patient oriented x3 HEENT Head: Yes normal to inspection, Yes normocephalic and Yes atraumatic Eyes Conjunctivae: conjunctivae normal Neck Neck: Yes normal visual inspection and Yes trachea midline Chest Chest palpation & inspection: normal inspection of the chest Resp Effort & Inspection: normal respiratory effort GI Inspection: Yes normal to inspection Neuro General: patient oriented x3 Psych Appearance: grossly normal Results Reviewed Results Reviewed: Date of Service: 11/18/24 : US PELVIS CLINICAL INFORMATION: R10.31 - Right lower quadrant pain COMPARISON: CT abdomen pelvis February 22, 2024 and ultrasound September 19, 2018 TECHNIQUE: Ultrasound of the pelvis is performed using both transabdominal and transvaginal transducers along with Doppler. Transvaginal imaging is performed due to inadequate visualization transabdominally. FINDINGS: Uterus: The uterus is anteverted and measures 6 x 2.3 x 2.8 cm. The double wall endometrial thickness is 3 mm. The uterus is smooth in contour and has normal myometrial echogenicity. No visible fibroid. Fluid distends the uterine canal 6 mm anterior-posterior. Fluid contains low level echogenicity. Adnexa: Ovaries are not seen on the current or prior ultrasound IMPRESSION: Mildly complex fluid distends the endometrial canal. Fluid could represent bland serous fluid, blood, pus, etc... Assessment & Plan Assessment & Plan (1) Vaginal prolapse: Code(s): N81.10 - Cystocele, unspecified Category: Medical (2) Feeling of incomplete bladder emptying: Code(s): R39.14 - Feeling of incomplete bladder emptying Category: Medical (3) Abnormal ultrasound: Comment: - pelvic ultrasound: 11/18/24--Impression: Mildly complex fluid distends the endometrial canal. Fluid could represent bland serous fluid, blood, pus, etc... Code(s): R93.89 - Abnormal findings on diagnostic imaging of other specified body structures Category: Medical Plan Plan-renal and bladder ultrasound follow-up office cystoscopy pelvic exam at that time. Referral to planer off bearer for Pap smear. Orders: Orders US retroperitoneal comp Today N81.10 - Cystocele, unspecified, R39.14 - Feeling of incomplete bladder emptying Referrals SHELL MACHINE OPERATOR Referral R93.89 - Abnormal findings on diagnostic imaging of other specified body structures Patient Instructions: The patient had an opportunity to ask questions regarding treatment plan. The patient expressed understanding and agreement with the above treatment plan. The patient is aware they should contact our office by phone for worsening of their current condition or the appearance of new symptoms. Compliance is encouraged with any medications and followup testing that is ordered. It is a privilege to be allowed the opportunity to participate in the urologic care of your patient. If you have any questions or concerns regarding treatment for the above conditions please do not hesitate to contact me. The office telephone contact is [phone]. This note is constructed in part using voice recognition software. While every effort has been made to ensure accuracy compound coating machine offbearer errors may have been included. Yours sincerely, Artie Santos MD Scribe Plan - Not visible on output: Patient was informed and verbally consented to the use of an ambient scribe for clinic note documentation during this visit. Coding Level of Care Code New Pt Level 4 (90270) Diagnoses Vaginal prolapse N81.10 Feeling of incomplete bladder emptying R39.14 Abnormal ultrasound R93.89
--- OUTSIDE RECORDS SUMMARY | 2025-01-02 09:44 | XMS_ITS | Patient Health Record ---
Author Organization [facility] Address [address] [place] [address] Care Team Providers Care Appraiser Real Estate Name Role Phone Ambrose PYLE, Padmini Primary Care Provider Ta Staley Unavailable [phone] Allergies Allergen (clinical drug ingredient) Drug/Non Drug [...] Problem Status W/U Status Risk Notes Problem 56880762 Epigastric abdominal pain (R10.13) Active confirmed Problem 320741164 Encounter for screening for malignant neoplasm of colon (Z12.11) Active confirmed Problem 357777036 History of adenomatous polyp of colon (Z86.010) Active confirmed Problem Screening for malignant neoplasm of rectum (936426466) Encounter for screening for malignant neoplasm of rectum (Z12.12) Active confirmed Problem 15778024 Abdominal pain, epigastric (R10.13) Active confirmed Problem 260525938 Abdominal pain, generalized (R10.84) Active confirmed Problem 53973639 Irritable bowel syndrome, unspecified type (K58.9) Active confirmed Problem 26041181 Irritable bowel syndrome with both constipation and [...] Start Date Coverage End Date [facility] [address] [address] [place] [address] [id number] NASRIN SULEMA Self - patient is the insured Medical (General) History Medical History History ICD Code Denies [place],DM,CVA,renal disease. Arthritis COPD HTN EGD in 12/2010 [...] Having an ETT/Echo with Dr. Ledesma at [facility] on 10/18/2021 Surgical History Surgery Date(Month/Year) Elbow surgery bilateral Lap cholecystectomy--Dr. Parrish 10/2013-- acalculous cholecystitis
--- OUTSIDE RECORDS SUMMARY | 2025-01-02 09:45 | XMS_ITS | Patient Health Record ---
[facility] Organization [facility] Address [address] [facility] [place] [address] Care Team Providers Care Utilization Reviewer Name Role Phone Ambrose PYLE, Padmini Waters Primary Care Provider Un available Shyam Rae Unavailable [phone] Allergies Allergen (clinical drug ingredient) Drug/Non Drug [...] primary osteoarthritis of the ankle and/or foot ([id number]) Primary osteoarthrit is, right ankle and foot (M19.071) Active confirmed Problem Localized, primary osteoarthritis of the ankle and/or foot (212936012) Primary osteoarthrit is, left ankle and foot (M19.072) Active confirmed Plan Of Treatment Pending Test Test Name Order Date X ray : Foot, left 3V 03/09/2022 X ray : Foot, right 3V 03/09/2022 Insurance Providers Payer Name Payer Address Payer Phone Subscriber Number Group Number Insured Name Patient Relationship to Insured Coverage Start Date Coverage End Date [id number] [address] [address] [place] [address] [phone] [id number] Diane Travis Self - patient is the insured Medical (General) History Medical History History ICD Code osteoarthritis Back,Hip,and Knee pain Broken bones CAD (Cholesterol) Gall bladder problems High blood pressure Numbness Osteoporosis Sciatica thyroid Measles Mumps Chicken pox Joint implants/screws Neuropathy Surgical History Surgery Date(Month/Year) left arm surgery 1999 right arm surgery 2004
--- OUTSIDE RECORDS SUMMARY | 2025-01-02 09:45 | XMS_ITS | Clinical Summary ---
Author Organization [address] [place] [address] [place] [phone] Phone Care Team Providers Care Beading Installer Name Role Phone Padmini Boggs MD Primary Care Provider [phone] Allergies Active Allergy Reactions Criticality Noted Date [...] Noted Date Diagnosed Date Paroxysmal atrial fibrillation ([facility] V24, [facility] V28) 09/29/2022 Overview (06/05/2024): - [...] if she has any prolonged palpitations. Her [id number] score is 3 (age, female gender, hypertension) [...] her feet. She has been seeing her information systems architect, they tried bilateral hip bursa injections in [...] in office blood pressures. Carotid artery disease ([facility] V24) 11/09/2020 Overview (06/05/2024): - [...] Type Department Care Team Description 12/11/[address] [phone] Carol Allan PA 12/02/2024 11:30 AM EDT Treatment [address] [phone] Lyla Gonzalez PT Lumbar spondylosis (Primary Dx) 11/26/[address] [phone] Ashley Moody MA 11/22/[address] [phone] Ashley Moody MA 11/20/2024 11:30 AM EDT Treatment [address] [phone] Lyla Gonzalez PT Lumbar spondylosis (Primary Dx) 11/14/2024 10:00 AM EDT Office Visit Orthopedics [address] [phone] Ruperto Art PA Tendinopathy of left gluteus medius (Primary Dx); Left hip pain 11/06/2024 10:00 AM EDT Treatment [facility] [address] [phone] Lyla Gonzalez, PT Lumbar spondylosis (Primary Dx) 10/30/2024 12:30 PM EDT Treatment [facility] [address] [phone] Lyla Gonzalez, PT Lumbar spondylosis (Primary Dx) 10/16/2024 Telephone [facility] [address] [facility] [address] [place] [phone] Leonor Kruger NP 10/04/2024 Telephone [facility] [place] [facility] [place] 175 [facility] [address] [place] [phone] Dakota Maria PA 10/03/2024 9:34 AM EDT - 10/03/2024 11:59 PM EDT Hospital Encounter [facility] [address] [place] [phone] Left hip pain Discharge Disposition: Home or Self Care from Last 3 Months Surgical History Surgery [...] 03/26/2022 Hypertension/CHF/CAD Annual BMP Blood Test 04/03/2022 Depression Screening 04/24/2024 DTaP,Tdap,and Td Vaccines (2 - Td or Tdap) 09/14/2024 09/14/2014 COVID-19 Vaccine ( - season) 2024 07/15/2022, 09/27/2021, 02/15/2021, Additional history exists Influenza Vaccine (#1) 2024 , 01/25/2023, 02/01/2022, [...] External clinical lab (11/13/2024 3:57 PM EDT) [facility] Provider LAB BLOOD ORDERABLES Edit ed Result [...] Signed Date: 10/04/2024 07:28 ET Workstation ID: [id number] Transcribed By: Self Edit Transcribed Date: 10/04/2024 [...] Signed Date: 10/04/2024 07:28 ET Workstation ID: [id number] Transcribed By: Self Edit Transcribed Date: 10/04/2024 07:22 ET Dakota NGO IMG XR PROCEDURES Final Resul t from Last 3 Months Insurance [employer] MEDICARE Member Subscriber Plan / Payer (Ef fective 2022-Present) Name:DIANE RAM Relation to Subscriber:Self Name:Diane Ram Payer ID:[id number] (NAIC) Group ID:[id number] Type:Not on file Address: [place] [id number] MEDICAID - [place] Care Teams Beading Installer Relationship Specialty Start Date End Date Padmini Boggs MD [address] [place] [address] PCP - General Internal Medicine 11/07/24
== END 2025-01-02 10:17 | disposition home or self-care (01) ==
LOC: HO.HUSH 08:43
PROVIDERS: PCP Internal Medicine; Visit Provider Urology
DX: N81.10 Cystocele, unspecified (principal); R39.14 Feeling of incomplete bladder emptying; R93.89 Abnormal findings on diagnostic imaging of other specified body structures
CPT/HCPCS: 99204

== ENCOUNTER 2025-01-13 09:37 | Outpatient (AMB) | payer OTHER, SELFPAY ==
--- NOTE | 2025-01-13 09:48 | MHC.PC.OV ---
Vital Signs 01/13/25 10:12 Height 5 ft 4 in Weight 147 lb BMI 25.2 BP 140/70 H Blood Pressure Location Lt brachial Position Sitting Respiration 15 Pulse 73 Pulse Source Pulse Oximeter Temp 97.7 F Temp Source Oral Pulse Oximetry (%) 95 Oxygen Delivery Method Room Air Intake Visit Reasons: PE - see comments Intake Note: Pt is here today for her PE: Last mammogram 12/19/24, colonoscopy 03/08/23 Allergies ciprofloxacin Adverse Reaction (Unknown, Verified 01/13/25 10:28) pulled muscle doxycycline Adverse Reaction (Unknown, Verified 01/13/25 10:28) vision changes lisinopril Adverse Reaction (Unknown, Verified 01/13/25 10:28) cough Medication List - Last Reconciled 01/13/25 by Padmini Boggs MD cyclosporine 0.05% (Restasis) 1 drp ophthalmic (eye) BID dicyclomine 10 mg PO ONCE PRN docusate sodium 100 mg PO DAILY estradiol 0.01%(0.1mg/gram) (Estrace) 1 g vaginal 3XW hydrocortisone 2.5% (Proctosol HC) 1 appl OH BID-QID PRN levothyroxine 100 mcg PO DAILY yyurpwof-cpfdujr-dabb-lutein tabs PO nabumetone 500 mg PO .qOD PRN olmesartan 10 mg (2 x 5 mg) PO DAILY pantoprazole 40 mg PO DAILY 30 days pitavastatin calcium (Livalo) mg PO timolol maleate 0.5% 1 drp ophthalmic (eye) QAM Tobacco use date assessed: 01/13/25 Fall risk assessment: No Falls in past year Last assessed Fall Risk: 01/13/25 Dental Screening Dental Screen Date: 01/13/25 Did you have a dental visit in the last 12 months?: No Did you have a dental problem in the last 6 months where you did not have access to dental care?: No Was dental information given to patient?: Patient has dentist HPI PE - see comments HPI Details 74-year-old lady with past medical history significant for Hypothyroidism, Hypertension, Hyperlipidemia, history of Lumbar spondylosis, osteoarthritis, and Paroxysmal Atrial fibrillation with CHADS2 vascular score of 3 but declined manager machine recommendation of anticoagulate or having the Watchman procedure here today for her physical exam. She is up-to-date with her breast cancer screening, with last mammogram done 12/19/2024 with negative findings <del>Had</del> <del>a</del> <del>screening</del> <del>colonoscopy</del> <del>done</del> <del>by</del> <del></del> <del>Rober</del> <del>in</del> <del>2022</del> <del>which</del> <del>showed</del> <del>presence</del> <del>of</del> <del>internal</del> <del>hemorrhoids</del> <del>and</del> <del>a</del> <del>tortuous</del> <del>colon,</del> <del>repeat</del> <del>colonoscopy</del> <del>recommended</del> <del>to</del> <del>be</del> <del>done</del> <del>in</del> <del>10</del> <del>years</del> Still having nonspecific lower abdominal pain, has been found to have some pelvic organ prolapse and abnormal fluid collection in pelvic area noted on ultrasound. He has been seen by Urology who referred her to urogynecology but patient states that do 1 in [facility] is out of network. 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 Keratoconjunctivitis sicca Spinal stenosis of lumbar region with radiculopathy Paroxysmal atrial fibrillation Left lumbar radiculopathy IBS (irritable bowel syndrome) Dyslipidemia Essential hypertension Osteoarthritis involving multiple joints on both sides of body Acquired hypothyroidism Surgical History History of esophagogastroduodenoscopy (EGD) Hx of colonoscopy History of elbow surgery Hx of cholecystectomy History of fracture of forearm Family History Father Myocardial infarction Mother HTN (hypertension) Hyperlipidemia Pancreatic cancer Maternal Grandmother Unknown family medical history Brother No problems noted. Son No problems noted. Maternal Uncle Colon cancer Social History Household Members: None Housing: Apartment Alcohol intake: current Alcohol intake frequency: a few times a month Patient Tobacco Use Status: Former Tobacco user Years Smoked: 2 yrs e-Cigarette/Vaping Use: Never Used Second Hand Smoke Exposure: No service: No Current occupational status: retired Current occupation: left handed Current occupational exposures/hazards: No Cognitive needs: No Hearing needs: No Vision needs: Yes (glasses/contacts) Questionnaire PHQ-9 Over the last 2 weeks, how often have you been bothered by any of the following problems? 1. Little interest or pleasure in doing things: not at all 2. Feeling down, depressed, or hopeless: not at all 3. Trouble falling or staying asleep, or sleeping too much: not at all 4. Feeling tired or having little energy: not at all 5. Poor appetite or overeating: not at all 6. Feeling bad about yourself - or that you are a failure or have let yourself or your family down: not at all 7. Trouble concentrating on things, such as reading the newspaper or watching television: not at all 8. Moving or speaking so slowly that other people could have noticed. Or the opposite - being so fidgety or restless that you have been moving around a lot more than usual: not at all 9. Thoughts that you would be better off or of hurting yourself in some way: not at all Total score: 0 Depression Screening Interpretation: Negative Depression Screening Done: Yes 92672 - PHQ-9 Billing: Yes Source: Developed by Drs. Ta Renee, Meagan Olivarez, Jose David Howard and colleagues, with an educational allyn from [employer]. Thrive Questionnaire Date Thrive assessed: 01/06/25 I am a: Patient What is your living situation today?: I have a steady place to live Within the past 12 months, did you worry whether your food would run out before you got money to buy more?: Never true Do you have trouble paying for medicines?: No Do you have trouble paying your heating and electricity bill?: No Do you have trouble taking care of your child, family member or friend?: No Do you have trouble with day-to-day activities such as bathing, preparing meals, shopping, managing finances, etc.?: No Are you currently unemployed and looking for a job?: No Are you interested in more education?: No Please select the resources that you would like help with: None Currently or been in a relationship where the following occur: No concerns reported THRIVE Score: 0 AUDIT C Alcohol Use Questionnaire (AUDIT-C) 1. How often do you have a drink containing alcohol?: Never 2. How many drinks containing alcohol do you have on a typical day when you are drinking?: 1 or 2 3. How often do you have six or more drinks on one occasion?: Never Total Score: 0 PROMISE-7 AMB Questionnaire PROMISE-7 Date PROMISE - 7 assessed: 01/13/25 Feeling nervous, anxious, or on edge: 0 = Not at all Not being able to stop or control worryin = Not at all Worrying too much about different things: 0 = Not at all Trouble relaxin = Not at all Being so restless that it is hard to sit still: 0 = Not at all Becoming easily annoyed or irritable: 0 = Not at all Feeling afraid as if something awful might happen: 0 = Not at all Total PROMISE-7 score (0-4 normal; 5-9 mild; 10-14 moderate; 15-21 severe): 0 Source: Developed by Drs. Ta Renee, Meagan Olivarez, Jose David Howard and colleagues, with an educational allyn from [employer]. PROMISE-7 Assessment Billing PROMISE-7 Assessment Tool: PROMISE-7 Assessment 10078 Review of Systems Const All systems reviewed & are unremarkable except as noted in HPI and below Reports no additional complaints Eyes Reports no additional complaints ENT Reports no additional complaints and Reports Normal hearing present Card Reports no additional complaints Resp Reports no additional complaints GI Reports abdominal pain (Lower abdominal pain), Reports bloating, Denies change in bowel habits and Reports heartburn (Takes pantoprazole) Reports as per HPI Musc Reports no additional complaints Skin/Breast Reports system reviewed and no additional complaints, except as documented Neuro Reports no additional complaints and Reports Normal hearing present Psych Reports no additional complaints Endo Reports no additional complaints Abelino/Lymph Reports no additional complaints Aller/Immun Reports no additional complaints Physical exam (Primary Care) Vital Signs: Last Vital Signs Temp 97.7 F 01/13/25 10:12 Pulse 73 01/13/25 10:12 Resp 15 01/13/25 10:12 BP 140/70 H 01/13/25 10:12 Pulse Ox 95 01/13/25 10:12 Oxygen Delivery Method Room Air 01/13/25 10:12 BMI result Body Mass Index 25.2 Tobacco/Smoking Status: Tobacco use Status Tobacco use date assessed 01/13/25 01/13/25 10:09 Patient Tobacco Use Status Former Tobacco user 01/13/25 09:48 e-Cigarette/Vaping Use Never Used 01/13/25 09:48 Depression Screening Interpretation: Negative Thrive Assessment: Date of Thrive Assessment Date Thrive assessed 01/06/25 01/13/25 09:48 Currently or been in a relationship where the following occur: No concerns reported Const Other: Alert oriented x3, no acute cardiorespiratory distress noted, normal gait Orientation/consciousness: patient oriented x3 HENMT Head: Yes normocephalic Ears: external ears normal Mouth: Normal oral and palatal mucosa present, oropharynx normal and moist mucous membranes Eyes Pupils: Equal, round and reactive pupils present EOM: EOMs intact bilaterally Neck Neck: Yes full ROM, Yes no lymphadenopathy and Yes supple Thyroid: Thyroid normal Resp Auscultation: clear to auscultation bilaterally Cardio Rate: regular rate Rhythm: regular rhythm Heart sounds: S1 normal heart sound present and S2 normal heart sound present GI Palpation (GI): Soft to palpation, Tenderness to palpation present (GI) (Lower quadrants of abdomen right more than the left), no guarding and no masses Auscultation: normal bowel sounds General: Yes no CVA tenderness Back/Spine/Pelvis Back: no CVA tenderness and No back tenderness Thoracic/Lumbar Spine: straight leg raise negative bilaterally and No paraspinal muscle tenderness Skin General skin exam: no rashes or lesions noted Neuro General: patient oriented x3, gait normal, moves all extremities, no focal motor deficits and CN's II-XI intact bilaterally Cranial nerves: Yes Equal, round and reactive pupils present and Yes Normal hearing present Extrem General: Yes full ROM, Yes no joint enlargement, Yes no clubbing, cyanosis or edema and Yes normal gait Psych Appearance: grossly normal and well kempt Speech and movement: Normal speech and movement present Affect: Anxious affect present Results Reviewed Results Reviewed: Name: Diane Ram Age/Sex: 74/F : 1950 Unit#: [id number] Attend Dr: AVELINA AWAN MALT LOADER Re11/13/24 Status: DEP [facility] Disch: SPEC : [id number] MELLY: 11/13/24 STATUS: COMP REQ : [id number] RECD: 11/13/[address]: AVELINA AWAN MALT LOADER COMP: 11/13/24 ENTERED: 11/13/[address]: Padmini Boggs MD ORDERED: Lipid Panel Test Result Flag Reference Triglyceride 81 <150 mg/dL Desirable Triglyceride: less than 150 mg/dL Borderline High Triglyceride 150-199 mg/dL High Triglyceride: 200-499 mg/dL Very High Triglyceride: greater than or equal to 5OO mg/dL Cholesterol 157 <200 mg/dL Desirable Cholesterol: less than 200 mg/dL Borderline High Cholesterol: 200-239 mg/dL High Cholesterol: greater than 239 mg/dL LDL Calculated 72 <100 mg/dL Desirable LDL: less than 100 mg/dL Near Optimal/Above Optimal LDL: 110-129 mg/dL Borderline High LDL: 130-159 mg/dL High LDL: 160-189 mg/dL Very High LDL: greater than or equal to 190 mg/dL HDL 69 >40 mg/dL Desirable HDL: greater than 40 mg/dL Note: This HDL assay may give artificially low results in patients with liver disease. Laboratory Tests 10/18/24 09:21 Vitamin B12 679 25-OH Vitamin D Total 40 Folate 13.5 Name: Diane Ram Age/Sex: 74/F : 1950 Unit#: [id number] Attend Dr: Ashley Thomas AUTOMATION MACHINE OPERATOR-BC Re10/18/24 Status: DEP [facility] Disch: SPEC : [id number] MELLY: 10/18/24 STATUS: COMP REQ : [id number] RECD: 10/18/[address]: Ashley Thomas AUTOMATION MACHINE OPERATOR-BC COMP: 10/18/24 ENTERED: 10/18/[address] [facility] [address]: Padmini Boggs MD ORDERED: CBC No Diff Test Result Flag Reference WBC 7.8 4.8-10.8 X10*3/uL RBC 4.34 4.20-5.50 X10*6/uL HGB 13.2 12.0-16.0 g/dl HCT 38.9 37.0-47.0 % MCV 89.6 80.0-98.0 fL MCH 30.4 27.0-33.0 pg MCHC 33.9 31.0-35.0 g/dl RDW 12.6 11.0-16.0 % PLT 299 160-400 X10*3/uL MPV 9.5 9.4-12.3 fL NRBC Pct Auto 0.0 0.0-0.2 /100WBC NRBC Abs Auto 0.000 0.0-0.012 X10*3/uL Laboratory Tests 01/14/25 08:15 TSH 0.37 Free T4 1.37 Free T3 3.4 Coding Level of Care Code Est Pt Prev Care >65y(73463) Diagnoses Acquired hypothyroidism E03.9 Essential hypertension I10 Paroxysmal atrial fibrillation I48.0 Dyslipidemia E78.5 Keratoconjunctivitis sicca H16.229 Esophagitis determined by biopsy K20.90 Irritable bowel syndrome with diarrhea K58.0 Irritable bowel syndrome type: with diarrhea Abnormal collection of fluid in uterine cavity N85.8 Advance directive discussed with patient Z71.89 Annual visit for general adult medical examination with abnormal findings Z00.01 Additional Codes PROMISE-7 Assessment Billing - PROMISE-7 Assessment Tool: PROMISE-7 Assessment 43536 ([id number]) PHQ-9 - 43809 - PHQ-9 Billing: Yes ([id number]) Assessment & Plan Assessment & Plan (1) Acquired hypothyroidism: Code(s): E03.9 - Hypothyroidism, unspecified Category: Medical Plan: Currently on levothyroxine 100 mcg daily, last labs showed thyroid levels are within normal limits (2) Essential hypertension: Code(s): I10 - Essential (primary) hypertension Category: Medical Plan: Blood pressure at goal of less than 130/80. Continue olmesartan 10 mg daily Reinforced importance of following a low sodium diet, getting regular exercise, and lowering stress levels. (3) Paroxysmal atrial fibrillation: Comment: Declines anticoagulation, or Watchman procedure as recommended by Dr. Ledesma Code(s): I48.0 - Paroxysmal atrial fibrillation Category: Medical Plan: Declines anticoagulation, or Watchman procedure as recommended by manager machine, Dr. Ledesma (4) Dyslipidemia: Code(s): E78.5 - Hyperlipidemia, unspecified Category: Medical Plan: Reviewed recent fasting lipid profile with patient with levels within normal limits . Continue pitavastatin , in addition to adherence to low-cholesterol diet and regular exercise, at least 30 minutes 3 to 4 times a week. Advised patient to make healthy food choices, eat more fruits, vegetables, whole grains, wild caught fish and low-fat dairy. Limit amount of meat and fried or fatty food products, as well as processed foods and fast foods. Follow-up scheduled with repeat fasting lipid panel in 3 months. (5) Keratoconjunctivitis sicca: Comment: Followed at [facility] Code(s): H16.229 - Keratoconjunctivitis sicca, not specified as Sjogren's, unspecified eye Category: Medical Plan: Followed by ophthalmology , currently using Restasis (6) Esophagitis determined by biopsy: Code(s): K20.90 - Esophagitis, unspecified without bleeding Category: Medical Plan: Continued on pantoprazole (7) IBS (irritable bowel syndrome): Code(s): K58.9 - Irritable bowel syndrome, unspecified Category: Medical Qualifiers: Irritable bowel syndrome type: with diarrhea Qualified Code(s): K58.0 - Irritable bowel syndrome with diarrhea Plan: Continue dicyclomine refill sent (8) Abnormal collection of fluid in uterine cavity: Code(s): N85.8 - Other specified noninflammatory disorders of uterus Category: Medical Plan: Referred to urogynecology (9) Advance directive discussed with patient: Code(s): Z71.89 - Other specified counseling Plan: Initiated the conversation about Advanced Directives. Advanced Directives help patients prepare for current and future decisions about their medical treatment and place of care. Discussed with patient that it is a process where a patients current condition and prognosis are reviewed, their wishes for information regarding their illness are elicited, and likely medical dilemmas are presented and options discussed. Healthcare proxy form completed today. The form can be amended as needed, reviewed yearly and make changes as needed (10) Annual visit for general adult medical examination with abnormal findings: Code(s): Z00.01 - Encounter for general adult medical examination with abnormal findings Plan: Will check appropriate labs. Discussed other recent fasting labs with patient. Recommended dental visit every 6 months and regular eye exams, at least every 2 years. Take adequate calcium in diet and vitamin-D 3 at 2000 IU per cap once a day, in addition to weight-bearing exercises to help maintain good muscle tone and weight control. Instructed to do self-breast exam, and continue to get yearly mammogram, starting at age 40.Had a screening colonoscopy done by Dr. Richter in 2022 which showed presence of internal hemorrhoids and a tortuous colon, repeat colonoscopy recommended to be done in 10 years . Reminded to get her yearly flu shot, up-to-date with the rest of her vaccines Orders: Orders Basic Metabolic Panel Fasting 01/14/25 Padmini Boggs MD E03.9 - Hypothyroidism, unspecified, I10 - Essential (primary) hypertension Triiodothyronine T3 Free 01/14/25 Padmini Boggs MD E03.9 - Hypothyroidism, unspecified, I10 - Essential (primary) hypertension Thyroid Stimulating Hormone 01/14/25 Padmini Boggs MD E03.9 - Hypothyroidism, unspecified, I10 - Essential (primary) hypertension Free T4 (Free Thyroxine) 01/14/25 Padmini Boggs MD E03.9 - Hypothyroidism, unspecified, I10 - Essential (primary) hypertension Medications: Changed From dicyclomine 10 mg PO TID 270 caps 0RF To dicyclomine 10 mg PO ONCE PRN Christal Magallon PA-C
[2025-01-13 10:12] VITALS: BP 140/70; PULSE 73; RESP 15; TEMP 36.5; O2SAT 95; BMI 25.2
--- OUTSIDE RECORDS SUMMARY | 2025-01-13 11:20 | XMS_ITS | Patient Health Record ---
Author Organization [facility] Address [address] [place] [address] Care Team Providers Care Dry Mill Worker Name Role Phone Ambrose PYLE, Padmini Primary Care Provider Ta Staley Unavailable [phone] Allergies Allergen (clinical drug ingredient) Drug/Non Drug [...] Problem Status W/U Status Risk Notes Problem 32328587 Epigastric abdominal pain (R10.13) Active confirmed Problem 177759986 Encounter for screening for malignant neoplasm of colon (Z12.11) Active confirmed Problem 823387175 History of adenomatous polyp of colon (Z86.010) Active confirmed Problem Screening for malignant neoplasm of rectum (552711113) Encounter for screening for malignant neoplasm of rectum (Z12.12) Active confirmed Problem 29508142 Abdominal pain, epigastric (R10.13) Active confirmed Problem 101133073 Abdominal pain, generalized (R10.84) Active confirmed Problem 49191552 Irritable bowel syndrome, unspecified type (K58.9) Active confirmed Problem 95251579 Irritable bowel syndrome with both constipation and [...] Insured Coverage Start Date Coverage End Date [facility] [address] [address] [place] [address] [id number] NASRIN SULEMA Self - patient is the [...] Having an ETT/Echo with Dr. Ledesma at [place] on 10/18/2021 Surgical History Surgery Date(Month/Year) Elbow surgery bilateral Lap cholecystectomy--Dr. Parrish 10/2013-- acalculous cholecystitis
--- OUTSIDE RECORDS SUMMARY | 2025-01-13 11:20 | XMS_ITS | Clinical Summary ---
Author Organization [address] [place] [address] [place] [address] Phone Care Team Providers Care Education Teacher Name Role Phone Padmini Boggs MD Primary Care Provider [phone]- [phone] Allergies Active Allergy Reactions Criticality Noted Date [...] Noted Date Diagnosed Date Paroxysmal atrial fibrillation ([facility] V24, [facility] V28) 09/29/2022 Overview (06/05/2024): - noted on [...] if she has any prolonged palpitations. Her NCR8VV3-EZBu score is 3 (age, female gender, hypertension) [...] her feet. She has been seeing her director traffic and planning, they tried bilateral hip bursa injections in [...] in office blood pressures. Carotid artery disease ([facility] V24) 11/09/2020 Overview (06/05/2024): - <50% stenosis [...] Type Department Care Team Description 12/11/[address] [address] Carol Allan PA 12/02/2024 11:30 AM EDT Treatment [address] [address] Lyla Gonzalez PT Lumbar spondylosis (Primary Dx) 11/26/[address] [address] Ashley Moody MA 11/22/[address] [address] Ashley Moody MA 11/20/2024 11:30 AM EDT Treatment [address] [address] Lyla Gonzalez PT Lumbar spondylosis (Primary Dx) 11/14/2024 10:00 AM EDT Office Visit Orthopedics [address] [address] Ruperto Art PA Tendinopathy of left gluteus medius (Primary Dx); Left hip pain 11/06/2024 10:00 AM EDT Treatment [facility] [address] [phone] Lyla Gonzalez, PT Lumbar spondylosis (Primary Dx) 10/30/2024 12:30 PM EDT Treatment [facility] [address] [phone] Lyla Gonzalez, PT Lumbar spondylosis (Primary Dx) 10/16/2024 Telephone [facility] [address] 300 [facility] 102 [place] [address] Leonor Kruger NP from Last 3 Months Surgical History Surgery [...] or Tdap) 09/14/2024 09/14/2014 COVID-19 Vaccine ( season) 2024 07/15/2022, 09/27/2021, 02/15/2021, Additional history exists Influenza Vaccine (#1) 2024 , 01/25/2023, 02/01/2022, Additional history exists RSV Immunization Adult Patients (1 - 1-dose 75+ series) 2026 Zoster Vaccines Completed 01/03/2022, 2 12/2021, 05/31/2013 Pneumococcal Vaccine: 50+ Years Completed 04/10/2024, [...] CLINICAL LAB Routine 11/13/2024 3:57 PM EDT from Last 3 Months Results * External clinical lab (11/13/2024 3:57 PM EDT) us Historical Provider LAB BLOOD ORDERABLES Edit ed Result - Final from Last 3 Months Insurance [employer] MEDICARE MEDICAID - [place] Care Teams Education Teacher Relationship Specialty Start Date End Date Padmini Boggs MD [address] [place] [address] PCP - General Internal Medicine 11/07/24
== END 2025-01-13 11:02 | disposition home or self-care (01) ==
LOC: HO.HMCC 09:37
PROVIDERS: PCP Internal Medicine; Visit Provider Internal Medicine
DX: Z00.00 Encounter for general adult medical examination without abnormal findings (principal); I48.0 Paroxysmal atrial fibrillation; I10 Essential (primary) hypertension; E03.9 Hypothyroidism, unspecified; E78.5 Hyperlipidemia, unspecified; H16.229 Keratoconjunctivitis sicca, not specified as Sjogren's, unspecified eye; K20.90 Esophagitis, unspecified without bleeding; K58.0 Irritable bowel syndrome with diarrhea; N85.8 Other specified noninflammatory disorders of uterus; Z71.89 Other specified counseling

== ENCOUNTER → 2025-01-13 09:37 | Outpatient (BNVA) | payer OTHER, SELFPAY | PROVIDERS: PCP Internal Medicine; Visit Provider Internal Medicine | DX: Z00.01 Encounter for general adult medical examination with abnormal findings (principal); E78.5 Hyperlipidemia, unspecified; E03.9 Hypothyroidism, unspecified; I10 Essential (primary) hypertension; R10.30 Lower abdominal pain, unspecified; I48.0 Paroxysmal atrial fibrillation; H16.229 Keratoconjunctivitis sicca, not specified as Sjogren's, unspecified eye; K20.90 Esophagitis, unspecified without bleeding; K58.0 Irritable bowel syndrome with diarrhea; N85.8 Other specified noninflammatory disorders of uterus; Z71.89 Other specified counseling | CPT/HCPCS: 96127; 99397 ==

== ENCOUNTER 2025-01-14 07:58 | Outpatient (REF) | payer OTHER, SELFPAY ==
--- OUTSIDE RECORDS SUMMARY | 2025-01-14 08:03 | XMS_ITS | Patient Health Record ---
Author Organization [facility] Address [address] [place] [address] Care Team Providers Care Professor Of Literacy Name Role Phone Ambrose PYLE, Padmini Primary Care Provider Ta Staley Unavailable [phone] Allergies Allergen (clinical drug ingredient) Drug/Non Drug [...] Problem Status W/U Status Risk Notes Problem 86717441 Epigastric abdominal pain (R10.13) Active confirmed Problem 169009101 Encounter for screening for malignant neoplasm of colon (Z12.11) Active confirmed Problem 759547075 History of adenomatous polyp of colon (Z86.010) Active confirmed Problem Screening for malignant neoplasm of rectum (215854164) Encounter for screening for malignant neoplasm of rectum (Z12.12) Active confirmed Problem 89762470 Abdominal pain, epigastric (R10.13) Active confirmed Problem 947721032 Abdominal pain, generalized (R10.84) Active confirmed Problem 80912703 Irritable bowel syndrome, unspecified type (K58.9) Active confirmed Problem 09484543 Irritable bowel syndrome with both constipation and [...] Insured Coverage Start Date Coverage End Date [facility] [address] [address] [place] [address] [id number] NASRIN SULEMA Self - patient is the [...] Having an ETT/Echo with Dr. Ledesma at [facility] on 10/18/2021 Surgical History Surgery Date(Month/Year) Elbow surgery bilateral Lap cholecystectomy--Dr. Parrish 10/2013-- acalculous cholecystitis
--- OUTSIDE RECORDS SUMMARY | 2025-01-14 08:03 | XMS_ITS | Clinical Summary ---
Author Organization [address] [place] [address] [place] [address] Phone Care Team Providers Care Longwall Machine Operator Helper Name Role Phone Padmini Boggs MD Primary Care Provider [phone]- [phone] Allergies Active Allergy Reactions Criticality Noted Date [...] Noted Date Diagnosed Date Paroxysmal atrial fibrillation ([facility] V24, [facility] V28) 09/29/2022 Overview (06/05/2024): - noted on [...] if she has any prolonged palpitations. Her SIH5QC3-RQQi score is 3 (age, female gender, hypertension) [...] her feet. She has been seeing her paste up copy camera operator, they tried bilateral hip bursa injections [...] in office blood pressures. Carotid artery disease ([facility] V24) 11/09/2020 Overview (06/05/2024): - <50% stenosis [...] Type Department Care Team Description 12/11/[address] [address] Carol Allan PA 12/02/2024 11:30 AM EDT Treatment [address] [address] Lyla Gonzalez PT Lumbar spondylosis (Primary Dx) 11/26/[address] [address] Ashley Moody MA 11/22/[address] [address] Ashley Moody MA 11/20/2024 11:30 AM EDT Treatment [address] [address] Lyla Gonzalez PT Lumbar spondylosis (Primary Dx) 11/14/2024 10:00 AM EDT Office Visit Orthopedics [address] [address] Ruperto Art PA Tendinopathy of left gluteus medius (Primary Dx); Left hip pain 11/06/2024 10:00 AM EDT Treatment [facility] [address] [phone] Lyla Gonzalez, PT Lumbar spondylosis (Primary Dx) 10/30/2024 12:30 PM EDT Treatment [facility] [address] [phone] Lyla Gonzalez, PT Lumbar spondylosis (Primary Dx) 10/16/2024 Telephone [facility] [address] 300 [facility] 102 [place] [address] Leonor Kruger NP from [...] HEALTHCARE MEDICARE [place]ICAID - [place] Care Teams Longwall Machine Operator Helper Relationship Specialty Start Date End Date Padmini Boggs MD [address] [place] [address] PCP - General Internal Medicine 11/07/24
--- OUTSIDE RECORDS SUMMARY | 2025-01-14 08:03 | XMS_ITS | Patient Health Record ---
[facility] Address [address] [place] [address] Care Team Providers Care System Support Analyst Name Role Phone Ambrose PYLE, Padmini Waters Primary Care Provider Un available Shyam Rae Unavailable [phone] Allergies Allergen (clinical drug ingredient) Drug/Non Drug [...] primary osteoarthritis of the ankle and/or foot (568598056) Primary osteoarthrit is, right ankle and foot (M19.071) Active confirmed Problem Localized, primary osteoarthritis of the ankle and/or foot (704574386) Primary osteoarthrit is, left ankle and foot (M19.072) Active confirmed Plan Of Treatment Pending Test Test Name Order Date X ray : Foot, left 3V 03/09/2022 X ray : Foot, right 3V 03/09/2022 Insurance Providers Payer Name Payer Address Payer Phone Subscriber Number Group Number Insured Name Patient Relationship to Insured Coverage Start Date Coverage End Date [facility] [address] [place] [address] [phone] [id number] Diane Travis Self - patient is the insured Medical (General) History Medical History History ICD Code osteoarthritis Back,Hip,and Knee pain Broken bones CAD (Cholesterol) Gall bladder problems High blood pressure Numbness Osteoporosis Sciatica thyroid Measles Mumps Chicken pox Joint implants/screws Neuropathy Surgical History Surgery Date(Month/Year) left arm surgery 1999 right arm surgery 2004
[2025-01-14 12:44] LABS: Free T4 (Free Thyroxine) 1.37 ng/dL (0.71-1.85); Thyroid Stimulating Hormone 0.37 uIU/mL (0.32-4.0)
[2025-01-14 12:50] LABS: Anion Gap 13 (12-20)
[2025-01-14 12:52] LABS: Blood Urea Nitrogen 21 mg/dL (9-16); Calcium 10.4 mg/dL (8.4-10.2); Carbon Dioxide 27 mmol/L (22-29); Chloride 104 mmol/L (96-108); Estimated Glomerular Filt Rate > 60; Potassium 4.3 mmol/L (3.3-5.1); Sodium 140 mmol/L (135-145)
== END 2025-01-14 07:59 | disposition home or self-care (01) ==
LOC: HO.HMGCLDS 07:58
PROVIDERS: PCP Internal Medicine; Visit Provider Internal Medicine
DX: I10 Essential (primary) hypertension (principal); E03.9 Hypothyroidism, unspecified
CPT/HCPCS: 36415; 80048; 84439; 84443; 84481

== ENCOUNTER 2025-02-27 11:10 | Outpatient (REF) | payer OTHER, SELFPAY ==
--- OUTSIDE RECORDS SUMMARY | 2025-02-21 22:59 | XMS_ITS | Continuity of Care Document ---
Author Organization [facility] Address [address] [place] [address], [address] [place] [address]- Care Team Providers Care Rubber Press Operator Name Role Phone Jan PYLE, Aram Buenrostro Primary Care Physician [id number] - [facility] Can[facility]an[facility] [address] [place] [address], [address] [place] [address]- Attending Physician: Not on Staff, Attending MD Admitting Physician: Not on Staff, Admitting MD Referring Physician: Ambrose PYLE , Padmini Martinez Encounter Type: Pre-OutPatient One Time Allergies, Adverse Reactions, Alerts Substance Criticality Severity Reaction Reaction Severity Status lisinopril cough Active Percocet-5/325 Activ e Medications Advair 250 mcg-50 mcg Inhaler Inhalation, 2 times a day, Maintenance, 02/13/13 11:17:09 AM EDT Start Date: 02/13/13 Status: Ordered Medication Dispense Status: Completed Total Allowed Fills: 1 Fills Dispensed: 0 aspirin 81 mg oral tablet 1 tablet = 81 mg, By Mouth, Daily, 0 Refills, Maintenance, 02/13/13 11:14:55 AM EDT Start Date: 02/13/13 Status: Ordered Medication Dispense Status: Completed Total Allowed Fills: 1 Fills Dispensed: 0 dicyclomine 10 mg oral capsule 2 capsule = 20 mg, By Mouth, 4 times a day, 0 Refills, Maintenance, 04/06/16 11:35:30 AM EST Start Date: 04/06/16 Status: Ordered Medication Dispense Status: Completed Total Allowed Fills: 1 Fills Dispensed: 0 elppa CoQ10 = 50 mg, By Mouth, Daily, 0 Refills, Maintenance, 04/02/14 9:55:41 AM EST Start Date: 04/02/14 Status: Ordered Medication Dispense Status: Completed Total Allowed Fills: 1 Fills Dispensed: 0 levothyroxine 0.1 mg oral tablet 1 tablet = 100 mcg, By Mouth, Daily, 0 Refills, Maintenance, 04/06/16 11:34:16 AM EST Start Date: 04/06/16 Status: Ordered Medication Dispense Status: Completed Total Allowed Fills: 1 Fills Dispensed: 0 losartan 50 mg oral tablet 50 mg, 1, tablet, By Mouth, Daily, # 30 tablet, Refills 0, Maintenance, 04/06/16 11:35:14 AM EST Start Date: 04/06/16 Status: Ordered Medication Dispense Status: Completed Quantity: 30.0 Unit: tablet Total Allowed Fills: 1 Fills Dispensed: 0 Multivitamin Tablet By Mouth, Daily, 0 Refills, Maintenance, 04/08/15 11:38:06 AM EST Start Date: 04/08/15 Status: Ordered Medication Dispense Status: Completed Total Allowed Fills: 1 Fills Dispensed: 0 Nexium 20 mg oral enteric coated capsule 1 capsule = 20 mg, By Mouth, Daily, # 30 capsule, 0 Refills, Maintenance, 04/02/14 9:54:04 AM EST, EC Capsule Start Date: 04/02/14 Status: Ordered Medication Dispense Status: Completed Quantity: 30.0 Unit: capsule Total Allowed Fills: 1 Fills Dispensed: 0 Problem List Condition Confirmation Course Effective Dates Status Health St atus Informant Carotid stenosis Confirmed Active Social History Social History Type Response Smoking Status Former smoker entered on: 04/02/14 Sex Sex Representation Female (finding) Patient Care team information Care Team Personnel Name: Aram Montoya MD Position: [facility] Physician (General Medicine) Member Role: PCP Address: [address] [place] [address] Telecom: Name: Cassi Lantigua RN Position: [facility] RN Member Role: Primary Care Nurse Care Team Related Persons Name: YU ALEXANDRA Name: ARASELI ALEXANDRA Insurance Providers Guarantor name: SULEMA ALEXANDRA Health Plan Information #: 1 Payer: [facility] OPT Payer Identifier: FLYNN Member Number: [id number] Group Number: [id number] Subscriber Identifier: [id number] Relationship to Subscriber: self Coverage Type: Medicare Managed Care (Includes Medicare Advantage Plans) Coverage Verification Date: FLYNN Telecom: FLYNN Address:
--- OUTSIDE RECORDS SUMMARY | 2025-02-21 22:59 | XMS_ITS | Continuity of Care Document ---
Author Organization [facility] Address [address] [place] [address], [address], [place] [address]- Care Team Providers Care Telephone Claims Representative Name Role Phone Jan PYLE, Aram Buenrostro Primary [id number] Date(s): [facility]/22/25 - 02/21/25 [facility] Ladarius CancholaApses [facility] [address] [place] [address], [address] [place], [place] [address] Attending Physician: Carlo Leslie Admitting Physician: Carlo Leslie Referring Physician: Carlo Leslie Encounter Type: Triage Allergies, Adverse Reactions, Alerts Substance Criticality Severity [...] Team Personnel Name: Aram Montoya MD Position: [facility] Physician (General Medicine) Member Role: PCP Address: [address] [place] [address] Telecom: Name: Cassi Lantigua RN Position: [facility] RN Member Role: Primary Care Nurse Care Team Related Persons Name: YU ALEXANDRA Name: ARASELI ALEXANDRA Insurance Providers Guarantor name: SULEMA ALEXANDRA Health Plan Information #: 1 Payer: [facility] OPT Payer Identifier: NA Member Number: [id number] Group Number: [id number] Subscriber Identifier: NA Relationship to Subscriber: self Coverage Type: Medicare Managed Care (Includes Medicare Advantage Plans) Coverage Verification Date: FLYNN Telecom: FLYNN Address:
--- NOTE | ~2025-02-27 | US_ITS ---
CLINICAL HISTORY: N81.10 - Cystocele, unspecified US Renal Comparison: None provided Findings: Right kidney normal size and echotexture, 10.2 cm length. 4 mm upper pole calculus. Left kidney normal size and echotexture, 10.5 cm length. No hydronephrosis or suspicious mass. Normal color Doppler. Urinary bladder is unremarkable. Prevoid volume 423 mL. Postvoid volume 24 mL. Bilateral ureteral jets are visualized. IMPRESSION: Nonobstructing 4 mm upper pole calculus on the right. No suspicious lesion bilaterally. No significant postvoid residual. This document has been electronically signed by: Blaise Alston MD on 02/28/2025 09:52:54
--- OUTSIDE RECORDS SUMMARY | 2025-02-27 13:51 | XMS_ITS | Clinical Summary ---
Author Organization [address] [place] [address] [place] [address] Phone Care Team Providers Care Tree Trimming Line Technician Name Role Phone Padmini Boggs MD Primary Care Provider [phone] Allergies Active Allergy Reactions Criticality Noted Date [...] Noted Date Diagnosed Date Paroxysmal atrial fibrillation ([facility] V24, [facility] V28) 09/29/2022 Overview (06/05/2024): - [...] if she has any prolonged palpitations. Her BEM0HF2-JPIb score is 3 (age, female gender, hypertension) [...] her feet. She has been seeing her injection moulding machine operator, they tried bilateral hip bursa injections [...] in office blood pressures. Carotid artery disease ([facility] V24) 11/09/2020 Overview (06/05/2024): - [...] Type Department Care Team Description 12/11/2024 Telephone [facility] [address] [place] [address] Carol Allan PA 12/02/2024 11:30 AM EDT Treatment [facility] [address] [place] [address] Lyla Gonzalez PT Lumbar spondylosis (Primary Dx) from Last [...] Last Done Comments Breast Cancer Screening 1950 Colorectal Cancer Screening: Colonoscopy 1950 Cholesterol Screening (Lipid Panel) 03/26/2022 Falls Risk Assessment 03/26/2022 Hepatitis C [...] 75+ series) 2026 Zoster Vaccines Completed 01/03/2022, 042 12/2021, 05/31/2013 Pneumococcal Vaccine: 50+ Years Completed [...] HEALTHCARE MEDICARE [place]ICAID - [place] Care Teams Tree Trimming Line Technician Relationship Specialty Start Date End Date Padmini Boggs MD [address] [facility] [place] [address] PCP - General Internal Medicine 11/07/24
--- OUTSIDE RECORDS SUMMARY | 2025-02-27 13:51 | XMS_ITS | Patient Health Record ---
Author Organization [facility] Address [address] [place] [address] Care Team Providers Care Hospitality Associate Name Role Phone Ambrose PYLE, Padmini Waters Primary Care Provider Un available Shyam Silva Unavailable [phone] Allergies Allergen (clinical drug ingredient) Drug/Non Drug [...] Administration Date Status Comme nts COVID-19 Pfizer BioNTFactorli Vaccine Unknown 09/27/2021 Administered 1st 07/08/20 2nd [...] primary osteoarthritis of the ankle and/or foot (796616632) Primary osteoarthrit is, right ankle and foot (M19.071) Active confirmed Problem Localized, primary osteoarthritis of the ankle and/or foot (414821063) Primary osteoarthrit is, left ankle and foot (M19.072) Active confirmed Plan Of Treatment Pending Test Test Name Order Date X ray : Foot, left 3V 03/09/2022 X ray : Foot, right 3V 03/09/2022 Insurance Providers Payer Name Payer Address Payer Phone Subscriber Number Group Number Insured Name Patient Relationship to Insured Coverage Start Date Coverage End Date [facility] [address] [place] [address] [phone] [id number] Diane Travis Self - patient is the insured Medical (General) History Medical History History ICD Code osteoarthritis Back,Hip,and Knee pain Broken bones CAD (Cholesterol) Gall bladder problems High blood pressure Numbness Osteoporosis Sciatica thyroid Measles Mumps Chicken pox Joint implants/screws Neuropathy Surgical History Surgery Date(Month/Year) left arm surgery 1999 right arm surgery 2004
--- OUTSIDE RECORDS SUMMARY | 2025-02-27 13:51 | XMS_ITS | Patient Health Record ---
Author Organization [facility] Address [address] [place] [address] Care Team Providers Care Pit Clerk Name Role Phone Ambrose PYLE, Padmini Primary Care Provider Ta Staley Unavailable [phone] Allergies Allergen (clinical drug ingredient) Drug/Non Drug [...] Once a day; Duration: 30 day(s) Active Dicyclomine HCl 10 MG 1 - 2 capsules Ora lly Four times a day as needed for abdominal pain; Duration: 30 Active Livalo 2 MG 1 tablet Orally Once a day; Duration: 30 day(s) Active Olmesartan Medoxomil 5 MG 1 tablet Orall y Once a day; Duration: 30 day(s) Active Synthroid 100 MCG 1 [...] Once a day; Duration: 30 day(s) Not-Taking Centrum Silver 50+Women - as directed Orally Active Vitamin D 1000 UNIT 1 tablet Orally Once a day Active Tylenol 325 MG 2 capsules as needed Orally every 6 hrs Active Omeprazole 20 MG TAKE 1 CAPSULE BY MOUTH EVERY DAY; Duration: 90 Active Probiotic 1 1 capsule Orally [...] Problem Status W/U Status Risk Notes Problem Epigastric pain (11963316) Epigastric abdominal pain (R10.13) Active confirmed Problem Screening for malignant neoplasm of colon (583856497) Encounter for screening for malignant neoplasm of colon (Z12.11) Active confirmed Problem History of adenomatous polyp of colon (889897876) History of adenomatous polyp of colon (Z86.010) Active confirmed Problem Screening for malignant neoplasm of rectum (187095533) Encounter for screening for malignant neoplasm of rectum (Z12.12) Active confirmed Problem Epigastric pain (27459220) Abdominal pain, epigastric (R10.13) Active confirmed Problem Generalized abdominal pain (812838854) Abdominal pain, generalized (R10.84) Active confirmed Problem Irritable bowel syndrome (64902211) Irritable bowel syndrome, unspecified type (K58.9) Active confirmed Problem Irritable bowel syndrome (41218463) Irritable bowel syndrome with both constipation and [...] Insured Coverage Start Date Coverage End Date [facility] [address] [facility] [address] [place] [address] [id number] SULEMA ALEXANDRA Self - patient is the insured Medical (General) History Medical History History ICD Code Denies CA,DM,CVA,renal disease. Arthritis COPD HTN EGD in 12/2010 [...] Having an ETT/Echo with Dr. Ledesma at [facility] [place] [facility] on 10/18/2021 Surgical History Surgery Date(Month/Year) Elbow surgery bilateral Lap cholecystectomy--Dr. Parrish 10/2013-- acalculous cholecystitis
== END 2025-02-27 11:11 | disposition home or self-care (01) ==
LOC: HO.HMGCX 11:10
PROVIDERS: PCP Internal Medicine; Visit Provider Urology
DX: N81.10 Cystocele, unspecified (principal); R39.14 Feeling of incomplete bladder emptying
CPT/HCPCS: 76770

== ENCOUNTER → 2025-02-27 11:13 | Outpatient (BNV) | payer OTHER, SELFPAY | PROVIDERS: PCP Internal Medicine; Visit Provider Radiology Vascular & Interventional Radiology | DX: N20.0 Calculus of kidney (principal) | CPT/HCPCS: 76770 ==